=== PATIENT | female | born 1990 | race Caucasian/White ===

== ENCOUNTER 2024-12-25 21:21 | Day surgery (SDC) | payer OTHER, SELFPAY ==
--- OUTSIDE RECORDS SUMMARY | 2024-12-25 21:23 | XMS_ITS | Encounter Summary ---
Author Organization [facility] Address [facility] [place] [address] Care Team Providers Care Facilities Mechanical Design Engineer Name Role Phone Clinic - [facility] Primary Ca Provider Yessica Dunbar PA-C Unavailable + [phone] Carolin Flor APRN CERTIFIED LACTATION COUNSELOR Unavailable Lourdes Olmedo [facility] Unavailable Unavail able Diamante Kent PA-C Unavailable Reason for Visit * Reason Onset Date Comments Refill Request 12/04/2024 Encounter Details Date Type Department Care Team (Late st Contact Info) Description 12/04/2024 MyC Ishan Melton [facility] [address] [place] [address] Carolin Flor APRN CERTIFIED LACTATION COUNSELOR [address] [place] [address] Refill Request Social History Tobacco Use Types Packs/Day Years Used Date Smoking Tobacco: Never Alcohol Use Standard Drinks/Week Comments Yes 0 (1 standard drink = 0.6 oz pur e alcohol) PHQ-2 Answer Date Recorded PHQ-2 Score 0 09/14/2024 Comments No Sex and Gender Information Value Date Recorded Sex Assigned at Not on file Legal Sex Female 3:35 AM VP OF GLOBAL MARKETING Gender Identity Not on file Sexual Orientation Not on file documented as of this encounter Miscellaneous Notes * Telephone Encounter - Tona Yancey - 12/06/2024 1:39 PM CDT Pt has been scheduled. Tona Dobson Cushion Installer [facility] documented in this encounter Plan of Treatment Upcoming Encounters Date Type Department Care Team (Late st Contact Info) Description 02/08/2025 8:00 AM CDT Virtual Visit [facility] [place] [address] [place] [address] [address] [place] [id number] Sapna Gaines PA-C [address] [facility] [address] [place], [place] [address] documented as of this encounter Visit Diagnoses Diagnosis Panic attack Panic disorder without agoraphobia Anxiety Anxiety state, unspecified documented in this encounter Care Teams Facilities Mechanical Design Engineer Relationship Specialty Start Date End Date [facility] - [facility] [address] [place] [address] PCP - General 10/13/16 Yessica Dunbar PA-C [address] [place] [address] [address] [place], [place] [address] Physician Electrical Superintendent Surgery 06/22/24 Carolin Flor APRN CERTIFIED LACTATION COUNSELOR [address] [place] [address] Assigned PCP 07/17/24 Lourdes Olmedo [facility] Assigned MTM Pharmacist 07/17/24 Diamante Kent PA-C [facility] [place] [address] Assigned Surgical Provider 09/16/24 documented as of this encounter
--- OUTSIDE RECORDS SUMMARY | 2024-12-25 21:23 | XMS_ITS | Clinical Summary ---
Author Organization [facility] Address [address] [place] [address] Care Team Providers Care Deck And Hull Assembler Name Role Phone Found, No Pcp MD Primary Care Provider Unavailab le Source Comments You are receiving this document as you are listed as the primary care provider,follow-up provider, or the patient has been referred to you for consultation.This is in compliance with the Medicare and[facility] [employer] EHR Incentive Program,which states Providers who transition their patient to another setting of careor provider of care or refers their patient to another provider of care shouldprovide summary care record for each transition of care or referral. [facility] Allergies No known active allergies Medications pseudoephedrine (SUDAFED) 30 MG tablet Take 30 mg by mouth every 4 hours as needed for Congestion. Active Active Problems No known active problems Immunizations Immunization Administration Dates Next Due 4vHPV (Gardasil) 10/04/2009 DTaP 06/24/1996,03/24/1992,1991 ,1991 HepB Ped/Adol (0-18 yrs) 04/18/2005,12/25/2004,0 09/19/2004 MMR 09/19/2004,06/24/1996 Polio, Unspecified Formulation 09/19/2004,1995,1991,1991 Td 09/19/2004 Social History Tobacco Use Types Packs/Day Years Used Date Smoking Tobacco: Never Smokeless Tobacco: Never Alcohol Use Standard Drinks/Week Comments Yes 0 (1 standard drink = 0.6 oz pur e alcohol) Social Occas Comments No Sex and Gender Information Value Date Recorded Sex Assigned at Not on file Legal Sex Female 6:35 AM CDT Gender Identity Not on file Sexual Orientation Not on file Last Filed Vital Signs Vital Sign Reading Time Taken Comments Blood Pressure 130/82 06/02/2017 9:50 AM CDT Pulse 72 06/02/2017 9:50 AM CDT Temperature 37.1 C (98.8 F) 07/28/2008 4:44 PM ORACLE DEVELOPER ORAL C: 37.1 C Respiratory Rate 16 07/28/2008 4:44 PM ORACLE DEVELOPER Oxygen Saturation - - Inhaled Oxygen Concentration - - Weight 120.2 kg (265 lb 1.6 oz) 06/02/2017 9:50 AM CDT Height 160 cm (5' 3) 06/02/2017 9:50 AM CDT Body Mass Index 46.96 06/02/2017 9:50 AM CDT Plan of Treatment Health Maintenance Due Date Last Done Comments Cervical Cancer Screening Due 1991 Hep C Screening (Preventive Services) 1991 DTaP/Tdap/Td Vaccine (5 - Tdap) 09/20/2004 09/19/2004, 06/24/1996, 03/24/1992, Additional history exists HIV Screening (Preventive Services) 2007 Adult Preventive Visit 2009 HPV Vaccine (2 - 3-dose series) 11/01/2009 10/04/2009 COVID-19 Vaccine ( season) 2024 Influenza Vaccine (Season Ended) 2025 Zoster/Shingles Vaccine (1 of 2) 2041 IPV (Polio) Vaccine Completed 09/19/2004, 06/24/1996, 1991, Additional history exists HepB Vaccine Completed 04/18/2005, 10/2004, 09/19/2004 HepA Vaccine Aged Out No longer eligi ble based on patient's age to complete this topic Hib Vaccine Aged Out No longer eligi ble based on patient's age to complete this topic MCV4 Vaccine Aged Out No longer eligi ble based on patient's age to complete this topic Meningococcal B Vaccine Aged Out No l onger eligible based on patient's age to complete this topic Pneumococcal Vaccine Aged Out No long er eligible based on patient's age to complete this topic Insurance [place] [address] [place] [address] Care Teams Deck And Hull Assembler Relationship Specialty Start Date End Date Found, No Pcp, [address] [place] [address] PCP - General 09/22/18
--- OUTSIDE RECORDS SUMMARY | 2024-12-25 21:23 | XMS_ITS | Encounter Summary ---
Author Organization [place] Address [address] [place] [address]. [place] [address] Care Team Providers Care Multiple Tube Winding Machine Operator Name Role Phone Clinic - [facility] Primary Ca re Provider Lourdes Olmedo [facility] Unavailable Unavail able Yessica Dunbar-C Unavailable [phone] Carolin Flor APRN FOREST BOTANY INSTRUCTOR Unavailable [phone] Lourdes Olmedo [facility] Unavailable Unavail able Diamante Kent PA-C Unavailable [phone] Encounter Details Date Type Department Care Team (Late st Contact Info) Description 06/22/2024 MyC Medical Advice [facility] Multiple Specialty [address] [place] [address] Lourdes Olmedo [facility] Social History Tobacco Use Types Packs/Day Years Used Date Smoking Tobacco: Never Alcohol Use Standard Drinks/Week Comments Yes 0 (1 standard drink = 0.6 oz pur e alcohol) PHQ-2 Answer Date Recorded PHQ-2 Score 0 06/22/2024 Comments No Sex and Gender Information Value Date Recorded Sex Assigned at Not on file Legal Sex Female 3:35 AM METALWORKING SPECIALIST Gender Identity Not on file Sexual Orientation Not on file documented as of this encounter Plan of Treatment Upcoming Encounters Date Type Department Care Team (Late st Contact Info) Description 02/08/2025 8:00 AM CDT Virtual Visit [facility] [address] 4th [place] [address] Sapna Gaines PA-C [address] [facility] [address] [place] [address] documented as of this encounter Visit Diagnoses Not on filedocumented in this encounter Care Teams Multiple Tube Winding Machine Operator Relationship Specialty Start Date End Date [facility] - [facility] [address] [place] [address] PCP - General 10/13/16 Lourdes Olmedo [facility] [address] [place] [address] Pharmacist Pharmacist 06/22/24 09/16/24 Yessica Dunbar PA-C [address] [facility] [address] [place] [address] Physician Hot Dimpling Machine Operator Surgery 06/22/24 Carolin Flor APRN FOREST BOTANY INSTRUCTOR [address] [place] [address] Assigned PCP 07/17/24 Lourdes Olmedo [facility] Assigned MTM Pharmacist 07/17/24 Diamante Kent PA-C [address] [place] [address] Assigned Surgical Provider 09/16/24 documented as of this encounter
--- OUTSIDE RECORDS SUMMARY | 2024-12-25 21:23 | XMS_ITS | Clinical Summary ---
Author Organization [place] Address [address] [place] [address] Care Team Providers Care Solid Waste Manager Name Role Phone [facility] Primary Ca re Provider Yessica Dunbar PA-C Unavailable [phone] Carolin Flor APRN INVESTOR RELATIONS DIRECTOR Unavailable [phone] Lourdes Olmedo [facility] Unavailable Unavail able Diamante Kent PA-C Unavailable [phone] Allergies No known active allergies Medications hydrOXYzine HCl (ATARAX) 25 MG tablet Take 1 tablet (25 mg) by mouth 3 times daily as needed for anxiety. 30 tablet 05/15/20 24 Active Additional Information Patient not taking.Reported on 12/10/2024 ALPRAZolam (XANAX) 0.25 MG tabletIndicatio ns:Panic attack Take 1 tablet as needed for panic attack. 2 tablet 06/24/20 24 Active Additional Information Patient not taking.Reported on 12/10/2024 COMPOUNDED NON-CONTROLLED SUBSTANCE (CMPD RX) - PHARMACY TO MIX COMPOUNDED MEDICATIONIndic ations:Class 3 severe obesity due to excess calories in adult, unspecified BMI, unspecified whether serious comorbidity present (H) Compounded semaglutide 0.5 mg subcutaneous injection once weekly. Ok to compound due to shortages. 1 mL 3 09/14/19 25 Active COMPOUNDED NON-CONTROLLED SUBSTANCE (CMPD RX) - PHARMACY TO MIX COMPOUNDED MEDICATIONIndic ations:Class 3 severe obesity with serious comorbidity and body mass index (BMI) of 45.0 to 49.9 in adult, unspecified obesity type (H) Compounded semaglutide 1.0mg subcutaneous injection once weekly. Ok to compound due to shortages 1 mL 1 10/12/19 25 Active escitalopram (LEXAPRO) 10 MG tabletIndicatio ns:Panic attack,Anxiety Take 1 tablet (10 mg) by mouth daily. 30 tablet 1 12/07/19 25 Active tirzepatide-vijay ght management (TIRZEPATIDE) 5 MG/0.5ML vialIndications :Class 3 severe obesity with serious comorbidity and body mass index (BMI) of 45.0 to 49.9 in adult, unspecified obesity type (H) Inject 0.5 mLs (5 mg) subcutaneously once a week. After completing 4 weeks of 2.5mg dose 2 mL 2 12/25/19 25 Active escitalopram (LEXAPRO) 10 MG tabletIndicatio ns:Panic attack,Anxiety Take 1 tablet (10 mg) by mouth daily. 90 tablet 09/13/19 25 025 Discontin ued(Reord er (No AVS)) tirzepatide-Vijay ght Management (ZEPBOUND) 5 MG/0.5ML prefilled penIndications: Class 3 severe obesity with serious comorbidity and body mass index (BMI) of 45.0 to 49.9 in adult, unspecified obesity type (H) Inject 0.5 mLs (5 mg) subcutaneously every 7 days. 2 mL 2 12/22/19 25 025 Discontin ued(Konstantin eous Entry (No AVS)) Active Problems Problem Noted Date Diagnosed Date Anxiety 08/12/2024 Class 3 severe obesity with serious comorbidity and body mass index (BMI) of 45.0 to 49.9 in adult, unspecified obesity type 08/12/2024 Assessment & Plan (08/12/2024 12:28 PM SOCIAL SERVICE DIRECTOR): Weight gain through the pandemic. Previously stable around 180lbs. More rapid gain the past year through increase stress. Max weight close to 300lbs. Weight have been significantly influenced by stress and mental health. Wants to lose weight to improve overall health and feel better. [employer] employee, but [employer] still $800 due to high deductable. Was started on compounded semaglutide with Lourdes Olmedo [facility]. Currently on 0.5mg dose, has taken 1 injection at this dose. Mild side effects of nausea and constipation (miralax and metamucil). Has been really helpful, already lost 20lbs. Will not dose increase with such a good response. No hx of pancreatitis. No personal or family hx of MTC or MENII. Panic disorder 08/09/2005 Resolved Problems Problem Noted Date Diagnosed Date Resolved Date Peritonsillar abscess 11/09/20152023 Sepsis 11/09/2015 08/12/2024 Encounters Date Type Department Care Team Description 12/24/2024 Orders Only [facility] [address] [address] Diamante Kent PA-C Class 3 severe obesity due to excess calories in adult, unspecified BMI, unspecified whether serious comorbidity present (H) (Primary Dx); Class 3 severe obesity with serious comorbidity and body mass index (BMI) of 45.0 to 49.9 in adult, unspecified obesity type (H) 12/23/2024 Telephone [facility] [address] [address] Diamante Kent PA-C Refill Request (Zepbound Vial) 12/20/2024 Telephone [facility] [address] [address] Diamante Kent PA-C 12/20/2024 MyC Medical Advice [facility] [address] [address] Tamika Brandon Class 3 severe obesity due to excess calories in adult, unspecified BMI, unspecified whether serious comorbidity present (H) (Primary Dx); Class 3 severe obesity with serious comorbidity and body mass index (BMI) of 45.0 to 49.9 in adult, unspecified obesity type (H) 12/20/2024 Telephone [facility] [address] [address] Diamante Kent PA-C Clinic Care Coordination - Follow-up 12/06/2024 MyC Medical Advice [facility] [address] [address] Diamante Kent PA-C 12/04/2024 MyC Refill [address] [address] Carolin Flor APRN INVESTOR RELATIONS DIRECTOR Refill Request 10/01/2024 MyC Medical Advice [facility] [address] [address] Suzan Beyer RN Class 3 severe obesity due to excess calories in adult, unspecified BMI, unspecified whether serious comorbidity present (H) (Primary Dx); Class 3 severe obesity with serious comorbidity and body mass index (BMI) of 45.0 to 49.9 in adult, unspecified obesity type (H) 10/01/2024 Telephone [facility] [address] [address] Diamante Kent PA-C Call Back from Last 3 Months Immunizations Name Administration Dates Next Due HPV Quadrivalent 10/04/2009 Hepatitis B, Peds (Engerix-B/Recombivax HB) 04/18/2005,12/25/2004,09/19/2004 Historical DTP/aP 06/24/1996, 2,1991,1991 Influenza Vaccine >6 months,quad, PF 06/23/2023 Influenza, Split Virus, Triv alent, Pf (Fluzone\Fluarix) 07/08/2024 MMR (MMRII) 09/19/2004,06/24/1996 Poliovirus, inactivated (IPV) 09/19/2004 ,06/24/1996,1991,1991 Td (Adult), Adsorbed 09/19/2004 Varicella (Varivax) 09/10/2023,07/02/2023 Social History Tobacco Use Types Packs/Day Years Used Date Smoking Tobacco: Never Tobacco Cessation:Counseling Given: Not Answered Alcohol Use Standard Drinks/Week Comments Yes 0 (1 standard drink = 0.6 oz pur e alcohol) PHQ-2 Answer Date Recorded PHQ-2 Score 0 09/14/2024 Comments No Sex and Gender Information Value Date Recorded Sex Assigned at Not on file Legal Sex Female 3:35 AM SOCIAL SERVICE DIRECTOR Gender Identity Not on file Sexual Orientation Not on file Last Filed Vital Signs Vital Sign Reading Time Taken Comments Blood Pressure 130/82 05/15/2024 3:00 PM CDT Pulse 111 05/15/2024 3:00 PM CDT Temperature 36.4 C (97.6 F) 05/15/2024 12:12 PM CDT Respiratory Rate 18 05/15/2024 3:00 PM CDT Oxygen Saturation 96% 05/15/2024 3:00 PM CDT Inhaled Oxygen Concentration - - Weight 117.5 kg (259 lb) 09/14/2024 7:19 AM SOCIAL SERVICE DIRECTOR Height 157.5 cm (5' 2) 08/12/2024 10:40 AM SOCIAL SERVICE DIRECTOR Body Mass Index 47.37 08/12/2024 10:40 AM SOCIAL SERVICE DIRECTOR Plan of Treatment Upcoming Encounters Date Type Department Care Team (Late st Contact Info) Description 02/08/2025 8:00 AM CDT Virtual Visit [facility] [address] [address] Sapna Gaines PA-C [address] [place] [address] Health Maintenance Due Date Last Done Comments ADVANCE CARE PLANNING 1991 YEARLY PREVENTIVE VISIT 1994 DTAP/TDAP/TD IMMUNIZATION (5 - Tdap) 09/20/2004 09/19/2004, 06/24/1996, 03/24/1992, Additional history exists HIV SCREENING 2006 HEPATITIS C SCREENING 2009 HPV IMMUNIZATION (2 - 3-dose series) 11/01/2009 10/04/2009 PAP 2012 COVID-19 Vaccine ( season) 2024 ANNUAL REVIEW OF HM ORDERS 06/24/2025 06/24/2024 ZOSTER IMMUNIZATION (1 of 2) 2041 HEPATITIS B IMMUNIZATION Completed 005, 12/25/2004, 09/19/2004 INFLUENZA VACCINE Completed 07/08/2024, 06/23/2023 PHQ-2 (once per calendar year) Completed 09/14/2024, 08/12/2024, 06/22/2024 MENINGITIS IMMUNIZATION Aged Out No l onger eligible based on patient's age to complete this topic Pneumococcal Vaccine: Pediatrics (0 to 5 Years) and At-Risk Patients (6 to 49 Years) Aged Out No longer eligible based on patient's age to complete this topic Insurance Member Subscriber Plan / Payer (Ef fective 2022-Present) Name:Suzan Heredia Relation to Subscriber:Self Name:Suzan Heredia Payer ID:[id number] (NAIC) Type:Indemnity Address: [place] [id number] * Guarantor: Suzan Heredia Account Type Relation to Patient Date of Phone Billing Address Medication Therapy Self 1990 [address] [place] [address] Care Teams Solid Waste Manager Relationship Specialty Start Date End Date Clinic - [facility] [address] [place] [address] PCP - General 10/13/16 Yessica Dunbar PA-C [address] [place] [address] Physician Bleacher Pulp Surgery 06/22/24 Carolin Flor APRN INVESTOR RELATIONS DIRECTOR [address] [facility] [place] [address] Assigned PCP 07/17/24 Lourdes Olmedo, [facility] Assigned MTM Pharmacist 07/17/24 Diamante Kent PA-C [address] [place], [place] [address] Assigned Surgical Provider 09/16/24
--- OUTSIDE RECORDS SUMMARY | 2024-12-25 21:23 | XMS_ITS | Encounter Summary ---
Author Organization [place] Address [address] [place] [address] Care Team Providers Care Chief Contract Officer Name Role Phone Clinic - [facility] Primary Ca re Provider Yessica Dunbar PA-C Unavailable [phone] Carolin Flor APRN RN DELIVERY Unavailable [phone] Lourdes Olmedo [facility] Unavailable Unavail able Diamante Kent PA-C Unavailable [phone] Encounter Details Date Type Department Care Team (Late st Contact Info) Description 12/06/2024 MyC Medical Advice [facility] [address] [address] Diamante Kent PA-C [address] [place] [address] Social History Tobacco Use Types Packs/Day Years Used Date Smoking Tobacco: Never Alcohol Use Standard Drinks/Week Comments Yes 0 (1 standard drink = 0.6 oz pur e alcohol) PHQ-2 Answer Date Recorded PHQ-2 Score 0 09/14/2024 Comments No Sex and Gender Information Value Date Recorded Sex Assigned at Not on file Legal Sex Female 3:35 AM MEDIA PRODUCTION OPERATOR Gender Identity Not on file Sexual Orientation Not on file documented as of this encounter Plan of Treatment Upcoming Encounters Date Type Department Care Team (Late st Contact Info) Description 02/08/2025 8:00 AM CDT Virtual Visit [facility] [address] [place] [address] Sapna Gaines PA-C [address] [place] [id number] documented as of this encounter Visit Diagnoses Not on filedocumented in this encounter Care Teams Chief Contract Officer Relationship Specialty Start Date End Date Clinic - [facility] [address] [place] [address] PCP - General 10/13/16 Yessica Dunbar PA-C [address] [place] [address] [address] [place] [address] Physician Dba Surgery 06/22/24 Carolin Flor APRN RN DELIVERY [address] [place] [address] Assigned PCP 07/17/24 Lourdes Olmedo [facility] Assigned MTM Pharmacist 07/17/24 Diamante Kent PA-C [address] [place] [address] Assigned Surgical Provider 09/16/24 documented as of this encounter
--- OUTSIDE RECORDS SUMMARY | 2024-12-25 21:23 | XMS_ITS | Clinical Summary ---
Author Organization [facility] Address [address] [place] [address] Care Team Providers Care Life Insurance Agent Name Role Phone Pcp, No Primary Care Provider Unavailabl e Allergies No known active allergies Medications benzonatate (TESSALON) 200 mg capsuleIndicati ons:Sore throat Take 1 Capsule (200 mg) by mouth 3 times daily if needed for Cough. 21 Capsule 06/16/2023 Active albuterol HFA (PRO-AIR; VENTOLIN; PROVENTIL) 90 mcg/actuation inhalerIndicati ons:Viral URI with cough Inhale 1-2 Puffs by mouth every 4 hours if needed (coughing). 1 Each 06/16/2023 Active inhalational spacing deviceIndicatio ns:Viral URI with cough For home use. 1 Each 06/16/2023 Active FLUoxetine (PROZAC) 10 mg capsuleIndicati ons:Anxiety Take 1 Capsule (10 mg) by mouth once daily. 30 Capsule 05/15/2024 Active Active Problems Problem Noted Date Diagnosed Date Peritonsillar abscess 11/09/2015 Sepsis 11/09/2015 PANIC DISORDER 08/09/2005 URINARY TRACT DISORDER 07/31/2005 ABDOMINAL PAIN UNSPECIFIED SITE 07/31/2005 Family History Medical History Relation Name Comments Diabetes Mother Genetic Other 1 Mother Liver Ca (autoinmune dz), ETOH abuse, 1mo ago, DM~MGM and aunt stroke Genetic Other 2 Mother Liver Ca (autoinmune dz), ETOH abuse, 1mo ago, DM~MGM and aunt stroke~Father and sister w hx of panick attacks Relation Name Status Comments Mother Other 1 Other 2 Social History Tobacco Use Types Packs/Day Years Used Date Smoking Tobacco: Never Smokeless Tobacco: Never Tobacco Cessation:Counseling Given: Not Answered Alcohol Use Standard Drinks/Week Comments Yes 0 (1 standard drink = 0.6 oz pur e alcohol) every other weekend Comments No Sex and Gender Information Value Date Recorded Sex Assigned at Not on file Legal Sex Female 7:11 AM BURR SANDER Gender Identity Not on file Sexual Orientation Not on file Obstetrics History Last Filed Vital Signs Vital Sign Reading Time Taken Comments Blood Pressure 170/96 05/15/2024 11:30 AM CDT Pulse 120 05/15/2024 11:30 AM CDT Temperature 36.3 C (97.4 F) 05/15/2024 11:17 AM CDT Respiratory Rate 20 05/15/2024 11:17 AM CDT Oxygen Saturation 99% 05/15/2024 11:17 AM CDT Inhaled Oxygen Concentration - - Weight 107 kg (235 lb 14.3 oz) 11/09/2015 10:00 PM CDT Height 154.9 cm (5' 0.98) 11/09/2015 5:08 PM CD T Body Mass Index 44.59 11/09/2015 5:08 PM CDT Plan of Treatment Health Maintenance Due Date Last Done Comments Tdap 2002 Depression screening for age 12+ 2003 HIV for age 15-65 2006 Hepatitis C screening for ag e 18-79 2009 Tetanus booster 2011 Pap test for age 21-65 2012 BMI (ht and wt on same day) for age 18+ 11/08/2016 11/09/2015 COVID-19 vaccine series ( season) 2024 Influenza Vaccine (Season Ended) 2025 Pneumococcal series for age 6-49 Aged Out No longer eligible based on patient's age to complete this topic Insurance [facility] Advance Directives * Full Code (Latest Code Status on File) Date Activated Date Inactivated Comments 11/09/2015 10:14 PM 11/10/2015 8:18 PM Care Teams Life Insurance Agent Relationship Specialty Start Date End Date Pcp, No . PCP - General 09/24/16
--- OUTSIDE RECORDS SUMMARY | 2024-12-25 21:23 | XMS_ITS | Encounter Summary ---
Author Organization [facility] Address [address] [place] [address] Care Team Providers Care Mica Patcher Name Role Phone Clinic - [facility] Primary Ca re Provider Yessica Dunbar PA-C Unavailable Carolin Flor APRN PHOTOVOLTAIC SOLAR CELL DESIGNER Unavailable Lourdes Olmedo [facility] Unavailable Unavail able Diamante Kent PA-C Unavailable Reason for Visit * Reason Onset Date Comments Clinic Care Coordination - Follow-up 12/20/2024 Encounter Details Date Type Department Care Team (Late st Contact Info) Description 12/20/2024 [facility] [address] [place] [address] Diamante Kent PA-C [address] [place] [address] Clinic Care Coordination - Follow-up Social History Tobacco Use Types Packs/Day Years Used Date Smoking Tobacco: Never Alcohol Use Standard Drinks/Week Comments Yes 0 (1 standard drink = 0.6 oz pur e alcohol) PHQ-2 Answer Date Recorded PHQ-2 Score 0 09/14/2024 Comments No Sex and Gender Information Value Date Recorded Sex Assigned at Not on file Legal Sex Female 3:35 AM MANAGER FORMS Gender Identity Not on file Sexual Orientation Not on file documented as of this encounter Miscellaneous Notes * Telephone Encounter - Tamika Brandon - 12/20/2024 2:20 PM CDT Called and left message for patient. Per Diamante Kent PA-C, can switch to Zepbound. Asked patient for call back to confirm her last day and dose of compounded semaglutide that she took. * Telephone Encounter - Nikolas Ruff - 12/20/2024 12:29 PM CDT General Call Contacts Contact Date/Time Type Contact Phone/Fax 12/20/2024 12:29 PM CDT Phone (Incoming) Suzan Heredia (Self) [phone] (M) Reason for Call: Please call pt as needs alternative solution now that compounding meds have ended.Has Dilia Alejo appt Could we send this information to you in [facility] [place] or would you prefer to receive a phone call?: Patient would prefer a phone call Okay to leave a detailed message?: Yes at Cell number on file: Telephone Information: documented in this encounter Plan of Treatment Upcoming Encounters Date Type Department Care Team ([facility] Contact Info) Description 02/08/2025 8:00 AM CDT Virtual Visit [facility] [address] [address] Sapna Gaines PA-C [address] [place] [address] documented as of this encounter Visit Diagnoses Not on filedocumented in this encounter Care Teams Mica Patcher Relationship Specialty Start Date End Date Clinic - [facility] [address] [place] [address] PCP - General 10/13/16 Yessica Dunbar PA-C [address] [place] [address] 195 [place] [address] Physician Filament Shaper Surgery 06/22/24 Carolin Flor APRN PHOTOVOLTAIC SOLAR CELL DESIGNER [address] [place] [address] Assigned PCP 07/17/24 Lourdes Olmedo [facility] Assigned MTM Pharmacist 07/17/24 Diamante Kent PA-C [address] [place], [place] [address] Assigned Surgical Provider 09/16/24 documented as of this encounter
--- OUTSIDE RECORDS SUMMARY | 2024-12-25 21:23 | XMS_ITS | Encounter Summary ---
Author Organization [facility] Address [address] [place] [address]. [place] [address] Care Team Providers Care Tobacco Sorter Name Role Phone Clinic - [facility] Primary Ca re Provider Lourdes Olmedo [facility] Unavailable Unavail able Yessica Dunbar PA-C Unavailable [phone] Carolin Flor APRN OIL FIELD CASER Unavailable [phone] Lourdes Olmedo [facility] Unavailable Unavail able Diamante Kent-C Unavailable Encounter Details Date Type Department Care Team (Late st Contact Info) Description 06/22/2024 MyC Medical Advice [facility] [address] [phone] Tamika Brandon Social History Tobacco Use Types Packs/Day Years Used Date Smoking Tobacco: Never Alcohol Use Standard Drinks/Week Comments Yes 0 (1 standard drink = 0.6 oz pur e alcohol) PHQ-2 Answer Date Recorded PHQ-2 Score 0 06/22/2024 Comments No Sex and Gender Information Value Date Recorded Sex Assigned at Not on file Legal Sex Female 3:35 AM BOOKMOBILE CLERK Gender Identity Not on file Sexual Orientation Not on file documented as of this encounter Plan of Treatment Upcoming Encounters Date Type Department Care Team (Late st Contact Info) Description 02/08/2025 8:00 AM CDT Virtual Visit [facility] [address] [phone] Sapna Gaines, PA-C [address] [facility] [address] [place] [address] documented as of this encounter Visit Diagnoses Not on filedocumented in this encounter Care Teams Tobacco Sorter Relationship Specialty Start Date End Date [facility] - [facility] [address] [place] [address] PCP - General 10/13/16 Lourdes Olmedo [facility] [address] [place] [address] Pharmacist Pharmacist 06/22/24 09/16/24 Yessica Dunbar PA-C [address] [facility] 195 [place] [address] Physician Global Human Resources Director Surgery 06/22/24 Carolin Flor APRN OIL FIELD CASER [address] [place] [address] Assigned PCP 07/17/24 Lourdes Olmedo R[facility] Assigned MTM Pharmacist 07/17/24 Diamante Kent PA-C 2450 [place] [address] Assigned Surgical Provider 09/16/24 documented as of this encounter
--- OUTSIDE RECORDS SUMMARY | 2024-12-25 21:23 | XMS_ITS | Encounter Summary ---
Author Organization [facility] Address [address] [place] [address]. [place] [address] Care Team Providers Care Guard Dance Hall Name Role Phone Clinic - [facility] Primary Ca re Provider Yessica Dunbar PASteve Unavailable [phone] Carolin Flor APRN MASTER AT ARMS Unavailable [phone] Lourdes Olmedo [facility] Unavailable Unavail able Diamante Kent-C Unavailable [phone] Encounter Details Date Type Department Care Team (Late st Contact Info) Description 12/20/2024 [facility] Melton [facility] [address] 4th [place] [address] Tamika Brandon Class 3 severe obesity due to excess calories in adult, unspecified BMI, unspecified whether serious comorbidity present (H) (Primary Dx); Class 3 severe obesity with serious comorbidity and body mass index (BMI) of 45.0 to 49.9 in adult, unspecified obesity type (H) Social History Tobacco Use Types Packs/Day Years Used Date Smoking Tobacco: Never Alcohol Use Standard Drinks/Week Comments Yes 0 (1 standard drink = 0.6 oz pur e alcohol) PHQ-2 Answer Date Recorded PHQ-2 Score 0 09/14/2024 Comments No Sex and Gender Information Value Date Recorded Sex Assigned at Not on file Legal Sex Female 3:35 AM VERIFYING SPECIALIST Gender Identity Not on file Sexual Orientation Not on file documented as of this encounter Plan of Treatment Upcoming Encounters Date Type Department Care Team (Late st Contact Info) Description 02/08/2025 8:00 AM CDT Virtual Visit [facility] [place] [address] [facility] [address] [place] [phone] Sapna Gaines PA-C [address] [facility] [address] [place] [address] documented as of this encounter Visit Diagnoses Diagnosis Class 3 severe obesity due to excess calories in adult, unspecified BMI, unspecified whether serious comorbidity present (H)- Primary Class 3 severe obesity with serious comorbidity and body mass index (BMI) of 45.0 to 49.9 in adult, unspecified obesity type (H) documented in this encounter Care Teams Guard Dance Hall Relationship Specialty Start Date End Date Clinic - [facility] [address] [place] [address] PCP - General 10/13/16 Yessica Dunbar PA-C [address] [place] [address] [address] [place] [address] Physician Distribution Designer Surgery 06/22/24 Carolin Flor APRN CNP [address] [place] [address] Assigned PCP 07/17/24 Lourdes Olmedo [facility] Assigned MTM Pharmacist 07/17/24 Diamante Kent PA-C 2450 [place], [place] [address] Assigned Surgical Provider 09/16/24 documented as of this encounter
--- OUTSIDE RECORDS SUMMARY | 2024-12-25 21:23 | XMS_ITS | Encounter Summary ---
Author Organization [facility] Address [address] [place] [address] Care Team Providers Care Credit Risk Management Director Name Role Phone Clinic - [facility] Primary Ca re Provider Yessica Dunbar PA-C Unavailable [phone] Carolin Flor APRN ADOLESCENT SPECIALIST Unavailable Lourdes Omledo [facility] Unavailable Unavail able Diamante Kent PA-C Unavailable [phone] Encounter Details Date Type Department Care Team (Late st Contact Info) Description 12/20/2024 Telephone [facility] [address] [place] [address] Diamante Kent PA-C [address] [place] [address] Social History Tobacco Use Types Packs/Day Years Used Date Smoking Tobacco: Never Alcohol Use Standard Drinks/Week Comments Yes 0 (1 standard drink = 0.6 oz pur e alcohol) PHQ-2 Answer Date Recorded PHQ-2 Score 0 09/14/2024 Comments No Sex and Gender Information Value Date Recorded Sex Assigned at Not on file Legal Sex Female 3:35 AM CLEANERS Gender Identity Not on file Sexual Orientation Not on file documented as of this encounter Miscellaneous Notes * Telephone Encounter - Tamika Brandon - 12/20/2024 2:38 PM CDT Discussing with patient via mychart. * Telephone Encounter - Paulette Dangelo - 12/20/2024 2:26 PM CDT Patient Returning Call Reason for call: patient called re: her Zepbound Information relayed to patient: Patient reported she last took a shot last , pt was 3 more doses. Pt is taking 1 mg dose currently/. Patient has additional questions: Yes What are your questions/concerns: patient has questions re: Zepbound vs Semiglutide ( see MyChart msg) Who does the patient want to speak with: RN Is an translator/interpreter needed?: No Could we send this information to you in [employer] or would you prefer to receive a phone call?: No preference Okay to leave a detailed message?: Yes at Cell number on file: Telephone Information: documented in this encounter Plan of Treatment Upcoming Encounters Date Type Department Care Team (Late st Contact Info) Description 02/08/2025 8:00 AM CDT Virtual Visit [facility] [address] [address] Sapna Gaines PA-C [address] [place] [address] documented as of this encounter Visit Diagnoses Not on filedocumented in this encounter Care Teams Credit Risk Management Director Relationship Specialty Start Date End Date Clinic - [facility] [address] [place] [address] PCP - General 10/13/16 Yessica Dunbar PA-C [address] [place] [address] 195 [place] [address] Physician Tube Maker Surgery 06/22/24 Carolin Flor APRN ADOLESCENT SPECIALIST [address] [place] [address] Assigned PCP 07/17/24 Lourdes Olmedo [facility] Assigned MTM Pharmacist 07/17/24 Diamante Kent PA-C [address] [place] [address] Assigned Surgical Provider 09/16/24 documented as of this encounter
--- OUTSIDE RECORDS SUMMARY | 2024-12-25 21:23 | XMS_ITS | Encounter Summary ---
Author Organization [facility] Address [address] [place] [address] Care Team Providers Care Street Superintendent Name Role Phone Clinic - [facility] Primary Ca re Provider Lourdes Olmedo [facility] Unavailable Unavail able Yessica Dunbar PA-C Unavailable [phone] Carolin Flor APRN PRODUCT STEWARD Unavailable [phone] Lourdes Olmedo [facility] Unavailable Unavail able Diamante Kent PA-C Unavailable [phone] Reason for Visit * Reason Onset Date Comments Refill Request 09/09/2024 Encounter Details Date Type Department Care Team (Late st Contact Info) Description 09/09/2024 MyC Ishan Melton [facility] [address] [phone] Diamante Kent PA-C [address] [place] [address] Refill Request Social History Tobacco Use Types Packs/Day Years Used Date Smoking Tobacco: Never Alcohol Use Standard Drinks/Week Comments Yes 0 (1 standard drink = 0.6 oz pur e alcohol) PHQ-2 Answer Date Recorded PHQ-2 Score 0 08/12/2024 Comments No Sex and Gender Information Value Date Recorded Sex Assigned at Not on file Legal Sex Female 3:35 AM GMAT TUTOR Gender Identity Not on file Sexual Orientation Not on file documented as of this encounter Plan of Treatment Upcoming Encounters Date Type Department Care Team (Late st Contact Info) Description 02/08/2025 8:00 AM CDT Virtual Visit [facility] [place] [address] [facility] [address] [place] [phone] Sapna Gaines, PASteve [address] [facility] [address] [place] [address] documented as of this encounter Visit Diagnoses Diagnosis Class 3 severe obesity due to excess calories in adult, unspecified BMI, unspecified whether serious comorbidity present (H) documented in this encounter Care Teams Street Superintendent Relationship Specialty Start Date End Date Clinic - [facility] [address] [place] [address] PCP - General 10/13/16 Lourdes Olmedo [facility] [address] [place] [address] Pharmacist Pharmacist 06/22/24 09/16/24 Yessica Dunbar PA-C [address] [facility] 195 [place] [address] Physician Team Leader/Research Psychologist Surgery 06/22/24 Carolin Flor APRN CNP [address] [place] [address] Assigned PCP 07/17/24 Lourdes Olmedo [facility] Assigned MTM Pharmacist 07/17/24 Diamante Kent PA-C 2450 [place] [address] Assigned Surgical Provider 09/16/24 documented as of this encounter
--- OUTSIDE RECORDS SUMMARY | 2024-12-25 21:23 | XMS_ITS | Encounter Summary ---
Author Organization [facility] Address [address] [place] [address]. [place] [address] Care Team Providers Care Marketing Development Representative Name Role Phone Clinic - [facility] Primary Ca re Provider Lourdes Olmedo [facility] Unavailable Unavail able Yessica Dunbar PA-C Unavailable [phone] Carolin Flor APRN PICK AND SHOVEL MAN Unavailable [phone] Lourdes Olmedo [facility] Unavailable Unavail able Diamante KentC Unavailable [phone] Encounter Details Date Type Department Care Team (Late st Contact Info) Description 06/23/2024 MyC Medical Advice [facility] [address] [place] [address] Maryanne Millard, RN Social History Tobacco Use Types Packs/Day Years Used Date Smoking Tobacco: Never Alcohol Use Standard Drinks/Week Comments Yes 0 (1 standard drink = 0.6 oz pur e alcohol) PHQ-2 Answer Date Recorded PHQ-2 Score 0 06/22/2024 Comments No Sex and Gender Information Value Date Recorded Sex Assigned at Not on file Legal Sex Female 3:35 AM STEWARD/STEWARDESS SMOKE ROOM Gender Identity Not on file Sexual Orientation Not on file documented as of this encounter Plan of Treatment Upcoming Encounters Date Type Department Care Team (Late st Contact Info) Description 02/08/2025 8:00 AM CDT Virtual Visit [facility] [address] 4th [place] [address] Sapna Gaines, PA-C [address] [facility] 4[address] [place] [address] documented as of this encounter Visit Diagnoses Not on filedocumented in this encounter Care Teams Marketing Development Representative Relationship Specialty Start Date End Date [facility] - [facility] [address] [place] [address] PCP - General 10/13/16 Lourdes Olmedo R[facility] [address] [place] [address] Pharmacist Pharmacist 06/22/24 09/16/24 Yessica Dunbar PA-C [address] [place] [address] 195 [place] [address] Physician Digital Ad Trafficker Surgery 06/22/24 Carolin Flor APRN PICK AND SHOVEL MAN [address] [place] [address] Assigned PCP 07/17/24 Lourdes Olmedo [facility] Assigned MTM Pharmacist 07/17/24 Diamante Kent PA-C 2450 [place] [address] Assigned Surgical Provider 09/16/24 documented as of this encounter
--- OUTSIDE RECORDS SUMMARY | 2024-12-25 21:23 | XMS_ITS | Encounter Summary ---
Author Organization [facility] Address [address] [place] [address] Care Team Providers Care Stock Chaser Name Role Phone Clinic - [facility] Primary Ca re Provider Yessica Dunbar PA-C Unavailable [phone] Carolin Flor APRN SAMPLE DISPLAY PREPARER Unavailable [phone] Lourdes Olmedo [facility] Unavailable Unavail able Diamante Kent PA-C Unavailable [phone] Reason for Visit * Reason Onset Date Comments Refill Request 12/23/2024 Zepbound Vial Encounter Details Date Type Department Care Team (Late st Contact Info) Description 12/23/2024 [facility] [address] [address] Diamante Kent PA-C [address] [place] [address] Refill Request (Zepbound Vial) Social History Tobacco Use Types Packs/Day Years Used Date Smoking Tobacco: Never Alcohol Use Standard Drinks/Week Comments Yes 0 (1 standard drink = 0.6 oz pur e alcohol) PHQ-2 Answer Date Recorded PHQ-2 Score 0 09/14/2024 Comments No Sex and Gender Information Value Date Recorded Sex Assigned at Not on file Legal Sex Female 3:35 AM ELECTRONIC PREPRESS SYSTEM OPERATOR Gender Identity Not on file Sexual Orientation Not on file documented as of this encounter Miscellaneous Notes * Telephone Encounter - Jan Cotton - 12/23/2024 2:27 PM CDT Images from the original note were not included. documented in this encounter Plan of Treatment Upcoming Encounters Date Type Department Care Team (Late st Contact Info) Description 02/08/2025 8:00 AM CDT Virtual Visit [facility] [address] [place] [phone] Sapna Gaines PA-C [address] [address] documented as of this encounter Visit Diagnoses Not on filedocumented in this encounter Care Teams Stock Chaser Relationship Specialty Start Date End Date Clinic - [facility] [address] [place] [address] PCP - General 10/13/16 Yessica Dunbar PA-C [address] [place] [address] [facility] 195 [place], [place] [address] Physician Nurse Staff [facility] Surgery 06/22/24 Carolin Flor APRN CNP [address] [place] [address] Assigned PCP 07/17/24 Lourdes Olmedo [facility] Assigned MTM Pharmacist 07/17/24 Diamante Kent PA-C 2450 [place], [place] [address] Assigned Surgical Provider 09/16/24 documented as of this encounter
--- OUTSIDE RECORDS SUMMARY | 2024-12-25 21:23 | XMS_ITS | Encounter Summary ---
Author Organization [facility] Address [address] [place] [address] Care Team Providers Care Quarter Lining Smoother Name Role Phone Clinic - [facility] Primary Ca re Provider Yessica Dunbar PA-C Unavailable [phone] Carolin Flor APRN MARKETING REPRESENTATIVE Unavailable [phone] Lourdes Olmedo [facility] Unavailable Unavail able Diamante Kent PA-C Unavailable [phone] Encounter Details Date Type Department Care Team (Late st Contact Info) Description 12/24/2024 Orders Only [facility] [address] 4th [place] [address] Diamante Kent PA-C [address] [place] [address] Class 3 severe obesity due to excess [...] on file Legal Sex Female 3:35 AM BRICKLAYER SEWER Gender Identity Not on file Sexual Orientation Not on file documented as of this encounter Plan of Treatment Upcoming Encounters Date Type Department Care Team (Late st Contact Info) Description 02/08/2025 8:00 AM CDT Virtual Visit [facility] [address] [place] [address] Sapna Gaines PA-C [address] [address] documented as of this encounter Visit Diagnoses Diagnosis Class 3 severe obesity due to excess calories in adult, unspecified BMI, unspecified whether serious comorbidity present (H)- Primary Class 3 severe obesity with serious comorbidity and body mass index (BMI) of 45.0 to 49.9 in adult, unspecified obesity type (H) documented in this encounter Care Teams Quarter Lining Smoother Relationship Specialty Start Date End Date Clinic - [facility] [address] [place] [address] PCP - General 10/13/16 Yessica Dunbar PA-C [address] [place] [address] 195 [place], [place] [address] Physician Water Sander Surgery 06/22/24 Carolin Flor APRN CNP [address] [place] [address] Assigned PCP 07/17/24 Lourdes Olmedo [facility] Assigned MTM Pharmacist 07/17/24 Diamante Kent PA-C [facility]0 [place] [address] Assigned Surgical Provider 09/16/24 documented as of this encounter
--- OUTSIDE RECORDS SUMMARY | 2024-12-25 21:24 | XMS_ITS | Encounter Summary ---
Author Organization [place] Address [address] [place] [address] Care Team Providers Care Needle Straightener Name Role Phone Clinic - [facility] Primary Ca re Provider Lourdes Olmedo [facility] Unavailable Unavail able Yessica Dunbar PA-C Unavailable [phone] Carolin Flor APRN PAVING CREW FOREMAN Unavailable [phone] Lourdes Olmedo [facility] Unavailable Unavail able Diamante Kent PA-C Unavailable Encounter Details Date Type Department Care Team (Late st Contact Info) Description 09/09/2024 MyC Medical Advice [facility] Management Clinic [address] [address] Diamante Kent PA-C [facility] [place] [address] Social History Tobacco Use Types Packs/Day Years Used Date Smoking Tobacco: Never Alcohol Use Standard Drinks/Week Comments Yes 0 (1 standard drink = 0.6 oz pur e alcohol) PHQ-2 Answer Date Recorded PHQ-2 Score 0 08/12/2024 Comments No Sex and Gender Information Value Date Recorded Sex Assigned at Not on file Legal Sex Female 3:35 AM SENIOR PARALEGAL Gender Identity Not on file Sexual Orientation Not on file documented as of this encounter Plan of Treatment Upcoming Encounters Date Type Department Care Team (Late st Contact Info) Description 02/08/2025 8:00 AM CDT Virtual Visit [facility] [place] [address] [facility] [address] [place] [address] Sapna Gaines PA-C [address] [place] [address] documented as of this encounter Visit Diagnoses Not on filedocumented in this encounter Care Teams Needle Straightener Relationship Specialty Start Date End Date Clinic - [facility] [address] [place] [address] PCP - General 10/13/16 Lourdes Olmedo RPH [address] [place] [address] Pharmacist Pharmacist 06/22/24 09/16/24 Yessica Dunbar PA-C [address] [place] [address] 195 [place] [address] Physician Turpentine Distiller Surgery 06/22/24 Carolin Flor APRN PAVING CREW FOREMAN [address] [place] [address] Assigned PCP 07/17/24 Lourdes Olmedo R[facility] Assigned MTM Pharmacist 07/17/24 Diamante Kent PA-C [facility] [place] [address] Assigned Surgical Provider 09/16/24 documented as of this encounter
[2024-12-25 21:34] VITALS: BP 138/84; PULSE 119; RESP 16; TEMP 36.4; O2SAT 97; BMI 47.6
--- NOTE | 2024-12-25 22:27 | ED_ITS ---
HPI - General Adult General Chief complaint: Abdominal Pain Stated complaint: abdominal pain Time Seen by Provider: 12/25/24 22:27 History of Present Illness HPI narrative: Patient reports on and off abdominal pain starting 3 days , pain starts in the middle and moves to the side. Patient has thrown up today a few times due to the pain . Patient states that she takes semaglutide GLP -1 for the last few months. no diarrhea, patient thinks she may have some consipation but is unsure. 34-year-old woman presenting to the emergency department with concern of abdominal pain. With sharp and intermittent abdominal pain over the last 3 days. Admits that it does radiate into her back somewhat; seems to indicate the right side a little more. Does have nausea particularly with pain; is nauseated currently and would appreciate something for nausea. Does not feel needs anything for pain at the moment. Did try some Pepto-Bismol but that did not really help. Does not struggle with GERD. Has struggled with constipation since beginning semaglutide. She though does not think she is constipated anymore; has been taking MiraLax regularly. No fever. No dysuria. No hematuria. No abdominal surgeries. Mom had gallbladder problems Related Data Allergies Allergy/AdvReac Type Severity Reaction Status Date / Time No Known Drug Allergies Allergy Verified 12/26/24 00:54 Review of Systems Status of ROS: Reports: 6 or more systems reviewed and unremarkable except as noted in History and below [facility] Social History What is your current living situation?: I presently have a place to live Problems where you live: no known problems Problems where you live details: n/a In the past 12 months, utilities in danger of being shut off: no In past 12 months, lack of transportation kept you from medical appts, meetings, work, or getting things needed for daily living: no In the past 12 mos, have been you worried that your food would run out before you had money to buy more?: never true In the past 12 mos, the food you bought just didn't last and you didn't have money to buy more?: never true Highest level of school completed/degree received: Associate degree: occupational, technical, vocational program Smoking Status: Never smoker Do you use any of these nicotine containing products: Vaping Products Second hand tobacco smoke exposure: No How often do you have a drink containing alcohol: monthly or less How many standard drinks containing alcohol do you have on a typical day: 1 or 2 How often do you have six or more drinks on one occasion: Never AUDIT-C Alcohol total score: 1 Non-prescribed substance use: denies use Caffeine: Yes How often does anyone, including family, friends and others, physically hurt you : never How often does anyone, including family, friends and others, insult or talk down to you: never How often does anyone, including family, friends and others, threaten you with harm: never How often does anyone, including family, friends and others, scream or curse at you: never service: No Exam Narrative: Exam Narrative: Pleasant. NAD. Breathing easily. Lungs are clear. Heart in elevated or tachycardic rate in a regular rhythm. Abdomen is overweight and soft. Mild to moderately tender to palpation across the upper abdomen but more so mid and r ight side upper abdomen. No peritoneal signs. Negative Driscoll's. No flank tenderness. Extremities are well perfused Const: Vital Signs, click to edit/add: Vital Signs - 24 hr 12/25/24 21:34 12/25/24 23:46 Temperature 97.6 F Pulse Rate [Left P ulse Oximeter] 119 H 105 H Respiratory Rate 16 20 Blood Pressure [Ri ght Upper Arm] 138/84 137/102 H Pulse Oximetry 97 98 Oxygen Delivery Me thod Room Air Room Air Documenting provider has reviewed patient's vital signs: yes Course Vital Signs Vital signs: Initial Vital Signs Temperature 97.6 F 12/25/24 21:34 Temperature Source Temporal Artery Scan 12/25/24 21:34 Pulse Rate 119 H 12/25/24 21:34 Respiratory Rate 16 12/25/24 21:34 Blood Pressure 138/84 12/25/24 21:34 Blood Pressure Mean 102 12/25/24 21:34 Blood Pressure Position Sitting 12/25/24 21:34 Pulse Oximetry 97 12/25/24 21:34 Oxygen Delivery Method Room Air 12/25/24 21:34 Vital Signs Temperature 97.6 F 12/25/24 21:34 Pulse Rate 119 H 12/25/24 21:34 Respiratory Rate 16 12/25/24 21:34 Blood Pressure 138/84 12/25/24 21:34 Pulse Oximetry 97 12/25/24 21:34 Oxygen Delivery Method Room Air 12/25/24 21:34 Temperature 98.2 F 12/26/24 02:31 Pulse Rate 98 12/26/24 02:31 Respiratory Rate 18 12/26/24 02:31 Blood Pressure 142/100 H 12/26/24 02:31 Pulse Oximetry 96 12/26/24 02:31 Oxygen Delivery Method Room Air 12/26/24 02:31 Medications Administered Medications: Generic Name Dose Route Start Last Admin Trade Name Freq PRN Reason Stop Dose Admin Hydromorphone HCl 0.5 mg 12/26/24 03:02 12/26/24 03:43 Hydromorphone 0.5 Mg/0.5 Ml Inj IVP 0.5 mg Q4H PRN Administration Severe Pain Sodium Chloride 1,000 mls @ 75 mls/hr 12/26/24 03:07 12/26/24 03:43 0.9 % Sodium Chloride 1000 Ml IV 75 mls/hr .[id number] MYKE Administration Ondansetron HCl 4 mg 12/26/24 03:02 12/26/24 03:43 Ondansetron 2 Mg/Ml Inj IVP 4 mg Q4H PRN Administration Nausea Discontinued Medications Generic Name Dose Route Start Last Admin Trade Name Freq PRN Reason Stop Dose Admin Sodium Chloride 1,000 mls @ 1,000 mls/hr 12/26/24 00:19 12/26/24 01:51 0.9 % Sodium Chloride 1000 Ml IV 12/26/24 01:18 Infused .Q1H ONE Infusion Piperacillin Sod/Tazobactam 100 mls @ 200 mls/hr 12/26/24 01:41 12/26/24 02:52 Sod 3.375 gm/ Sodium Chloride IVPB 12/26/24 01:42 Infused ONCE ONE Infusion Ketorolac Tromethamine 30 mg 12/26/24 00:11 12/26/24 00:27 Ketorolac 30 Mg/Ml Inj IVP 12/26/24 00:12 30 mg ONCE ONE Administration Ondansetron HCl 4 mg 12/25/24 22:33 12/25/24 22:53 Ondansetron Odt 4 Mg Tab PO 12/25/24 22:34 4 mg ONCE ONE Administration Medical Decision Making MDM Narrative Medical decision making narrative: Would consider biliary or hepatic issue here given location of pain and the radiation that she describes. Has had them possible constipation. Unusual location for diverticulitis. Pancreatitis less likely. Waxing and waning suggests colicky possibly biliary aspect to discomfort. Labs to guide further evaluation although I would anticipate abdominal ultras ound, limited initially. Zofran and pain medication as needed Discussed ultrasound with coppersmith apprentice. Cholelithiasis is noted but inflammatory changes to the gallbladder were not. Labs returned notable for elevation in transaminases. Normal bilirubin and alkaline phosphatase. White count is elevated at over 14,000. I do presume that there is possible cholecystitis but at least biliary colic. Less likely ductal stone though common bile duct noted to be enlarged. Did discuss this case with General surgery. Given a little unclear picture, also CT abdomen and pelvis. INDICATION: Right upper quadrant abdominal pain, nausea TECHNIQUE: Ultrasound abdomen limited. Sonographic images of the right upper quadrant were obtained using rodriguez-scale and color Doppler images. COMPARISON: None FINDINGS: Liver: Moderate, diffuse fatty infiltration of the liver is present. Gallbladder: The neck of the gallbladder is not well demonstrated. Multiple echogenic, shadowing gallstones are present within the gallbladder. The gallbladder wall is normal in appearance. No pericholecystic fluid is present. A sonographic Driscoll`s sign was reported. Common bile duct: The common bile duct is dilated, measuring 7 mm. No intrahepatic biliary ductal dilatation seen. Pancreas: The visualized portions of the pancreatic head and body are normal in appearance. Right Kidney: 12.7 cm. No hydronephrosis or ureterectasis is seen. Vascular: The visualized abdominal aorta and IVC are unremarkable. The visualized portal vein is patent with normal anterograde flow. IMPRESSIONS: 1. Multiple echogenic, shadowing gallstones are present within the gallbladder. 2. A sonographic Driscoll`s sign was reported. Close clinical observation is recommended. 3. The common bile duct is dilated, measuring 7 mm. If there is clinical evidence of biliary obstruction, further evaluation with MRCP or ERCP is recommended. Dictated by Moy Gale MD @ 12/25/2024 11:43:32 PM INDICATION: Upper abdominal pain. Cholelithiasis. TECHNIQUE: CT abdomen and pelvis acquired with 100 cc Isovue 370 IV contrast. COMPARISON: Abdominal ultrasound 12/25/2024. FINDINGS: Lower chest: Unremarkable. Liver: Hepatic steatosis. Gallbladder and bile ducts: Cholelithiasis. No gallbladder wall thickening or pericholecystic fluid. No biliary ductal dilatation. Pancreas: Unremarkable. Spleen: Unremarkable. Adrenal glands: Unremarkable. Kidneys: Symmetric renal enhancement. No hydronephrosis or hydroureter. No urinary calculi. GI tract: No bowel obstruction. No suspicious bowel wall thickening. Normal appendix. Vasculature: Grossly patent vasculature. No abdominal aortic aneurysm. Lymph nodes: No suspicious lymphadenopathy. Peritoneum/Abdominal Wall: No ascites or pneumoperitoneum. No acute abdominal wall abnormality. Pelvis: Normal bladder. Multi-septated cystic structure in the region of the right adnexa measuring up to 7.5 cm in transverse dimension (series 2 image 125). Left ovarian cyst/dominant follicle measuring 2.5 cm. Bones: No acute abnormality. IMPRESSION: 1. Cholelithiasis without CT evidence of acute cholecystitis. 2. Multiseptated cystic structure in the region of the right adnexa measuring in total up to 7.5 cm. Differential considerations include multiple prominent ovarian/adnexal cysts versus hydrosalpinx or cystic mass. Further characterization with pelvic ultrasound recommended. 3. Hepatic steatosis. Please note that all CT scans at this facility use dose modulation, iterative reconstruction, and/or weight-based dosing when appropriate to reduce radiation dose to as low as reasonably achievable. Dictated by Manny Dutta MD @ 12/26/2024 1:07:39 AM I discussed all findings with Ms. Heredia and her father. Will be admitted for further cares. Will need pelvic ultrasound to further characterize adnexal cystic structure/mass Discussed with hospitalist for admission. Will be giving Zosyn as initial antibiotic Lab Data Lab results reviewed: Yes I reviewed the patient's lab results Labs: Lab Results 12/25/24 12/25/24 12/26/24 Range/Units 22:40 22:51 00:23 WBC 14.72 H (4.50-11.00) K/uL RBC 4.77 (4.00-5.20) m/uL Hgb 11.6 L (12.0-16.0) gm/dL Hct 35.7 (33.0-51.0) % MCV 75 L (80-100) fL MCH 24 L (26-34) pg MCHC 33 (32-36) gm/dL RDW Coeff of Gustavo 16.1 H (11.5-15.5) % Plt Count 373 (140-440) K/uL Neut % (Auto) 74.0 H (42.0-72.0) % Lymph % (Auto) 19.0 L (20-44) % [place] % (Auto) 4.5 (0.0-11.0) % Eos % (Auto) 1.0 (0.0-7.0) % Baso % (Auto) 0.1 (0.0-3.0) % Neut # (Auto) 10.90 H (1.7-7.0) K/uL Lymph # (Auto) 2.80 (0.90-2.90) K/uL [place] # (Auto) 0.70 (0.00-0.90) K/UL Eos # (Auto) 0.10 (0.00-0.50) K/uL Baso # (Auto) 0.00 (0.00-0.30) K/uL Abs Immat Gran (auto) 0.20 (0.00-0.30) K/uL Imm/Tot Granulo (auto) 1.4 % Sodium 138 (135-149) mmol/L Potassium 3.9 (3.6-5.1) mmol/L Chloride 103 (96-114) mmol/L Carbon Dioxide 28 (20-32) mmol/L Anion Gap 7 (7-15) mEq/L BUN 12 (5-24) mg/dL Creatinine 0.8 (0.5-1.5) mg/dL Estimated Creat Clear 79.11 Estimated GFR 100 ml/min Glucose 108 (60-115) mg/dL Calcium 8.7 (8.4-10.6) mg/dL Total Bilirubin 0.8 (0.1-1.5) mg/dL Direct Bilirubin 0.6 H (0.0-0.5) mg/dL AST 316 H (12-35) U/L ALT 155 H (4-35) U/L Alkaline Phosphatase 95 (40-150) U/L C-Reactive Protein 1.4 H (0.5-1.0) mg/dL Total Protein 7.7 (6.0-8.3) g/dL Albumin 4.3 (3.3-5.0) g/dL Lipase 186 (23-300) U/L Urine Color Yellow (Yellow) Urine Appearance Clear (Clear) Urine pH 7.0 (5.0-8.5) Ur Specific Elizabeth 1.020 (1.000-1.030) Urine Protein 1+ A (Negative) Urine Glucose (UA) Negative (Negative) Urine Ketones Trace A (Negative) Urine Blood Negative (Negative) Urine Nitrite Negative (Negative) Urine Bilirubin Negative (Negative) Urine Urobilinogen 4.0 A (0.2-1.0) Ur Leukocyte Esterase Negative (Negative) Urine RBC 0-2 (0-2) Urine WBC 0-2 (0-5) Ur Squamous Epith Cells Moderate A (None-Few) Triple Phos Crystals Few A (None) Amorphous Sediment Many A (None) Urine Bacteria Moderate A (None) Lab Acknowledgement Test Added Discharge Plan Discharge Clinical Impression: Acute upper abdominal pain, Biliary colic, Cholelithiasis, Adnexal mass Patient Disposition: Admitted As Observation Condition: Stable
[2024-12-25 22:48] LABS: Appearance Urine Clear (Clear); Bilirubin Urine Negative (Negative); Blood Urine Negative (Negative); Color Urine Yellow (Yellow); Glucose Urine Negative (Negative); Ketones Urine Trace (Negative); Leukocyte Esterase Urine Negative (Negative); Nitrite Urine Negative (Negative); Protein Urine 1+ (Negative)
[2024-12-25] MEDS: ONDANSETRON ODT 4 MG TAB PO (22:53)
[2024-12-25 22:57] LABS: Amorphous Sediment Urine Many; Bacteria Urine Moderate; RBC Urine 0-2 (0-2); Squamous Epithelial Cell Urine Moderate (None-Few); Triple Phosphate Crystal Urine Few; WBC Urine 0-2 (0-5)
[2024-12-25 22:59] LABS: Basophils Percent Auto 0.1 % (0.0-3.0); Hematocrit 35.7 % (33.0-51.0); Hemoglobin* 11.6 gm/dL (12.0-16.0); Immature Granulocytes Pct Auto 1.4 %; Mean Corpuscular HGB Conc 33 gm/dL (32-36); Mean Corpuscular Hemoglobin 24 pg (26-34); Mean Corpuscular Volume 75 fL (80-100); Monocytes Percent Auto 4.5 % (0.0-11.0); Platelet Count* 373 K/uL (140-440); RDW Coefficient of Variation % 16.1 % (11.5-15.5); Red Blood Count 4.77 m/uL (4.00-5.20); White Blood Count* 14.72 K/uL (4.50-11.00)
[2024-12-25 23:11] LABS: Slide Review Reflex No
--- NOTE | 2024-12-25 23:13 | CRLHL7_ITS ---
For Patients: As a result of the Century Cures Act, medical imaging exams and procedure reports are released immediately into your electronic medical record. You may view this report before your referring provider. If you have questions, please contact your health care provider. INDICATION: Right upper quadrant abdominal pain, nausea TECHNIQUE: Ultrasound abdomen limited. Sonographic images of the right upper quadrant were obtained using rodriguez-scale and color Doppler images. COMPARISON: None FINDINGS: Liver: Moderate, diffuse fatty infiltration of the liver is present. Gallbladder: The neck of the gallbladder is not well demonstrated. Multiple echogenic, shadowing gallstones are present within the gallbladder. The gallbladder wall is normal in appearance. No pericholecystic fluid is present. A sonographic Driscoll`s sign was reported. Common bile duct: The common bile duct is dilated, measuring 7 mm. No intrahepatic biliary ductal dilatation seen. Pancreas: The visualized portions of the pancreatic head and body are normal in appearance. Right Kidney: 12.7 cm. No hydronephrosis or ureterectasis is seen. Vascular: The visualized abdominal aorta and IVC are unremarkable. The visualized portal vein is patent with normal anterograde flow. IMPRESSIONS: 1. Multiple echogenic, shadowing gallstones are present within the gallbladder. 2. A sonographic Driscoll`s sign was reported. Close clinical observation is recommended. 3. The common bile duct is dilated, measuring 7 mm. If there is clinical evidence of biliary obstruction, further evaluation with MRCP or ERCP is recommended. Dictated by Moy Gale MD @ 12/25/2024 11:43:32 PM Dictated by: Moy Gale MD @ 12/25/2024 23:43:46 (Electronically Signed)
[2024-12-25 23:14] LABS: Albumin* 4.3 g/dL (3.3-5.0); Chloride* 103 mmol/L (96-114); Potassium* 3.9 mmol/L (3.6-5.1); Sodium* 138 mmol/L (135-149)
[2024-12-25 23:16] LABS: Blood Urea Nitrogen* 12 mg/dL (5-24); Creatinine* 0.8 mg/dL (0.5-1.5); Est. Creatinine Clearance* 79.11; Estimated Glomerular Filt Rate 100 ml/min
[2024-12-25 23:17] LABS: Alanine Aminotransferase* 155 U/L (4-35); Alkaline Phosphatase* 95 U/L (40-150); Anion Gap 7 mEq/L (7-15); Aspartate Amino Transferase* 316 U/L (12-35); Bilirubin Direct* 0.6 mg/dL (0.0-0.5); Bilirubin Total* 0.8 mg/dL (0.1-1.5); Calcium* 8.7 mg/dL (8.4-10.6); Carbon Dioxide* 28 mmol/L (20-32); Glucose* 108 mg/dL (60-115); Total Protein* 7.7 g/dL (6.0-8.3)
[2024-12-25 23:20] LABS: C Reactive Protein* 1.4 mg/dL (0.5-1.0)
--- OUTSIDE RECORDS SUMMARY | 2024-12-25 23:42 | XMS_ITS | Encounter Summary ---
Author Organization [place] Address [address] [place] [address]. [place] [address] Care Team Providers Care Maintenance Controller Name Role Phone Clinic - [facility] Primary Ca re Provider Lourdes Olmedo [facility] Unavailable Unavail able Yessica Dunbar-C Unavailable [phone] Carolin Flor APRN LAND SURVEYING SURVEY WORKER Unavailable [phone] Lourdes Olmedo [facility] Unavailable Unavail able Diamante Kent PA-C Unavailable [phone] Encounter Details Date Type Department Care Team (Late st Contact Info) Description 06/22/2024 MyC Medical Advice [facility] Multiple Specialty [address] [place] [address] Lourdes Olmedo [facility] Social History Tobacco Use Types Packs/Day Years Used Date Smoking Tobacco: Never Alcohol Use Standard Drinks/Week Comments Yes 0 (1 standard drink = 0.6 oz pur e alcohol) PHQ-2 Answer Date Recorded PHQ-2 Score 0 06/22/2024 Comments No Sex and Gender Information Value Date Recorded Sex Assigned at Not on file Legal Sex Female 3:35 AM KENNEL ASSISTANT Gender Identity Not on file Sexual Orientation Not on file documented as of this encounter Plan of Treatment Upcoming Encounters Date Type Department Care Team (Late st Contact Info) Description 02/08/2025 8:00 AM CDT Virtual Visit [facility] [address] 4th [place] [address] Sapna Gaines PA-C [address] [facility] [address] [place] [address] documented as of this encounter Visit Diagnoses Not on filedocumented in this encounter Care Teams Maintenance Controller Relationship Specialty Start Date End Date [facility] [address] [place] [address] PCP - General 10/13/16 Lourdes Olmedo RPH [address] [place] [address] Pharmacist Pharmacist 06/22/24 09/16/24 Yessica Dunbar PA-C [address] [facility] [address] [place] [address] Physician Credit Administration Officer Surgery 06/22/24 Carolin Flor APRN LAND SURVEYING SURVEY WORKER [address] [place] [address] Assigned PCP 07/17/24 Lourdes Olmedo RPH Assigned MTM Pharmacist 07/17/24 Diamante Kent PA-C [address] [place] [address] Assigned Surgical Provider 09/16/24 documented as of this encounter
--- OUTSIDE RECORDS SUMMARY | 2024-12-25 23:42 | XMS_ITS | Encounter Summary ---
Author Organization [facility] Address [address] [place] [address] Care Team Providers Care Cd Reactor Operator Head Name Role Phone Unavailable Primary Care Provider Unavailabl e Prior Encounters Date Type Department Care Team Description 01/28/2020 Travel Plan of Treatment Not on file Visit Diagnoses Not on file
--- OUTSIDE RECORDS SUMMARY | 2024-12-25 23:42 | XMS_ITS | Encounter Summary ---
Author Organization [place] Address [facility] [place] [address] Care Team Providers Care Rural Carrier Name Role Phone Clinic - [facility] Primary Ca Provider Yessica Dunbar PA-C Unavailable [phone] Carolin Flor APRN STERILIZER MACHINE OPERATOR Unavailable Lourdes Olmedo [facility] Unavailable Unavail able Diamante Kent PA-C Unavailable Reason for Visit * Reason Onset Date Comments Refill Request 12/04/2024 Encounter Details Date Type Department Care Team (Late st Contact Info) Description 12/04/2024 MyC Ishan Melton [facility] [address] [place] [address] Carolin Flor APRN STERILIZER MACHINE OPERATOR [address] [place] [address] Refill Request Social History Tobacco Use Types Packs/Day Years Used Date Smoking Tobacco: Never Alcohol Use Standard Drinks/Week Comments Yes 0 (1 standard drink = 0.6 oz pur e alcohol) PHQ-2 Answer Date Recorded PHQ-2 Score 0 09/14/2024 Comments No Sex and Gender Information Value Date Recorded Sex Assigned at Not on file Legal Sex Female 3:35 AM PSYCHIATRIC TECH Gender Identity Not on file Sexual Orientation Not on file documented as of this encounter Miscellaneous Notes * Telephone Encounter - Tona Yancey - 12/06/2024 1:39 PM CDT Pt has been scheduled. Tona Dobson Dry Cleaner Helper [facility] documented in this encounter Plan of Treatment Upcoming Encounters Date Type Department Care Team (Late st Contact Info) Description 02/08/2025 8:00 AM CDT Virtual Visit [facility] [place] [address] [place] [address] [address] [place] [phone] Sapna Gaines PA-C [address] [facility] [address] [place], [place] [address] documented as of this encounter Visit Diagnoses Diagnosis Panic attack Panic disorder without agoraphobia Anxiety Anxiety state, unspecified documented in this encounter Care Teams Rural Carrier Relationship Specialty Start Date End Date [facility] [address] [place] [address] PCP - General 10/13/16 Yessica Dunbar PA-C [address] [place] [address] [address] [place], [place] [address] Physician Floral Merchandiser Surgery 06/22/24 Carolin Flor APRN STERILIZER MACHINE OPERATOR [address] [place] [address] Assigned PCP 07/17/24 Lourdes Olmedo [facility] Assigned MTM Pharmacist 07/17/24 Diamante Kent PA-C [facility] [place] [address] Assigned Surgical Provider 09/16/24 documented as of this encounter
--- OUTSIDE RECORDS SUMMARY | 2024-12-25 23:42 | XMS_ITS | Encounter Summary ---
Author Organization [place] Address [address] [place] [address] Care Team Providers Care Hot Metal Car Operator Name Role Phone Clinic - [facility] Primary Ca re Provider Yessica Dunbar PA-C Unavailable [phone] Carolin Flor APRN FRUIT GRADING SUPERVISOR Unavailable Lourdes Olmedo [facility] Unavailable Unavail able Diamante Kent PA-C Unavailable [phone] Encounter Details Date Type Department Care Team (Late st Contact Info) Description 12/06/2024 MyC Medical Advice [facility] [address] [address] Diamante Kent PA-C [address] [place] [address] Social History Tobacco Use Types Packs/Day Years Used Date Smoking Tobacco: Never Alcohol Use Standard Drinks/Week Comments Yes 0 (1 standard drink = 0.6 oz pur e alcohol) PHQ-2 Answer Date Recorded PHQ-2 Score 0 09/14/2024 Comments No Sex and Gender Information Value Date Recorded Sex Assigned at Not on file Legal Sex Female 3:35 AM GOLF CLUB HEAD INSPECTOR AND ADJUSTER Gender Identity Not on file Sexual Orientation Not on file documented as of this encounter Plan of Treatment Upcoming Encounters Date Type Department Care Team (Late st Contact Info) Description 02/08/2025 8:00 AM CDT Virtual Visit [facility] [address] [place] [phone] Sapna Gaines PA-C [address] [place] [id number] documented as of this encounter Visit Diagnoses Not on filedocumented in this encounter Care Teams Hot Metal Car Operator Relationship Specialty Start Date End Date Clinic - [facility] [address] [place] [address] PCP - General 10/13/16 Yessica Dunbar PA-C [address] [place] [address] [address] [place] [address] Physician Wireless Telegrapher Surgery 06/22/24 Carolin Flor APRN FRUIT GRADING SUPERVISOR [address] [place] [address] Assigned PCP 07/17/24 Lourdes Olmedo [facility] Assigned MTM Pharmacist 07/17/24 Diamante Kent PA-C [address] [place] [address] Assigned Surgical Provider 09/16/24 documented as of this encounter
--- OUTSIDE RECORDS SUMMARY | 2024-12-25 23:42 | XMS_ITS | Encounter Summary ---
Author Organization [facility] Address [address] [place] [address] Care Team Providers Care Sail Lay Out Worker Name Role Phone Clinic - [facility] Primary Ca re Provider Yessica Dunbar PA-C Unavailable Carolin Flor APRN ENTRY LEVEL BUSINESS ANALYST Unavailable Lourdes Olmedo [facility] Unavailable Unavail able Diamante Kent PA-C Unavailable Reason for Visit * Reason Onset Date Comments Clinic Care Coordination - Follow-up 12/20/2024 Encounter Details Date Type Department Care Team (Late st Contact Info) Description 12/20/2024 [facility] [address] [place] [address] Diamante Kent PA-C [address] [place] [address] Clinic Care Coordination - Follow-up Social History Tobacco Use Types Packs/Day Years Used Date Smoking Tobacco: Never Alcohol Use Standard Drinks/Week Comments Yes 0 (1 standard drink = 0.6 oz pur e alcohol) PHQ-2 Answer Date Recorded PHQ-2 Score 0 09/14/2024 Comments No Sex and Gender Information Value Date Recorded Sex Assigned at Not on file Legal Sex Female 3:35 AM CASING CLEANER Gender Identity Not on file Sexual Orientation [...] PM CDT Phone (Incoming) Suzan Heredia (Self) [phone] (M) Reason for Call: Please call pt as needs alternative solution now that compounding meds have ended.Has Dilia Alejo appt Could we send this information to you in SustainXboomer or would you prefer to receive a phone call?: Patient would prefer a phone call Okay to leave a detailed message?: Yes at Cell number on file: Telephone Information: documented in this encounter Plan of Treatment Upcoming Encounters Date Type Department Care Team ([facility] Contact Info) Description 02/08/2025 8:00 AM CDT Virtual Visit [facility] Management Clinic [address] [address] Sapna Gaines PA-C [address] [place] [address] documented as of this encounter Visit Diagnoses Not on filedocumented in this encounter Care Teams Sail Lay Out Worker Relationship Specialty Start Date End Date Clinic - [facility] [address] [place] [address] PCP - General 10/13/16 Yessica Dunbar PA-C [address] [place] [address] 195 [place] [address] Physician Oil Speculator Surgery 06/22/24 Carolin Flor APRN ENTRY LEVEL BUSINESS ANALYST [address] [place] [address] Assigned PCP 07/17/24 Lourdes Olmedo [facility] Assigned MTM Pharmacist 07/17/24 Diamante Kent PA-C [address] [place], [place] [address] Assigned Surgical Provider 09/16/24 documented as of this encounter
--- OUTSIDE RECORDS SUMMARY | 2024-12-25 23:42 | XMS_ITS | Clinical Summary ---
Author Organization [facility] Address [address] [place] [address] Care Team Providers Care Kindergarten Teacher Name Role Phone Found, No Pcp MD Primary Care Provider Unavailab le Source Comments You are receiving this document as you are listed as the primary care provider,follow-up provider, or the patient has been referred to you for consultation.This is in compliance with the Medicare and[facility] Cent[facility] EHR Incentive Program,which states Providers who transition [...] 37.1 C (98.8 F) 07/28/2008 4:44 PM RADIATOR FITTER ORAL C: 37.1 C Respiratory Rate 16 07/28/2008 4:44 PM RADIATOR FITTER Oxygen Saturation - - Inhaled Oxygen Concentration [...] patient's age to complete this topic Insurance [facility] [place] [address] [place] [address] Care Teams Kindergarten Teacher Relationship Specialty Start Date End Date Found, No Pcp, [address] [place] [address] PCP - General 09/22/18
--- OUTSIDE RECORDS SUMMARY | 2024-12-25 23:42 | XMS_ITS | Encounter Summary ---
Author Organization [facility] Address [address] [place] [address] Care Team Providers Care Historical Archeologist Name Role Phone Clinic - [facility] Primary Ca re Provider Yessica Dunbar PA-C Unavailable [phone] Carolin Flor APRN SULFIDE HEAD OPERATOR Unavailable [phone] Lourdes Olmedo [facility] Unavailable Unavail able Diamante Kent PA-C Unavailable Encounter Details Date Type Department Care Team (Late st Contact Info) Description 12/20/2024 Telephone [facility] [address] [place] [address] Diamante Kent PA-C [address] [place] [address] Social History Tobacco Use Types Packs/Day Years Used Date Smoking Tobacco: Never Alcohol Use Standard Drinks/Week Comments Yes 0 (1 standard drink = 0.6 oz pur e alcohol) PHQ-2 Answer Date Recorded PHQ-2 Score 0 09/14/2024 Comments No Sex and Gender Information Value Date Recorded Sex Assigned at Not on file 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 Sex Female 3:35 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 Gender Identity Not on file Sexual Orientation [...] want to speak with: RN Is an park interpreter needed?: No Could we send this information to you in LurnQ or would you prefer to receive a phone call?: No preference Okay to leave a detailed message?: Yes at Cell number on file: Telephone Information: documented in this encounter Plan of Treatment Upcoming Encounters Date Type Department Care Team (Late st Contact Info) Description 02/08/2025 8:00 AM CDT Virtual Visit [facility] [address] [address] Sapna Gaines PA-C [address] [place] [address] documented as of this encounter Visit Diagnoses Not on filedocumented in this encounter Care Teams Historical Archeologist Relationship Specialty Start Date End Date Clinic - [facility] [address] [place] [address] PCP - General 10/13/16 Yessica Dunbar PA-C [address] [place] [address] 195 [place] [address] Physician Truck Despatcher Surgery 06/22/24 Carolin Flor APRN SULFIDE HEAD OPERATOR [address] [place] [address] Assigned PCP 07/17/24 Lourdes Olmedo [facility] Assigned MTM Pharmacist 07/17/24 Diamante Kent PA-C [address] [place] [address] Assigned Surgical Provider 09/16/24 documented as of this encounter
--- OUTSIDE RECORDS SUMMARY | 2024-12-25 23:42 | XMS_ITS | Encounter Summary ---
Author Organization [facility] Address [address] [place] [address] Care Team Providers Care Server Service Assistant Name Role Phone Clinic - [facility] Primary Ca re Provider Yessica Dunbar PA-C Unavailable [phone] Carolin Flor APRN PST SPECIALIST Unavailable [phone] Lourdes Olmedo [facility] Unavailable Unavail able Diamante Kent PA-C Unavailable [phone] Encounter Details Date Type Department Care Team (Late st Contact Info) Description 12/24/2024 Orders Only [facility] Weight Management Clinic [address] 4[address] [place] [address] Diamante Kent PA-C [address] [place] [address] Class 3 severe obesity due to [...] on file Legal Sex Female 3:35 AM BUS GIRL Gender Identity Not on file Sexual Orientation Not on file documented as of this encounter Plan of Treatment Upcoming Encounters Date Type Department Care Team (Late st Contact Info) Description 02/08/2025 8:00 AM CDT Virtual Visit [facility] [address] [place] [address] Sapna Gaines PA-C [address] [address] documented as of this encounter Visit Diagnoses Diagnosis Class 3 severe obesity due to excess calories in adult, unspecified BMI, unspecified whether serious comorbidity present (H)- Primary Class 3 severe obesity with serious comorbidity and body mass index (BMI) of 45.0 to 49.9 in adult, unspecified obesity type (H) documented in this encounter Care Teams Server Service Assistant Relationship Specialty Start Date End Date Clinic - [facility] [address] [place] [address] PCP - General 10/13/16 Yessica Dunbar PA-C [address] [place] [address] 195 [place], [place] [address] Physician Technology Assistant Surgery 06/22/24 Carolin Flor APRN CNP [address] [place] [address] Assigned PCP 07/17/24 Lourdes Olmedo [facility] Assigned MTM Pharmacist 07/17/24 Diamante Kent PA-C [facility] [place] [address] Assigned Surgical Provider 09/16/24 documented as of this encounter
--- OUTSIDE RECORDS SUMMARY | 2024-12-25 23:42 | XMS_ITS | Clinical Summary ---
Author Organization [employer] Address [address] [place] [address] Care Team Providers Care Hoop Maker Machine Name Role Phone Pcp, No Primary Care [...] on file Legal Sex Female 7:11 AM MOBILE HOME SET UP PERSON Gender Identity Not on file Sexual Orientation [...] patient's age to complete this topic Insurance [facility] Advance Directives * Full Code (Latest Code Status on File) Date Activated Date Inactivated Comments 11/09/2015 10:14 PM 11/10/2015 8:18 PM Care Teams Hoop Maker Machine Relationship Specialty Start Date End Date Pcp, No . PCP - General 09/24/16
--- OUTSIDE RECORDS SUMMARY | 2024-12-25 23:42 | XMS_ITS | Encounter Summary ---
Author Organization [facility] Address [address] [place] [address] Care Team Providers Care Glass Decorator Name Role Phone Clinic - [facility] Primary Ca re Provider Yessica Dunbar PA-C Unavailable [phone] Carolin Flor APRN MOLDING MACHINE OPERATOR HELPER Unavailable [phone] Lourdes Olmedo [facility] Unavailable Unavail able Diamante Kent PA-C Unavailable [phone] Reason for Visit * Reason Onset Date Comments Refill Request 12/23/2024 Zepbound Vial Encounter Details Date Type Department Care Team (Late st Contact Info) Description 12/23/2024 [facility] Weight Management Clinic [address] [address] Diamante Kent PA-C [address] [place] [address] Refill Request (Zepbound Vial) Social History Tobacco Use Types Packs/Day Years Used Date Smoking Tobacco: Never Alcohol Use Standard Drinks/Week Comments Yes 0 (1 standard drink = 0.6 oz pur e alcohol) PHQ-2 Answer Date Recorded PHQ-2 Score 0 09/14/2024 Comments No Sex and Gender Information Value Date Recorded Sex Assigned at Not on file 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 documented in this encounter Plan of Treatment Upcoming Encounters Date Type Department Care Team (Late st Contact Info) Description 02/08/2025 8:00 AM CDT Virtual Visit [facility] [address] [place] [address] Sapna Gaines PA-C [address] [address] documented as of this encounter Visit Diagnoses Not on filedocumented in this encounter Care Teams Glass Decorator Relationship Specialty Start Date End Date Clinic - [facility] [address] [place] [address] PCP - General 10/13/16 Yessica Dunbar PA-C [address] [facility] 195 [place], [place] [address] Physician Crab Backer Surgery 06/22/24 Carolin Flor APRN CNP [address] [place] [address] Assigned PCP 07/17/24 Lourdes Olmedo [facility] Assigned MTM Pharmacist 07/17/24 Diamante Knet PA-C [address] [place], [place] [address] Assigned Surgical Provider 09/16/24 documented as of this encounter
--- OUTSIDE RECORDS SUMMARY | 2024-12-25 23:42 | XMS_ITS | Clinical Summary ---
Author Organization [facility] Address [address] [place] [address] Care Team Providers Care Log Brander Name Role Phone Unavailable Primary Care Provider Unavailabl e Social History Tobacco Use Types Packs/Day Years Used Date Smoking Tobacco: Never Assessed Comments Unknown Sex and Gender Information Value Date Recorded Sex Assigned at Not on file Legal Sex Female 12:26 PM PDT Gender Identity Not on file Sexual Orientation Not on file Plan of Treatment Health Maintenance Due Date Last Done Comments Meningococcal B Vaccine Aged Out No l onger eligible based on patient's age to complete this topic
--- OUTSIDE RECORDS SUMMARY | 2024-12-25 23:42 | XMS_ITS | Encounter Summary ---
Author Organization [facility] Address [address] [place] [address]. [place] [address] Care Team Providers Care Intake Coordinator Name Role Phone Clinic - [facility] Primary Ca re Provider Yessica Dunbar PASteve Unavailable [phone] Carolin Flor APRN WELDING EQUIPMENT SALES REPRESENTATIVE Unavailable [phone] Lourdes Olmedo [facility] Unavailable Unavail able Diamante Kent-C Unavailable [phone] Encounter Details Date Type Department Care Team (Late st Contact Info) Description 12/20/2024 [facility] Weight Management Clinic [address] 4th [place] [address] Tamika Brandon Class 3 severe [...] on file 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 [address] [place] [address] Sapna Gaines PA-C [address] [facility] [address] [place] [address] documented as of this encounter Visit Diagnoses Diagnosis Class 3 severe obesity due to excess calories in adult, unspecified BMI, unspecified whether serious comorbidity present (H)- Primary Class 3 severe obesity with serious comorbidity and body mass index (BMI) of 45.0 to 49.9 in adult, unspecified obesity type (H) documented in this encounter Care Teams Intake Coordinator Relationship Specialty Start Date End Date Clinic - [facility] [address] [place] [address] PCP - General 10/13/16 Yessica Dunbar PA-C [address] [place] [address] 195 [place] [address] Physician Director Search Surgery 06/22/24 Carolin Flor APRN CNP [address] [place] [address] Assigned PCP 07/17/24 Lourdes Olmedo [facility] Assigned MTM Pharmacist 07/17/24 Diamante Kent PA-C [address] [place], [place] [address] Assigned Surgical Provider 09/16/24 documented as of this encounter
--- OUTSIDE RECORDS SUMMARY | 2024-12-25 23:43 | XMS_ITS | Encounter Summary ---
Author Organization [facility] Address [address] [place] [address] Care Team Providers Care Spiritual Advisor Name Role Phone Clinic - [place] Primary Ca re Provider Lourdes Olmedo [facility] Unavailable Unavail able Yessica Dunbar PA-C Unavailable [phone] Carolin Flor APRN B[employer]IST[employer] LABORATORY [employer] Unavailable [phone] Lourdes Olmedo [facility] Unavailable Unavail able Diamante Kent PA-C Unavailable Encounter Details Date Type Department Care Team (Late st Contact Info) Description 09/09/2024 MyC Medical Advice [facility] Weight Management Clinic [address] [address] Diamante Kent PA-C [facility] [place] [address] Social History Tobacco Use Types Packs/Day Years Used Date Smoking Tobacco: Never Alcohol Use Standard Drinks/Week Comments Yes 0 (1 standard drink = 0.6 oz pur e alcohol) PHQ-2 Answer Date Recorded PHQ-2 Score 0 08/12/2024 Comments No Sex and Gender Information Value Date Recorded Sex Assigned at Not on file 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 Female 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 Gender Identity Not on file Sexual Orientation Not on file documented as of this encounter Plan of Treatment Upcoming Encounters Date Type Department Care Team (Late st Contact Info) Description 02/08/2025 8:00 AM CDT Virtual Visit [facility] Management [facility] [place] [address] [facility] [address] [place] [address] Sapna Gaines PA-C [address] [place] [address] documented as of this encounter Visit Diagnoses Not on filedocumented in this encounter Care Teams Spiritual Advisor Relationship Specialty Start Date End Date Clinic - [place] [address] [place] [address] PCP - General 10/13/16 Lourdes Olmedo [facility] [address] [place] [address] Pharmacist Pharmacist 06/22/24 09/16/24 Yessica Dunbar PA-C [address] [place] [address] 195 [place] [address] Physician Mower Mechanic Surgery 06/22/24 Carolin Flor APRN [employer] [address] [place] [address] Assigned PCP 07/17/24 Lourdes Olmedo [facility] Assigned MTM Pharmacist 07/17/24 Diamante Kent PA-C [facility] [place] [address] Assigned Surgical Provider 09/16/24 documented as of this encounter
--- OUTSIDE RECORDS SUMMARY | 2024-12-25 23:43 | XMS_ITS | Clinical Summary ---
Author Organization [facility] Address [address] [facility] [place] [address] Care Team Providers Care Weight Loss Counselor Name Role Phone [facility] Primary Ca re Provider Yessica Dunbar PA-C Unavailable [phone] Carolin Flor APRN VENETIAN BLIND WORKER Unavailable [phone] Lourdes Olmedo [facility] Unavailable Unavail able Diamante Kent PA-C Unavailable [phone] Allergies No known active allergies Medications hydrOXYzine [...] 08/12/2024 Assessment & Plan (08/12/2024 12:28 PM CONTROL OPERATOR FLOW COAT): Weight gain through the pandemic. Previously stable around 180lbs. More rapid gain the past year through increase stress. Max weight close to 300lbs. Weight have been significantly influenced by stress and mental health. Wants to lose weight to improve overall health and feel better. [employer] employee, but [employer] still $800 due to high deductable. Was started on compounded semaglutide with Lourdes Olmedo [facility]. Currently on 0.5mg dose, has taken [...] Department Care Team Description 12/24/2024 Orders Only [facility] Weight Management [address] [address] Diamante Kent PA-C Class 3 severe obesity due to excess calories in adult, unspecified BMI, unspecified whether serious comorbidity present (H) (Primary Dx); Class 3 severe obesity with serious comorbidity and body mass index (BMI) of 45.0 to 49.9 in adult, unspecified obesity type (H) 12/23/2024 Telephone [facility] [address] [address] Diamante Kent PA-C Refill Request (Zepbound Vial) 12/20/2024 Telephone [facility] Weight Management [address] [address] Diamante Kent PA-C 12/20/2024 MyC Medical Advice [facility] Management [address] [address] Tamika Brandon Class 3 severe obesity due to excess calories in adult, unspecified BMI, unspecified whether serious comorbidity present (H) (Primary Dx); Class 3 severe obesity with serious comorbidity and body mass index (BMI) of 45.0 to 49.9 in adult, unspecified obesity type (H) 12/20/2024 Telephone [facility] Management [address] [address] Diamante Kent PA-C Clinic Care Coordination - Follow-up 12/06/2024 MyC Medical Advice [facility] [address] [address] Diamante Kent PA-C 12/04/2024 MyC Refill [address] [address] Carolin Flor APRN VENETIAN BLIND WORKER Refill Request 10/01/2024 MyC Medical Advice [facility] [address] [address] Suzan Beyer RN Class 3 severe obesity due to excess calories in adult, unspecified BMI, unspecified whether serious comorbidity present (H) (Primary Dx); Class 3 severe obesity with serious comorbidity and body mass index (BMI) of 45.0 to 49.9 in adult, unspecified obesity type (H) 10/01/2024 Telephone [facility] Management [address] [address] Diamante Kent PA-C Call Back [...] on file Legal Sex Female 3:35 AM CONTROL OPERATOR FLOW COAT Gender Identity Not on file Sexual Orientation [...] 117.5 kg (259 lb) 09/14/2024 7:19 AM CONTROL OPERATOR FLOW COAT Height 157.5 cm (5' 2) 08/12/2024 10:40 AM CONTROL OPERATOR FLOW COAT Body Mass Index 47.37 08/12/2024 10:40 AM CONTROL OPERATOR FLOW COAT Plan of Treatment Upcoming Encounters Date Type Department Care Team (Late st Contact Info) Description 02/08/2025 8:00 AM CDT Virtual Visit [facility] Clinic [address] [address] Sapna Gaines PA-C [address] [place] [address] Health Maintenance Due Date Last Done [...] Name:Suzan Heredia Payer ID:[id number] (NAIC) Type:Indemnity Address: [place] [id number] * Guarantor: Suzan Heredia Account Type Relation to Patient Date of Phone Billing Address Medication Therapy Self 1990 [address] [place] [address] Care Teams Weight Loss Counselor Relationship Specialty Start Date End Date Clinic - [facility] [address] [place] [address] PCP - General 10/13/16 Yessica Dunbar PA-C [address] [place] [address] Physician Training And Development Director Surgery 06/22/24 Carolin Flor APRN VENETIAN BLIND WORKER [address] [facility] [place] [address] Assigned PCP 07/17/24 Lourdes Olmedo, [facility] Assigned MTM Pharmacist 07/17/24 Diamante Kent PA-C [address] [place], [place] [address] Assigned Surgical Provider 09/16/24
--- OUTSIDE RECORDS SUMMARY | 2024-12-25 23:43 | XMS_ITS | Encounter Summary ---
Author Organization [place] Address [address] [place] [address] Care Team Providers Care Postal Clerk Name Role Phone Clinic - [facility] Primary Ca re Provider Lourdes Olmedo [facility] Unavailable Unavail able Yessica Dunbar PA-C Unavailable [phone] Carolin Flor APRN PATIENT SERVICES REP Unavailable [phone] Lourdes Olmedo [facility] Unavailable Unavail able Diamante Kent PA-C Unavailable Reason for Visit * Reason Onset Date Comments Refill Request 09/09/2024 Encounter Details Date Type Department Care Team (Late st Contact Info) Description 09/09/2024 MyC Ishan Melton [facility] [address] [phone] Diamante Kent PA-C [address] [place] [address] Refill Request Social History Tobacco Use Types Packs/Day Years Used Date Smoking Tobacco: Never Alcohol Use Standard Drinks/Week Comments Yes 0 (1 standard drink = 0.6 oz pur e alcohol) PHQ-2 Answer Date Recorded PHQ-2 Score 0 08/12/2024 Comments No Sex and Gender Information Value Date Recorded Sex Assigned at Not on file Legal Sex Female 3:35 AM STEEL ROD BUSTER Gender Identity Not on file Sexual Orientation Not on file documented as of this encounter Plan of Treatment Upcoming Encounters Date Type Department Care Team (Late st Contact Info) Description 02/08/2025 8:00 AM CDT Virtual Visit [facility] [place] [address] [facility] [address] [place] [address] Sapna Gaines, PASteve [address] [facility] [address] [place] [address] documented as of this encounter Visit Diagnoses Diagnosis Class 3 severe obesity due to excess calories in adult, unspecified BMI, unspecified whether serious comorbidity present (H) documented in this encounter Care Teams Postal Clerk Relationship Specialty Start Date End Date Clinic - [facility] [address] [place] [address] PCP - General 10/13/16 Lourdes Olmedo [facility] [address] [place] [address] Pharmacist Pharmacist 06/22/24 09/16/24 Yessica Dunbar PA-C [address] [facility] 195 [place] [address] Physician Neuropsychiatric Aide Surgery 06/22/24 Carolin Flor APRN CNP [address] [place] [address] Assigned PCP 07/17/24 Lourdes Olmedo [facility] Assigned MTM Pharmacist 07/17/24 Diamante Kent PA-C [address] [place] [address] Assigned Surgical Provider 09/16/24 documented as of this encounter
--- OUTSIDE RECORDS SUMMARY | 2024-12-25 23:43 | XMS_ITS | Encounter Summary ---
Author Organization [place] Address [address] [place] [address]. [place] [address] Care Team Providers Care Educational Psychology Professor Name Role Phone Clinic - [facility] Primary Ca re Provider Lourdes Olmedo [facility] Unavailable Unavail able Yessica Dunbar PA-C Unavailable [phone] Carolin Flor APRN ACCOUNT PROCESSOR Unavailable [phone] Lourdes Olmedo [facility] Unavailable Unavail able Diamante KentC Unavailable [phone] Encounter Details Date Type Department Care Team (Late st Contact Info) Description 06/23/2024 MyC Medical Advice [facility] Central Nursing [address] [place] [id number] Maryanne Millard, RN Social History Tobacco Use Types Packs/Day Years Used Date Smoking Tobacco: Never Alcohol Use Standard Drinks/Week Comments Yes 0 (1 standard drink = 0.6 oz pur e alcohol) PHQ-2 Answer Date Recorded PHQ-2 Score 0 06/22/2024 Comments No Sex and Gender Information Value Date Recorded Sex Assigned at Not on file Legal Sex Female 3:35 AM COCOA ROOM OPERATOR Gender Identity Not on file Sexual Orientation Not on file documented as of this encounter Plan of Treatment Upcoming Encounters Date Type Department Care Team (Late st Contact Info) Description 02/08/2025 8:00 AM CDT Virtual Visit [facility] [address] 4th [place] [address] Sapna Gaines, PA-C [address] [facility] [address] [place] [address] documented as of this encounter Visit Diagnoses Not on filedocumented in this encounter Care Teams Educational Psychology Professor Relationship Specialty Start Date End Date [facility] [address] [place] [address] PCP - General 10/13/16 Lourdes Olmedo RPH [address] [place] [address] Pharmacist Pharmacist 06/22/24 09/16/24 Yessica Dunbar PA-C [address] [place] [address] [address] [place] [address] Physician Cigar Head Holer Surgery 06/22/24 Carolin Flor APRN ACCOUNT PROCESSOR [address] [place] [address] Assigned PCP 07/17/24 Lourdes Olmedo RPH Assigned MTM Pharmacist 07/17/24 Diamante Kent PA-C [address] [place] [address] Assigned Surgical Provider 09/16/24 documented as of this encounter
--- OUTSIDE RECORDS SUMMARY | 2024-12-25 23:43 | XMS_ITS | Encounter Summary ---
Author Organization [facility] Address [address] [place] [address]. [place] [address] Care Team Providers Care Leaf Size Picker Name Role Phone Clinic - [facility] Primary Ca re Provider Lourdes Olmedo [facility] Unavailable Unavail able Yessica Dunbar PA-C Unavailable [phone] Carolin Flor APRN LITHOGRAPHY CONTACT WORKER Unavailable Lourdes Olmedo [facility] Unavailable Unavail able Diamante Kent-C Unavailable [phone] Encounter Details Date Type Department Care Team (Late st Contact Info) Description 06/22/2024 MyC Medical Advice [facility] [address] [phone] Tamika Brandon Social History Tobacco Use Types Packs/Day Years Used Date Smoking Tobacco: Never Alcohol Use Standard Drinks/Week Comments Yes 0 (1 standard drink = 0.6 oz pur e alcohol) PHQ-2 Answer Date Recorded PHQ-2 Score 0 06/22/2024 Comments No Sex and Gender Information Value Date Recorded Sex Assigned at Not on file Legal Sex Female 3:35 AM BUSINESS DEVELOPMENT INTERN Gender Identity Not on file Sexual Orientation Not on file documented as of this encounter Plan of Treatment Upcoming Encounters Date Type Department Care Team (Late st Contact Info) Description 02/08/2025 8:00 AM CDT Virtual Visit [facility] [address] [phone] Sapna Gaines, PA-C [address] [facility] [address] [place] [address] documented as of this encounter Visit Diagnoses Not on filedocumented in this encounter Care Teams Leaf Size Picker Relationship Specialty Start Date End Date [facility] [address] [place] [address] PCP - General 10/13/16 Lourdes Olmedo RPH [address] [place] [address] Pharmacist Pharmacist 06/22/24 09/16/24 Yessica Dunbar PA-C [address] [facility] [address] [place] [address] Physician Supervisor Filter Assembly Surgery 06/22/24 Carolin Flor APRN LITHOGRAPHY CONTACT WORKER [address] [place] [address] Assigned PCP 07/17/24 Lourdes Olmedo RPH Assigned MTM Pharmacist 07/17/24 Diamante Kent PA-C [address] [place] [address] Assigned Surgical Provider 09/16/24 documented as of this encounter
[2024-12-25 23:46] VITALS: BP 137/102; PULSE 105; RESP 20; O2SAT 98
[2024-12-26] VITALS (20 sets, daily range): BP systolic 134–216; BP diastolic 75–154; PULSE 95–138; RESP 14–28; TEMP 36.3–37.4; O2SAT 94–98; BMI 48.2; BMI 47.9
--- NOTE | 2024-12-26 00:18 | CRLHL7_ITS ---
For Patients: As a result of the Century Cures Act, medical imaging exams and procedure reports are released immediately into your electronic medical record. You may view this report before your referring provider. If you have questions, please contact your health care provider. INDICATION: Upper abdominal pain. Cholelithiasis. TECHNIQUE: CT abdomen and pelvis acquired with 100 cc Isovue 370 IV contrast. COMPARISON: Abdominal ultrasound 12/25/2024. FINDINGS: Lower chest: Unremarkable. Liver: Hepatic steatosis. Gallbladder and bile ducts: Cholelithiasis. No gallbladder wall thickening or pericholecystic fluid. No biliary ductal dilatation. Pancreas: Unremarkable. Spleen: Unremarkable. Adrenal glands: Unremarkable. Kidneys: Symmetric renal enhancement. No hydronephrosis or hydroureter. No urinary calculi. GI tract: No bowel obstruction. No suspicious bowel wall thickening. Normal appendix. Vasculature: Grossly patent vasculature. No abdominal aortic aneurysm. Lymph nodes: No suspicious lymphadenopathy. Peritoneum/Abdominal Wall: No ascites or pneumoperitoneum. No acute abdominal wall abnormality. Pelvis: Normal bladder. Multi-septated cystic structure in the region of the right adnexa measuring up to 7.5 cm in transverse dimension (series 2 image 125). Left ovarian cyst/dominant follicle measuring 2.5 cm. Bones: No acute abnormality. IMPRESSION: 1. Cholelithiasis without CT evidence of acute cholecystitis. 2. Multiseptated cystic structure in the region of the right adnexa measuring in total up to 7.5 cm. Differential considerations include multiple prominent ovarian/adnexal cysts versus hydrosalpinx or cystic mass. Further characterization with pelvic ultrasound recommended. 3. Hepatic steatosis. Please note that all CT scans at this facility use dose modulation, iterative reconstruction, and/or weight-based dosing when appropriate to reduce radiation dose to as low as reasonably achievable. Dictated by Manny Dutta MD @ 12/26/2024 1:07:39 AM (Electronically Signed)
[2024-12-26] MEDS: 0.9 % SODIUM CHLORIDE 1000 ml 1,000 ML IV (00:26)
[2024-12-26] MEDS: KETOROLAC 30 MG/ML inj IVP (00:27)
[2024-12-26 01:02] LABS: Lipase* 186 U/L (23-300)
[2024-12-26] MEDS: PIPERACILLIN/TAZOBACTAM 3.375 GM in 0.9 % SODIUM CHLORIDE Mini-bag 100 ML IVPB ×2 (01:53→08:27)
--- NOTE | 2024-12-26 03:09 | W.PM.TELEH&P ---
Telehealth- H&P: HPI History of Present Illness Date Seen: 01/13/25 Chief complaint: abdominal pain Narrative: Suzan Heredia is seen as an Interactive Telehealth visit. Suzan Heredia is a 34 year old female who has a past medical history notable for obesity but no other significant past medical history, she is taking semaglutide to help lose weight, she has had some nausea and constipation on semaglutide. She developed epigastric pain moving around to the right side and back. The pain started about 3 days prior to admission but has galen worsening. She says it is a sharp stabbing pain. She had significant Vomiting on the day of admission. She has galen having intermittent constipation but has galen on MiraLAX lately which has helped. She has not noticed any fevers. She has some chills when the pain is really severe. She has not had any diarrhea. She has not had any chest pain or shortness of breath. In the ER she underwent a CT scan of the abdomen and pelvis as well as right upper quadrant ultrasound. The ultrasound showed cholelithiasis without definitive evidence of acute cholecystitis. CT of the abdomen pelvis also showed cholelithiasis without evidence of acute cholecystitis. She also had hepatic steatosis. She also had a right adnexal mass. She was noted to have leukocytosis and elevated AST and ALT without elevated total bilirubin. The ER provider discussed the case with general surgery who recommended admission with serial monitoring. 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 What is your current living situation?: I presently have a place to live Problems where you live: no known problems Problems where you live details: n/a In the past 12 months, utilities in danger of being shut off: no In past 12 months, lack of transportation kept you from medical appts, meetings, work, or getting things needed for daily living: no In the past 12 mos, have been you worried that your food would run out before you had money to buy more?: never true In the past 12 mos, the food you bought just didn't last and you didn't have money to buy more?: never true Highest level of school completed/degree received: Associate degree: occupational, technical, vocational program Smoking Status: Never smoker Do you use any of these nicotine containing products: Vaping Products Second hand tobacco smoke exposure: No How often do you have a drink containing alcohol: monthly or less How many standard drinks containing alcohol do you have on a typical day: 1 or 2 How often do you have six or more drinks on one occasion: Never AUDIT-C Alcohol total score: 1 Non-prescribed substance use: denies use Caffeine: Yes How often does anyone, including family, friends and others, physically hurt you: never How often does anyone, including family, friends and others, insult or talk down to you: never How often does anyone, including family, friends and others, threaten you with harm: never How often does anyone, including family, friends and others, scream or curse at you: never service: No Meds Home Medications and Allergies Home Medications ?Medication ?Instructions ?Recorded ?Confirmed ?Type hydrocodone 5 mg-acetaminophen 325 1 tab PO Q6H PRN pain #25 tabs 12/26/24 Rx mg tablet Allergies Allergy/AdvReac Type Severity Reaction Status Date / Time No Known Drug Allergies Allergy Verified 12/30/24 10:26 Exam Narrative Exam Narrative: Physical Exam GENERAL: ?vital signs reviewed, well developed and nourished, in no distress HEENT: pupils are equal round, extraocular movements are grossly within normal limits and oral mucosa is moist. NECK: Supple without lymphadenopathy or thyromegaly according to nursing staff examination observation HEART: Borderline tachycardic rate and regular rhythm without any rubs, murmurs, or gallops. LUNGS: Clear to auscultation bilaterally with good air movement throughout ABDOMEN: Observation from nurse assisted exam, abdomen appears soft, mild tenderness in the RUQ and epigastric region without guarding, and nondistended with Positive bowel sounds noted. Obese abdomen EXTREMITIES: Strength and sensation is observed to be grossly within normal limits in the upper and lower extremities.? No focal strength deficit is observed. SKIN:? Observed warm and dry with color normal Const Vital Signs, click to edit/add: Vital Signs - 24 hr 12/25/24 21:34 12/25/24 23:46 12/26/24 02:31 Temperature 97.6 F 98.2 F Pulse Rate [Left Pulse Oximeter] 119 H 105 H Pulse Rate [Pulse Oximeter] 98 Respiratory Rate 16 20 18 Blood Pressure [Left Arm] 142/100 H Blood Pressure [Right Upper Arm] 138/84 137/102 H Pulse Oximetry 97 98 96 Oxygen Delivery Method Room Air Room Air Room Air Hospitalist - H&P: Result Labs Labs: Short CBC 12/25/24 Range/Units 22:51 WBC 14.72 H (4.50-11.00) K/uL Hgb 11.6 L (12.0-16.0) gm/dL Hct 35.7 (33.0-51.0) % Plt Count 373 (140-440) K/uL BMP 12/25/24 22:51 Sodium 138 Potassium 3.9 Chloride 103 Carbon Dioxide 28 BUN 12 Creatinine 0.8 Glucose 108 Calcium 8.7 Liver Function 12/25/24 Range/Units 22:51 Total Bilirubin 0.8 (0.1-1.5) mg/dL Direct Bilirubin 0.6 H (0.0-0.5) mg/dL AST 316 H (12-35) U/L ALT 155 H (4-35) U/L Alkaline Phosphatase 95 (40-150) U/L Albumin 4.3 (3.3-5.0) g/dL Urine 12/25/24 Range/Units 22:40 Urine Color Yellow (Yellow) Urine Appearance Clear (Clear) Urine pH 7.0 (5.0-8.5) Ur Specific [place] 1.020 (1.000-1.030) Urine Protein 1+ A (Negative) Urine Glucose (UA) Negative (Negative) Assessment and Plan Assessment and plan (1) Adnexal mass: Status: Acute (2) Cholelithiasis: Status: Acute (3) Acute upper abdominal pain: Status: Acute Plan Assessment and Plan Right upper quadrant pain Epigastric pain Cholelithiasis Leukocytosis May have a early cholecystitis although imaging does not suggest cholecystitis, given positive sonographic Driscoll and leukocytosis she will be started on Zosyn N.p.o. IV fluids Antiemetics Obesity with a BMI greater than 40 On semaglutide Adnexal mass Pelvic ultrasound ordered Hepatic steatosis Elevated AST ALT could be from hepatic steatosis May need MRCP to evaluate for choledocholithiasis but will repeat LFTs Full code SCDs Telehealth: Statement Statement Telehealth Visit: Today's History and Physical is provided via interactive telehealth by Jimbo Villarreal MD.? Patient is located at [facility] Provider is located at [facility] Nursing staff assisted with the patient's exam. The visit being done today meets criteria for a telehealth visit and the patient or patient?s parent/guardian is aware the visit is a telehealth visit. Camera Start Time: 02:50 Camera End Time: 02:57
--- NOTE | 2024-12-26 03:19 | CRLHL7_ITS ---
For Patients: As a result of the Century Cures Act, medical imaging exams and procedure reports are released immediately into your electronic medical record. You may view this report before your referring provider. If you have questions, please contact your health care provider. INDICATION: Right adnexal mass. TECHNIQUE: Transabdominal pelvic ultrasound. COMPARISON: CT abdomen and pelvis 12/26/2024. FINDINGS: Uterus measures 9.8 x 4.9 x 5.1 cm. No discrete uterine mass. Endometrial stripe measures 2 the upper limits of normal at 16 mm. No endometrial fluid evident. Right ovary measures 8.3 x 5 x 8.4 cm. Complex septated cystic appearance diffusely involves the right ovary. Septal vascularity is present. Left ovary is 4.5 x 3.4 x 3.9 cm. Simple cyst in the left ovary measures 3.1 cm. Normal-appearing color Doppler flow in the left ovary. No pelvic free fluid. IMPRESSION: 1. Complex septated cystic appearance diffusely involving the right ovary raises concern for a cystic ovarian neoplasm but could also represent multiple complex/hemorrhagic cysts. OBGYN consultation regarding further management and/or pelvic MRI is recommended. 2. Simple left ovarian cyst measures 3.1 cm. 3. No pelvic free fluid. Dictated by Eric Noriega MD @ 12/26/2024 8:10:47 AM Dictated by: Eric Noriega MD @ 12/26/2024 08:11:04 (Electronically Signed)
[2024-12-26] MEDS: HYDROmorphone 0.5 mg/0.5 ml inj IVP ×2 (03:43→13:28)
[2024-12-26] MEDS: ONDANSETRON 2 MG/ML inj 4 MG IVP (03:43)
[2024-12-26] MEDS: 0.9 % SODIUM CHLORIDE 1000 ml 1,000 ML 75 ML IV ×2 (03:43→11:53)
--- NOTE | 2024-12-26 05:54 | PC.NURSE ---
Patient arrived on the unit at 0200. Rates abdominal pain 4-6/10. PRN medication administered for relief. Zofran administered for nausea. NPO for possible surgery Friday. Afebrile.
[2024-12-26 06:45] LABS: Basophils Absolute Auto 0.01 K/uL (0.00-0.30); Basophils Percent Auto 0.1 % (0.0-3.0); Eosinophils Absolute Auto 0.09 K/uL (0.00-0.50); Hematocrit 32.4 % (33.0-51.0); Hemoglobin* 10.5 gm/dL (12.0-16.0); Immature Granulocytes Abs Auto 0.04 K/uL (0.00-0.30); Immature Granulocytes Pct Auto 0.5 %; Lymphocytes Percent Auto 17.8 % (20-44); Mean Corpuscular HGB Conc 32 gm/dL (32-36); Mean Corpuscular Hemoglobin 25 pg (26-34); Mean Corpuscular Volume 76 fL (80-100); Monocytes Percent Auto 4.5 % (0.0-11.0); Neutrophils Percent Auto 76.1 % (42.0-72.0); Platelet Count* 312 K/uL (140-440); RDW Coefficient of Variation % 16.4 % (11.5-15.5); Red Blood Count 4.28 m/uL (4.00-5.20); White Blood Count* 8.88 K/uL (4.50-11.00)
[2024-12-26 06:47] LABS: Slide Review Reflex No
[2024-12-26 06:59] LABS: Albumin* 3.6 g/dL (3.3-5.0); Chloride* 107 mmol/L (96-114); Potassium* 3.8 mmol/L (3.6-5.1); Sodium* 139 mmol/L (135-149)
[2024-12-26 07:02] LABS: Alanine Aminotransferase* 330 U/L (4-35); Alkaline Phosphatase* 107 U/L (40-150); Anion Gap 8 mEq/L (7-15); Aspartate Amino Transferase* 546 U/L (12-35); Bilirubin Total* 1.4 mg/dL (0.1-1.5); Blood Urea Nitrogen* 10 mg/dL (5-24); Carbon Dioxide* 24 mmol/L (20-32); Creatinine* 0.7 mg/dL (0.5-1.5); Est. Creatinine Clearance* 90.41; Estimated Glomerular Filt Rate 117 ml/min; Glucose* 106 mg/dL (60-115); Total Protein* 6.7 g/dL (6.0-8.3)
[2024-12-26 07:37] LABS: HCG Qualitative Serum* Negative (Negative)
[2024-12-26 08:26] LABS: Bilirubin Direct* 1.1 mg/dL (0.0-0.5)
--- NOTE | 2024-12-26 08:55 | P.GSCN_ITS ---
History of Present Illness Consult details Date Seen: 12/26/24 Consult date: 12/26/24 Narrative: 34-year-old female presented to emergency room with epigastric abdominal pain. Patient states that the pain was on and off since Friday. Yesterday the pain was severe and she decided to come to the emergency room. Patient states that yesterday she had have a cheeseburger before the pain started. She was not sure what was making the pain better or worse. Patient had some vomiting yesterday. She was passing gas. Her last bowel movement was 2 days ago. I personally reviewed patient's workup. She was found to have elevated WBC of 14.7. An ultrasound of the gallbladder was obtained that showed no gallbladder wall thickening and no pericholecystic fluid. Patient had cholelithiasis, she was reported to have present of Driscoll sign. Her common bile duct was measured at 7 mm. Patient's total bilirubin was normal with direct bilirubin at 0.6, AST 316, ALT 155. Patient's repeat labs today showed direct bilirubin of 1.1, AST 546, and ALT of 330. An abdominal CT was also obtained that showed no pericholecystic inflammation. Patient was found to have an 8 cm multi-cystic right adnexal mass. 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 What is your current living situation?: I presently have a place to live Problems where you live: no known problems Problems where you live details: n/a In the past 12 months, utilities in danger of being shut off: no In past 12 months, lack of transportation kept you from medical appts, meetings, work, or getting things needed for daily living: no In the past 12 mos, have been you worried that your food would run out before you had money to buy more?: never true In the past 12 mos, the food you bought just didn't last and you didn't have money to buy more?: never true Highest level of school completed/degree received: Associate degree: occup ational, technical, vocational program Smoking Status: Never smoker Do you use any of these nicotine containing products: Vaping Products Second hand tobacco smoke exposure: No How often do you have a drink containing alcohol: monthly or less How many standard drinks containing alcohol do you have on a typical day: 1 or 2 How often do you have six or more drinks on one occasion: Never AUDIT-C Alcohol total score: 1 Non-prescribed substance use: denies use Caffeine: Yes How often does anyone, including family, friends and others, physically hurt you : never How often does anyone, including family, friends and others, insult or talk down to you: never How often does anyone, including family, friends and others, threaten you with harm: never How often does anyone, including family, friends and others, scream or curse at you: never service: No Meds Home Medications and Allergies Allergies Allergy/AdvReac Type Severity Reaction Status Date / Time No Known Drug Allergies Allergy Verified 12/26/24 00:54 Exam Narrative: Exam Narrative: General appearance: Alert, cooperative, and in no distress Pulmonary: Chest symmetric, lungs clear bilaterally Cardiovascular Heart: Regular rate and rhythm, S1, S2, no murmurs/rubs/gallops Gastrointestinal Abdominal: soft, not distended, minimally tender to palpation in epigastrium, no tenderness to palpation in the right upper quadrant, negative Driscoll sign. No tenderness to palpation in lower abdomen. Skin: Normal skin color, texture, and turgor. No rashes or lesions. Psychiatric: Alert, cooperative, normal affect. Const: Vital Signs, click to edit/add: Vital Signs - 24 hr 12/25/24 21:34 12/25/24 23:46 12/26/24 02:31 Temperature 97.6 F 98.2 F Pulse Rate [Left P ulse Oximeter] 119 H 105 H Pulse Rate [Pulse Oximeter] 98 Respiratory Rate 16 20 18 Blood Pressure [Le ft Arm] 142/100 H Blood Pressure [Ri ght Upper Arm] 138/84 137/102 H Pulse Oximetry 97 98 96 Oxygen Delivery Me thod Room Air Room Air Room Air 12/26/24 06:45 Temperature 97.8 F Pulse Rate [Left P ulse Oximeter] Pulse Rate [Pulse Oximeter] 105 H Respiratory Rate 18 Blood Pressure [Le ft Arm] 142/92 H Blood Pressure [Ri ght Upper Arm] Pulse Oximetry 98 Oxygen Delivery Me thod Room Air Results Labs Labs: Abnormal lab results 12/25/24 12/25/24 12/26/24 Range/Units 22:40 22:51 06:15 WBC 14.72 H (4.50-11.00) K/uL Hgb 11.6 L 10.5 L (12.0-16.0) gm/dL Hct 32.4 L (33.0-51.0) % MCV 75 L 76 L (80-100) fL MCH 24 L 25 L (26-34) pg RDW Coeff of Gustavo 16.1 H 16.4 H (11.5-15.5) % Neut % (Auto) 74.0 H 76.1 H (42.0-72.0) % Lymph % (Auto) 19.0 L 17.8 L (20-44) % Neut # (Auto) 10.90 H (1.7-7.0) K/uL Calcium 8.0 L (8.4-10.6) mg/dL Direct Bilirubin 0.6 H 1.1 H (0.0-0.5) mg/dL AST 316 H 546 H (12-35) U/L ALT 155 H 330 H (4-35) U/L C-Reactive Protein 1.4 H (0.5-1.0) mg/dL Urine Protein 1+ A (Negative) Urine Ketones Trace A (Negative) Urine Urobilinogen 4.0 A (0.2-1.0) Ur Squamous Epith Cells Moderate A (None-Few) Triple Phos Crystals Few A (None) Amorphous Sediment Many A (None) Urine Bacteria Moderate A (None) Diabetes panel 12/25/24 12/26/24 Range/Units 22:51 06:15 Sodium 138 139 (135-149) mmol/L Potassium 3.9 3.8 (3.6-5.1) mmol/L Chloride 103 107 (96-114) mmol/L Carbon Dioxide 28 24 (20-32) mmol/L BUN 12 10 (5-24) mg/dL Creatinine 0.8 0.7 (0.5-1.5) mg/dL Glucose 108 106 (60-115) mg/dL Calcium 8.7 8.0 L (8.4-10.6) mg/dL AST 316 H 546 H (12-35) U/L ALT 155 H 330 H (4-35) U/L Alkaline Phosphatase 95 107 (40-150) U/L Total Protein 7.7 6.7 (6.0-8.3) g/dL Albumin 4.3 3.6 (3.3-5.0) g/dL Calcium panel 12/25/24 12/26/24 Range/Units 22:51 06:15 Calcium 8.7 8.0 L (8.4-10.6) mg/dL Albumin 4.3 3.6 (3.3-5.0) g/dL Pituitary panel 12/25/24 12/26/24 Range/Units 22:51 06:15 Sodium 138 139 (135-149) mmol/L Potassium 3.9 3.8 (3.6-5.1) mmol/L Chloride 103 107 (96-114) mmol/L Carbon Dioxide 28 24 (20-32) mmol/L BUN 12 10 (5-24) mg/dL Creatinine 0.8 0.7 (0.5-1.5) mg/dL Glucose 108 106 (60-115) mg/dL Calcium 8.7 8.0 L (8.4-10.6) mg/dL Adrenal panel 12/25/24 12/26/24 Range/Units 22:51 06:15 Sodium 138 139 (135-149) mmol/L Potassium 3.9 3.8 (3.6-5.1) mmol/L Chloride 103 107 (96-114) mmol/L Carbon Dioxide 28 24 (20-32) mmol/L BUN 12 10 (5-24) mg/dL Creatinine 0.8 0.7 (0.5-1.5) mg/dL Glucose 108 106 (60-115) mg/dL Calcium 8.7 8.0 L (8.4-10.6) mg/dL Total Bilirubin 0.8 1.4 (0.1-1.5) mg/dL AST 316 H 546 H (12-35) U/L ALT 155 H 330 H (4-35) U/L Alkaline Phosphatase 95 107 (40-150) U/L Total Protein 7.7 6.7 (6.0-8.3) g/dL Albumin 4.3 3.6 (3.3-5.0) g/dL All other labs normal. Progress Note:A&P Assessment and plan (1) Biliary colic: Status: Acute (2) Choledocholithiasis: Status: Acute Assessment and Plan: 34-year-old female presents with epigastric and right upper quadrant pain that is most likely due to biliary colic and could also be due to acute cholecystitis and was incidentally found to have right multi septic adnexal mass. I discussed with the patient her laboratory findings and her ultrasound and CT findings. Clinically, patient's pain has improved but her liver function tests showed elevated direct bilirubin as well as transaminases. I recommended to proceed with laparoscopic cholecystectomy with intraoperative cholangiogram. The procedure was discussed in detail. The risks associated procedure including infection, bleeding, injury to intra-abdominal organs, and injury to the common bile duct as well as potential need for ERCP in the future were all discussed with the patient. 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 Peritoneal washings and additional labs recommended. Since patient's laparoscopic cholecystectomy is emergent, additional workup will be done after surgery. (3) Adnexal mass: Status: Acute
--- NOTE | 2024-12-26 09:08 | CRLHL7_ITS ---
For Patients: As a result of the Century Cures Act, medical imaging exams and procedure reports are released immediately into your electronic medical record. You may view this report before your referring provider. If you have questions, please contact your health care provider. INDICATION : Laparoscopic cholecystectomy. TECHNIQUE : Intraoperative cholangiogram. Contrast injected via gallbladder neck and cystic duct. FINDINGS : Fluoroscopy time was 53.4 seconds. One image was obtained. IMPRESSION : Normal caliber intra and extrahepatic ducts. Contrast not definitively within the duodenal lumen. Dictated by Noah Berman MD @ 12/27/2024 10:03:54 AM (Electronically Signed)
--- NOTE | 2024-12-26 10:17 | P.GYNCN_ITS ---
MECHANICAL FACILITIES TECHNICIAN - CN: HPI Data of Consult Time Seen by Provider: 09:00 Date Seen: 12/26/24 Patient: [facility] Patient Requesting Physician: Rafa Carolina MD Primary Care Provider: Not a Local Provider Consult Narrative Narrative: Suzan Heredia is a 34 year old female G0 here for epigastric and right upper quadrant pain. She was diagnosed with biliary colic and possible acute cholecystitis. Her sister is here with her for support. Incidentally, she was found to have a right multi-septated adnexal mass on CTAP. IMPRESSION: 1. Cholelithiasis without CT evidence of acute cholecystitis. 2. Multiseptated cystic structure in the region of the right adnexa measuring in total up to 7.5 cm. Differential considerations include multiple prominent ovarian/adnexal cysts versus hydrosalpinx or cystic mass. Further characterization with pelvic ultrasound recommended. 3. Hepatic steatosis. Pelvic US was obtained to better characterized the the cyst IMPRESSION: 1. Complex septated cystic appearance diffusely involving the right ovary raises concern for a cystic ovarian neoplasm but could also represent multiple complex/hemorrhagic cysts. OBGYN consultation regarding further management and/or pelvic MRI is recommended. 2. Simple left ovarian cyst measures 3.1 cm. 3. No pelvic free fluid. Patient denies history of pelvic pain, dyspaurenia, or abnormal vaginal discharge. Denies known family hx of ovarian cancer. Really has had no reason to seek care from MECHANICAL FACILITIES TECHNICIAN. We discussed differential diagnosis, the main categories of concerns are benign vs malignancy. Ideally, we would do a thorough work up with physical exam, tumor markers, and possible MRI to distinguish best surgical approach. Based on her clinical picture and imaging, she has no urgent or emergent needed for oophorectomy. Given that she will be having a laparoscopic surgery this AM, at the very least, I would like to do an exam under anesthesia and pelvic washings. Intraoperative, if I have significant concern for a malignancy, then I would not perform oophorectomy and would refer her to ONC. We discussed intraoperative findings where I would recommend removal of the ovary: active bleeding/cystic rupture and ovarian torsion. These are considered emergent situations where benefit of acute management outweighs the potential of malignancy. We discussed that she will still likely need interval surgery for cystectomy/oophorectomy even if etiology is more likely to benign due to size of the cyst. The fact that it's multicystic makes it less likely to resolve as well. Suzan is understandably overwhelmed as she was not expecting this on top of what she already has going on. She asked about future fertility as it is something that she still desires. In broad strokes, USO still perserve fertility if the contralateral After discussion with her sister, Suzan agrees that in the absence of clear indication for emergent oophorectomy, she would prefer to conserve her ovary until further workup can be done. She did consent for: exam under anesthesia and pelvic washings with possible right salpingo-oophorectomy in emergent situation only. Plan: - Proceed with: exam under anesthesia and pelvic washings with possible right salpingo-oophorectomy in emergent situation only. - Will add on tumor markers to her labs. - Reached out to radiology to provide O-RADS for her adnexal mass. Pending addendum - F/u in MECHANICAL FACILITIES TECHNICIAN clinic for further management once discharged from current hospitalization. 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 What is your current living situation?: I presently have a place to live Problems where you live: no known problems Problems where you live details: n/a In the past 12 months, utilities in danger of being shut off: no In past 12 months, lack of transportation kept you from medical appts, meetings, work, or getting things needed for daily living: no In the past 12 mos, have been you worried that your food would run out before you had money to buy more?: never true In the past 12 mos, the food you bought just didn't last and you didn't have money to buy more?: never true Highest level of school completed/degree received: Associate degree: occupational, technical, vocational program Smoking Status: Never smoker Do you use any of these nicotine containing products: Vaping Products Second hand tobacco smoke exposure: No How often do you have a drink containing alcohol: monthly or less How many standard drinks containing alcohol do you have on a typical day: 1 or 2 How often do you have six or more drinks on one occasion: Never AUDIT-C Alcohol total score: 1 Non-prescribed substance use: denies use Caffeine: Yes How often does anyone, including family, friends and others, physically hurt you : never How often does anyone, including family, friends and others, insult or talk down to you: never How often does anyone, including family, friends and others, threaten you with harm: never How often does anyone, including family, friends and others, scream or curse at you: never service: No Meds Home Medications and Allergies Allergies Allergy/AdvReac Type Severity Reaction Status Date / Time No Known Drug Allergies Allergy Verified 12/26/24 00:54 MECHANICAL FACILITIES TECHNICIAN - Exam Physical Exam: Vital signs: Temp Pulse Resp BP Pulse Ox O2 Del Method 97.8 F 105 H 18 148/75 H 98 Room Air 12/26/24 07:00 12/26/24 07:00 12/26/24 08:52 12/26/24 07:00 12/26/24 08:52 12/26/24 08:52 MECHANICAL FACILITIES TECHNICIAN - Results Labs Labs: Short CBC 12/25/24 12/26/24 Range/Units 22:51 06:15 WBC 14.72 H 8.88 (4.50-11.00) K/uL Hgb 11.6 L 10.5 L (12.0-16.0) gm/dL Hct 35.7 32.4 L (33.0-51.0) % Plt Count 373 312 (140-440) K/uL BMP 12/25/24 12/26/24 22:51 06:15 Sodium 138 139 Potassium 3.9 3.8 Chloride 103 107 Carbon Dioxide 28 24 BUN 12 10 Creatinine 0.8 0.7 Glucose 108 106 Calcium 8.7 8.0 L Liver Function 12/25/24 12/26/24 Range/Units 22:51 06:15 Total Bilirubin 0.8 1.4 (0.1-1.5) mg/dL Direct Bilirubin 0.6 H 1.1 H (0.0-0.5) mg/dL AST 316 H 546 H (12-35) U/L ALT 155 H 330 H (4-35) U/L Alkaline Phosphatase 95 107 (40-150) U/L Albumin 4.3 3.6 (3.3-5.0) g/dL Urine 12/25/24 Range/Units 22:40 Urine Color Yellow (Yellow) Urine Appearance Clear (Clear) Urine pH 7.0 (5.0-8.5) Ur Specific [place] 1.020 (1.000-1.030) Urine Protein 1+ A (Negative) Urine Glucose (UA) Negative (Negative)
[2024-12-26] MEDS: CEFAZOLIN 1 GM inj IVP (10:21)
[2024-12-26] MEDS: BUPIVACAINE 0.25% 30 ML INJECTION (10:24)
[2024-12-26] MEDS: LIDOCAINE 1%-EPI 1:100,000 20 ML INFILTRATI (10:24)
[2024-12-26] MEDS: iopamidoL 50 ML VIAL INJECTION (10:55)
[2024-12-26] MEDS: 0.9% SODIUM CHL 50 ML VIAL INJECTION (10:55)
--- NOTE | 2024-12-26 12:15 | P.GSOP_ITS ---
Operative Note Date of procedure: 12/26/24 Pre-op diagnosis: 1. Biliary colic and choledocholithiasis. 2. Right adnexal mass of unknown etiology. Post-op diagnosis: Same Type of Procedure: 1. Laparoscopic cholecystectomy with intraoperative cholangiogram. 2. Exploratory laparoscopy with peritoneal washings. Indications: 34-year-old female presented to emergency room with epigastric and right upper quadrant abdominal pain. The pain was on and off for the past several days and got severe yesterday. Upon her workup she was found to have elevated WBC of 14. Patient's transaminases were elevated with direct bilirubin of 0.6. An abdominal ultrasound was obtained that showed no pericholecystic fluid, the gallbladder wall was not thickened, there were multiple stones in the gallbladder and common bile duct was measured at [address] was also obtained that did not show pericholecystic inflammation. Patient was found to have a multi cystic right ovarian mass that was suspicious for malignancy. Since patient's surgery was recommended to be done emergently, the workup for adnexal mass was recommended to be performed postoperatively. The procedure of laparoscopic cholecystectomy and intraoperative cholangiogram was discussed with the patient in detail. The risks associated with the procedure such as bleeding, infection, injury to the common bile duct, injury to intra-abdominal organs, and the need for additional procedures were all discussed with the patient, and she agreed to proceed. Procedure Description: After discussing the risks and benefits of the procedure, the patient signed informed consent.? The operative site was marked and the patient was brought to the operating room and placed on the operating table in supine position.? Care was taken to pad the patient's pressure points.?? The patient was then intubated by anesthesia.?? The operative site was then prepped and draped in the usual sterile fashion.? A time-out was then performed. A 5-mm laparoscopy port was placed in the left upper quadrant guided by a 5-mm laparoscope placed into a translucent trochar.~ Passage through the layers of the abdominal wall was visualized with the laparoscope.~ A pneumoperitoneum was established. A 0-degree 5-mm laparoscope was advanced into the abdomen. The abdomen was briefly surveyed, and no adhesions were noted. A 10-mm port were placed supraumbilically and 3 more 5 mm ports were placed on the right under direct visualization by laparoscope. The camera was then changed to 10 mm 30- degree scope and placed into the abdomen through the 10 mm port. The left upper quadrant port entrance was examined and no injury to intra-abdominal organs was identified. The gallbladder was identified, the fundus grasped and retracted cephalad. Omental adhesions were noted to the anterior gallbladder wall. Those adhesions were taken down with hook cautery. The infundibulum was grasped and retracted laterally, exposing the peritoneum overlying the triangle of Calot. This was then divided and exposed in a blunt fashion and with hook cautery. Common bile duct was not identified but care was taken not to injure it. The cystic duct was clearly identified and bluntly dissected circumferentially. Cystic artery was identified and tissues around it were dissected off. The cystic artery was cleared circumferentially with hook cautery and bluntly. The cystic artery was then clipped with 2 5 mm clips on the patient's side and a single clip on the specimen side and divided with scissors between the clips. The cystic duct was further skeletonized bluntly and with hook cautery. I then proceeded with intraoperative cholangiogram. The cystic duct was clipped with a 5 mm clip on the gallbladder side and a small ductotomy was made with laparoscopic Metzenbaum scissors. Dark green bile was seen to come out from the cystic duct. An additional 5 mm port was already in place in the right upper quadrant. A cholangiocatheter was placed through the 5 mm port and directed into the cystic duct with a cholangiogram catheter grasper. Fluoroscopy was brought onto the field and Optiray 300 contrast dye was injected through the cholangiocatheter. The biliary tree was visualized and the contrast appeared to be freely go into the intrahepatic biliary tree but did not empty into the small bowel. 1 mg of glucagon IV was administered and fluoroscopy was again used to see if contrast emptied into the small intestine. A possible filling defect was seen in the distal common bile duct and the contrast did not empty into the duodenum. At this time 5 mm clip on the cystic duct and cholangiocatheter were removed and the cholangiocatheter was removed from the cystic duct. The duct was then clipped with three 5 mm clips on the patient's side just below the ductotomy. The cystic duct was then divided at the level of ductotomy. The gallbladder was dissected from the liver bed in retrograde fashion using hookcautery. The gallbladder was placed into an Endo-Catch bag and removed through the supraumbilical incision. The supraumbilical incision fascia and skin had to be enlarged to accommodate removal of the gallbladder. Surgical site was examined for bleeding. No bleeding was seen in the surgical field. We then proceeded with exploration of the peritoneal cavity. There were no peritoneal nodules or studding overlying the liver or diaphragm. The appendix appeared normal. The pelvis of was examined and a left ovarian cyst was identified. This was mobile. A right ovarian cystic mass was visualized and was adherent to the adjacent small intestine and pelvis with small adhesions. I attempted to lift this right ovarian mass but it did not lift easily. Adhesions were not lysed. We then proceeded with peritoneal washings. Normal saline was sprayed over the peritoneal pelvic space and over the right and left ovary as well as the uterus. This was then aspirated and placed into a sterile cup. This was sent to pathology for cytology. The fascia of the supraumbilical incision was then closed with a running 0-0 vicryl using Ruiz Jnae. This closure was examined intra-abdominally, and no intra-abdominal structures were incarcerated in the closure. Pneumoperitoneum was completely reduced after viewing removal of the trocars under direct vision. The skin was then closed with 4-0 monocryl and steristrips were applied. Corporate Training Manager surgeon who was present for exploration and peritoneal washings then performed bimanual pelvic exam. Please see her note for more details. Instrument, sponge, and needle counts were correct at closure and at the conclusion of the case. The patient was transferred to PACU in stable condition. Findings: Multiple stones in the gallbladder, no evidence of acute inflammation. Right cystic adnexal mass was fixed to the pelvis. Left ovarian cyst was visualized. The left ovary was mobile. Anesthesia: GETA Surgeon: Rafa Carolina MD Estimated blood loss (mL): 10 Additional Specimen Information: 1. Gallbladder. 2. Peritoneal washings for cytology. Condition: stable Disposition: PACU
--- NOTE | 2024-12-26 12:16 | P.ANES_ITS ---
Anesthesia Charges Start Date/Time Anesthesia Start Date: 12/26/24 Anesthesia Start Time: 09:57 Stop Date/Time Anesthesia Stop Date: 12/26/24 Anesthesia Stop Time: 12:15 Summary Emergency: SCHOOL PHOTOGRAPHER Coding CPT Codes CPT Codes: ANESTH SURG UPPER ABDOMEN - 61727 ([id number]) P3 - PATIENT W/SEVERE SYS DISEASE, QZ - SCHOOL PHOTOGRAPHER SVC W/O UTILITY DIVISION PROJECT MANAGER BY Additional Codes: Summary - Emergency: SCHOOL PHOTOGRAPHER ([id number])
--- NOTE | 2024-12-26 12:16 | W.ANESCHARGE ---
Anesthesia Charges Start Date/Time Anesthesia Start Date: 12/26/24 Anesthesia Start Time: 09:57 Stop Date/Time Anesthesia Stop Date: 12/26/24 Anesthesia Stop Time: 12:15 Summary Emergency: PUBLICATION MANAGER Coding CPT Codes CPT Codes: ANESTH SURG UPPER ABDOMEN - 25879 ([id number]) P3 - PATIENT W/SEVERE SYS DISEASE, QZ - PUBLICATION MANAGER SVC W/O GLOVE TURNER BY Additional Codes: Summary - Emergency: PUBLICATION MANAGER ([id number])
--- NOTE | 2024-12-26 12:51 | SUR.PHASEI ---
patient met discharge criteria per anesthesia
[2024-12-26] MEDS: HYDROCODONE-ACETAMIN 5-325 MG 1 TAB PO (15:14)
--- NOTE | 2024-12-26 16:18 | PM.EN ---
Chart Event Note Date Seen: 12/26/24 Chart Event Note: General surgeon, Dr. Carolina, has agreed to assume primary care of this patient. She will notify us if hospitalist service can be of additional help.
--- NOTE | 2024-12-26 16:56 | PM.ONB ---
Brief Operative Note Date of procedure: 12/26/24 Surgeon: Steph Gordillo Pathology: specimen obtained, sent to pathology (Pelvic washing for cytology )
--- NOTE | 2024-12-26 18:31 | PC.NURSE ---
Discharge: Patient pleasant and cooperative. Patient hypertensive but stable, lungs clear, BS WNL, IV removed, catheter intact. Abdominal lap sites x4 C/D/I. Patient independent in room and rates abdominal pain at most 6/10, dilauded and norco given once. Patient urinated and tolerated regular diet. Patient signed belongings sheet and discharge form, patient had no further questions regarding discharge information. Patient left the floor by wheelchair to home with family at 1806.
[2024-12-29 07:32] LABS: Cancer Antigen 125 12 U/mL (<=38); Cancer Antigen-GI (CA 19-9) 35 U/mL (<=35); Carcinoembryonic Antigen <0.6 ng/mL (<=3.8)
== END 2024-12-26 18:06 | disposition home or self-care (01) ==
LOC: ED 12-26 01:43 → MEDSURG 12-26 08:50 → OR 12-26 09:27 → MEDSURG 12-26 09:27
PROVIDERS: Internal Medicine; Obstetrics & Gynecology; Emergency Provider Family Medicine; Visit Provider Surgery
PROC: 0FT44ZZ Resection of Gallbladder, Percutaneous Endoscopic Approach (ICD-10-PCS; CPT 47563; principal; 2024-12-26 09:00)
PROC: (CPT 49329; 2024-12-26 09:00)
DX: K80.44 Calculus of bile duct with chronic cholecystitis without obstruction (principal); E66.9 Obesity, unspecified; Z68.42 Body mass index [BMI] 45.0-49.9, adult; K76.0 Fatty (change of) liver, not elsewhere classified; Z79.85 Long-term (current) use of injectable non-insulin antidiabetic drugs; N83.291 Other ovarian cyst, right side; N83.292 Other ovarian cyst, left side; Z80.3 Family history of malignant neoplasm of breast; Z80.0 Family history of malignant neoplasm of digestive organs; Z80.41 Family history of malignant neoplasm of ovary
CPT/HCPCS: 47563; 49329; 00790; 36415; 74177; 74300; 76705; 76856; 80048; 80053; 80076; 81001; 82248; 82378; 83690; 84703; 85025; 86140; 86301; 86304; 87086; 88112; 88304; 93976; 99140; 99284; 99285; A9270; J0330; J0665; J0690; J1100; J1171; J1610; J1630; J1885; J2405; J2543; J2704; J2710; J3010; J7030; Q9967

== ENCOUNTER 2024-12-30 10:16 | Emergency (ER) | payer OTHER, SELFPAY ==
[2024-12-30] VITALS (73 sets, daily range): BP systolic 105–133; BP diastolic 33–101; PULSE 88–149; RESP 16–23; TEMP 36.7–39.3; O2SAT 91–99; BMI 47.7
--- OUTSIDE RECORDS SUMMARY | 2024-12-30 10:20 | XMS_ITS | Encounter Summary ---
Author Organization [place] Address [address] [place] [address] Care Team Providers Care Incident Response Consultant Name Role Phone Clinic - [facility] Primary Ca re Provider Yessica Dunbar PA-C Unavailable Carolin Flor APRN MOLD BREAKER Unavailable Lourdes Olmedo [facility] Unavailable Unavail able Diamante Kent PA-C Unavailable [phone] Reason for Visit * Reason Onset Date Comments Clinic Care Coordination - Follow-up 12/20/2024 Encounter Details Date Type Department Care Team (Late st Contact Info) Description 12/20/2024 [facility] [address] [place] [address] Diamante Kent PA-C [address] [place] [address] Clinic Care Coordination - Follow-up Social History Tobacco Use Types Packs/Day Years Used Date Smoking Tobacco: Never Alcohol Use Standard Drinks/Week Comments Yes 0 (1 standard drink = 0.6 oz pur e alcohol) PHQ-2 Answer Date Recorded PHQ-2 Score 0 09/14/2024 Comments No Sex and Gender Information Value Date Recorded Sex Assigned at Not on file Legal Sex Female 3:35 AM UNIT CONTROL CLERK Gender Identity Not on file Sexual [...] PM CDT Phone (Incoming) Suzan Heredia (Self) [phone] (M) Reason for Call: Please call pt as needs alternative solution now that compounding meds have ended.Has Dilia Alejo appt Could we send this information to you in [employer] or would you prefer to receive a phone call?: Patient would prefer a phone call Okay to leave a detailed message?: Yes at Cell number on file: Telephone Information: documented in this encounter Plan of Treatment Upcoming Encounters Date Type Department Care Team ([facility] Contact Info) Description 02/08/2025 8:00 AM CDT Virtual Visit [facility] [address] [address] Sapna Gaines PA-C [address] [place] [address] documented as of this encounter Visit Diagnoses Not on filedocumented in this encounter Care Teams Incident Response Consultant Relationship Specialty Start Date End Date Clinic - [facility] [address] [place] [address] PCP - General 10/13/16 Yessica Dunbar PA-C [address] [place] [address] [address] [place] [address] Physician Vice President Medical Affairs Surgery 06/22/24 Carolin Flor APRN MOLD BREAKER [address] [place] [address] Assigned PCP 07/17/24 Lourdes Olmedo [facility] Assigned MTM Pharmacist 07/17/24 Diamante Kent PA-C [address] [place], [place] [id number] Assigned Surgical Provider 09/16/24 documented as of this encounter
--- OUTSIDE RECORDS SUMMARY | 2024-12-30 10:20 | XMS_ITS | Encounter Summary ---
Author Organization [place] Address [address] [place] [address]. [place] [address] Care Team Providers Care Director Of Development Name Role Phone Clinic - [facility] Primary Ca re Provider Yessica Dunbar PASteve Unavailable [phone] Carolin Flor APRN DEPARTMENT CLERK Unavailable [phone] Lourdes Olmedo [facility] Unavailable Unavail able Diamante Kent-C Unavailable Encounter Details Date Type Department Care Team (Late st Contact Info) Description 12/20/2024 [facility] Mel[facility] [address] [place] [address] Tamika Brandon Class 3 severe [...] on file Legal Sex Female 3:35 AM DECKHAND Gender Identity Not on file Sexual Orientation Not on file documented as of this encounter Plan of Treatment Upcoming Encounters Date Type Department Care Team (Late st Contact Info) Description 02/08/2025 8:00 AM CDT Virtual Visit [facility] [place] [address] [facility] [address] [place] [phone] Sapna Gaines PA-C [address] [facility] [address] [place] [address] documented as of this encounter Visit Diagnoses Diagnosis Class 3 severe obesity due to excess calories in adult, unspecified BMI, unspecified whether serious comorbidity present (H)- Primary Class 3 severe obesity with serious comorbidity and body mass index (BMI) of 45.0 to 49.9 in adult, unspecified obesity type (H) documented in this encounter Care Teams Director Of Development Relationship Specialty Start Date End Date Clinic - [facility] [address] [place] [address] PCP - General 10/13/16 Yessica Dunbar PA-C [address] [place] [address] [address] [place] [address] Physician Opening Machine Cleaner Surgery 06/22/24 Carolin Flor APRN CNP [address] [place] [address] Assigned PCP 07/17/24 Lourdes Olmedo [facility] Assigned MTM Pharmacist 07/17/24 Diamante Kent PA-C [address] [place], [place] [address] Assigned Surgical Provider 09/16/24 documented as of this encounter
--- OUTSIDE RECORDS SUMMARY | 2024-12-30 10:20 | XMS_ITS | Encounter Summary ---
Author Organization [place] Address [facility] [place] [address] Care Team Providers Care Manager Multicultural Name Role Phone Clinic - [facility] Primary Ca Provider Yessica Dunbar PA-C Unavailable [phone] Carolin Flor APRN BLACK BELT Unavailable [phone] Lourdes Olmedo [facility] Unavailable Unavail able Diamante Kent PA-C Unavailable [phone] Reason for Visit * Reason Onset Date Comments Refill Request 12/04/2024 Encounter Details Date Type Department Care Team (Late st Contact Info) Description 12/04/2024 [facility] Ishan Melton [facility] [address] [place] [address] Carolin Flor APRN [place]ACK [place] [address] [place] [address] Refill Request Social History Tobacco Use Types Packs/Day Years Used Date Smoking Tobacco: Never Alcohol Use Standard Drinks/Week Comments Yes 0 (1 standard drink = 0.6 oz pur e alcohol) PHQ-2 Answer Date Recorded PHQ-2 Score 0 09/14/2024 Comments No Sex and Gender Information Value Date Recorded Sex Assigned at Not on file Legal Sex Female 3:35 AM SMOKING PIPES CLEANER Gender Identity Not on file Sexual Orientation Not on file documented as of this encounter Miscellaneous Notes * Telephone Encounter - Tona Yancey - 12/06/2024 1:39 PM CDT Pt has been scheduled. Tona Dobson News Gathering Technician [facility] documented in this encounter Plan of Treatment Upcoming Encounters Date Type Department Care Team (Late st Contact Info) Description 02/08/2025 8:00 AM CDT Virtual Visit [facility] [place] [address] [place] [address] [address] [place] [phone] Sapna Gaines PA-C [address] [facility] [address] [place], [place] [id number] documented as of this encounter Visit Diagnoses Diagnosis Panic attack Panic disorder without agoraphobia Anxiety Anxiety state, unspecified documented in this encounter Care Teams Manager Multicultural Relationship Specialty Start Date End Date [facility] - [facility] [address] [place] [address] PCP - General 10/13/16 Yessica Dunbar PA-C [address] [place] [address] [address] [place], [place] [address] Physician Digital Media Director Surgery 06/22/24 Carolin Flor APRN BLACK [place]T [address] [place] [address] Assigned PCP 07/17/24 Lourdes Olmedo [facility] Assigned MTM Pharmacist 07/17/24 Diamante Kent PA-C [facility] [place] [address] Assigned Surgical Provider 09/16/24 documented as of this encounter
--- OUTSIDE RECORDS SUMMARY | 2024-12-30 10:20 | XMS_ITS | Encounter Summary ---
Author Organization [place] Address [address] [place] [address] Care Team Providers Care Setup Operator Name Role Phone Clinic - [facility] Primary Ca re Provider Yessica Dunbar PA-C Unavailable + [phone] Carolin Flor APRN LABOR AND DELIVERY REGISTERED NURSE Unavailable [phone] Lourdes Olmedo [facility] Unavailable Unavail able Diamante Kent PA-C Unavailable [phone] Reason for Visit * Reason Onset Date Comments Refill Request 12/23/2024 Zepbound Vial Encounter Details Date Type Department Care Team (Late st Contact Info) Description 12/23/2024 [facility] [address] [address] Diamante Kent PA-C [address] [place] [address] Refill Request (Zepbound Vial) Social History Tobacco Use Types Packs/Day Years Used Date Smoking Tobacco: Never Alcohol Use Standard Drinks/Week Comments Yes 0 (1 standard drink = 0.6 oz pur e alcohol) PHQ-2 Answer Date Recorded PHQ-2 Score 0 09/14/2024 Comments No Sex and Gender Information Value Date Recorded Sex Assigned at Not on file 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 documented in this encounter Plan of Treatment Upcoming Encounters Date Type Department Care Team (Late st Contact Info) Description 02/08/2025 8:00 AM CDT Virtual Visit [facility] [address] [place] [phone] Sapna Gaines PA-C [address] [id number] documented as of this encounter Visit Diagnoses Not on filedocumented in this encounter Care Teams Setup Operator Relationship Specialty Start Date End Date Clinic - [facility] [address] [place] [address] PCP - General 10/13/16 Yessica Dunbar PA-C [address] [facility] [address] [place], [place] [phone] Physician Export Traffic Department Manager Surgery 06/22/24 Carolin Flor APRN CNP [address] [place] [address] Assigned PCP 07/17/24 Lourdes Olmedo [facility] Assigned MTM Pharmacist 07/17/24 Diamante Kent PA-C [address] [place], [place] [address] Assigned Surgical Provider 09/16/24 documented as of this encounter
--- OUTSIDE RECORDS SUMMARY | 2024-12-30 10:20 | XMS_ITS | CCD ---
Author Name Interface, [id number] Address [address] [place] [address] Oncology Address [address] [place] [address] Care Team Providers Care Publishing Manager Name Role Phone Susana Ayala Unavailable Care Plan Reason for Visit Encounters Diagnostic Results Social History
--- OUTSIDE RECORDS SUMMARY | 2024-12-30 10:20 | XMS_ITS | Encounter Summary ---
Author Organization [place] Address [address] [place] [address] Care Team Providers Care Cis Coordinator Name Role Phone Clinic - [facility] Primary Ca re Provider Yessica Dunbar PA-C Unavailable [phone] Carolin Flor APRN MEDIA OPERATOR Unavailable Lourdes Olmedo [facility] Unavailable Unavail able Diamante Kent PA-C Unavailable Encounter Details Date Type Department Care Team (Late st Contact Info) Description 12/20/2024 Telephone [facility] [address] [place] [address] Diamante Kent PA-C [address] [place] [address] Social History Tobacco Use Types Packs/Day Years Used Date Smoking Tobacco: Never Alcohol Use Standard Drinks/Week Comments Yes 0 (1 standard drink = 0.6 oz pur e alcohol) PHQ-2 Answer Date Recorded PHQ-2 Score 0 09/14/2024 Comments No Sex and Gender Information Value Date Recorded Sex Assigned at Not on file Legal Sex Female 3:35 AM MANAGER QA Gender Identity Not on file Sexual Orientation [...] want to speak with: RN Is an family worker needed?: No Could we send this information to you in [employer] or would you prefer to receive a phone call?: No preference Okay to leave a detailed message?: Yes at Cell number on file: Telephone Information: documented in this encounter Plan of Treatment Upcoming Encounters Date Type Department Care Team (Late st Contact Info) Description 02/08/2025 8:00 AM CDT Virtual Visit [facility] [address] [address] Sapna Gaines PA-C [address] [place] [address] documented as of this encounter Visit Diagnoses Not on filedocumented in this encounter Care Teams Cis Coordinator Relationship Specialty Start Date End Date Clinic - [facility] [address] [place] [address] PCP - General 10/13/16 Yessica Dunbar PA-C [address] [place] [address] 195 [place] [address] Physician Air Conditioning Manager Surgery 06/22/24 Carolin Flor APRN MEDIA OPERATOR [address] [place] [address] Assigned PCP 07/17/24 Lourdes Olmedo [facility] Assigned MTM Pharmacist 07/17/24 Diamante Kent PA-C [address] [place] [address] Assigned Surgical Provider 09/16/24 documented as of this encounter
--- OUTSIDE RECORDS SUMMARY | 2024-12-30 10:20 | XMS_ITS | Encounter Summary ---
Author Organization [facility] Address [address] [place] [address]. [place] [address] Care Team Providers Care Laboratory Mechanical Technician Name Role Phone Clinic - [facility] Primary Ca re Provider Lourdes Olmedo [facility] Unavailable Unavail able Yessica Dunbar-C Unavailable [phone] Carolin Flor APRN NIBBLER OPERATOR Unavailable [phone] L[address]des [address] [facility] Unavailable Unavail able Diamante Kent PA-C Unavailable [phone] Encounter Details Date Type Department Care Team (Late st Contact Info) Description 06/22/2024 MyC Medical Advice [facility] Multiple Specialty [address] [place] [address] Lourdes [address] 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 Gender Identity Not on file Sexual Orientation Not on file documented as of this encounter Plan of Treatment Upcoming Encounters Date Type Department Care Team (Late st Contact Info) Description 02/08/2025 8:00 AM CDT Virtual Visit [facility] [address] 4th [place] [address] Sapna Gaines PA-C [address] [facility] [address] [place] [address] documented as of this encounter Visit Diagnoses Not on filedocumented in this encounter Care Teams Laboratory Mechanical Technician Relationship Specialty Start Date End Date [facility] [address] [place] [address] PCP - General 10/13/16 Lourdes Olmedo R[facility] [address] [place] [address] Pharmacist Pharmacist 06/22/24 09/16/24 Yessica Dunbar PA-C [address] [facility] 195 [place] [address] Physician Laceworker Surgery 06/22/24 Carolin Flor APRN NIBBLER OPERATOR [address] [place] [address] Assigned PCP 07/17/24 Lourdes Olmedo RPH Assigned MTM Pharmacist 07/17/24 Diamante Kent PA-C 2450 [place] [address] Assigned Surgical Provider 09/16/24 documented as of this encounter
--- OUTSIDE RECORDS SUMMARY | 2024-12-30 10:20 | XMS_ITS | Encounter Summary ---
Author Organization [facility] Address [address] [place], [place] [address] Care Team Providers Care Component Overhaul Operator Name Role Phone Unavailable Primary Care Provider Unavailabl e Prior Encounters Date Type Department Care Team Description 01/28/2020 Travel Plan of Treatment Not on file Visit Diagnoses Not on file
--- OUTSIDE RECORDS SUMMARY | 2024-12-30 10:20 | XMS_ITS | Encounter Summary ---
Author Organization [place] Address [address] [place] [address] Care Team Providers Care Die Inspector Name Role Phone Clinic - [facility] Primary Ca re Provider Yessica Dunbar PA-C Unavailable [phone] Carolin Flor APRN MANAGER OF BROADCAST CONTENT Unavailable Lourdes Olmedo [facility] Unavailable Unavail able Diamante Kent PA-C Unavailable Encounter Details Date Type Department Care Team (Late st Contact Info) Description 12/06/2024 MyC Medical Advice [facility] Weight Management [address] [address] Diamante Kent PA-C [address] [place] [address] Social History Tobacco Use Types Packs/Day Years Used Date Smoking Tobacco: Never Alcohol Use Standard Drinks/Week Comments Yes 0 (1 standard drink = 0.6 oz pur e alcohol) PHQ-2 Answer Date Recorded PHQ-2 Score 0 09/14/2024 Comments No Sex and Gender Information Value Date Recorded Sex Assigned at Not on file 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 Sex Female 3:35 AM HAND COPER Gender Identity Not on file Sexual Orientation Not on file documented as of this encounter Plan of Treatment Upcoming Encounters Date Type Department Care Team (Late st Contact Info) Description 02/08/2025 8:00 AM CDT Virtual Visit [facility] [address] [place] [phone] Sapna Gaines PA-C [address] [place] [address] documented as of this encounter Visit Diagnoses Not on filedocumented in this encounter Care Teams Die Inspector Relationship Specialty Start Date End Date Clinic - [facility] [address] [place] [address] PCP - General 10/13/16 Yessica Dunbar PA-C [address] [place] [address] 195 [place] [address] Physician Brand Lead Surgery 06/22/24 Carolin Flor APRN MANAGER OF BROADCAST CONTENT [address] [place] [address] Assigned PCP 07/17/24 Lourdes Olmedo [facility] Assigned MTM Pharmacist 07/17/24 Diamante Kent PA-C 2450 [place] [address] Assigned Surgical Provider 09/16/24 documented as of this encounter
--- OUTSIDE RECORDS SUMMARY | 2024-12-30 10:20 | XMS_ITS | Clinical Summary ---
Author Organization [facility] Address [address] [place] [address] Care Team Providers Care Director Of It Operations Name Role Phone Pcp, No Primary Care Provider Unavailabl e Allergies No known active allergies Medications benzonatate (TESSALON) 200 mg capsuleIndicat ions:Sore throat Take 1 Capsule (200 mg) by mouth 3 times daily if needed for Cough. 21 Capsule 3 Active albuterol HFA (PRO-AIR; VENTOLIN; PROVENTIL) 90 mcg/actuation inhalerIndicat ions:Viral URI with cough Inhale 1-2 Puffs by mouth every 4 hours if needed (coughing). 1 Each 3 Active inhalational spacing deviceIndicati ons:Viral URI with cough For home use. 1 Each 3 Active FLUoxetine (PROZAC) 10 mg capsuleIndicat ions:Anxiety Take 1 Capsule (10 mg) by mouth once daily. 30 Capsule 4 Active Additional Information Patient not taking.Reported on 12/29/2024 HYDROcodone-ac etaminophen (5-325 mg/tablet) Take 1 Tablet by mouth every 4 hours if needed for Pain. Max acetaminophen dose: 4000 mg in 24 hrs. Active escitalopram oxalate (LEXAPRO ORAL) Take by mouth. Active Active Problems Problem Noted Date Diagnosed Date Peritonsillar abscess 11/09/2015 Sepsis 11/09/2015 PANIC DISORDER 08/09/2005 URINARY TRACT DISORDER 07/31/2005 ABDOMINAL PAIN UNSPECIFIED SITE 07/31/2005 Encounters Date Type Department Care Team Description 12/29/2024 12:35 PM CDT - 12/29/2024 2:05 PM CDT Surgery [facility] [address] [place] [address] Caio Leonard MD ENDOSCOPIC ULTRASOUND UPPER 12/29/2024 12:20 PM CDT Anesthesia Event [facility] [address] [place] [address] Wayne Pickett MD 12/29/2024 11:03 AM CDT - 12/29/2024 3:30 PM CDT Hospital Encounter [facility] [address] [place] [address] Caio Leonard MD Abdominal pain Discharge Disposition: Home Self Care 12/29/2024 Travel 12/27/2024 Lab Requisition [facility] [phone] Steph Gordillo MD 12/27/2024 Lab Requisition [facility] [phone] Rafa Carolina MD from Last 3 Months Family History Medical History Relation Name Comments [...] on file Legal Sex Female 7:11 AM RECYCLE WORKER Gender Identity Not on file Sexual Orientation Not on file Obstetrics History Last Filed Vital Signs Vital Sign Reading Time Taken Comments Blood Pressure 149/87 12/29/2024 3:00 PM CDT Pulse 86 12/29/2024 3:00 PM CDT Temperature 37 C (98.6 F) 12/29/2024 1:07 PM CDT Respiratory Rate 18 12/29/2024 2:42 PM CDT Oxygen Saturation 94% 12/29/2024 3:00 PM CDT Inhaled Oxygen Concentration - - Weight 118.4 kg (261 lb) 12/29/2024 11:46 AM CDT Height 157.5 cm (5' 2) 12/29/2024 11:46 AM CDT Body Mass Index 47.74 12/29/2024 11:46 AM CDT Plan of Treatment Health Maintenance [...] on patient's age to complete this topic Procedures Procedure Name Priority Date/Time Associated Diagnosis Comments XR ERCP BILIARY ONLY Routine 12/29/2024 1:02 PM CDT Abdominal pain ENDOTRACHEAL TUBE Routine 12/29/2024 12: 39 PM CDT ENDOTRACHEAL TUBE Routine 12/29/2024 12: 39 PM CDT ENDOSCOPY 12/29/2024 12:39 PM CDT ENDOSCOPY 12/29/2024 12:11 PM CDT URINE Preop 12/29/2024 11:39 AM CDT PATH NON MARINATOR CYTOLOGY Routine 12/26/2024 11:40 AM CDT PATH TISSUE EXAM Routine 12/26/2024 11:2 4 AM CDT from Last 3 Months Results * XR ERCP BILIARY ONLY (12/29/2024 1:02 PM CDT) Anatomical Region Laterality Modality GALLBLADDER, PANCREAS, LIVER Oth er Narrative 12/29/2024 1:05 PM CDT 4 minutes 12 seconds fluoroscopy time was provided. See operative/procedure report for further information. us Caio Leonard MD FLUOROSCOPY Final Result * HCHG TUBE PR1, HCHG STYLET PR1 (12/29/2024 12:39 PM CDT) Narrative Yary Beltre, CONSTRUCTION CONSULTANT - 12/29/2024 12:39 PM CDT Yary Beltre, CHEN 12/29/2024 12:39 PM Procedure: ETT Patient location during procedure: OR ETT Properties Mask Ventilation: not attempted Final Technique: direct laryngoscopy Type: straight Location: oral Tube Size: 7.5 mm Stylet: yes Laryngoscope Blade: Rodrigues Blade Size: 2 Cormack-Lehane Grade View: 1 Insertion Attempts: 1 Placement Verification: auscultation, end tidal CO2, symmetrical chest wall movement and cuff palpation Assessment: pharynx clear, atraumatic and dentition unchanged Secured at: 22 Measured From: teeth Difficulty: 0 (not difficult) us Wayne Pickett MD ANESTHESIA PX NOTE O RDERABLES Final Result * ENDOSCOPY (12/29/2024 12:39 PM CDT) 12/29/2024 12:3 9 PM CDT Narrative Transcriptions Caio Leonard MD - 12/29/2024 1:31 PM CDT [facility] Patient Name: Suzan Heredia Procedure Date: 12/29/2024 Gender: Female Date of : 1990 Admit Type: Ambulatory Procedure: ERCP Proceduralist: Caio Leonard MD - [facility] Referring MD: Caio Leonard MD Indications/Pre-Op Diagnosis: Bile duct stone(s) Medications: General Anesthesia Procedure Description: Risk of bleeding, infection, perforation, pancreatitis, need for surgery, remote chance of and alternatives were discussed, andthe patient gave informed consent. The endoscope [id number] was passed through the mouth, and advanced to the duodenum and used to inject contrast into the bileduct. The ERCP was accomplished without difficulty. The patient toleratedthe procedure well. Complications: No immediate complications. Estimated Blood Loss & Specimen: Estimated blood loss: none. Specimen collected: None Findings: The scope was passed under direct vision through the upper GI tract.The entire examined stomach was normal. The examined duodenum was normal. The major papilla was normal. The bile duct was deeply cannulatedwith the short-nosed traction sphincterotome and guidewire. Contrast was injected. I personally interpreted the bile duct images. There wasbrisk flow of contrast through the ducts. Image quality was excellent. Contrast extended to the hepatic ducts. The lower third of the mainbile duct contained one stone, which was 4 mm in diameter. Biliary sphincterotomy was made with a traction (standard) sphincterotome.There was no post-sphincterotomy bleeding. The biliary tree was swept witha 9 mm balloon starting at the bifurcation. One stone was removed. Nostones remained. Impressions/Post-Op Diagnosis: - Choledocholithiasis was found. Complete removal was accomplished by biliary sphincterotomy and balloon extraction. Recommendation: - Watch for pancreatitis, bleeding, perforation, and cholangitis. Caio Leonard MD 12/29/2024 1:30:45 PM This report has been signed electronically. Note Initiated On: 12/29/2024 12:39 PM Caio Leonard MD PROCEDURE ORD Final Result * ENDOSCOPY (12/29/2024 12:11 PM CDT) 12/29/2024 12:1 1 PM CDT Narrative Transcriptions Caio Leonard MD - 12/29/2024 12:38 PM CDT [facility] Patient Name: Suzan Heredia Procedure Date: 12/29/2024 Gender: Female Date of : 1990 Admit Type: Ambulatory Procedure: Upper EUS Proceduralist: Caio Leonard MD - [facility] Referring MD: Caio Leonard MD Indications/Pre-Op Diagnosis: Elevated liver enzymes, Suspected choledocholithiasis Medications: General Anesthesia Procedure Description: Risk of bleeding, infection, perforation, pancreatitis, need for surgery, remote chance of and alternatives were discussed, andthe patient gave informed consent. The [id number] was introduced through the mouth, and advancedto the third part of duodenum. The upper EUS was accomplished without difficulty. The patient tolerated the procedure well. Complications: No immediate complications. Estimated Blood Loss & Specimen: Estimated blood loss: none. Specimen collected: None Findings: ENDOSCOPIC FINDING: : The entire examined stomach was normal. The examined duodenum was normal. ENDOSONOGRAPHIC FINDING: : There was no sign of significant endosonographic abnormality in the ampulla. No masses were identified. Two stones were visualized endosonographically in the lower third ofthe main bile duct. The stones measured up to 4 mm in greatest dimension. They were hyperechoic and characterized by shadowing. There was no sign of significant endosonographic abnormality in theleft lobe of the liver and in the right lobe of the liver. No focalpathology was identified. There was no sign of significant endosonographic abnormality in the pancreatic head. The pancreatic duct measured up to 2 mm in diameter.No masses, no cysts. Impressions/Post-Op Diagnosis: - Two stones were visualized endosonographically in the lower thirdof the main bile duct. Recommendation: - Perform an ERCP. Caio Leonard MD 12/29/2024 12:38:08 PM This report has been signed electronically. Note Initiated On: 12/29/2024 12:11 PM Caio Leonard MD PROCEDURE ORD Final Result * Urine (12/29/2024 11:39 AM CDT) ,URIN E Negative Negative 12/29/2024 12:18 PM CDT [facility] Urine URINE SPECIMEN / Unknown Non-Blood / Unknown 12/29/2024 11:39 AM CDT 12/29/2024 12:04 PM CDT Caio Leonard MD URINE Final Result [facility] [address] [place] [address], * PATH NON MARINATOR CYTOLOGY (12/26/2024 11:40 AM CDT) Case Report Medical Cytology Report Case: [id number] Authorizing Provider: Steph Gordillo MD Collected: 12/26/2024 1140 Ordering Location: [facility] Received: 12/27/2024 1535 Pathologist: Steve Vaughn Jr., MD Specimen: Peritoneal Washing, Pelvic washing 12/28/2024 11:34 AM CDT [facility] Final Diagnosis PERITONEAL WASHING FOR CYTOLOGY: Negative for malignancy, see comment 12/28/2024 11:34 AM CDT [facility] at 1134 CDT Comment See the concurrent surgical specimen for additional details. 12/28/2024 11:34 AM CDT [facility] Clinical Information 34 year old female 12/28/2024 11:34 AM CDT [facility] Gross Description A) SOURCE: Peritoneal washing The specimen consists of 60 cc of light red clear fluid from which the following is prepared: -1 Papanicolaou stained ThinPrep slide 12/28/2024 11:34 AM CDT [facility] Microscopic Description Specimen adequacy: Adequate for interpretation. All slides were reviewed. The microscopic appearance substantiates the diagnosis. 12/28/2024 11:34 AM CDT [facility] Additional Information Cytology is screened at [facility] - [address], [place] [address] and [facility] - [address] [place] [address] and [facility] - [address] [place] [address] Interpreted at [facility] - [address], [place] [address] 12/28/2024 11:34 AM CDT [facility] Other (Peritoneal Washing) 12/26/2024 11:40 AM CDT 12/27/2024 3:35 PM CDT us [facility] Griselda Gordillo MD PATHOLOGY/CYTOLOGY Final Result [facility] [address] [place] [address], * PATH TISSUE EXAM (12/26/2024 11:24 AM CDT) Case Report Pathology Report Case: [id number] Authorizing Provider: Rafa Carolina MD Collected: 12/26/2024 1124 Ordering Location: [facility] Received: 12/28/2024 1014 Pathologist: Jaya Zhong MD Specimen: Gallbladder 12/29/2024 3:07 PM CDT [facility] Final Diagnosis A) GALLBLADDER, CHOLECYSTECTOMY: 1. Chronic cholecystitis 2. Cholelithiasis 3. Negative for dysplasia and malignancy 12/29/2024 3:07 PM CDT [facility] at 1507 CDT Clinical Information Ms. Heredia is a 34 y.o. who presents with abdominal pain. 12/29/2024 3:07 PM CDT [facility] Gross Description A) Received in formalin, labeled with the patient's name and gallbladder, is a 7.8 x 3.3 x 3.0 cm intact gallbladder. There are multiple yellow gallstones identified. There are no mucosal lesions identified. The average wall thickness is 0.1 cm. There is no abnormal wall thickening identified. No cystic duct lymph node is identified. [employer] sections are submitted in one cassette. SACHA 12/28/2024 12/29/2024 3:07 PM CDT [facility] Microscopic Description The final diagnosis is based on microscopic examination of appropriate sections of all specimens. 12/29/2024 3:07 PM CDT [facility] Additional Information Interpreted at [facility] - [address] [facility] [address], [place] [address] 12/29/2024 3:07 PM CDT [facility] Other SPECIMEN FROM GALLBLADDER / Unknown 12/26/2024 11:24 AM CDT 12/28/2024 10:14 AM CDT us Rafa Carolina MD PATHOLOGY/CYTOLOGY Final R esult [facility] [address] [place] [address], from Last 3 Months Insurance [facility] [place] [id number] Advance Directives * Full Code (Latest Code Status on File) Date Activated Date Inactivated Comments 12/29/2024 11:26 AM 12/29/2024 5:30 PM Question Answer Comments Code Status Discussion: Unable to Assess Preferences, Provider to review later * Full Code Date Activated Date Inactivated Comments 12/29/2024 11:26 AM 12/29/2024 11:26 AM Question Answer Comments Code Status Discussion: Unable to Assess Preferences, Provider to review later * Full Code Date Activated Date Inactivated Comments 11/09/2015 10:14 PM 11/10/2015 8:18 PM Care Teams Director Of It Operations Relationship Specialty Start Date End Date Pcp, No . PCP - General 12/28/24
--- OUTSIDE RECORDS SUMMARY | 2024-12-30 10:21 | XMS_ITS | Encounter Summary ---
Author Organization [place] Address [address] [place] [address]. [place] [address] Care Team Providers Care Forepart Reducer Name Role Phone Clinic - [facility] Primary Ca re Provider Lourdes Olmedo [facility] Unavailable Unavail able Yessica Dunbar PA-C Unavailable [phone] Carolin Flor APRN LEAVE MANAGER Unavailable [phone] Lourdes Olmedo [facility] Unavailable Unavail able Diamante Kent-C Unavailable Encounter Details Date Type Department Care Team (Late st Contact Info) Description 06/22/2024 MyC Medical Advice [facility] [address] [phone] Tamika Brandon Social History Tobacco Use Types Packs/Day Years Used Date Smoking Tobacco: Never Alcohol Use Standard Drinks/Week Comments Yes 0 (1 standard drink = 0.6 oz pur e alcohol) PHQ-2 Answer Date Recorded PHQ-2 Score 0 06/22/2024 Comments No Sex and Gender Information Value Date Recorded Sex Assigned at Not on file 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 Gender Identity Not on file Sexual Orientation Not on file documented as of this encounter Plan of Treatment Upcoming Encounters Date Type Department Care Team (Late st Contact Info) Description 02/08/2025 8:00 AM CDT Virtual Visit [facility] [address] [phone] Sapna Gaines, PA-C [address] [facility] [address] [place] [address] documented as of this encounter Visit Diagnoses Not on filedocumented in this encounter Care Teams Forepart Reducer Relationship Specialty Start Date End Date [facility] [address] [place] [address] PCP - General 10/13/16 Lourdes Olmedo RPH [address] [place] [address] Pharmacist Pharmacist 06/22/24 09/16/24 Yessica Dunbar PA-C [address] [facility] [address] [place] [address] Physician Parachute Accessories Attacher Surgery 06/22/24 Carolin Flor APRN LEAVE MANAGER [address] [place] [address] Assigned PCP 07/17/24 Lourdes Olmedo RPH Assigned MTM Pharmacist 07/17/24 Diamante Kent PA-C 2450 [place] [address] Assigned Surgical Provider 09/16/24 documented as of this encounter
--- OUTSIDE RECORDS SUMMARY | 2024-12-30 10:21 | XMS_ITS | Encounter Summary ---
Author Organization [place] Address [address] [place] [address] Care Team Providers Care Commercial Litigation Attorney Name Role Phone Clinic - [facility] Primary Ca re Provider Lourdes Olmedo [facility] Unavailable Unavail able Yessica Dunbar PA-C Unavailable [phone] Carolin Flor APRN PUPPET MAKER Unavailable [phone] Lourdes Olmedo [facility] Unavailable Unavail able Diamante Kent PA-C Unavailable [phone] Reason for Visit * Reason Onset Date Comments Refill Request 09/09/2024 Encounter Details Date Type Department Care Team (Late st Contact Info) Description 09/09/2024 MyC Ishan Melton [facility] [address] [phone] Diamante Kent PA-C [address] [place] [address] Refill Request Social History Tobacco Use Types Packs/Day Years Used Date Smoking Tobacco: Never Alcohol Use Standard Drinks/Week Comments Yes 0 (1 standard drink = 0.6 oz pur e alcohol) PHQ-2 Answer Date Recorded PHQ-2 Score 0 08/12/2024 Comments No Sex and Gender Information Value Date Recorded Sex Assigned at Not on file 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 [address] [place] [address] documented as of this encounter Visit Diagnoses Diagnosis Class 3 severe obesity due to excess calories in adult, unspecified BMI, unspecified whether serious comorbidity present (H) documented in this encounter Care Teams Commercial Litigation Attorney Relationship Specialty Start Date End Date Clinic - [facility] [address] [place] [address] PCP - General 10/13/16 Lourdes Olmedo [facility] [address] [place] [address] Pharmacist Pharmacist 06/22/24 09/16/24 Yessica Dunbar PA-C [address] [facility] [address] Physician Autocad Designer Surgery 06/22/24 Carolin Flor APRN CNP [address] [place] [address] Assigned PCP 07/17/24 Lourdes Olmedo [facility] Assigned MTM Pharmacist 07/17/24 Diamante Kent PA-C 2450 [place] [address] Assigned Surgical Provider 09/16/24 documented as of this encounter
--- OUTSIDE RECORDS SUMMARY | 2024-12-30 10:21 | XMS_ITS | Clinical Summary ---
Author Organization [facility] [place] [address] [place] [address] Care Team Providers Care Shingle Shearing Machine Operator Name Role Phone Unavailable Primary Care [...]
--- OUTSIDE RECORDS SUMMARY | 2024-12-30 10:21 | XMS_ITS | Encounter Summary ---
Author Organization [place] Address [address] [place] [address] Care Team Providers Care Notching Press Operator Name Role Phone Clinic - [facility] Primary Ca re Provider Lourdes Olmedo [facility] Unavailable Unavail able Yessica Dunbar PA-C Unavailable [phone] Carolin Flor APRN FURNACE CONVERTER Unavailable [phone] Lourdes Olmedo [facility] Unavailable Unavail able Diamante Kent PA-C Unavailable Encounter Details Date Type Department Care Team (Late st Contact Info) Description 09/09/2024 MyC Medical Advice [facility] [address] [phone] Diamante Kent PA-C [facility] [place] [address] Social History Tobacco Use Types Packs/Day Years Used Date Smoking Tobacco: Never Alcohol Use Standard Drinks/Week Comments Yes 0 (1 standard drink = 0.6 oz pur e alcohol) PHQ-2 Answer Date Recorded PHQ-2 Score 0 08/12/2024 Comments No Sex and Gender Information Value Date Recorded Sex Assigned at Not on file 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 Sex Female 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 Gender Identity Not on file Sexual Orientation Not on file documented as of this encounter Plan of Treatment Upcoming Encounters Date Type Department Care Team (Late st Contact Info) Description 02/08/2025 8:00 AM CDT Virtual Visit [facility] [place] [address] [facility] [address] [place] [phone] Sapna Gaines PA-C [address] [place] [address] documented as of this encounter Visit Diagnoses Not on filedocumented in this encounter Care Teams Notching Press Operator Relationship Specialty Start Date End Date Clinic - [facility] [address] [place] [address] PCP - General 10/13/16 Lourdes Olmedo RPH [address] [place] [address] Pharmacist Pharmacist 06/22/24 09/16/24 Yessica Dunbar PA-C [address] [place] [address] 195 [place] [address] Physician Legal Consultant Surgery 06/22/24 Carolin Flor APRN FURNACE CONVERTER [address] [place] [address] Assigned PCP 07/17/24 Lourdes Olmedo RPH Assigned MTM Pharmacist 07/17/24 Diamante Kent PA-C [facility] [place] [address] Assigned Surgical Provider 09/16/24 documented as of this encounter
--- OUTSIDE RECORDS SUMMARY | 2024-12-30 10:21 | XMS_ITS | Clinical Summary ---
Author Organization [place] Address [address] [facility] [place] [address] Care Team Providers Care Cafeteria Aide Name Role Phone [facility] Primary Ca re Provider Yessica Dunbar PA-C Unavailable [phone] Carolin Flor APRN LEAD HANDLER Unavailable [phone] Lourdes Olmedo [facility] Unavailable Unavail able Diamante Kent PA-C Unavailable [phone] Allergies No known active allergies Medications hydrOXYzine [...] 08/12/2024 Assessment & Plan (08/12/2024 12:28 PM ORE PUNCHER): Weight gain through the pandemic. Previously stable around 180lbs. More rapid gain the past year through increase stress. Max weight close to 300lbs. Weight have been significantly influenced by stress and mental health. Wants to lose weight to improve overall health and feel better. [employer] employee, but [employer] still $800 due to high deductable. Was started on compounded semaglutide with Lourdes Olmedo [facility]. Currently on 0.5mg dose, has taken [...] Department Care Team Description 12/24/2024 Orders Only [facility] [address] [phone] Diamante Kent PA-C Class 3 severe obesity due to excess calories in adult, unspecified BMI, unspecified whether serious comorbidity present (H) (Primary Dx); Class 3 severe obesity with serious comorbidity and body mass index (BMI) of 45.0 to 49.9 in adult, unspecified obesity type (H) 12/23/2024 Telephone [facility] [address] [phone] Diamante Kent PA-C Refill Request (Zepbound Vial) 12/20/2024 Telephone [facility] [address] [phone] Diamante Kent PA-C 12/20/2024 MyC Medical Advice [facility] [address] [phone] Tamika Brandon Class 3 severe obesity due to excess calories in adult, unspecified BMI, unspecified whether serious comorbidity present (H) (Primary Dx); Class 3 severe obesity with serious comorbidity and body mass index (BMI) of 45.0 to 49.9 in adult, unspecified obesity type (H) 12/20/2024 Telephone [facility] [address] [phone] Diamante Kent PA-C Clinic Care Coordination - Follow-up 12/06/2024 MyC Medical Advice [facility] [address] 4[address] [place] [address] Diamante Kent PA-C 12/04/2024 MyC Refill [address] [address] Carolin Flor APRN LEAD HANDLER Refill Request from Last 3 Months Immunizations Immunization Administration Dates Next Due HPV Quadrivalent 10/04/2009 [...] on file Legal Sex Female 3:35 AM ORE PUNCHER Gender Identity Not on file Sexual Orientation [...] 117.5 kg (259 lb) 09/14/2024 7:19 AM ORE PUNCHER Height 157.5 cm (5' 2) 08/12/2024 10:40 AM ORE PUNCHER Body Mass Index 47.37 08/12/2024 10:40 AM ORE PUNCHER Plan of Treatment Upcoming Encounters Date Type Department Care Team (Late st Contact Info) Description 02/08/2025 8:00 AM CDT Virtual Visit [facility] [address] [phone] Sapna Gaines PA-C [address] [place] [address] Health Maintenance Due Date Last Done [...] patient's age to complete this topic Insurance [facility] * Guarantor: Suzan Heredia Account Type Relation to Patient Date of Phone Billing Address Medication Therapy Self 1990 [address] [place] [address] Care Teams Cafeteria Aide Relationship Specialty Start Date End Date Clinic - [facility] [address] [place] [address] PCP - General 10/13/16 Yessica Dunbar PA-C [address] [place] [address] Physician Associate Professor Of Literature Surgery 06/22/24 Carolin Flor APRN LEAD HANDLER [address] [place] [address] Assigned PCP 07/17/24 Lourdes Olmedo [facility] Assigned MTM Pharmacist 07/17/24 Diamante Kent PA-C [address] [facility] [place] [address] Assigned Surgical Provider 09/16/24
--- OUTSIDE RECORDS SUMMARY | 2024-12-30 10:21 | XMS_ITS | Clinical Summary ---
Author Organization [facility] Address [address] [place] [address] Care Team Providers Care Marketing Intelligence Manager Name Role Phone Found, No Pcp MD Primary Care Provider Unavailab le Source Comments You are receiving this document as you are listed as the primary care provider,follow-up provider, or the patient has been referred to you for consultation.This is in compliance with the Medicare and[facility] EHR Incentive Program,which states Providers who transition [...] 37.1 C (98.8 F) 07/28/2008 4:44 PM LAYUP WORKER ORAL C: 37.1 C Respiratory Rate 16 07/28/2008 4:44 PM LAYUP WORKER Oxygen Saturation - - Inhaled Oxygen Concentration [...] patient's age to complete this topic Insurance [facility] [place] [id number] [place] [id number] Care Teams Marketing Intelligence Manager Relationship Specialty Start Date End Date Found, No Pcp, [address] [place] [address] PCP - General 09/22/18
--- OUTSIDE RECORDS SUMMARY | 2024-12-30 10:21 | XMS_ITS | Encounter Summary ---
Author Organization [place] Address [address] [place] [address] Care Team Providers Care Pipe Out Worker Name Role Phone Clinic - [facility] Primary Ca re Provider Yessica Dunbar PA-C Unavailable [phone] Carolin Flor APRN PIZZA HUT ASSISTANT Unavailable Lourdes Olmedo [facility] Unavailable Unavail able Diamante Kent PA-C Unavailable [phone] Encounter Details Date Type Department Care Team (Late st Contact Info) Description 12/24/2024 Orders Only [facility] [address] 4th [place] [address] Diamante Kent PA-C [address] [place] [address] Class 3 severe obesity due to [...] on file Legal Sex Female 3:35 AM RING SPINNER Gender Identity Not on file Sexual Orientation Not on file documented as of this encounter Plan of Treatment Upcoming Encounters Date Type Department Care Team (Late st Contact Info) Description 02/08/2025 8:00 AM CDT Virtual Visit [facility] [address] [place] [phone] Sapna Gaines PA-C [address] [address] documented as of this encounter Visit Diagnoses Diagnosis Class 3 severe obesity due to excess calories in adult, unspecified BMI, unspecified whether serious comorbidity present (H)- Primary Class 3 severe obesity with serious comorbidity and body mass index (BMI) of 45.0 to 49.9 in adult, unspecified obesity type (H) documented in this encounter Care Teams Pipe Out Worker Relationship Specialty Start Date End Date Clinic - [facility] [address] [place] [address] PCP - General 10/13/16 Yessica Dunbar PA-C [address] [place] [address] 195 [place], [place] [address] Physician Tent Finisher Surgery 06/22/24 Carolin Flor APRN CNP [address] [place] [address] Assigned PCP 07/17/24 Lourdes Olmedo [facility] Assigned MTM Pharmacist 07/17/24 Diamante Kent PA-C [facility] [place] [address] Assigned Surgical Provider 09/16/24 documented as of this encounter
--- OUTSIDE RECORDS SUMMARY | 2024-12-30 10:21 | XMS_ITS | Encounter Summary ---
Author Organization [place] Address [address] [place] [address]. [place] [address] Care Team Providers Care Eyelet Cutter Name Role Phone Clinic - [facility] Primary Ca re Provider Lourdes Olmedo [facility] Unavailable Unavail able Yessica Dunbar PA-C Unavailable [phone] Carolin Flor APRN ASSOCIATE PROPERTY MANAGER Unavailable [phone] Lourdes Olmedo [facility] Unavailable Unavail able Diamante KentC Unavailable [phone] Encounter Details Date Type Department Care Team (Late st Contact Info) Description 06/23/2024 MyC Medical Advice [facility] [address] [place] [phone] Maryanne Millard, RN Social History Tobacco Use Types Packs/Day Years Used Date Smoking Tobacco: Never Alcohol Use Standard Drinks/Week Comments Yes 0 (1 standard drink = 0.6 oz pur e alcohol) PHQ-2 Answer Date Recorded PHQ-2 Score 0 06/22/2024 Comments No Sex and Gender Information Value Date Recorded Sex Assigned at Not on file Legal Sex Female 3:35 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 Gender Identity Not on file Sexual Orientation Not on file documented as of this encounter Plan of Treatment Upcoming Encounters Date Type Department Care Team (Late st Contact Info) Description 02/08/2025 8:00 AM CDT Virtual Visit [facility] [address]th [place] [address] Sapna Gaines, PA-C [address] [facility] [address] [place] [address] documented as of this encounter Visit Diagnoses Not on filedocumented in this encounter Care Teams Eyelet Cutter Relationship Specialty Start Date End Date [facility] [address] [place] [address] PCP - General 10/13/16 Lourdes Olmedo RPH [address] [place] [address] Pharmacist Pharmacist 06/22/24 09/16/24 Yessica Dunbar PA-C [address] [place] [address] 195 [place] [address] Physician Telecommunications Officer Surgery 06/22/24 Carolin Flor APRN ASSOCIATE PROPERTY MANAGER [address] [place] [address] Assigned PCP 07/17/24 Lourdes Olmedo RPH Assigned MTM Pharmacist 07/17/24 Diamante Kent PA-C [address] [place] [address] Assigned Surgical Provider 09/16/24 documented as of this encounter
--- NOTE | 2024-12-30 10:45 | CRLHL7_ITS ---
For Patients: As a result of the Century Cures Act, medical imaging exams and procedure reports are released immediately into your electronic medical record. You may view this report before your referring provider. If you have questions, please contact your health care provider. INDICATION: Status post coli last week, right upper quadrant pain. TECHNIQUE: CT abdomen and pelvis acquired with 128 cc Isovue 370 IV contrast. COMPARISON: CT abdomen and pelvis December 26, 2024. FINDINGS: Lower chest: Unremarkable. Liver: Normal in size and attenuation. Diffuse hepatic steatosis. Gallbladder and bile ducts: Status post cholecystectomy. No biliary duct dilatation. Small volume of fluid is present in the GB fossa with mild fatty stranding. There is small to moderate amount of free fluid in the right hemiabdomen along the paracolic gutter surrounding the 2nd part of duodenum and in the pelvis. Pancreas: No mass or inflammation. Spleen: Normal in size. No masses. Adrenal glands: No suspicious mass. Kidneys: Bilateral kidneys are normal in size with symmetric enhancement. No nephrolithiasis or hydronephrosis. GI tract: No findings of bowel obstruction. Normal appendix. Vasculature: Abdominal aorta is normal in caliber. Lymph nodes: No lymphadenopathy. Peritoneum/Abdominal Wall: Small to moderate volume of free fluid is identified in the GB fossa right hemiabdomen along the 2nd part of duodenum and in the pelvis. No free intraperitoneal air. Mild anterior and right lateral flank wall subcutaneous emphysema related to recent left cholecystectomy. Small fat containing umbilical hernia. Pelvis: Re-demonstration of multi-septated right adnexal cystic lesion, better characterized on previous ultrasound. Dominant follicular cyst in the left ovary. Uterus is normal in size and attenuation. Bones: No acute findings. IMPRESSION: Status post laparoscopic cholecystectomy with small to moderate volume of free fluid, predominantly in the right hemiabdomen, highly concerning for bile leak. Stable multi septated cystic mass are multiple complex/hemorrhagic right ovarian cyst, as described on previous exams. Please note that all CT scans at this facility use dose modulation, iterative reconstruction, and/or weight-based dosing when appropriate to reduce radiation dose to as low as reasonably achievable. Dictated by Bowen Corley MD @ 12/30/2024 12:01:24 PM (Electronically Signed)
--- NOTE | 2024-12-30 10:47 | ED_ITS ---
HPI - Abdominal Pain General Chief Complaint: Abdominal Pain Stated Complaint: left side abdominal shoot to back side- vomiting Time Seen by Provider: 12/30/24 10:32 History of Present Illness HPI narrative: This 34-year-old female comes in reporting right upper quadrant pain. She was seen about a week ago here with gallstones and sign of infection and obstruction. She had a laparoscopic cholecystectomy done here and then was discharged home. She had a follow-up ERCP done yesterday. She comes in today because severe pain with nausea and vomiting. Related Data Previous Rx's ?Medication ?Instructions ?Recorded hydrocodone 5 mg-acetaminophen 325 1 tab PO Q6H PRN pain #25 tabs 12/26/24 mg tablet Allergies Allergy/AdvReac Type Severity Reaction Status Date / Time No Known Drug Allergies Allergy Verified 12/30/24 10:26 Review of Systems Status of ROS Reports: 10 or more systems reviewed and unremarkable except as noted in History and below Narrative Constitutional: No fevers, no weight gain or loss. Eyes: No discharge. No vision changes. HENT: No congestion, no sore throat, no ear pain. Cardiovascular: No chest pain, no palpitations. Respiratory: No shortness of breath, no wheezes, no cough. Gastrointestinal: Right upper quadrant abdominal pain with nausea and vomit ing. Genitourinary: No dysuria, no hematuria. Musculoskeletal: Normal range of motion. Skin: No rashes, no pruritis. Neurological: No dizziness, weakness, sensory change, speech change. Endo/Heme/Allergies: No bruising or bleeding. No polydipsia. Pysch: no suicidality, no anxiety, no insomnia. All other systems reviewed and are negative. 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 What is your current living situation?: I presently have a place to live Problems where you live: no known problems Problems where you live details: n/a In the past 12 months, utilities in danger of being shut off: no In past 12 months, lack of transportation kept you from medical appts, meetings, work, or getting things needed for daily living: no In the past 12 mos, have been you worried that your food would run out before you had money to buy more?: never true In the past 12 mos, the food you bought just didn't last and you didn't have money to buy more?: never true Highest level of school completed/degree received: Associate degree: occupational, technical, vocational program Smoking Status: Never smoker Do you use any of these nicotine containing products: Vaping Products Second hand tobacco smoke exposure: No How often do you have a drink containing alcohol: monthly or less How many standard drinks containing alcohol do you have on a typical day: 1 or 2 How often do you have six or more drinks on one occasion: Never AUDIT-C Alcohol total score: 1 Non-prescribed substance use: denies use Caffeine: Yes How often does anyone, including family, friends and others, physically hurt you : never How often does anyone, including family, friends and others, insult or talk down to you: never How often does anyone, including family, friends and others, threaten you with harm: never How often does anyone, including family, friends and others, scream or curse at you: never service: No Exam Narrative: Exam Narrative: Constitutional: Well-developed, well-nourished, no acute distress. HEENT: Normocephalic, atraumatic. Neck: Normal range of motion. Nontender. Supple. Heart: Regular. No murmurs. Normal rate. Intact distal pulses. Lungs: Clear to auscultation. No chest discomfort. No wheezes, rhonchi, or rales. Abdomen: Decreased bowel sounds. Tenderness in the right upper quadrant. Some mild rebound tenderness. Surgical scars appear normal in their process of healing without sign of drainage or infection. Genitalia: Deferred. Back: No midline tenderness. Normal range of motion. Extremities: Normal range of motion. No injury. Skin: Intact. No rash. Warm. No erythema or pallor. Neurologic: No altered sensation. No weakness. Alert and oriented. Psychiatric: No suicidality. No anxiety or depression. No insomnia. Nursing notes and vitals signs are reviewed. Const: Vital Signs, click to edit/add: Vital Signs - 24 hr 12/30/24 10:26 12/30/24 10:57 12/30/24 11:00 Temperature 98.1 F Pulse Rate 103 H 99 Pulse Rate [Pulse Oximeter] 101 H Respiratory Rate 20 Blood Pressure Blood Pressure [Le ft Upper Arm] 133/101 H Pulse Oximetry 97 94 94 Oxygen Delivery Me thod Room Air 12/30/24 11:26 12/30/24 11:30 12/30/24 11:39 Temperature Pulse Rate 95 92 90 Pulse Rate [Pulse Oximeter] Respiratory Rate 16 Blood Pressure 128/85 128/85 Blood Pressure [Le ft Upper Arm] Pulse Oximetry 97 95 96 Oxygen Delivery Me thod 12/30/24 11:45 12/30/24 12:00 12/30/24 12:02 Temperature Pulse Rate 90 89 88 Pulse Rate [Pulse Oximeter] Respiratory Rate 16 Blood Pressure 120/77 Blood Pressure [Le ft Upper Arm] Pulse Oximetry 94 96 97 Oxygen Delivery Me thod 12/30/24 12:15 12/30/24 12:30 12/30/24 12:32 Temperature Pulse Rate 94 88 96 Pulse Rate [Pulse Oximeter] Respiratory Rate Blood Pressure 116/73 Blood Pressure [Le ft Upper Arm] Pulse Oximetry 94 97 97 Oxygen Delivery Me thod 12/30/24 12:32 12/30/24 12:32 12/30/24 12:32 Temperature Pulse Rate 96 96 96 Pulse Rate [Pulse Oximeter] Respiratory Rate Blood Pressure 116/73 116/73 116/73 Blood Pressure [Le ft Upper Arm] Pulse Oximetry 97 97 97 Oxygen Delivery Me thod 12/30/24 12:45 12/30/24 13:01 12/30/24 13:02 Temperature Pulse Rate 98 93 Pulse Rate [Pulse Oximeter] Respiratory Rate Blood Pressure 105/71 Blood Pressure [Le ft Upper Arm] Pulse Oximetry 91 93 Oxygen Delivery Me thod 12/30/24 13:15 Temperature Pulse Rate 101 H Pulse Rate [Pulse Oximeter] Respiratory Rate Blood Pressure Blood Pressure [Le ft Upper Arm] Pulse Oximetry 96 Oxygen Delivery Me thod Course Vital Signs Vital signs: Initial Vital Signs Temperature 98.1 F 12/30/24 10:26 Temperature Source Temporal Artery Scan 12/30/24 10:26 Pulse Rate 101 H 12/30/24 10:26 Respiratory Rate 20 12/30/24 10:26 Blood Pressure 133/101 H 12/30/24 10:26 Blood Pressure Mean 111 H 12/30/24 10:26 Blood Pressure Position High-Fowlers 12/30/24 10:26 Pulse Oximetry 97 12/30/24 10:26 Oxygen Delivery Method Room Air 12/30/24 10:26 Vital Signs Temperature 98.1 F 12/30/24 10:26 Pulse Rate 101 H 12/30/24 10:26 Respiratory Rate 20 12/30/24 10:26 Blood Pressure 133/101 H 12/30/24 10:26 Pulse Oximetry 97 12/30/24 10:26 Oxygen Delivery Method Room Air 12/30/24 10:26 Temperature 98.1 F 12/30/24 10:26 Pulse Rate 101 H 12/30/24 13:15 Respiratory Rate 16 12/30/24 12:02 Blood Pressure 105/71 12/30/24 13:02 Pulse Oximetry 96 12/30/24 13:15 Oxygen Delivery Method Room Air 12/30/24 10:26 Medications Administered Medications: Generic Name Dose Route Start Last Admin Trade Name Freq PRN Reason Stop Dose Admin Fentanyl 50 mcg 12/30/24 14:36 12/30/24 14:43 Fentanyl 100 Mcg/2 Ml Inj IVP 50 mcg Q30M PRN Administration Sodium Chloride 1,000 mls @ 125 mls/hr 12/30/24 14:06 12/30/24 14:09 0.9 % Sodium Chloride 1000 Ml IV 125 mls/hr .Q8H MYKE Administration Discontinued Medications Generic Name Dose Route Start Last Admin Trade Name Freq PRN Reason Stop Dose Admin Hydromorphone HCl 0.5 mg 12/30/24 10:45 12/30/24 10:56 Hydromorphone 0.5 Mg/0.5 Ml Inj IVP 12/30/24 10:46 0.5 mg ONCE ONE Administration Hydromorphone HCl 0.5 mg 12/30/24 12:25 12/30/24 12:29 Hydromorphone 0.5 Mg/0.5 Ml Inj IVP 12/30/24 12:26 0.5 mg ONCE ONE Administration Hydromorphone HCl 0.5 mg 12/30/24 13:07 12/30/24 13:14 Hydromorphone 0.5 Mg/0.5 Ml Inj IVP 12/30/24 13:08 0.5 mg ONCE ONE Administration Sodium Chloride 1,000 mls @ 1,000 mls/hr 12/30/24 10:45 12/30/24 12:48 0.9 % Sodium Chloride 1000 Ml IV 12/30/24 11:44 Infused .Q1H MYKE Infusion Sodium Chloride 500 mls @ 500 mls/hr 12/30/24 12:55 12/30/24 14:17 0.9 % Sodium Chloride 500 Ml IV 12/30/24 13:54 Infused .Q1H ONE Infusion Piperacillin Sod/Tazobactam 100 mls @ 200 mls/hr 12/30/24 13:58 12/30/24 14:09 Sod 3.375 gm/ Sodium Chloride IVPB 12/30/24 13:59 200 mls/hr ONCE ONE Administration Ondansetron HCl 4 mg 12/30/24 10:45 12/30/24 10:56 Ondansetron 2 Mg/Ml Inj IVP 12/30/24 10:46 4 mg ONCE ONE Administration Ondansetron HCl 4 mg 12/30/24 13:07 12/30/24 13:14 Ondansetron 2 Mg/Ml Inj IVP 12/30/24 13:08 4 mg ONCE ONE Administration MDM - Abdominal Pain MDM Narrative Medical decision making narrative: This patient comes in with worsening right-sided abdominal pain status post cholecystectomy and ERCP. The ERCP was done yesterday And cholecystectomy done 4 days ago. She arrives here with normal vital signs but has significant discomfort. An IV was established and labs are acquired. Her white count has doubled from 8 to 16. Additionally her liver enzymes and bilirubin have essentially increased since then. I did obtain a CT scan of her abdomen and pelvis which shows findings suspicious for a bile leak. I spoke with our surgeon on-call who stated that she really needs a HIDA scan and recommended transfer back to [facility]. I spoke with the GI specialist, Dr. Gil, who agreed with this plan for transfer. I also spoke with the [facility], Dr. Allred, who will be the accepting physician. There may be up to an 8 hour wait for a bed to open up. Additional labs including lipase and lactate are ordered and an ultrasound of her pelvis is also ordered to re-evaluate the incidental finding of cystic structure on the right ovary. The patient did receive an IV dose of Zosyn and has p.r.n. orders for pain medicines. Lab Data Labs: Lab Results 12/30/24 Range/Units 10:55 WBC 16.60 H (4.50-11.00) K/uL RBC 5.04 (4.00-5.20) m/uL Hgb 12.2 (12.0-16.0) gm/dL Hct 37.6 (33.0-51.0) % MCV 75 L (80-100) fL MCH 24 L (26-34) pg MCHC 32 (32-36) gm/dL RDW Coeff of Gustavo 17.8 H (11.5-15.5) % Plt Count 408 (140-440) K/uL Neut % (Auto) 85.5 H (42.0-72.0) % Lymph % (Auto) 9.0 L (20-44) % Crosby % (Auto) 4.5 (0.0-11.0) % Eos % (Auto) 0.5 (0.0-7.0) % Baso % (Auto) 0.1 (0.0-3.0) % Neut # (Auto) 14.20 H (1.7-7.0) K/uL Lymph # (Auto) 1.50 (0.90-2.90) K/uL Crosby # (Auto) 0.70 (0.00-0.90) K/UL Eos # (Auto) 0.10 (0.00-0.50) K/uL Baso # (Auto) 0.00 (0.00-0.30) K/uL Abs Immat Gran (auto) 0.10 (0.00-0.30) K/uL Imm/Tot Granulo (auto) 0.4 % Sodium 137 (135-149) mmol/L Potassium 3.4 L (3.6-5.1) mmol/L Chloride 101 (96-114) mmol/L Carbon Dioxide 25 (20-32) mmol/L Anion Gap 11 (7-15) mEq/L BUN 11 (5-24) mg/dL Creatinine 0.6 (0.5-1.5) mg/dL Estimated Creat Clear 105.48 Estimated GFR 121 ml/min Glucose 127 H (60-115) mg/dL Calcium 9.1 (8.4-10.6) mg/dL Total Bilirubin 2.8 H (0.1-1.5) mg/dL Direct Bilirubin 1.9 H (0.0-0.5) mg/dL AST 151 H (12-35) U/L ALT 307 H (4-35) U/L Alkaline Phosphatase 175 H (40-150) U/L Total Protein 7.8 (6.0-8.3) g/dL Albumin 4.2 (3.3-5.0) g/dL Imaging Data CT scan - abdomen: Radiologist's impression: FINDINGS: Lower chest: Unremarkable. Liver: Normal in size and attenuation. Diffuse hepatic steatosis. Gallbladder and bile ducts: Status post cholecystectomy. No biliary duct dilatation. Small volume of fluid is present in the GB fossa with mild fatty stranding. There is small to moderate amount of free fluid in the right hemiabdomen along the paracolic gutter surrounding the 2nd part of duodenum and in the pelvis. Pancreas: No mass or inflammation. Spleen: Normal in size. No masses. Adrenal glands: No suspicious mass. Kidneys: Bilateral kidneys are normal in size with symmetric enhancement. No nephrolithiasis or hydronephrosis. GI tract: No findings of bowel obstruction. Normal appendix. Vasculature: Abdominal aorta is normal in caliber. Lymph nodes: No lymphadenopathy. Peritoneum/Abdominal Wall: Small to moderate volume of free fluid is identified in the GB fossa right hemiabdomen along the 2nd part of duodenum and in the pelvis. No free intraperitoneal air. Mild anterior and right lateral flank wall subcutaneous emphysema related to recent left cholecystectomy. Small fat containing umbilical hernia. Pelvis: Re-demonstration of multi-septated right adnexal cystic lesion, better characterized on previous ultrasound. Dominant follicular cyst in the left ovary. Uterus is normal in size and attenuation. Bones: No acute findings. IMPRESSION: Status post laparoscopic cholecystectomy with small to moderate volume of free fluid, predominantly in the right hemiabdomen, highly concerning for bile leak. Stable multi septated cystic mass are multiple complex/hemorrhagic right ovarian cyst, as described on previous exams. Discharge Plan Discharge Clinical Impression: Bile leak, Ovarian cyst Patient Disposition: Raheel Cabrera Condition: Unchanged Prescriptions: No Action hydrocodone-acetaminophen 5-325 mg tablet 1 tab PO Q6H PRN (Reason: pain) Qty: 25 0RF Follow Up/Referrals: Provider,Not a Local [Primary Care Provider] - Stand Alone Forms: PresentationTubeealth Info Instructions
[2024-12-30] MEDS: HYDROmorphone 0.5 mg/0.5 ml inj IVP ×3 (10:56→13:14)
[2024-12-30] MEDS: ONDANSETRON 2 MG/ML inj 4 MG IVP ×2 (10:56→13:14)
[2024-12-30] MEDS: 0.9 % SODIUM CHLORIDE 1000 ml 1,000 ML IV (11:01)
[2024-12-30 11:03] LABS: Basophils Percent Auto 0.1 % (0.0-3.0); Eosinophils Percent Auto 0.5 % (0.0-7.0); Hematocrit 37.6 % (33.0-51.0); Hemoglobin* 12.2 gm/dL (12.0-16.0); Immature Granulocytes Pct Auto 0.4 %; Mean Corpuscular HGB Conc 32 gm/dL (32-36); Mean Corpuscular Hemoglobin 24 pg (26-34); Mean Corpuscular Volume 75 fL (80-100); Monocytes Percent Auto 4.5 % (0.0-11.0); Neutrophils Percent Auto 85.5 % (42.0-72.0); Platelet Count* 408 K/uL (140-440); RDW Coefficient of Variation % 17.8 % (11.5-15.5); Red Blood Count 5.04 m/uL (4.00-5.20)
[2024-12-30 11:13] LABS: Slide Review Reflex No
[2024-12-30 11:14] LABS: Albumin* 4.2 g/dL (3.3-5.0); Chloride* 101 mmol/L (96-114)
[2024-12-30 11:15] LABS: Potassium* 3.4 mmol/L (3.6-5.1); Sodium* 137 mmol/L (135-149)
[2024-12-30 11:17] LABS: Alanine Aminotransferase* 307 U/L (4-35); Alkaline Phosphatase* 175 U/L (40-150); Anion Gap 11 mEq/L (7-15); Aspartate Amino Transferase* 151 U/L (12-35); Bilirubin Direct* 1.9 mg/dL (0.0-0.5); Bilirubin Total* 2.8 mg/dL (0.1-1.5); Blood Urea Nitrogen* 11 mg/dL (5-24); Carbon Dioxide* 25 mmol/L (20-32); Creatinine* 0.6 mg/dL (0.5-1.5); Est. Creatinine Clearance* 105.48; Estimated Glomerular Filt Rate 121 ml/min; Total Protein* 7.8 g/dL (6.0-8.3)
[2024-12-30 11:18] LABS: Calcium* 9.1 mg/dL (8.4-10.6); Glucose* 127 mg/dL (60-115)
--- OUTSIDE RECORDS SUMMARY | 2024-12-30 11:28 | XMS_ITS | Encounter Summary ---
Author Organization [place] Address [address] [place] [address]. [place] [address] Care Team Providers Care Art Historian Name Role Phone Clinic - [facility] Primary Ca re Provider Yessica Dunbar PASteve Unavailable [phone] Carolin Flor APRN FBI SHARPSHOOTER Unavailable [phone] Lourdes Olmedo [facility] Unavailable Unavail able Diamante Kent-C Unavailable [phone] Encounter Details Date Type Department Care Team (Late st Contact Info) Description 12/20/2024 [facility] Edgardo Melton [facility] [address] 4[address] [place] [address] Tamika Brandon Class 3 severe [...] on file 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 Gender Identity Not on file Sexual Orientation Not on file documented as of this encounter Plan of Treatment Upcoming Encounters Date Type Department Care Team (Late st Contact Info) Description 02/08/2025 8:00 AM CDT Virtual Visit [facility] [place] [address] [facility] [address] [place] [id number] Sapna Gaines PA-C [address] [facility] [address] [place] [address] documented as of this encounter Visit Diagnoses Diagnosis Class 3 severe obesity due to excess calories in adult, unspecified BMI, unspecified whether serious comorbidity present (H)- Primary Class 3 severe obesity with serious comorbidity and body mass index (BMI) of 45.0 to 49.9 in adult, unspecified obesity type (H) documented in this encounter Care Teams Art Historian Relationship Specialty Start Date End Date Clinic - [facility] [address] [place] [address] PCP - General 10/13/16 Yessica Dunbar PA-C [address] [place] [address] [address] [place] [address] Physician Soda Worker Surgery 06/22/24 Carolin Flor APRN CNP [address] [place] [address] Assigned PCP 07/17/24 Lourdes Olmedo [facility] Assigned MTM Pharmacist 07/17/24 Diamante Kent PA-C [address] [place], [place] [address] Assigned Surgical Provider 09/16/24 documented as of this encounter
--- OUTSIDE RECORDS SUMMARY | 2024-12-30 11:28 | XMS_ITS | Encounter Summary ---
Author Organization [place] Address [address] [place] [address]. [place] [address] Care Team Providers Care Epic Prelude Analyst Name Role Phone Clinic - [facility] Primary Ca re Provider Lourdes Olmedo [facility] Unavailable Unavail able Yessica Dunbar-C Unavailable [phone] Carolin Flor APRN HOOP PUNCH OPERATOR HELPER Unavailable [phone] Lourdes Olmedo [facility] Unavailable Unavail able Diamante Kent PA-C Unavailable [phone] Encounter Details Date Type Department Care Team (Late st Contact Info) Description 06/22/[address] 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 [address]th [place] [address] Sapna Gaines PA-C [address] [facility] [address] [place] [address] documented as of this encounter Visit Diagnoses Not on filedocumented in this encounter Care Teams Epic Prelude Analyst Relationship Specialty Start Date End Date [facility] [address] [place] [address] PCP - General 10/13/16 Lourdes Olmedo R[facility] [address] [place] [address] Pharmacist Pharmacist 06/22/24 09/16/24 Yessica Dunbar PA-C [address] [facility] [address] [place] [address] Physician Help Desk Operator Surgery 06/22/24 Carolin Flor APRN HOOP PUNCH OPERATOR HELPER [address] [place] [address] Assigned PCP 07/17/24 Lourdes Olmedo RPH Assigned MTM Pharmacist 07/17/24 Diamante Kent PA-C [address] [place] [address] Assigned Surgical Provider 09/16/24 documented as of this encounter
--- OUTSIDE RECORDS SUMMARY | 2024-12-30 11:28 | XMS_ITS | Encounter Summary ---
Author Organization [place] Address [address] [place] [address] Care Team Providers Care Welder Production Line Combination Name Role Phone Clinic - [facility] Primary Ca re Provider Yessica Dunbar PA-C Unavailable [phone] Carolin Flor APRN ROLLER INSPECTOR AND MENDER Unavailable Lourdes Olmedo [facility] Unavailable Unavail able Diamante Kent PA-C Unavailable [phone] Encounter Details Date Type Department Care Team (Late st Contact Info) Description 12/20/2024 Telephone [facility] [address] [place] [address] Diamante Kent PA-C [address] [place] [address] Social History Tobacco Use Types Packs/Day Years Used Date Smoking Tobacco: Never Alcohol Use Standard Drinks/Week Comments Yes 0 (1 standard drink = 0.6 oz pur e alcohol) PHQ-2 Answer Date Recorded PHQ-2 Score 0 09/14/2024 Comments No Sex and Gender Information Value Date Recorded Sex Assigned at Not on file 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 Gender Identity Not on file Sexual Orientation [...] want to speak with: RN Is an interpreter deaf needed?: No Could we send this information to you in [place] or would you prefer to receive a phone call?: No preference Okay to leave a detailed message?: Yes at Cell number on file: Telephone Information: documented in this encounter Plan of Treatment Upcoming Encounters Date Type Department Care Team (Late st Contact Info) Description 02/08/2025 8:00 AM CDT Virtual Visit [facility] [address] [address] Sapna Gaines PA-C [address] [place] [address] documented as of this encounter Visit Diagnoses Not on filedocumented in this encounter Care Teams Welder Production Line Combination Relationship Specialty Start Date End Date Clinic - [facility] [address] [place] [address] PCP - General 10/13/16 Yessica Dunbar PA-C [address] [place] [address] [address] [place] [address] Physician Career Manager Surgery 06/22/24 Carolin Flor APRN ROLLER INSPECTOR AND MENDER [address] [place] [address] Assigned PCP 07/17/24 Lourdes Olmedo [facility] Assigned MTM Pharmacist 07/17/24 Diamante Kent PA-C [address] [place] [address] Assigned Surgical Provider 09/16/24 documented as of this encounter
--- OUTSIDE RECORDS SUMMARY | 2024-12-30 11:28 | XMS_ITS | Clinical Summary ---
Author Organization [facility] Address [address] [place] [address] Care Team Providers Care Welding Machine Tender Name Role Phone Unavailable Primary Care Provider [...]
--- OUTSIDE RECORDS SUMMARY | 2024-12-30 11:28 | XMS_ITS | CCD ---
Author Name Interface, [id number] Address [address] [place] [address] Oncology Address [address] [place] [address] Care Team Providers Care Manager Shift Name Role Phone Susana Ayala Unavailable Care Plan Reason for Visit Encounters Diagnostic Results Social History
--- OUTSIDE RECORDS SUMMARY | 2024-12-30 11:28 | XMS_ITS | Encounter Summary ---
Author Organization [place] Address [facility] [place] [address] Care Team Providers Care Appliquer Name Role Phone Clinic - [facility] Primary Ca Provider Yessica Dunbar PA-C Unavailable [phone] Carolin Flor APRN LOGISTICS INTERN Unavailable Lourdes Olmedo [facility] Unavailable Unavail able Diamante Kent PA-C Unavailable [phone] Reason for Visit * Reason Onset Date Comments Refill Request 12/04/2024 Encounter Details Date Type Department Care Team (Late st Contact Info) Description 12/04/2024 MyC Ishan Melton [facility] [address] [place] [address] Carolin Flor APRN LOGISTICS INTERN [address] [place] [address] Refill Request Social History Tobacco Use Types Packs/Day Years Used Date Smoking Tobacco: Never Alcohol Use Standard Drinks/Week Comments Yes 0 (1 standard drink = 0.6 oz pur e alcohol) PHQ-2 Answer Date Recorded PHQ-2 Score 0 09/14/2024 Comments No Sex and Gender Information Value Date Recorded Sex Assigned at Not on file 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 Tona Dobson Hydro Sprayer Operator [facility] documented in this encounter Plan of Treatment Upcoming Encounters Date Type Department Care Team (Late st Contact Info) Description 02/08/2025 8:00 AM CDT Virtual Visit [facility] [place] [address] [place] [address] [address] [place] [phone] Sapna Gaines PA-C [address] [facility] [address] [place], [place] [address] documented as of this encounter Visit Diagnoses Diagnosis Panic attack Panic disorder without agoraphobia Anxiety Anxiety state, unspecified documented in this encounter Care Teams Appliquer Relationship Specialty Start Date End Date [facility] [address] [place] [address] PCP - General 10/13/16 Yessica Dunbar PA-C [address] [place] [address] [address] [place], [place] [id number] Physician Tapering Machine Operator Surgery 06/22/24 Carolin Flor APRN LOGISTICS INTERN [address] [place] [address] Assigned PCP 07/17/24 Lourdes Olmedo [facility] Assigned MTM Pharmacist 07/17/24 Diamante Kent PA-C [facility] [place] [address] Assigned Surgical Provider 09/16/24 documented as of this encounter
--- OUTSIDE RECORDS SUMMARY | 2024-12-30 11:28 | XMS_ITS | Encounter Summary ---
Author Organization [facility] Address [address] [place] [address] Care Team Providers Care Footwear Sales Leader Name Role Phone Clinic - [facility] Primary Ca re Provider Yessica Dunbar PA-C Unavailable [phone] Carolin Flor APRN FLOOR CARE TECHNICIAN Unavailable Lourdes Olmedo [facility] Unavailable Unavail able Diamante Kent PA-C Unavailable Encounter Details Date Type Department Care Team (Late st Contact Info) Description 12/06/2024 MyC Medical Advice [facility] Weight Management [address] [address] Diamante Kent PA-C [address] [place] [address] Social History Tobacco Use Types Packs/Day Years Used Date Smoking Tobacco: Never Alcohol Use Standard Drinks/Week Comments Yes 0 (1 standard drink = 0.6 oz pur e alcohol) PHQ-2 Answer Date Recorded PHQ-2 Score 0 09/14/2024 Comments No Sex and Gender Information Value Date Recorded Sex Assigned at Not on file 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 Gender Identity Not on file Sexual Orientation Not on file documented as of this encounter Plan of Treatment Upcoming Encounters Date Type Department Care Team (Late st Contact Info) Description 02/08/2025 8:00 AM CDT Virtual Visit [facility] [address] [place] [phone] Sapna Gaines PA-C [address] [place] [id number] documented as of this encounter Visit Diagnoses Not on filedocumented in this encounter Care Teams Footwear Sales Leader Relationship Specialty Start Date End Date Clinic - [facility] [address] [place] [address] PCP - General 10/13/16 Yessica Dunbar PA-C [address] [place] [address] [address] [place] [address] Physician Nephrology Social Worker Surgery 06/22/24 Carolin Flor APRN FLOOR CARE TECHNICIAN [address] [place] [address] Assigned PCP 07/17/24 Lourdes Olmedo [facility] Assigned MTM Pharmacist 07/17/24 Diamante Kent PA-C [address] [place] [address] Assigned Surgical Provider 09/16/24 documented as of this encounter
--- OUTSIDE RECORDS SUMMARY | 2024-12-30 11:28 | XMS_ITS | Encounter Summary ---
Author Organization [facility] Address [address] [place] [address] Care Team Providers Care Motion Picture Camera Operator Name Role Phone Clinic - [facility] Primary Ca re Provider Yessica Dunbar PA-C Unavailable Carolin Flor APRN ENTRY LEVEL ACCOUNT EXECUTIVE Unavailable Lourdes Olmedo [facility] Unavailable Unavail able Diamante Kent PA-C Unavailable Reason for Visit * Reason Onset Date Comments Clinic Care Coordination - Follow-up 12/20/2024 Encounter Details Date Type Department Care Team (Late st Contact Info) Description 12/20/2024 [facility] [address] [place] [address] Diamante Kent PA-C [address] [place] [address] Clinic Care Coordination - Follow-up Social History Tobacco Use Types Packs/Day Years Used Date Smoking Tobacco: Never Alcohol Use Standard Drinks/Week Comments Yes 0 (1 standard drink = 0.6 oz pur e alcohol) PHQ-2 Answer Date Recorded PHQ-2 Score 0 09/14/2024 Comments No Sex and Gender Information Value Date Recorded Sex Assigned at Not on file Legal Sex Female 3:35 AM DIRECT MARKETING COORDINATOR Gender Identity Not on file Sexual Orientation [...] PM CDT Phone (Incoming) Suzan Heredia (Self) [phone] (M) Reason for Call: Please call pt as needs alternative solution now that compounding meds have ended.Has Dilia Alejo appt Could we send this information to you in [place] or would you prefer to receive a phone call?: Patient would prefer a phone call Okay to leave a detailed message?: Yes at Cell number on file: Telephone Information: documented in this encounter Plan of Treatment Upcoming Encounters Date Type Department Care Team ([facility] Contact Info) Description 02/08/2025 8:00 AM CDT Virtual Visit [facility] [address] [address] Sapna Gaines PA-C [address] [place] [address] documented as of this encounter Visit Diagnoses Not on filedocumented in this encounter Care Teams Motion Picture Camera Operator Relationship Specialty Start Date End Date Clinic - [facility] [address] [place] [address] PCP - General 10/13/16 Yessica Dunbar PA-C [address] [place] [address] [address] [place] [address] Physician Keyboard Teacher Surgery 06/22/24 Carolin Flor APRN ENTRY LEVEL ACCOUNT EXECUTIVE [address] [place] [address] Assigned PCP 07/17/24 Lourdes Olmedo [facility] Assigned MTM Pharmacist 07/17/24 Diamante Kent PA-C [address] [place], [place] [id number] Assigned Surgical Provider 09/16/24 documented as of this encounter
--- OUTSIDE RECORDS SUMMARY | 2024-12-30 11:28 | XMS_ITS | Clinical Summary ---
Author Organization [facility] Address [address] [place] [address] Care Team Providers Care Warehouse Team Member Name Role Phone Pcp, No Primary Care [...] CDT - 12/29/2024 2:05 PM CDT Surgery [facility] [address] [place] [address] Caio Leonard MD ENDOSCOPIC ULTRASOUND UPPER 12/29/2024 12:20 PM CDT Anesthesia Event [facility] [address] [place] [address] Wayne Pickett MD 12/29/2024 11:03 AM CDT - 12/29/2024 3:30 PM CDT Hospital Encounter [facility] [address] [place] [address] Caio Leonard MD Abdominal pain Discharge Disposition: Home Self Care 12/29/2024 Travel 12/27/2024 Lab Requisition [facility] [phone] Steph Gordillo MD 12/27/2024 Lab Requisition [facility] [phone] Rafa Carolina MD from Last 3 Months [...] on file Legal Sex Female 7:11 AM POT OPERATOR Gender Identity Not on file Sexual [...] Preop 12/29/2024 11:39 AM CDT PATH NON PROPELLER TESTER CYTOLOGY Routine 12/26/2024 11:40 AM CDT PATH [...] (12/29/2024 12:39 PM CDT) Narrative Yary Beltre, CHAR FILTER OPERATOR - 12/29/2024 12:39 PM CDT Yary Beltre, [...] Procedure: ERCP Proceduralist: Caio Leonard MD - [facility] Referring MD: Caio Leonard MD Indications/Pre-Op Diagnosis: Bile duct stone(s) Medications: General Anesthesia Procedure Description: Risk of bleeding, infection, perforation, pancreatitis, need for surgery, remote chance of and alternatives were discussed, andthe patient gave informed consent. The endoscope [id number] was passed through the mouth, and advanced [...] for pancreatitis, bleeding, perforation, and cholangitis. Caio Leoanrd MD 12/29/2024 1:30:45 PM This report has been signed electronically. Note Initiated On: 12/29/2024 12:39 PM Caio Leonard MD PROCEDURE ORD Final Result * ENDOSCOPY (12/29/2024 12:11 PM CDT) 12/29/2024 12:1 1 PM CDT Narrative Transcriptions Caio Leonard MD - 12/29/2024 12:[address] [facility] Advanced Endoscopy Patient Name: Suzan Heredia Procedure Date: 12/29/2024 Gender: Female Date of : 1990 Admit Type: Ambulatory Procedure: Upper EUS Proceduralist: Caio Leonard MD - [facility] Referring MD: Caio Leonard MD Indications/Pre-Op Diagnosis: Elevated liver enzymes, Suspected choledocholithiasis Medications: General Anesthesia Procedure Description: Risk of bleeding, infection, perforation, pancreatitis, need for surgery, remote chance of and alternatives were discussed, andthe patient gave informed consent. The [id number] was introduced through the mouth, and advancedto [...] E Negative Negative 12/29/2024 12:18 PM CDT [facility] Urine URINE SPECIMEN / Unknown Non-Blood / Unknown 12/29/2024 11:39 AM CDT 12/29/2024 12:04 PM CDT Caio Leonard MD URINE Final Result [facility] [address] [place] [address], * PATH NON PROPELLER TESTER CYTOLOGY (12/26/2024 11:40 AM CDT) Case Report Medical Cytology Report Case: [id number] Authorizing Provider: Steph Gordillo MD Collected: 12/26/2024 1140 Ordering Location: [facility] Received: 12/27/2024 1535 Pathologist: Steve Vaughn Jr., MD Specimen: Peritoneal Washing, Pelvic washing 12/28/2024 11:34 AM CDT [facility] Final Diagnosis PERITONEAL WASHING FOR CYTOLOGY: Negative for malignancy, see comment 12/28/2024 11:34 AM CDT [facility] at 1134 CDT Comment See the concurrent surgical specimen for additional details. 12/28/2024 11:34 AM CDT [facility] Clinical Information 34 year old female 12/28/2024 11:34 AM CDT [facility] Gross Description A) SOURCE: Peritoneal washing The specimen consists of 60 cc of light red clear fluid from which the following is prepared: -1 Papanicolaou stained ThinPrep slide 12/28/2024 11:34 AM CDT [facility] Microscopic Description Specimen adequacy: Adequate for interpretation. All slides were reviewed. The microscopic appearance substantiates the diagnosis. 12/28/2024 11:34 AM CDT [facility] Additional Information Cytology is screened at [facility] - [address], [place] [address] and [facility] - [address] [place] [address] and [facility] - [address] [place] [address] Interpreted at [facility] - [address], [place] [address] 12/28/2024 11:34 AM CDT [facility] Other (Peritoneal Washing) 12/26/2024 11:40 AM CDT 12/27/2024 3:35 PM CDT us [facility] Griselda Gordillo MD PATHOLOGY/CYTOLOGY Final Result [facility] [address] [place] [address], * PATH TISSUE EXAM (12/26/2024 11:24 AM CDT) Case Report Pathology Report Case: [id number] Authorizing Provider: Rafa Carolina MD Collected: 12/26/2024 1124 Ordering Location: [facility] Received: 12/28/2024 1014 Pathologist: Jaya Zhong MD Specimen: Gallbladder 12/29/2024 3:07 PM CDT [facility] Final Diagnosis A) GALLBLADDER, CHOLECYSTECTOMY: 1. Chronic cholecystitis 2. Cholelithiasis 3. Negative for dysplasia and malignancy 12/29/2024 3:07 PM CDT [facility] at 1507 CDT Clinical Information Ms. Heredia is a 34 y.o. who presents with abdominal pain. 12/29/2024 3:07 PM CDT [facility] Gross Description A) Received in formalin, labeled with the patient's name and gallbladder, is a 7.8 x 3.3 x 3.0 cm intact gallbladder. There are multiple yellow gallstones identified. There are no mucosal lesions identified. The average wall thickness is 0.1 cm. There is no abnormal wall thickening identified. No cystic duct lymph node is identified. Dry Chain Worker sections are submitted in one cassette. SACHA 12/28/2024 12/29/2024 3:07 PM CDT [facility] Microscopic Description The final diagnosis is based on microscopic examination of appropriate sections of all specimens. 12/29/2024 3:07 PM CDT [facility] Additional Information Interpreted at [facility] - [address] [facility] [address], [place] [address] 12/29/2024 3:07 PM CDT [facility] Other SPECIMEN FROM GALLBLADDER / Unknown 12/26/2024 11:24 AM CDT 12/28/2024 10:14 AM CDT us Rafa Carolina MD PATHOLOGY/CYTOLOGY Final R esult [facility] [address] [place] [address], from Last 3 Months Insurance [facility] SH[employer]ED SERVICES CARINE PABLO [id number] Advance Directives * Full Code (Latest Code [...] 10:14 PM 11/10/2015 8:18 PM Care Teams Warehouse Team Member Relationship Specialty Start Date End Date Pcp, No . PCP - General 12/28/24
--- OUTSIDE RECORDS SUMMARY | 2024-12-30 11:28 | XMS_ITS | Encounter Summary ---
Author Organization [facility] Address [address] [place] [address] Care Team Providers Care Business Systems Analyst Name Role Phone Unavailable Primary Care Provider Unavailabl e Prior Encounters Date Type Department Care Team Description 01/28/2020 Travel Plan of Treatment Not on file Visit Diagnoses Not on file
--- OUTSIDE RECORDS SUMMARY | 2024-12-30 11:28 | XMS_ITS | Clinical Summary ---
Author Organization [facility] Address [address] [place] [address] Care Team Providers Care Terminal Manager Name Role Phone Found, No Pcp MD Primary Care Provider Unavailab le Source Comments You are receiving this document as you are listed as the primary care provider,follow-up provider, or the patient has been referred to you for consultation.This is in compliance with the Medicare and[facility] EHR Incentive Program,which states Providers who [...] 37.1 C (98.8 F) 07/28/2008 4:44 PM FRUIT DRYER ORAL C: 37.1 C Respiratory Rate 16 07/28/2008 4:44 PM FRUIT DRYER Oxygen Saturation - - Inhaled Oxygen Concentration [...] patient's age to complete this topic Insurance [facility] [place] [id number] [place] [id number] Care Teams Terminal Manager Relationship Specialty Start Date End Date Found, No Pcp, [address] [place] [address] PCP - General 09/22/18
--- OUTSIDE RECORDS SUMMARY | 2024-12-30 11:28 | XMS_ITS | Encounter Summary ---
Author Organization [facility] Address [address] [place] [address] Care Team Providers Care Senior Php Software Developer Name Role Phone Clinic - [facility] Primary Ca re Provider Yessica Dunbar PA-C Unavailable + [phone] Carolin Flor APRN COMMUNITY ENGAGEMENT LEADER Unavailable [phone] Lourdes Olmedo [facility] Unavailable Unavail able Diamante Kent PA-C Unavailable [phone] Reason for Visit * Reason Onset Date Comments Refill Request 12/23/2024 Zepbound Vial Encounter Details Date Type Department Care Team (Late st Contact Info) Description 12/23/2024 [facility] Clinic [address] [address] Diamante Kent PA-C [address] [place] [address] Refill Request (Zepbound Vial) Social History Tobacco Use Types Packs/Day Years Used Date Smoking Tobacco: Never Alcohol Use Standard Drinks/Week Comments Yes 0 (1 standard drink = 0.6 oz pur e alcohol) PHQ-2 Answer Date Recorded PHQ-2 Score 0 09/14/2024 Comments No Sex and Gender Information Value Date Recorded Sex Assigned at Not on file Legal Sex Female 3:35 AM KNITTING MACHINE OPERATOR AUTOMATIC Gender Identity Not on file Sexual Orientation Not on file documented as of this encounter Miscellaneous Notes * Telephone Encounter - Jan Cotton - 12/23/2024 2:27 PM CDT Images from the original note were not included. documented in this encounter Plan of Treatment Upcoming Encounters Date Type Department Care Team (Late st Contact Info) Description 02/08/2025 8:00 AM CDT Virtual Visit [facility] Clinic [address] [place] [phone] Sapna Gaines PA-C [address] [address] documented as of this encounter Visit Diagnoses Not on filedocumented in this encounter Care Teams Senior Php Software Developer Relationship Specialty Start Date End Date Clinic - [facility] [address] [place] [address] PCP - General 10/13/16 Yessica Dunbar PA-C [address] [facility] [address] [place], [place] [address] Physician Tinware Lithograph Press Operator Surgery 06/22/24 Carolin Flor APRN CNP [address] [place] [address] Assigned PCP 07/17/24 Lourdes Olmedo [facility] Assigned MTM Pharmacist 07/17/24 Diamante Kent PA-C [address] [place], [place] [address] Assigned Surgical Provider 09/16/24 documented as of this encounter
--- OUTSIDE RECORDS SUMMARY | 2024-12-30 11:28 | XMS_ITS | CCD ---
Author Name [id number] Address [address] [place] [address] Oncology Address [address] [place] [address] Care Team Providers Care Supervisor Ticket Sales Name Role Phone Susana Ayala Unavailable Care Plan Reason for Visit Encounters Diagnostic Results Social History
--- OUTSIDE RECORDS SUMMARY | 2024-12-30 11:29 | XMS_ITS | Encounter Summary ---
Author Organization [facility] Address [address] [place] [address] Care Team Providers Care Panama Hat Blocker Name Role Phone Clinic - [facility] Primary Ca re Provider Lourdes Olmedo [facility] Unavailable Unavail able Yessica Dunbar PA-C Unavailable [phone] Carolin Flor APRN ENTRY TABLE OPERATOR Unavailable [phone] Lourdes Omledo [facility] Unavailable Unavail able Diamante Kent PA-C Unavailable [phone] Reason for Visit * Reason Onset Date Comments Refill Request 09/09/2024 Encounter Details Date Type Department Care Team (Late st Contact Info) Description 09/09/2024 MyC Ishan Melton [facility] [address] [phone] Diamante Kent PA-C [address] [place] [address] Refill Request Social History Tobacco Use Types Packs/Day Years Used Date Smoking Tobacco: Never Alcohol Use Standard Drinks/Week Comments Yes 0 (1 standard drink = 0.6 oz pur e alcohol) PHQ-2 Answer Date Recorded PHQ-2 Score 0 08/12/2024 Comments No Sex and Gender Information Value Date Recorded Sex Assigned at Not on file Legal Sex Female 3:35 AM PULP REFINER OPERATOR Gender Identity Not on file Sexual Orientation Not on file documented as of this encounter Plan of Treatment Upcoming Encounters Date Type Department Care Team (Late st Contact Info) Description 02/08/2025 8:00 AM CDT Virtual Visit [facility] [place] [address] [facility] [address] [place] [phone] Sapna Gaines, PASteve [address] [facility] [address] [place] [address] documented as of this encounter Visit Diagnoses Diagnosis Class 3 severe obesity due to excess calories in adult, unspecified BMI, unspecified whether serious comorbidity present (H) documented in this encounter Care Teams Panama Hat Blocker Relationship Specialty Start Date End Date Clinic - [facility] [address] [place] [address] PCP - General 10/13/16 Lourdes Olmedo [facility] [address] [place] [address] Pharmacist Pharmacist 06/22/24 09/16/24 Yessica Dunbar PA-C [address] [facility] [address] [place] [address] Physician Cracker Sprayer Surgery 06/22/24 Carolin Flor APRN CNP [address] [place] [address] Assigned PCP 07/17/24 Lourdes Olmedo [facility] Assigned MTM Pharmacist 07/17/24 Diamante Kent PA-C [address] [place] [address] Assigned Surgical Provider 09/16/24 documented as of this encounter
--- OUTSIDE RECORDS SUMMARY | 2024-12-30 11:29 | XMS_ITS | Clinical Summary ---
Author Organization [facility] Address [address] [facility] [place] [address] Care Team Providers Care Plc Technician Name Role Phone [facility] Primary Ca re Provider Yessica Dunbar PA-C Unavailable [phone] Carolin Flor APRN POLICY DIRECTOR Unavailable [phone] Lourdes Olmedo [facility] Unavailable Unavail able Diamante Kent PA-C Unavailable [phone] Allergies No known active allergies Medications hydrOXYzine [...] 08/12/2024 Assessment & Plan (08/12/2024 12:28 PM ORDER PICKER/ASSEMBLER): Weight gain through the pandemic. Previously stable [...] compounded semaglutide with Lourdes Olmedo [facility]. Currently on 0.5mg dose, has [...] Department Care Team Description 12/24/2024 Orders Only [facility] Weight Management [address] [address] Diamante Kent PA-C Class 3 severe obesity due to excess calories in adult, unspecified BMI, unspecified whether serious comorbidity present (H) (Primary Dx); Class 3 severe obesity with serious comorbidity and body mass index (BMI) of 45.0 to 49.9 in adult, unspecified obesity type (H) 12/23/2024 Telephone [facility] Clinic [address] [address] Diamante Kent PA-C Refill Request (Zepbound Vial) 12/20/2024 Telephone [facility] Weight Management [address] [address] Diamante Kent PA-C 12/20/2024 MyC Medical Advice [facility] Weight Management [address] [address] Tamika Brandon Class 3 severe obesity due to excess calories in adult, unspecified BMI, unspecified whether serious comorbidity present (H) (Primary Dx); Class 3 severe obesity with serious comorbidity and body mass index (BMI) of 45.0 to 49.9 in adult, unspecified obesity type (H) 12/20/2024 Telephone [facility] Weight Management [address] [address] Diamante Kent PA-C Clinic Care Coordination - Follow-up 12/06/2024 MyC Medical Advice [facility] Management Clinic [address] [place] [address] Diamante Kent PA-C 12/04/2024 MyC Refill [address] [address] Carolin Flor APRN POLICY DIRECTOR Refill Request from Last 3 Months Immunizations [...] on file Legal Sex Female 3:35 AM ORDER PICKER/ASSEMBLER Gender Identity Not on file Sexual Orientation [...] 117.5 kg (259 lb) 09/14/2024 7:19 AM ORDER PICKER/ASSEMBLER Height 157.5 cm (5' 2) 08/12/2024 10:40 AM ORDER PICKER/ASSEMBLER Body Mass Index 47.37 08/12/2024 10:40 AM ORDER PICKER/ASSEMBLER Plan of Treatment Upcoming Encounters Date Type Department Care Team (Late st Contact Info) Description 02/08/2025 8:00 AM CDT Virtual Visit [facility] [address] [address] Sapna Gaines PA-C [address] [place] [address] Health Maintenance Due Date Last Done [...] patient's age to complete this topic Insurance [facility] * Guarantor: Suzan Heredia Account Type Relation to Patient Date of Phone Billing Address Medication Therapy Self 1990 [address] [place] [address] Care Teams Plc Technician Relationship Specialty Start Date End Date Clinic - [facility] [address] [place] [address] PCP - General 10/13/16 Yessica Dunbar PA-C [address] [place] [address] Physician Software Manager Surgery 06/22/24 Carolin Flor APRN POLICY DIRECTOR [address] [place] [address] Assigned PCP 07/17/24 Lourdes Olmedo [facility] Assigned MTM Pharmacist 07/17/24 Diamante Kent PA-C [address] [facility] [place] [address] Assigned Surgical Provider 09/16/24
--- OUTSIDE RECORDS SUMMARY | 2024-12-30 11:29 | XMS_ITS | Encounter Summary ---
Author Organization [place] Address [address] [place] [address]. [place] [address] Care Team Providers Care Rock Singer Name Role Phone Clinic - [facility] Primary Ca re Provider Lourdes Olmedo [facility] Unavailable Unavail able Yessica Dunbar PA-C Unavailable [phone] Carolin Flor APRN BASEBALL PITCHER Unavailable [phone] Lourdes Olmedo [facility] Unavailable Unavail able Diamante KentC Unavailable [phone] Encounter Details Date Type Department Care Team (Late st Contact Info) Description 06/23/2024 MyC Medical Advice [facility] [address] [place] [phone] Maryanne Millard, RN Social History Tobacco Use Types Packs/Day Years Used Date Smoking Tobacco: Never Alcohol Use Standard Drinks/Week Comments Yes 0 (1 standard drink = 0.6 oz pur e alcohol) PHQ-2 Answer Date Recorded PHQ-2 Score 0 06/22/2024 Comments No Sex and Gender Information Value Date Recorded Sex Assigned at Not on file Legal Sex Female 3:35 AM COMMUNITY AIDE Gender Identity Not on file Sexual Orientation Not on file documented as of this encounter Plan of Treatment Upcoming Encounters Date Type Department Care Team (Late st Contact Info) Description 02/08/2025 8:00 AM CDT Virtual Visit [facility] [address] 4th [place] [address] Sapna Gaines, PA-C [address] [facility] [address] [place] [address] documented as of this encounter Visit Diagnoses Not on filedocumented in this encounter Care Teams Rock Singer Relationship Specialty Start Date End Date [facility] [address] [place] [address] PCP - General 10/13/16 Lourdes Olmedo RPH [address] [place] [address] Pharmacist Pharmacist 06/22/24 09/16/24 Yessica Dunbar PA-C [address] [place] [address] [address] [place] [address] Physician Aerosol Supervisor Surgery 06/22/24 Carolin Flor APRN BASEBALL PITCHER [address] [place] [address] Assigned PCP 07/17/24 Lourdes Olmedo RPH Assigned MTM Pharmacist 07/17/24 Diamante Kent PA-C [address] [place] [address] Assigned Surgical Provider 09/16/24 documented as of this encounter
--- OUTSIDE RECORDS SUMMARY | 2024-12-30 11:29 | XMS_ITS | Encounter Summary ---
Author Organization [place] Address [address] [place] [address] Care Team Providers Care Golf Ball Inspector Name Role Phone Clinic - [facility] Primary Ca re Provider Lourdes Olmedo [facility] Unavailable Unavail able Yessica Dunbar PA-C Unavailable [phone] Carolin Flor APRN DIRECTOR OF PHYSICAL EDUCATION Unavailable [phone] Lourdes Olmedo [facility] Unavailable Unavail able Diamante Kent PA-C Unavailable [phone] Encounter Details Date Type Department Care Team (Late st Contact Info) Description 09/09/2024 MyC Medical Advice [facility] [address] [address] Diamante Kent PA-C [facility] [address] Social History Tobacco Use Types Packs/Day Years Used Date Smoking Tobacco: Never Alcohol Use Standard Drinks/Week Comments Yes 0 (1 standard drink = 0.6 oz pur e alcohol) PHQ-2 Answer Date Recorded PHQ-2 Score 0 08/12/2024 Comments No Sex and Gender Information Value Date Recorded Sex Assigned at Not on file Legal Sex Female 3:35 AM ICE CREAM SHOP ASSOCIATE Gender Identity Not on file Sexual Orientation Not on file documented as of this encounter Plan of Treatment Upcoming Encounters Date Type Department Care Team (Late st Contact Info) Description 02/08/2025 8:00 AM CDT Virtual Visit [facility] [place] [address] [facility] [address] [place] [phone] Sapna Gaines PA-C [address] [place] [address] documented as of this encounter Visit Diagnoses Not on filedocumented in this encounter Care Teams Golf Ball Inspector Relationship Specialty Start Date End Date Clinic - [facility] [address] [place] [address] PCP - General 10/13/16 Lourdes Olmedo RPH [address] [place] [address] Pharmacist Pharmacist 06/22/24 09/16/24 Yessica Dunbar PA-C [address] [place] [address] [address] [place] [address] Physician Lopper Surgery 06/22/24 Carolin Flor APRN DIRECTOR OF PHYSICAL EDUCATION [address] [place] [address] Assigned PCP 07/17/24 Lourdes Olmedo RPH Assigned MTM Pharmacist 07/17/24 Diamante Kent PA-C [facility] [place] [address] Assigned Surgical Provider 09/16/24 documented as of this encounter
--- OUTSIDE RECORDS SUMMARY | 2024-12-30 11:29 | XMS_ITS | Encounter Summary ---
Author Organization [place] Address [address] [place] [address] Care Team Providers Care Superintendent Radio Communications Name Role Phone Clinic - [facility] Primary Ca re Provider Yessica Dunbar PA-C Unavailable [phone] Carolin Flor APRN STRETCHER LEVELER OPERATOR Unavailable [phone] Lourdes Olmedo [facility] Unavailable Unavail able Diamante Kent PA-C Unavailable [phone] Encounter Details Date Type Department Care Team (Late st Contact Info) Description 12/24/2024 Orders Only [facility] [address] 4th [place] [address] Diamante Kent PA-C [address] [place] [address] Class 3 severe obesity due to [...] on file 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 Gender Identity Not on file Sexual Orientation Not on file documented as of this encounter Plan of Treatment Upcoming Encounters Date Type Department Care Team (Late st Contact Info) Description 02/08/2025 8:00 AM CDT Virtual Visit [facility] [address] [place] [phone] Sapna Gaines PA-C [address] [address] documented as of this encounter Visit Diagnoses Diagnosis Class 3 severe obesity due to excess calories in adult, unspecified BMI, unspecified whether serious comorbidity present (H)- Primary Class 3 severe obesity with serious comorbidity and body mass index (BMI) of 45.0 to 49.9 in adult, unspecified obesity type (H) documented in this encounter Care Teams Superintendent Radio Communications Relationship Specialty Start Date End Date Clinic - [facility] [address] [place] [address] PCP - General 10/13/16 Yessica Dunbar PA-C [address] [place] [address] [address] [place], [place] [address] Physician Commercial Food Instructor Surgery 06/22/24 Carolin Flor APRN CNP [address] [place] [address] Assigned PCP 07/17/24 Lourdes Olmedo [facility] Assigned MTM Pharmacist 07/17/24 Diamante Kent PA-C [facility]0 [place] [address] Assigned Surgical Provider 09/16/24 documented as of this encounter
--- OUTSIDE RECORDS SUMMARY | 2024-12-30 11:29 | XMS_ITS | Encounter Summary ---
Author Organization [place] Address [address] [place] [address]. [place] [address] Care Team Providers Care Stock Broker Name Role Phone Clinic - [facility] Primary Ca re Provider Lourdes Olmedo [facility] Unavailable Unavail able Yessica Dunbar PA-C Unavailable [phone] Carolin Flor APRN PROTECTIVE CLOTHING ISSUER Unavailable [phone] Lourdes Olmedo [facility] Unavailable Unavail able Diamante Kent-C Unavailable [phone] Encounter Details Date Type Department Care Team (Late st Contact Info) Description 06/22/2024 MyC Medical Advice [facility] [address] [phone] Tamika Brandon Social History Tobacco Use Types Packs/Day Years Used Date Smoking Tobacco: Never Alcohol Use Standard Drinks/Week Comments Yes 0 (1 standard drink = 0.6 oz pur e alcohol) PHQ-2 Answer Date Recorded PHQ-2 Score 0 06/22/2024 Comments No Sex and Gender Information Value Date Recorded Sex Assigned at Not on file 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 Gender Identity Not on file Sexual Orientation Not on file documented as of this encounter Plan of Treatment Upcoming Encounters Date Type Department Care Team (Late st Contact Info) Description 02/08/2025 8:00 AM CDT Virtual Visit [facility] [address] [phone] Sapna Gaines, PA-C [address] [facility] [address] [place] [address] documented as of this encounter Visit Diagnoses Not on filedocumented in this encounter Care Teams Stock Broker Relationship Specialty Start Date End Date [facility] [address] [place] [address] PCP - General 10/13/16 Lourdes Olmedo RPH [address] [place] [address] Pharmacist Pharmacist 06/22/24 09/16/24 Yessica Dunbar PA-C [address] [facility] [address] [place] [address] Physician Radiation / Chemistry Technician Surgery 06/22/24 Carolin Flor APRN PROTECTIVE CLOTHING ISSUER [address] [place] [address] Assigned PCP 07/17/24 Lourdes Olmedo RPH Assigned MTM Pharmacist 07/17/24 Diamante Kent PA-C [address] [place] [address] Assigned Surgical Provider 09/16/24 documented as of this encounter
[2024-12-30] MEDS: 0.9 % SODIUM CHLORIDE 500 ML 500 ML IV (13:14)
[2024-12-30] MEDS: 0.9 % SODIUM CHLORIDE 1000 ml 1,000 ML 125 ML IV (14:09)
[2024-12-30] MEDS: PIPERACILLIN/TAZOBACTAM 3.375 GM in 0.9 % SODIUM CHLORIDE Mini-bag 100 ML IVPB (14:09)
--- NOTE | 2024-12-30 14:36 | CRLHL7_ITS ---
For Patients: As a result of the Cures Act, medical imaging exams and procedure reports are released immediately into your electronic medical record. You may view this report before your referring provider. If you have questions, please contact your health care provider. INDICATION: Pain with nausea and vomiting. Cholecystectomy on Friday. TECHNIQUE: Transvaginal pelvic ultrasound. COMPARISON: CT abdomen and pelvis 12/30/2024. Pelvic ultrasound 12/26/2024. FINDINGS: The uterus measures 9.4 x 4.9 x 5 cm. Solid 2.1 cm mass posteriorly, consistent with fibroid. Endometrial stripe measures 14 mm. No endometrial fluid. Right ovary is 8.1 x 5.3 x 7.3 cm. Complex septated cystic appearance diffusely involving the right ovary, with septal vascularity, as before (O-RADS 4) is unchanged. Left ovary is 4.4 x 3.7 x 4.5 cm. Simple cyst is 2.8 cm and was 3.1 cm. Normal-appearing color Doppler flow in the left ovary. New small pelvic free fluid. IMPRESSION: 1. Complex septated cystic appearance diffusely involving the right ovary and concerning for possible cystic ovarian neoplasm is unchanged. Again, OBGYN consultation and/or pelvic MRI is recommended when clinically appropriate. 2. Small uterine fibroid. 3. New small pelvic free fluid. Findings concerning for underlying bile leak are better demonstrated on CT same day. Dictated by Eric Noriega MD @ 12/30/2024 4:13:27 PM Dictated by: Eric Noriega MD @ 12/30/2024 16:13:56 (Electronically Signed)
[2024-12-30] MEDS: fentaNYL 100 MCG/2 ML inj 50 MCG IVP ×6 (14:43→20:37)
[2024-12-30 15:21] LABS: Lipase* 58 U/L (23-300)
[2024-12-30] MEDS: KETOROLAC 15 MG/ML inj IVP (20:49)
== END 2024-12-30 22:21 | disposition short-term general hospital (02) ==
PROVIDERS: Emergency Medicine Emergency Medical Services; Emergency Provider Student in an Organized Health Care Education/Training Program
DX: K91.858 Other complications of intestinal pouch (principal); N83.201 Unspecified ovarian cyst, right side; R00.0 Tachycardia, unspecified; R50.9 Fever, unspecified
CPT/HCPCS: 36415; 74177; 76830; 80048; 80076; 83605; 83690; 85025; 96365; 96375; 99284; 99285; J1171; J1885; J2405; J2543; J3010; J7030; Q9967

== ENCOUNTER 2024-12-30 22:14 | Outpatient (CLI) | payer OTHER, SELFPAY | END 2024-12-30 22:15 | disposition home or self-care (01) | LOC: AMB 12-31 11:49 | PROVIDERS: Visit Provider Student in an Organized Health Care Education/Training Program | DX: R10.10 Upper abdominal pain, unspecified (principal); N83.201 Unspecified ovarian cyst, right side; K83.9 Disease of biliary tract, unspecified | CPT/HCPCS: A0425; A0427 ==

== ENCOUNTER 2025-01-26 14:23 | Outpatient (CLI) | payer OTHER, SELFPAY ==
--- NOTE | 2025-01-26 14:30 | CRLHL7_ITS ---
For Patients: As a result of the Century Cures Act, medical imaging exams and procedure reports are released immediately into your electronic medical record. You may view this report before your referring provider. If you have questions, please contact your health care provider. INDICATION: Ovarian mass. COMPARISON: Pelvic ultrasound dated [address] scan of the abdomen and pelvis dated 30 Dec 2024. TECHNIQUE: Pelvic MRI with T1, T2, and postcontrast images. Intravenous gadolinium administered. FINDINGS: 1.8 cm fibroid in the posterior aspect of the fundus of the uterus. The uterus is otherwise unremarkable. Nabothian cysts in the cervix. 6.0 x 5.3 x 4.2 cm lobulated right ovarian cyst shows increased T1 signal and shading on the T2 weighted images. Normal appearance of the left ovary which contains small follicles. No other pelvic masses. No adenopathy. No other bony or soft tissue abnormalities identified. IMPRESSION: 1. 6.0 cm right ovarian endometrioma. 2. 1.8 cm fibroid in the fundus of the uterus. Dictated by Colton Andrews MD @ 01/28/2025 2:28:06 PM (Electronically Signed)
== END 2025-01-26 14:24 | disposition home or self-care (01) ==
LOC: MRI 14:25
PROVIDERS: Visit Provider Obstetrics & Gynecology
DX: R19.00 Intra-abdominal and pelvic swelling, mass and lump, unspecified site (principal); N80.121 Deep endometriosis of right ovary; D25.9 Leiomyoma of uterus, unspecified
CPT/HCPCS: 72197; A9575

== ENCOUNTER 2025-02-03 21:04 | Emergency (ER) | payer OTHER, SELFPAY ==
--- OUTSIDE RECORDS SUMMARY | 2025-01-19 07:58 | XMS_ITS | Continuity of Care Document ---
Author Organization [facility] Address [address] [address] [place] [address] Phone Care Team Providers Care Paver Installer Name Role Phone Tony Davis MD Unavailable Unavailabl e Procedures Procedure Date Subsqt Inpt Strtfwd/Low Subsqt Inpt Moderate Subsqt Inpt Moderate Subsqt Inpt Moderate Subsqt Inpt Strtfwd/Low Subsqt Inpt Moderate Subsqt Inpt Moderate ERCP w/stent & sphinc Subsqt Inpt Moderate Subsqt Inpt Moderate Subsqt Inpt Moderate Subsqt Inpt Moderate Init Inpt E&M High Prolonged inpatient/obser Ugi Endo; W/endo Ultrasound Ex Ercp; W/sphincterotomy/papillo Ercp; W/endo Retro Remov Stone Advance Directives Directive Yes / No Effective Date File Name No Information Encounters Encounter Description Practice Location Reason(s) For Visit Diagnoses Date Provider Providers Copied on Encounter [facility], [address] [address], [place], [place], [id number], [place] tel:[phone] [facility] No Information Trevin Jimenez. [address], [place], [place], [id number] , [place]. tel: [phone] [facility], [address] [address], [place], [place], [id number], [place] tel:[phone] [facility] Bile leak 5 Eyal Riley. [address] [facility] [address], [facility] [place], [id number] , [place]. tel: [phone] Subsqt Inpt Strtfwd/Low [facility], [address] [address], [place], [place], [id number], [place] tel:[phone] [facility] No Information 5 Konrad Boswell. [address], [facility] [place], [id number] , [place]. tel: [phone] Referring Provider: Andreia ADAMS, [address], [facility] [place], [address] . tel:[phone] Subsqt Inpt Moderate [facility], [address] [address], [place], [place], [id number], [place] tel:[phone] [facility] No Information 5 Ravi Stearns. [address], [facility] [place], [id number] , [place]. tel: [phone] Referring Provider: Jinny Rodriguez, [address], [place], [address] . tel:[phone] Subsqt Inpt Moderate [facility], [address] [address], [place], [place], [address], [place] tel:[phone] [facility] No Information 5 Aleah Madsen. [address], [facility] [place], [id number] , [place]. tel: [phone] Referring Provider: Tena MARTELL, [address], [place], [address] . tel:[phone] [facility], [address] [address], [place], [place], [address], [place] tel:[phone] [facility] No Information Eyal Riley. [address], [place], [address] , [place]. tel: [phone] Referring Provider: Osvaldo Georges, [address], [place], [address] . tel:[phone] Subsqt Inpt Moderate [facility], [address] [address], [place], [place], [address], [place] tel:[phone] [facility] No Information Jesu Freed . [address], [place], [id number] , [place]. tel: [phone] Referring Provider: Lourdes Mack, [address], [place], [address] . tel:[phone] Subsqt Inpt Moderate [facility], [address] [address], [place], [place], [id number], [place] tel:[phone] [facility] No Information Jesu Freed . [address], [place], [address] , [place]. tel: [phone] Referring Provider: Lourdes Mack, [address], [place], [address] . tel:[phone] Subsqt Inpt Moderate [facility], [address] [address], [place], [place], [id number], [place] tel:[phone] [facility] No Information Jesu Freed . [address] [facility] [address], [place], [address] , [place]. tel: [phone] Referring Provider: Lourdes Mack, [address], [place], [address] . tel:[phone] Subsqt Inpt Moderate [facility], [address] [address], [place], [place], [id number], [place] tel:[phone] [facility] No Information 0- 5 Baldemar Carlos. [address], [facility] [place], [address] , [place]. tel: [phone] Referring Provider: Breanna Blackman, [address], [facility] [place], [address] . tel:[phone] Init Inpt E&M High [facility], [address] [address], [place], [place], [id number], [place] tel:[phone] [facility] No Information 5 Aleksey Cruz. [address], [place], [place], [address] , [place]. tel: [phone] Referring Provider: Nancy Palomino, [address], [place], [address] . tel:[phone] [facility], [address] [address], [place], [place], [address], [place] tel:[phone] [facility] No Information 5 Aisha Kearney. [address], [place], [place], [id number] , [place]. tel: [phone] Referring Provider: Caio Leonard MD, [address], [place] [place], [address] . tel:[phone] [facility], [address] [address], [place], [place], [id number], tel:[phone] [facility] No Information 0 5 Aisha Kearney. [address], [facility] [place], [id number] , [place]. tel: [phone] Family History Family Member Type Diagnosis Age At Onset No Information Immunizations Vaccine Date Status Comments Influenza 2023- administered Note: [facility] bi-directional interface ; Source: Other Registry varicella virus vaccine administered Note : [facility] bi-directional interface ; Source: Other Registry varicella virus vaccine administered Note : [facility] bi-directional interface ; Source: Other Registry Afluria Qd administered Note: M [facility] bi-directional interface ; Source: Other Registry human papilloma virus vaccin e, quadrivalent administered Note: [facility] bi-direct ional interface ; Source: Other Registry Energix Pediatric administered Note: [facility] bi-directional interface ; Source: Other Registry E[employer] Pediatric administered Note: [facility] bi-directional interface ; Source: Other Registry E[employer] Pediatric administered Note: [facility] bi-directional interface ; Source: Other Registry measles, mumps and rubella v irus vaccine administered Note: [facility] bi-direct ional interface ; Source: Other Registry poliovirus vaccine, inactivated administe red Note: [facility] bi- directional interface ; Source: Other Registry poliovirus vaccine, inactivated administe red Note: [facility] bi- directional interface ; Source: Other Registry measles, mumps and rubella v irus vaccine administered Note: [facility] bi-direct ional interface ; Source: Other Registry diphtheria, tetanus toxoids and pertussis vaccine administered Note: [facility] bi-direct ional interface ; Source: Other Registry diphtheria, tetanus toxoids and pertussis vaccine administered Note: [facility] bi-direct ional interface ; Source: Other Registry poliovirus vaccine, inactivated administe red Note: [facility] bi- directional interface ; Source: Other Registry diphtheria, tetanus toxoids and pertussis vaccine administered Note: [facility] bi-direct ional interface ; Source: Other Registry poliovirus vaccine, inactivated administe red Note: [facility] bi- directional interface ; Source: Other Registry diphtheria, tetanus toxoids and pertussis vaccine administered Note: [facility] bi-direct ional interface ; Source: Other Registry Payers Payer name Insurance type Covered libertarian ID Authoriza tion(s) No Information Social History Type Description Quantity Date Captured Comments Sex Female Smoking Status No Information Chief Complaint And Reason For Visit No Information Reason For Referral Reason For Referral No Information Plan Of Treatment Date Type Action Status Referral Ordered: ERCP Appointment date/timeframe: 03/04/2025 ordered Appointment Kathleen Heredia BOOKED History Of Present Illness Encounter Date Complaint History Of Prese nt Illness No Information Functional Status Date Functional Assessmen t No Information Instructions Date Instruction Additional Infor mation No Information Assessments Type Assessment Date No Information Patient Care Teams Name Effective Dates (start - stop) Status Members No Information
--- OUTSIDE RECORDS SUMMARY | 2025-01-19 07:58 | XMS_ITS | Continuity of Care Document ---
Author Organization [facility] Address [address] [address] [place] [address] Phone Care Team Providers Care Screen Examiner Name Role Phone Tony Davis MD Unavailable [...] Encounter [facility], [address] [address], [place], [place], [id number], [place] tel:[phone] [facility] No Information Trevin Jimenez. [address] [facility], [place], [place], [id number] , [place]. tel: [phone] [facility], [address] [address], [place], [place], [address], [place] tel:[phone] [facility] Bile leak 5 Eyal Riley. [address] [facility], [facility] [place], [address] , [place]. tel: [phone] Subsqt Inpt Strtfwd/Low [facility], [address] [address], [place], [place], [address], [place] tel:[phone] [facility] No Information 5 Konrad Boswell. [address] [facility], [address], [facility] [place], [id number] , [place]. tel: [phone] Referring Provider: Andreia ADAMS, [address] [facility] [address], [place], [address] . tel:[phone] Subsqt Inpt Moderate [facility], [address] [address], [place], [place], [address], [place] tel:[phone] [facility] No Information 5 Ravi Stearns. [address] [facility], [address], [facility] [place], [id number] , [place]. tel: [phone] Referring Provider: Jinny Rodriguez, [address] [facility] [address], [place], [address] . tel:[phone] Subsqt Inpt Moderate [facility], [address] [address], [place], [place], [address], [place] tel:[phone] [facility] No Information 5 Aleah Madsen. [address] [facility], [address], [facility] [place], [address] , [place]. tel: [phone] Referring Provider: Tena MARTELL, [address] [facility] [address], [place], [address] . tel:[phone] [facility], [address] [address], [place], [place], [address], [place] tel:[phone] [facility] No Information Eyal Riley. [address] [facility], [address], [place], [address] , [place]. tel: [phone] Referring Provider: Osvaldo Georges, [address] [facility] [address], [place], [address] . tel:[phone] Subsqt Inpt Moderate [facility], [address] [address], [place], [place], [id number], [place] tel:[phone] [facility] No Information Jesu Freed . [address] [facility], [address], [place], [place], [address] , [place]. tel: [phone] Referring Provider: Lourdes Mack, [address] [facility] [address], [place], [address] . tel:[phone] Subsqt Inpt Moderate [facility], [address] [address], [place], [place], [address], [place] tel:[phone] [facility] No Information Jesu Freed . [address] [facility], [address], [place], [address] , [place]. tel: [phone] Referring Provider: Lourdes Mack, [address] [facility] [address], [place], [address] . tel:[phone] Subsqt Inpt Moderate [facility], [address] [address], [place], [place], [address], [place] tel:[phone] [facility] No Information Jesu Freed . [address] [facility] [place], [address], [place], [address] , [place]. tel: [phone] Referring Provider: Lourdes Mack, [address] [facility] [address], [place], [address] . tel:[phone] Subsqt Inpt Moderate [facility], [address] [address], [place], [place], [address], [place] tel:[phone] [facility] No Information 0- 5 Baldemar Carlos. [address] [facility], [address], [facility] [place], [address] , [place]. tel: [phone] Referring Provider: Breanna Blackman, [address] [facility] [address], [place], [address] . tel:[phone] Init Inpt E[employer]M High [facility], [address] [address], [place], [place], [address], [place] tel:[phone] [facility] No Information 5 Aleksey Cruz. [address] [facility], [address], [place], [place], [address] , [place]. tel: [phone] Referring Provider: Nancy Palomino, [address] [facility] [address], [place], [address] . tel:[phone] [facility], [address] [address], [place], [place], [address], [place] tel:[phone] [facility] No Information 5 Aisha Kearney. [address] [facility], [address], [place], [place], [address] , [place]. tel: [phone] Referring Provider: Caio Leonard MD, [address] [facility] [address], [place], [address] . tel:[phone] [facility], [address] [address], [place], [place], [address], tel:[phone] [facility] No Information 0 5 Aisha Kearney. [address] [facility], [address], [facility] [place], [address] , [place]. tel: [phone] Family History Family Member Type Diagnosis Age [...] Registry Payers Payer name Insurance type Covered constitution party ID Authoriza tion(s) No Information Social History [...]
--- OUTSIDE RECORDS SUMMARY | 2025-02-03 21:06 | XMS_ITS | Encounter Summary ---
Author Organization [facility] Address [address] [place] [address] Care Team Providers Care Instructor Knitting Name Role Phone Unavailable Primary Care Provider Unavailabl e Prior Encounters Date Type Department Care Team Description 01/28/2020 Travel Plan of Treatment Not on file Visit Diagnoses Not on file
--- OUTSIDE RECORDS SUMMARY | 2025-02-03 21:06 | XMS_ITS | Clinical Summary ---
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 1 Each 023 Active tirzepatide (weight loss) (Zepbound) 5 mg/0.5 mL pen Inject 5 mg subcutaneous once weekly. Active semaglutide (weight loss) 1 mg/0.5 mL subcutaneous pen Inject 1 mg subcutaneous once weekly. Active cholecalciferol 2,000 unit capsuleIndication s:Vitamin D deficiency Take 1 Capsule (2,000 units) by mouth once daily. 30 Capsule 1 025 Active escitalopram oxalate (Lexapro) 10 mg tabletIndications :Panic disorder without agoraphobia Take 1 Tablet (10 mg) by mouth once daily. 90 Tablet 3 01/16/20 25 11:25 AM CDT 025 Active multivitamin folic acid 0.4 mgIndications:Vit dixon D deficiency Take 1 Tablet by mouth once daily. 90 Tablet 3 025 Active HYDROcodone-aceta minophen (5-325 mg/tablet)Indicat ions:Bile leak Take 1 Tablet by mouth every 6 hours if needed for Pain. Max acetaminophen dose: 4000 mg in 24 hrs. 42 Tablet 01/16/20 11:25 AM CDT 025 Active ondansetron 4 mg disintegrating tabletIndications :Nausea Place 1 Tablet (4 mg) on the tongue every 8 hours if needed for Nausea/Vomiting . 12 Tablet 025 Active escitalopram oxalate (Lexapro) 10 mg tablet Take 10 mg by mouth once daily. 2024 Discontinued HYDROcodone-aceta minophen (5-325 mg/tablet) Take 1 Tablet by mouth every 6 hours if needed for Pain. Max acetaminophen dose: 4000 mg in 24 hrs. 025 2024 Discontinued cefuroxime axetil 500 mg tabletIndications :ABDOMEN/PELVIS INFECTION Take 1 Tablet (500 mg) by mouth two times daily for 10 days. 20 Tablet 01/13/20 25 2:29 PM CDT 025 2024 metroNIDAZOLE 500 mg tabletIndications :ABDOMEN/PELVIS INFECTION Take 1 Tablet (500 mg) by mouth two times daily for 10 days. 20 Tablet 01/13/20 25 2:29 PM CDT 025 2024 oxyCODONE 5 mg immediate release tabletIndications :Abdominal pain, unspecified abdominal location Take 1 Tablet (5 mg) by mouth every 4 hours if needed for Pain. 10 Tablet 025 2024 Discontinued(* IP Discontinued) Active Problems Problem Noted Date Diagnosed Date Iron deficiency anemia 01/10/2025 Thrombocytosis 01/10/2025 Bile leak 01/08/2025 Hyperglycemia 12/31/2024 Sepsis without acute organ dysfunction Transaminitis 12/30/2024 Hyperbilirubinemia 12/30/2024 Leukocytosis 12/30/2024 Ovarian cyst, bilateral 12/30/2024 History of laparoscopic cholecystectomy 12/31/19 Peritonsillar abscess 11/09/2015 Sepsis 11/09/2015 PANIC DISORDER 08/09/2005 URINARY TRACT DISORDER 07/31/2005 ABDOMINAL PAIN UNSPECIFIED SITE 07/31/2005 Encounters Date Type Department Care Team Description 5 Transcribe Orders [facility] [phone] Susana Ayala MD 5 Telephone [facility] [address] [place] [address] Dolly Pryor MD care coordination 5 9:30 AM CDT Ancillary Procedure [facility] [address] [place] [phone] 5 Travel 5 7:03 PM CDT - 5 11:27 PM CDT Emergency [facility] [address] [place] [address] Ananda Nelson MD Abdominal pain, unspecified abdominal location (Primary Dx); Nausea; Acute pancreatitis, unspecified complication status, unspecified pancreatitis type (HC) Discharge Disposition: Home Self Care 5 Travel 5 Telephone [facility] [address] [place], [place] [phone] Dolly Pryor MD Appointment 5 Orders Only [facility] [address], [place] [phone] Tona Gonzalez PA <No scans attached> 5 12:36 PM CDT Anesthesia Event [facility] [address], [place] [address] Cari Boyd MD Amelse, Naheed Land, CHEN 5 12:25 PM CDT - 5 1:30 PM CDT Surgery [facility] [address], [place] [phone] Osvaldo Birch MD ENDOSCOPIC RETROGRADE CHOLANGIOPANCREATOGRAPHY WITH STENT PLACEMENT 5 Travel 5 11:13 PM CDT - 5 12:20 PM CDT Hospital Encounter [facility] [address] [place], [place] [phone] [facility] MD Nguyen, Duc Minh, MD Draisey, Ashley Diane, DO Kohlmeyer, Kristal Sue, MD Caldwell, Robert Del, MD Abdominal pain, unspecified abdominal location (Primary Dx); Sepsis, due to unspecified organism, unspecified whether acute organ dysfunction present (HC); Vitamin D deficiency; PANIC DISORDER; Bile leak Discharge Disposition: Home Self Care 5 12:35 PM CDT - 5 2:05 PM CDT Surgery [facility] [address] [place] [address] Caio Leonard MD ENDOSCOPIC ULTRASOUND UPPER 5 12:20 PM CDT Anesthesia Event [facility] [address] [place] [address] Wayne Pickett MD 5 11:03 AM CDT - 5 3:30 PM CDT Hospital Encounter [facility] [address] [place] [address] Caio Leonard MD Abdominal pain Discharge Disposition: Home Self Care 5 Travel 5 Lab Requisition [facility] [phone] Steph Gordillo MD 5 Lab Requisition [facility] [phone] Rafa Carolina MD from Last 3 Months [...] oz pur e alcohol) every other weekend Social Connections Answer Date Recorded Do you often feel lonely or isolated from those around you? 0 01/01/2025 Financial Resource Strain Answer Date R ecorded Difficulty of Paying Living Expenses 3 01/01/2025 Difficulty of Paying Living Expenses Not on file 01/01/2025 Food Insecurity Answer Date Recorded Do you worry your food will run out before you are able to buy more? 1 01/01/2025 Transportation Needs Answer Date Record ed Does lack of transportation keep you from medica l appointments? 1 01/01/2025 Does lack of transportation keep you from work, meetings or getting things that you need? 1 01/01/2025 Housing Stability Answer Date Recorded What is your housing situation today? 1 01/01/2025 Interpersonal Safety Answer Date Record ed Are you being hit, kicked, p ushed or yelled at (see row info)? No 01/18/2025 Interpersonal Safety Abuse 12 - 18 Not on file 01/18/2025 Interpersonal Safety Ambulatory Vulnerability No t on file 01/18/2025 Utilities Answer Date Recorded Do you have trouble paying f or utilities (for example, heat, electricity, water, phone)? 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 Gender Identity Not on file Sexual Orientation Not on file Obstetrics History Last Filed Vital Signs Vital Sign Reading Time Taken Comments Blood Pressure 120/77 01/18/2025 11:00 PM CDT Pulse 85 01/18/2025 11:00 PM CDT Temperature 36.8 C (98.2 F) 01/18/2025 6:57 PM CDT Respiratory Rate 18 01/18/2025 6:57 PM CDT Oxygen Saturation 96% 01/18/2025 11:00 PM CDT Inhaled Oxygen Concentration - - Weight 113.9 kg (251 lb) 01/18/2025 6:57 PM CDT Height 157.5 cm (5' 2) 01/18/2025 6:57 PM CDT Body Mass Index 45.91 01/18/2025 6:57 PM CDT Plan of Treatment Upcoming Encounters Date Type Department Care Team (Latest Contact Info) Description 02/07/2025 11:00 AM CDT Office Visit [facility] [address] [place] [address] Tona Gonzalez PA [address] [facility] [address] [place] [address] 03/04/2025 9:20 AM CDT Hospital Encounter [facility] [address] [place] [address] [place] [address] [place] [address] 03/04/2025 10:20 AM CDT - 03/04/2025 11:25 AM CDT Surgery [facility] [address] [place] [address] [place] [address] [place] [address] ENDOSCOPIC RETROGRADE CHOLANGIOPANCREATOGRAPHY 03/16/2025 2:00 PM CDT Ancillary Procedure [facility] [address] [place] [phone] Scheduled Procedures Name Priority Associated Diagnoses Date/Ti me ENDOSCOPIC RETROGRADE CHOLANGIOPANCREATOGRAPHY Tier 2 bile leak 03/04/2025 10:20 AM CDT Health Maintenance Due Date Last Done Comments Tdap 2002 Depression screening for age 12+ 2003 HIV for age 15-65 2006 Hepatitis C screening for ag e 18-79 2009 Hepatitis B series for 19+ ( 1 of 3 - 19+ 3-dose series) 2010 Tetanus booster 2011 Pap test for age 21-65 2012 BMI (ht and wt on same day) for age 18+ 11/08/2016 11/09/2015 COVID-19 vaccine series ( season) 2024 Influenza Vaccine (Season Ended) 2025 Pneumococcal series for age 6-49 Aged Out No longer eligible based on patient's age to complete this topic Goals Goal Patient Goal Type Associated Problems Recent Progress Patient-Stated? Author Autogenera kathleen Goal Care Plan Autogenerated Problem No Mychart, Provider Medical Devices Implanted Type Area Rn Integrated Device Identifier Shelf Expiration Date Model / Serial / Lot Stent Biliary [id number] Wallflex Covered Metal - [id number] Implanted:Qty: 1 on 01/07/2025 by Osvaldo Birch MD at [facility] 09/16/2025 [id number] / / [id number] Procedures Procedure Name Priority Date/Time Associated Diagnosis Comments CT ABDOMEN PELVIS W MAU 01/26/2025 9:51 AM CDT Bile leak CT ABDOMEN PELVIS W STAT 01/18/2025 8:53 PM CDT ,SERUM QUALITATIVE MAU 12/24 7:32 PM CDT LACTATE VENOUS STAT 01/18/2025 7:32 PM CDT HEPATIC FUNCTION PANEL STAT 7:32 PM CDT LIPASE STAT 01/18/2025 7:32 PM CDT BASIC METABOLIC PANEL STAT 01/18/2025 7:32 PM CDT CBC W PLT NO DIFF STAT 01/18/2025 7:[address] DRAIN PERITONEAL RETROPERITONEAL INC GUIDE Routine 01/14/2025 3:59 PM CDT PLATELET COUNT Early AM 01/14/2025 5:37 AM CDT HEMOGLOBIN Early AM 01/14/2025 5:37 AM CDT WHITE BLOOD COUNT Early AM 01/13/2025 5:14 AM CDT BILIRUBIN,TOTAL/DIRECT Early AM 5:13 AM CDT ALK PHOSPHATASE Early AM 01/13/2025 5:13 AM CDT AST (SGOT) Early AM 01/13/2025 5:13 AM CDT ALT (SGPT) Early AM 01/13/2025 5:13 AM CDT CREATININE Early AM 01/12/2025 5:41 AM CDT POTASSIUM Early AM 01/12/2025 5:41 AM CDT SODIUM Early AM 01/12/2025 5:41 AM CDT PLATELET COUNT Early AM 01/12/2025 5:41 AM CDT HEMOGLOBIN Early AM 01/12/2025 5:41 AM CDT WHITE BLOOD COUNT Early AM 01/12/2025 5:41 AM CDT CBC W PLT NO DIFF Early AM 01/11/2025 5:43 AM CDT BUN Early AM 01/11/2025 5:42 AM CDT SODIUM Early AM 01/11/2025 5:42 AM CDT CREATININE Early AM 01/11/2025 5:42 AM CDT POTASSIUM Early AM 01/11/2025 5:[address] ABDOMEN PELVIS W Routine 01/10/2025 2:22 PM CDT LIPASE Add On 01/10/2025 5:41 AM CDT C-REACTIVE PROTEIN Add On 01/10/2025 5:41 AM CDT CBC WITH AUTO DIFFERENTIAL Early AM 01/10 5:41 AM CDT RETICULOCYTES Early AM 01/10/2025 5:41 AM CDT MAGNESIUM Early AM 01/10/2025 5:41 AM CDT CREATININE Early AM 01/10/2025 5:41 AM CDT POTASSIUM Early AM 01/10/2025 5:41 AM CDT CBC WITH AUTO DIFFERENTIAL Early AM 01/10 5:41 AM CDT HEPATIC FUNCTION PANEL Early AM 5:41 AM CDT C-REACTIVE PROTEIN Add On 01/09/2025 4:34 AM CDT EXTRA TUBE GOLD/SST Today 01/09/2025 4:34 AM CDT IRON PLUS IRON BINDING CAP Early AM 01/09 4:34 AM CDT MAGNESIUM Early AM 01/09/2025 4:34 AM CDT SODIUM Early AM 01/09/2025 4:34 AM CDT CREATININE Early AM 01/09/2025 4:34 AM CDT BILIRUBIN,TOTAL Early AM 01/09/2025 4:34 AM CDT ALT (SGPT) Early AM 01/09/2025 4:34 AM CDT AST (SGOT) Early AM 01/09/2025 4:34 AM CDT POTASSIUM Early AM 01/09/2025 4:34 AM CDT CBC WITH AUTO DIFFERENTIAL Today 01/08 12:24 PM CDT CBC WITH AUTO DIFFERENTIAL Today 01/08 12:24 PM CDT COMP METABOLIC PANEL Today 01/08/2025 12:24 PM CDT XR ERCP BILIARY ONLY Routine 01/07/2025 1:22 PM CDT ENDOTRACHEAL TUBE Routine 01/07/2025 12:51 PM CDT ENDOTRACHEAL TUBE Routine 01/07/2025 12:51 PM CDT ENDOTRACHEAL TUBE Routine 01/07/2025 12:51 PM CDT ENDOTRACHEAL TUBE Routine 01/07/2025 12:51 PM CDT ENDOSCOPY 01/07/2025 12:29 PM CDT ENDOSCOPIC RETROGRADE CHOLANGIOPANCREATOGRAPHY WITH STENT PLACEMENT 01/07/2025 12:26 PM CDT see note NM HEPATOBILIARY IMAGING Routine 025 12:[address] ABDOMEN PELVIS WWO Routine 01/06/2025 9:59 AM CDT AMYLASE MAU 01/06/2025 5:04 AM CDT POTASSIUM Early AM 01/06/2025 5:04 AM CDT AMYLASE,BODY FLUID STAT 01/05/2025 1:47 PM CDT POTASSIUM Early AM 01/05/2025 7:[address] ABDOMEN PELVIS W Routine 01/04/2025 12:31 PM CDT HEPATIC FUNCTION PANEL MAU 5 5:14 AM CDT WHITE BLOOD COUNT Early AM 01/04/2025 5:14 AM CDT POTASSIUM Early AM 01/04/2025 5:14 AM CDT HEPATIC FUNCTION PANEL MAU 5 5:58 AM CDT WHITE BLOOD COUNT Early AM 01/03/2025 5:58 AM CDT POTASSIUM Early AM 01/03/2025 5:58 AM CDT SCAN-CARDIAC STRIP 01/03/2025 2:30 AM CDT ANAEROBIC CULTURE Today 01/02/2025 12:32 PM CDT BODY FLUID CULTURE,STAIN (AEROBIC) Today 01/02/2025 12:[address] DRAIN PERITONEAL RETROPERITONEAL INC GUIDE Routine 01/02/2025 12:31 PM CDT HEMOGLOBIN Early AM 01/02/2025 4:58 AM CDT WHITE BLOOD COUNT Early AM 01/02/2025 4:58 AM CDT POTASSIUM Early AM 01/02/2025 4:58 AM CDT SCAN-CARDIAC STRIP 01/02/2025 2:08 AM CDT CBC W PLT NO DIFF Early AM 01/01/2025 5:29 AM CDT EXTRA TUBE GOLD/SST Today 01/01/2025 5:26 AM CDT HEPATIC FUNCTION PANEL Early AM 5:26 AM CDT POTASSIUM Early AM 01/01/2025 5:26 AM CDT SODIUM Early AM 01/01/2025 5:26 AM CDT CREATININE Early AM 01/01/2025 5:26 AM CDT SCAN-CARDIAC STRIP 01/01/2025 4:40 AM CDT XR CHEST 1 VIEW PORTABLE STAT 025 12:48 AM CDT BLOOD CULTURE STAT 12/31/2024 11:29 PM CDT CBC WITH AUTO DIFFERENTIAL STAT 12/31 11:22 PM CDT HEPATIC FUNCTION PANEL STAT 11:22 PM CDT CBC WITH AUTO DIFFERENTIAL STAT 12/31 11:22 PM CDT LACTATE VENOUS STAT 12/31/2024 11:22 PM CDT BLOOD CULTURE STAT 12/31/2024 11:22 PM CDT POTASSIUM Timed 12/31/2024 8:57 PM CDT SCAN-CARDIAC STRIP 12/31/2024 8:00 PM CDT SCAN-CARDIAC STRIP 12/31/2024 2:[address] ABDOMEN PELVIS W STAT 12/31/2024 1:59 PM CDT SCAN CORRESP-EKG RESULTS 025 12:18 PM CDT SCAN CORRESP-LABORATORY RESULTS 12/31/2024 12:18 PM CDT SCAN CORRESP-LABORATORY RESULTS 12/31/2024 12:18 PM CDT SCAN CORRESP-IMAGING 12/31/2024 12:18 PM CDT NM HEPATOBILIARY IMAGING Routine 8:01 AM CDT LIPASE MAU 12/31/2024 6:13 AM CDT HEMOGLOBIN A1C Early AM 12/31/2024 6:13 AM CDT HEMOGLOBIN Early AM 12/31/2024 6:13 AM CDT WHITE BLOOD COUNT Early AM 12/31/2024 6:13 AM CDT CREATININE Early AM 12/31/2024 6:13 AM CDT POTASSIUM Early AM 12/31/2024 6:13 AM CDT SODIUM Early AM 12/31/2024 6:13 AM CDT HEPATIC FUNCTION PANEL Early AM 6:13 AM CDT SCAN-CARDIAC STRIP 12/31/2024 4:18 AM CDT SCAN-CARDIAC STRIP 12/31/2024 4:09 AM CDT SCAN-CARDIAC STRIP 12/31/2024 3:21 AM CDT BLOOD CULTURE STAT 12/31/2024 12:41 AM CDT BLOOD CULTURE STAT 12/31/2024 12:37 AM CDT HEMOGLOBIN STAT 12/31/2024 12:37 AM CDT HEPATIC FUNCTION PANEL MAU 12:36 AM CDT MAGNESIUM STAT 12/31/2024 12:36 AM CDT POTASSIUM STAT 12/31/2024 12:36 AM CDT PROTIME-INR STAT 12/31/2024 12:36 AM CDT LACTATE VENOUS STAT 12/31/2024 12:36 AM CDT EKG 12 LEAD STAT 12/31/2024 12:14 AM CDT XR ERCP BILIARY ONLY Routine 12/29/2024 1:02 PM CDT Abdominal pain ENDOTRACHEAL TUBE Routine 12/29/2024 12:39 PM CDT ENDOTRACHEAL TUBE Routine 12/29/2024 12:39 PM CDT ENDOSCOPY 12/29/2024 12:39 PM CDT ENDOSCOPY 12/29/2024 12:11 PM CDT ENDOSCOPIC RETROGRADE CHOLANGIOPANCREATOGRAPHY WITH SPHINCTEROTOMY AND STONE REMOVAL Tier 1 12/29/2024 12:11 PM CDT see note Case Notes On Semaglutide -last dose 12/22/24. Special Needs On Semaglutide -last dose 12/22/24. 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 Special Needs On Semaglutide -last dose 12/22/24. URINE Preop 12/29/2024 11:39 AM CDT PATH NON MECHANICAL SYSTEM TECHNICIAN CYTOLOGY Routine 12/26/2024 11:40 AM CDT LAB TRACKING EVENT Routine 12/26/2024 11:24 AM CDT LAB TRACKING EVENT Routine 12/26/2024 11:24 AM CDT PATH TISSUE EXAM Routine 12/26/2024 11:24 AM CDT from Last 3 Months Results * CT ABDOMEN PELVIS W (01/26/2025 9:51 AM CDT) Only the most recent of5 resultswithin the time period is included. Anatomical Region Laterality Modality Abdomen, Pelvis, AORTA, LIVER, SPLEEN Computed Tomography 01/26/2025 9:51 AM CDT Impressions 01/26/2025 1:13 PM CDT 1. Right flank percutaneous drainage catheter unchanged in position. The fluid and air collection along the anterior pararenal fascia medial and superior to the catheter tip has decreased in size mildly. No new abscess. 2. Metallic common bile duct stent again seen. No biliary dilatation. 3. Complex right adnexal cystic mass unchanged and indeterminant, neoplasm is not excluded. Recommend correlation with pelvic ultrasound if not performed previously. Suggested follow-up: Pelvic ultrasound 1. US Pelvis < 1 Month Narrative 01/26/2025 1:13 PM CDT For Patients: As a result of the 21st Century Cures Act, medical imaging exams and procedure reports are released immediately into your electronic medical record. You may view this report before your referring provider. If you have questions, please contact your health care provider. EXAM: CT ABDOMEN PELVIS W LOCATION: [facility] DATE: 01/26/2025 INDICATION: 34-year-old female with biliary leak, percutaneous drainage. Follow- up. COMPARISON: CT abdomen pelvis 01/17/2025. TECHNIQUE: CT scan of the abdomen and pelvis was performed following injection of IV contrast. Multiplanar reformats were obtained. Dose reduction techniques were used. CONTRAST: Omnipaque 350 100 mL. FINDINGS: LOWER CHEST: Minimal dependent atelectasis. HEPATOBILIARY: Cholecystectomy. Metallic common bile duct stent. Pneumobilia again seen, no biliary dilatation. Right flank percutaneous drainage catheter again seen along the fluid collection anterior pararenal fascial region. Catheter position unchanged. The fluid and air collection medial and superior to the catheter tip decreased in size mildly measuring 1.9 x 2.6 x 5.2 cm, previously 2.3 x 2.7 x 7.5 cm. No new abscess or focal fluid. PANCREAS: Normal. SPLEEN: Normal. ADRENAL GLANDS: Normal. KIDNEYS/BLADDER: No hydronephrosis or mass. BOWEL: No bowel obstruction or inflammatory change. Appendix normal. LYMPH NODES: Normal. VASCULATURE: No abdominal aortic aneurysm. PELVIC ORGANS: Complex right adnexal cystic mass measuring 6.0 x 4.8 cm unchanged. No new pelvic mass. No free fluid. MUSCULOSKELETAL: No suspicious osseous lesion. Procedure Note Hermes Perry MD - 01/26/2025 For Patients: As a result of the Century Cures Act, medical imagingexams and procedure reports are released immediately into your electronicmedical record. You may view this report before your referring provider.If you have questions, please contact your health care provider. EXAM: CT ABDOMEN PELVIS W LOCATION: [facility] DATE: 01/26/2025 INDICATION: 34-year-old female with biliary leak, percutaneous drainage.Follow- up. COMPARISON: CT abdomen pelvis 01/17/2025. TECHNIQUE: CT scan of the abdomen and pelvis was performed followinginjection of IV contrast. Multiplanar reformats were obtained. Dosereduction techniques were used. CONTRAST: Omnipaque 350 100 mL. FINDINGS: LOWER CHEST: Minimal dependent atelectasis. HEPATOBILIARY: Cholecystectomy. Metallic common bile duct stent.Pneumobilia again seen, no biliary dilatation. Right flank percutaneous drainage catheter again seen along the fluidcollection anterior pararenal fascial region. Catheter position unchanged.The fluid and air collection medial and superior to the catheter tipdecreased in size mildly measuring 1.9 x 2.6 x 5.2 cm, previously 2.3 x2.7 x 7.5 cm. No new abscess or focal fluid. PANCREAS: Normal. SPLEEN: Normal. ADRENAL GLANDS: Normal. KIDNEYS/BLADDER: No hydronephrosis or mass. BOWEL: No bowel obstruction or inflammatory change. Appendix normal. LYMPH NODES: Normal. VASCULATURE: No abdominal aortic aneurysm. PELVIC ORGANS: Complex right adnexal cystic mass measuring 6.0 x 4.8 cmunchanged. No new pelvic mass. No free fluid. MUSCULOSKELETAL: No suspicious osseous lesion. IMPRESSION: 1. Right flank percutaneous drainage catheter unchanged in position. Thefluid and air collection along the anterior pararenal fascia medial andsuperior to the catheter tip has decreased in size mildly. No newabscess. 2. Metallic common bile duct stent again seen. No biliary dilatation. 3. Complex right adnexal cystic mass unchanged and indeterminant,neoplasm is not excluded. Recommend correlation with pelvic ultrasound ifnot performed previously. Suggested follow-up: Pelvic ultrasound 1. US Pelvis < [address] Final Resul t * LACTATE VENOUS (01/18/2025 7:32 PM CDT) Only the most recent of3 resultswithin the time period is included. Pathologist [facility] [place] LACTATE,VENOUS 0.8 0.5 - 2.0 mmol/L 01/18/2025 8:08 PM CDT [facility] Blood BLOOD SPECIMEN / Unknown Non-Lab Venipuncture / Unknown 01/18/2025 7:32 PM CDT 01/18/2025 7:39 PM CDT Ananda Nelson MD CHEMISTRY Final R esult [facility] [address] [place] [address], * ,SERUM QUALITATIVE (01/18/2025 7:32 PM CDT) Pathologist [facility] [place] ,SERU M Negative Negative 01/18/2025 8:33 PM CDT [facility] Blood BLOOD SPECIMEN / Unknown Non-Lab Venipuncture / Unknown 01/18/2025 7:32 PM CDT 01/18/2025 7:39 PM CDT us Ananda Nelson MD CHEMISTRY Final R esult [facility] [address] [place] [address], * (ABNORMAL) CBC W PLT NO DIFF (01/18/2025 7:32 PM CDT) Only the most recent of3 resultswithin the time period is included. Pathologist [facility] [place] WHITE BLOOD COUNT 6.9 4.5 - 11.0 thou/cu mm 01/18/2025 7:48 PM CDT [facility] RED BLOOD COUNT 4.35 4.00 - 5.20 mil/cu mm 01/18/2025 7:48 PM CDT [facility] HEMOGLOBIN 10.7(L) 12.0 - 16.0 g/dL 01/18/2025 7:48 PM CDT [facility] HEMATOCRIT 33.6 33.0 - 51.0 % 01/18/2025 7:48 PM CDT [facility] MCV 77(L) 80 - 100 fL 01/18/2025 7:48 PM CDT [facility] MCH 24.6(L) 26.0 - 34.0 pg 01/18/2025 7:48 PM CDT [facility] MCHC 31.8(L) 32.0 - 36.0 g/dL 01/18/2025 7:48 PM CDT [facility] RDW 18.5(H) 11.5 - 15.5 % 01/18/2025 7:48 PM CDT [facility] PLATELET COUNT 464(H) 140 - 440 thou/cu mm 01/18/2025 7:48 PM CDT [facility] MPV 9.7 6.5 - 11.0 fL 01/18/2025 7:48 PM CDT [facility] NRBC 0.0 % 01/18/2025 7:48 PM CDT [facility] ABS NRBC 0.0 thou /cu mm 01/18/2025 7:48 PM CDT [facility] Blood BLOOD SPECIMEN / Unknown Non-Lab Venipuncture / Unknown 01/18/2025 7:32 PM CDT 01/18/2025 7:39 PM CDT Ananda Nelson MD HEMATOLOGY Final R esult Performing Organization Address City/[facility] Co de Phone Number [facility] [address] [place] [address], [place] * (ABNORMAL) LIPASE (01/18/2025 7:32 PM CDT) Only the most recent of3 resultswithin the time period is included. LIPASE 497.0(H) 13.0 - 60.0 IU/L 01/18/2025 8:29 PM CDT [facility] Blood BLOOD SPECIMEN / Unknown Non-Lab Venipuncture / Unknown 01/18/2025 7:32 PM CDT 01/18/2025 7:39 PM CDT Ananda Nelson MD CHEMISTRY Final R esult Performing Organization Address [facility] Co de Phone Number [facility] [address] [place] [address], [place] * (ABNORMAL) HEPATIC FUNCTION PANEL (01/18/2025 7:32 PM CDT) Only the most recent of8 resultswithin the time period is included. ALBUMIN 3.5(L) 4.0 - 4.9 g/dL 01/18/2025 8:14 PM CDT [facility] PROTEIN,TOTAL 7.0 6.0 - 8.0 g/dL 01/18/2025 8:14 PM CDT [facility] BILIRUBIN,TOTAL 0.2 0.0 - 1.2 mg/dL 01/18/2025 8:14 PM CDT [facility] BILIRUBIN,DIRECT 0.2 0.0 - 0.2 mg/dL 01/18/2025 8:14 PM CDT [facility] BILIRUBIN,INDIRE CT 0.0(L) 0.2 - 0.8 mg/dL 01/18/2025 8:14 PM CDT [facility] ALK PHOSPHATASE 65 35 - 104 IU/L 01/18/2025 8:14 PM CDT [facility] ALT (SGPT) 20 10 - 35 IU/L 01/18/2025 8:14 PM CDT [facility] AST (SGOT) 30 10 - 35 IU/L 01/18/2025 8:14 PM CDT [facility] Blood BLOOD SPECIMEN / Unknown Non-Lab Venipuncture / Unknown 01/18/2025 7:32 PM CDT 01/18/2025 7:39 PM CDT Ananda Nelson MD CHEMISTRY Final R esult [facility] [address] [place] [address], * (ABNORMAL) BASIC METABOLIC PANEL (01/18/2025 7:32 PM CDT) SODIUM 137 136 - 145 mmol/L 01/18/2025 8:14 PM CDT [facility] POTASSIUM 3.9 3.5 - 5.1 mmol/L 01/18/2025 8:14 PM CDT [facility] CHLORIDE 105 98 - 107 mmol/L 01/18/2025 8:14 PM CDT [facility] CO2,TOTAL 21(L) 22 - 29 mmol/L 01/18/2025 8:14 PM CDT [facility] ANION GAP 11 5 - 18 01/18/2025 8:14 PM CDT [facility] GLUCOSE 92 70 - 99 mg/dL 01/18/2025 8:14 PM CDT [facility] CALCIUM 8.8 8.8 - 10.4 mg/dL 01/18/2025 8:14 PM CDT [facility] Comment: Reference ranges for this test were updated on 06/29/2024 to reflect our healthy population more accurately. Reference range changes are not retroactively applied to results, but previous results using the same methodology can be interpreted in the context of the new reference range. BUN 7 6 - 20 mg/dL 01/18/2025 8:14 PM CDT [facility] CREATININE 0.66 0.50 - 0.90 mg/dL 01/18/2025 8:14 PM CDT [facility] BUN/CREAT RATIO 11 10 - 20 8:14 PM CDT [facility] eGFR >90 >90 mL/min/1.7 3m2 01/18/2025 8:14 PM CDT [facility] Comment:As of 2021, eG FR is calculated by the CKD-EPI creatinine equation without race adjustment. eGFR can be influenced by muscle mass, exercise, and diet. The reported eGFR is an estimation only and is only applicable if the renal function is stable. Blood BLOOD SPECIMEN / Unknown Non-Lab Venipuncture / Unknown 01/18/2025 7:32 PM CDT 01/18/2025 7:39 PM CDT Ananda Nelson MD CHEMISTRY Final R esult [facility] [address] [place] [address], [place] * CT DRAIN PERITONEAL RETROPERITONEAL INC GUIDE (01/14/2025 3:59 PM CDT) Only the most recent of2 resultswithin the time period is included. Anatomical Region Laterality Modality Abdomen Computed Tomogra phy, Other Narrative 01/14/2025 4:26 PM CDT RADIOLOGY POST PROCEDURE NOTE 01/14/2025 Suzan Heredia [id number] 1990 INFORMEDCONSENT: In my discussion, prior to the signing of the consent, I reviewed the procedure, benefits, risks, long-term effects, treatment options, possible use of pain or sedation medications, and how the procedure will meet the treatment goal with the patient and/or family. The patient was given ample time to ask questions. All questions were answered. INDICATIONS: Leaking percutaneous drainage catheter PROCEDURE PERFORMED: Replaced the catheter with a new catheter PROCEDURE NARRATIVE : Axial cuts through the abdomen were performed in the supine position. Diluted contrast was injected through the catheter outlining the extent of the small fluid collection. The fluid collection appeared like hourglass appearance of the component superior to the inferior component where the catheter is. Attempt to pass the wire into the superior component through the catheter was not feasible. Real-time fluoroscopy would be required however we were able to remove the catheter and place a new catheter in the same place. Catheter was then connected to Baldev-Wallace bulb. Patient tolerated procedure well. Follow-up with CT in few days as suggested if the superior portion of the cavity still present procedure should be performed under fluoroscopic guidance to place at the drainage catheter in the superior component.. PATIENT POSITION: supine ANTISEPTIC PREPARATION and BARRIER TECHNIQUES USED: Skin was prepped and draped in the usual sterile fashion. IMAGING GUIDANCE FOR ACCESS / PROCEDURE: CT Permanently recorded images are archived in PACS. ACCESS LOCATION / SITE / TECHNIQUE: Right lateral approach EQUIPMENT UTILIZED: 14 Gambian multipurpose drainage catheter CLOSURE: none RADIATION DOSE: total exam DLP: 2243 mGy-cm MEDICATIONS GIVEN: fentanyl 200 mcg IV. 1% Lidocaine was used for local anesthesia. SPECIMEN(S): None COMPLICATIONS: no complications noted DRAINS: Baldev Wallace ESTIMATED BLOOD LOSS: None. PHYSICIAN(S) AND ASSISTANTS (if any): Martell Potts MD Additional Comments: Please call with questions. Martell Potts MD [place] Protocol A. Pre-procedure verification complete yes 1-relevant information / documentation available, reviewed and properly matched to the patient; 2-consent accurate and complete, 3-equipment and supplies available B. Site marking complete Yes Site marked if not in continuous attendance with patient C. TIME OUT completed yes Time Out was conducted just prior to starting procedure to verify the eight required elements: 1-patient identity, 2-consent accurate and complete, 3-position, 4-correct side/site marked (if applicable), 5-procedure, 6-relevant images / results properly labeled and displayed (if applicable), 7-antibiotics / irrigation fluids (if applicable), 8-safety precautions. Please note that all CT scans at this facility use dose modulation, iterative reconstruction, and/or weight-based dosing when appropriate to reduce radiation dose to as low as reasonably achievable. Felix Ordonez MD CT Final Res ult * (ABNORMAL) Platelets AM (01/14/2025 5:37 AM CDT) Only the most recent of2 resultswithin the time period is included. PLATELET COUNT 596(H) 140 - 440 thou/cu mm 01/14/2025 6:14 AM CDT [facility] MPV 9.8 6.5 - 11.0 fL 01/14/2025 6:14 AM CDT [facility] Blood BLOOD SPECIMEN / Unknown Venipuncture / Unknown 01/14/2025 5:37 AM CDT 01/14/2025 6:02 AM CDT Felix Ordonez MD HEMATOLOGY Final Res ult Performing Organization Address City/[facility]/ZIP Co de Phone Number [facility] [address] [place] [phone], * (ABNORMAL) Hemoglobin AM (01/14/2025 5:37 AM CDT) Only the most recent of5 resultswithin the time period is included. HEMOGLOBIN 9.9(L) 12.0 - 16.0 g/dL 01/14/2025 6:14 AM CDT [facility] MCV 77(L) 80 - 100 fL 01/14/2025 6:14 AM CDT [facility] Blood BLOOD SPECIMEN / Unknown Venipuncture / Unknown 01/14/2025 5:37 AM CDT 01/14/2025 6:02 AM CDT Felix Ordonez MD HEMATOLOGY Final Res ult [facility] [address] [address], [place] * WBC AM (01/13/2025 5:14 AM CDT) Only the most recent of6 resultswithin the time period is included. WHITE BLOOD COUNT 9.2 4.5 - 11.0 thou/cu mm 01/13/2025 5:32 AM CDT [facility] NRBC 0.0 % 01/13/2025 5:32 AM CDT [facility] ABS NRBC 0.0 thou /cu mm 01/13/2025 5:32 AM CDT [facility] Blood BLOOD SPECIMEN / Unknown Venipuncture / Unknown 01/13/2025 5:14 AM CDT 01/13/2025 5:23 AM CDT Felix Ordonez MD HEMATOLOGY Final Res ult Performing Organization Address [facility] Co de Phone Number [facility] [address] [place] [address], [place] * (ABNORMAL) BILIRUBIN,TOTAL/DIRECT (01/13/2025 5:13 AM CDT) Pathologist [facility] [place] BILIRUBIN,TOTA L 0.3 0.0 - 1.2 mg/dL 01/13/2025 5:52 AM CDT [facility] BILIRUBIN,DIRE CT 0.2 0.0 - 0.2 mg/dL 01/13/2025 5:52 AM CDT [facility] BILIRUBIN,BELLA RECT 0.1(L) 0.2 - 0.8 mg/dL 01/13/2025 5:52 AM CDT [facility] Blood BLOOD SPECIMEN / Unknown Venipuncture / Unknown 01/13/2025 5:13 AM CDT 01/13/2025 5:23 AM CDT Felix Ordonez MD CHEMISTRY Final Res ult Performing Organization Address City/[facility]/ZIP Co de Phone Number [facility] [address] [place] [address], [place] * ALT (SGPT) (01/13/2025 5:13 AM CDT) Only the most recent of2 resultswithin the time period is included. ALT (SGPT) 22 10 - 35 IU/L 01/13/2025 5:52 AM CDT [facility] Blood BLOOD SPECIMEN / Unknown Venipuncture / Unknown 01/13/2025 5:13 AM CDT 01/13/2025 5:23 AM CDT Felix Ordonez MD CHEMISTRY Final Res ult Performing Organization Address City/[facility]/ZIP Co de Phone Number [facility] [address] [place] [address], [place] * AST (SGOT) (01/13/2025 5:13 AM CDT) Only the most recent of2 resultswithin the time period is included. AST (SGOT) 24 10 - 35 IU/L 01/13/2025 5:52 AM CDT [facility] Blood BLOOD SPECIMEN / Unknown Venipuncture / Unknown 01/13/2025 5:13 AM CDT 01/13/2025 5:23 AM CDT Felix Ordonez MD CHEMISTRY Final Res ult Performing Organization Address City/[facility]/ZIP Co de Phone Number [facility] [address] [place] [address], [place] * ALK PHOSPHATASE (01/13/2025 5:13 AM CDT) ALK PHOSPHATASE 75 35 - 104 IU/L 01/13/2025 5:52 AM CDT [facility] Blood BLOOD SPECIMEN / Unknown Venipuncture / Unknown 01/13/2025 5:13 AM CDT 01/13/2025 5:23 AM CDT Felix Ordonez MD CHEMISTRY Final Res ult [facility] [address] [address], [place] * SODIUM (01/12/2025 5:41 AM CDT) Only the most recent of5 resultswithin the time period is included. SODIUM 138 136 - 145 mmol/L 01/12/2025 6:32 AM CDT [facility] Blood BLOOD SPECIMEN / Unknown Butterfly / Unknown 01/12/2025 5:41 AM CDT 01/12/2025 6:02 AM CDT Felix Ordonez MD CHEMISTRY Final Res ult Performing Organization Address [facility] Co de Phone Number [facility] [address] [address], [place] * POTASSIUM (01/12/2025 5:41 AM CDT) Only the most recent of13 resultswithin the time period is included. POTASSIUM 3.8 3.5 - 5.1 mmol/L 01/12/2025 6:32 AM CDT [facility] Blood BLOOD SPECIMEN / Unknown Butterfly / Unknown 01/12/2025 5:41 AM CDT 01/12/2025 6:02 AM CDT Felix Ordonez MD CHEMISTRY Final Res ult Performing Organization Address [facility] Co de Phone Number [facility] [address] [address], [place] * CREATININE (01/12/2025 5:41 AM CDT) Only the most recent of6 resultswithin the time period is included. eGFR >90 >90 mL/min/1.7 3m2 01/12/2025 6:32 AM CDT [facility] Comment:As of 2021, eG FR is calculated by the CKD-EPI creatinine equation without race adjustment. eGFR can be influenced by muscle mass, exercise, and diet. The reported eGFR is an estimation only and is only applicable if the renal function is stable. CREATININE 0.54 0.50 - 0.90 mg/dL 01/12/2025 6:32 AM CDT [facility] Blood BLOOD SPECIMEN / Unknown Butterfly / Unknown 01/12/2025 5:41 AM CDT 01/12/2025 6:02 AM CDT Felix Ordonez MD CHEMISTRY Final Res ult Performing Organization Address City/[facility] Co de Phone Number [facility] [address] [place] [address], * BUN (01/11/2025 5:42 AM CDT) Pathologist [facility] [place] BUN 8 6 - 20 mg/dL 01/11/2025 6:45 AM CDT [facility] Blood BLOOD SPECIMEN / Unknown Venipuncture / Unknown 01/11/2025 5:42 AM CDT 01/11/2025 6:05 AM CDT Komal Islas MD CHEMISTRY Final R esult Performing Organization Address [facility] de Phone Number [facility] [address] [place] [address], * (ABNORMAL) CBC WITH AUTO DIFFERENTIAL (01/10/2025 5:41 AM CDT) Only the most recent of3 resultswithin the time period is included. WHITE BLOOD COUNT 11.4(H) 4.5 - 11.0 thou/cu mm 01/10/2025 6:05 AM CDT [facility] RED BLOOD COUNT 4.28 4.00 - 5.20 mil/cu mm 01/10/2025 6:05 AM CDT [facility] HEMOGLOBIN 10.5(L) 12.0 - 16.0 g/dL 01/10/2025 6:05 AM CDT [facility] HEMATOCRIT 32.9(L) 33.0 - 51.0 % 01/10/2025 6:05 AM [facility] MCV 77(L) 80 - 100 fL 01/10/2025 6:05 AM [facility] MCH 24.5(L) 26.0 - 34.0 pg 01/10/2025 6:05 AM [facility] MCHC 31.9(L) 32.0 - 36.0 g/dL 01/10/2025 6:05 AM [facility] RDW 17.4(H) 11.5 - 15.5 % 01/10/2025 6:05 AM [facility] PLATELET COUNT 706(H) 140 - 440 thou/cu mm 01/10/2025 6:05 AM [facility] MPV 9.6 6.5 - 11.0 fL 01/10/2025 6:05 AM [facility] NRBC 0.0 % 01/10/2025 6:05 AM [facility] ABS NRBC 0.0 thou /cu mm 01/10/2025 6:05 AM [facility] % NEUT 63.7 % 01/10/2025 6:05 AM [facility] % LYMPH 26.6 % 01/10/2025 6:05 AM [facility] % MONO 4.5 % 01/10/2025 6:05 AM [facility] % EOS 2.5 % 01/10/2025 6:05 AM [facility] % BASO 0.3 % 01/10/2025 6:05 AM [facility] % IMMATURE GRAN (METAS,MYELOS,DC OS) 2.4 % 01/10/2025 6:05 AM [facility] ABSOLUTE NEUTROPHILS 7.3(H) 1.7 - 7.0 thou/cu mm 01/10/2025 6:05 AM [facility] ABSOLUTE LYMPHOCYTES 3.0(H) 0.9 - 2.9 thou/cu mm 01/10/2025 6:05 AM CDT [facility] ABSOLUTE MONOCYTES 0.5 <0.9 thou/cu mm 01/10/2025 6:05 AM CDT [facility] ABSOLUTE EOSINOPHILS 0.3 <0.5 thou/cu mm 01/10/2025 6:05 AM CDT [facility] ABSOLUTE BASOPHILS 0.0 <0.3 thou/cu mm 01/10/2025 6:05 AM CDT [facility] ABSOLUTE IMMATURE GRANULOCYTES(MET ,MYELOS,PROS) 0.3(H) <0.3 thou/cu mm 01/10/2025 6:05 AM CDT [facility] Blood BLOOD SPECIMEN / Unknown Venipuncture / Unknown 01/10/2025 5:41 AM CDT 01/10/2025 5:57 AM CDT Tena MARTELL HEMATOLOGY Final R esult Performing Organization Address City/[facility]/ZIP Co de Phone Number [facility] [address] [place] [address], [place] * (ABNORMAL) C-reactive protein (01/10/2025 5:41 AM CDT) Only the most recent of2 resultswithin the time period is included. C-REACTIVE PROTEIN 1.6(H) <0.5 mg/dL 01/10/2025 11:12 AM CDT [facility] Blood BLOOD SPECIMEN / Unknown Venipuncture / Unknown 01/10/2025 5:41 AM CDT 01/10/2025 5:57 AM CDT us Komal Islas MD CHEMISTRY Final R esult Performing Organization Address City/[facility]/ZIP Co de Phone Number [facility] [address] [place] [address], [place] * (ABNORMAL) RETICULOCYTES (01/10/2025 5:41 AM CDT) RETIC% 2.5(H) 0.5 - 1.5 % 01/10/2025 6:05 AM CDT [facility] RETIC (ABSOLUTE) 0.11(H) 0.03 - 0.08 mil/cu mm 01/10/2025 6:05 AM CDT [facility] Blood BLOOD SPECIMEN / Unknown Venipuncture / Unknown 01/10/2025 5:41 AM CDT 01/10/2025 5:57 AM CDT us Komal Islas MD HEMATOLOGY Final R esult [facility] [address] [address], [place] * Magnesium AM (01/10/2025 5:41 AM CDT) Only the most recent of3 resultswithin the time period is included. MAGNESIUM 2.1 1.6 - 2.6 mg/dL 01/10/2025 6:22 AM CDT [facility] Blood BLOOD SPECIMEN / Unknown Venipuncture / Unknown 01/10/2025 5:41 AM CDT 01/10/2025 5:57 AM CDT us Komal Islas MD CHEMISTRY Final R esult [facility] [address] [address], [place] * EXTRA TUBE GOLD/SST (01/09/2025 4:34 AM CDT) Only the most recent of2 resultswithin the time period is included. Blood BLOOD SPECIMEN / Unknown Extra Tube / Unknown 01/09/2025 4:34 AM CDT 01/09/2025 4:46 AM CDT us Komal Islas MD LABORATORY Final R esult Performing Organization Address City/[facility]/ZIP Co de Phone Number [facility] [address] [place] [address], [place] * (ABNORMAL) IRON PLUS IRON BINDING CAP (01/09/2025 4:34 AM CDT) IRON 20(L) 37 - 145 ug/dL 01/09/2025 5:06 AM CDT [facility] UIBC (UNSATURATED) 342 112 - 347 ug/dL 01/09/2025 5:06 AM CDT [facility] IRON BINDING CAPACITY 362 250 - 400 ug/dL 01/09/2025 5:06 AM CDT [facility] IRON,% SATURATION 6(L) 14 - 50 % 01/09/2025 5:06 AM CDT [facility] Blood BLOOD SPECIMEN / Unknown Venipuncture / Unknown 01/09/2025 4:34 AM CDT 01/09/2025 4:40 AM CDT us Komal Islas MD CHEMISTRY Final R esult Performing Organization Address [facility] Co de Phone Number [facility] [address] [place] [address], [place] * BILIRUBIN,TOTAL (01/09/2025 4:34 AM CDT) Pathologist [facility] [place] BILIRUBIN,TOTA L 0.3 0.0 - 1.2 mg/dL 01/09/2025 5:06 AM CDT [facility] Blood BLOOD SPECIMEN / Unknown Venipuncture / Unknown 01/09/2025 4:34 AM CDT 01/09/2025 4:40 AM CDT us Komal Islas MD CHEMISTRY Final R esult [facility] [address] [place] [address], [place] * (ABNORMAL) COMP METABOLIC PANEL (01/08/2025 12:24 PM CDT) SODIUM 139 136 - 145 mmol/L 01/08/2025 1:04 PM [facility] POTASSIUM 3.7 3.5 - 5.1 mmol/L 01/08/2025 1:04 PM [facility] CHLORIDE 102 98 - 107 mmol/L 01/08/2025 1:04 PM [facility] CO2,TOTAL 24 22 - 29 mmol/L 01/08/2025 1:04 PM T [facility] ANION GAP 13 5 - 18 01/08/2025 1:04 PM [facility] GLUCOSE 106(H) 70 - 99 mg/dL 01/08/2025 1:04 PM [facility] CALCIUM 8.9 8.8 - 10.4 mg/dL 01/08/2025 1:04 PM [facility] Comment: Reference ranges for this test were updated on 06/29/2024 to reflect our healthy population more accurately. Reference range changes are not retroactively applied to results, but previous results using the same methodology can be interpreted in the context of the new reference range. BUN 7 6 - 20 mg/dL 01/08/2025 1:04 PM [facility] CREATININE 0.59 0.50 - 0.90 mg/dL 01/08/2025 1:04 PM [facility] BUN/CREAT RATIO 12 10 - 20 1:04 PM [facility] eGFR >90 >90 mL/min/1. 73m2 01/08/2025 1:04 PM [facility] Comment:As of 2021, eG FR is calculated by the CKD-EPI creatinine equation without race adjustment. eGFR can be influenced by muscle mass, exercise, and diet. The reported eGFR is an estimation only and is only applicable if the renal function is stable. ALBUMIN 3.3(L) 4.0 - 4.9 g/dL 01/08/2025 1:04 PM [facility] PROTEIN,TOTAL 6.8 6.0 - 8.0 g/dL 01/08/2025 1:04 PM CDT [facility] BILIRUBIN,TOTAL 0.4 0.0 - 1.2 mg/dL 01/08/2025 1:04 PM CDT [facility] ALK PHOSPHATASE 104 35 - 104 IU/L 01/08/2025 1:04 PM CDT [facility] ALT (SGPT) 61(H) 10 - 35 IU/L 01/08/2025 1:04 PM CDT [facility] AST (SGOT) 37(H) 10 - 35 IU/L 01/08/2025 1:04 PM CDT [facility] Blood BLOOD SPECIMEN / Unknown Venipuncture / Unknown 01/08/2025 12:24 PM CDT 01/08/2025 12:34 PM CDT Tena MARTELL CHEMISTRY Final R esult [facility] [address] [place] [address], * XR ERCP BILIARY ONLY (01/07/2025 1:22 PM CDT) Only the most recent of2 resultswithin the time period is included. Anatomical Region Laterality Modality GALLBLADDER, PANCREAS, LIVER Oth er Narrative 01/07/2025 12:39 PM CDT 1 minute 41 seconds fluoroscopy time was provided. See operative/procedure report for further information. us Osvaldo Birch MD FLUOROSCOPY Final Result * H[facility] TUBE PR1, [facility] KIT CO2 DETECTOR PR5, H[facility] STYLET PR1, [facility] MOUTHPIECE PR1 (01/07/2025 12:51 PMCDT) Narrative Ena Barnes CRNA - 01/07/2025 12:51 PM CDT Ena Barnes CRNA 01/07/2025 12:51 PM Procedure: ETT Patient location during procedure: procedure room ETT Properties Mask Ventilation: easy Final Technique: direct laryngoscopy Type: straight Location: oral Cuffed: yes Tube Size: 7.0 mm Stylet: yes Laryngoscope Blade: Rodrigues Blade Size: 2 Cormack-Lehane Grade View: 1 Insertion Attempts: 1 Placement Verification: auscultation and end tidal CO2 Assessment: pharynx clear, atraumatic and dentition unchanged Secured at: 21 Measured From: teeth Tooth guard used and removed: yes Difficulty: 0 (not difficult) us Cari Boyd MD ANESTHESIA PX NOTE LAI PARKS Final Result * ENDOSCOPY (01/07/2025 12:29 PM CDT) 01/07/2025 12:2 9 PM CDT Narrative Transcriptions Osvaldo Birch MD - 01/07/2025 1:50 PM CDT [facility] Patient Name: Suzan Heredia Procedure Date: 01/07/2025 Gender: Female Date of : 1990 Admit Type: Inpatient Procedure: ERCP Proceduralist: Osvaldo Birch MD - [facility] Indications/Pre-Op Diagnosis: Treatment of bile leak Medications: General Anesthesia Procedure Description: Risk of bleeding, infection, perforation, pancreatitis, need for surgery, remote chance of and alternatives were discussed, andthe patient gave informed consent. The endoscope [id number] was passed through the mouth, and advanced to the duodenum and used to inject contrast into the bileduct. The ERCP was accomplished with ease. The patient tolerated theprocedure well. Complications: No immediate complications. Estimated Blood Loss & Specimen: Estimated blood loss: none. Specimen collected: None Findings: A combiner operator film of the abdomen was obtained. Surgical clips, consistent with a previous cholecystectomy, were seen in the area of the right upper quadrant of the abdomen. A biliary sphincterotomy had been performed. The sphincterotomy appeared open. A 0.035 inch x 260 cm straight Dreamwire was passed into the biliary tree. The 12 mmballoon was passed over the guidewire and the bile duct was then deeply cannulated. Contrast was injected. I personally interpreted the bile duct images. There was brisk flow of contrast through the ducts.Image quality was excellent. Contrast extended to the hepatic ducts. The intra-hepatic and extra-hepatic biliary duct system was normal. One10 mm by 6 cm covered metal stent was placed into the common bile duct.The stent was in good position. Impressions/Post-Op Diagnosis: - Prior biliary sphincterotomy appeared open. - The cholangiogram was normal. - One covered metal stent was placed into the common bile duct. Recommendation: - [facility]. - Observe patient's clinical course following today's ERCP with therapeutic intervention. - Repeat ERCP in 4-6 weeks to remove stent. Osvaldo Birch MD 01/07/2025 1:49:57 PM This report has been signed electronically. Note Initiated On: 01/07/2025 12:29 PM us Osvaldo Birch MD PROCEDURE ORD Final Result * NM HEPATOBILIARY IMAGING (01/06/2025 12:04 PM CDT) Only the most recent of2 resultswithin the time period is included. Anatomical Region Laterality Modality LIVER Nuclear Medicine 01/06/2025 12:4 6 PM CDT Impressions 01/06/2025 12:46 PM CDT 1. Bile leak. Radiotracer collects in the right upper quadrant and is also seen in the catheter tubing and drainage bag external to the patient on delayed images. 2. No radiotracer enters the small bowel. May be due to disruption or obstruction of the common bile duct. May also be due to the path of least resistance being through the drainage catheter. Dictated by Lucy Krishnan MD @ 01/06/2025 12:46:38 PM (Electronically Signed) Narrative 01/06/2025 12:46 PM CDT For Patients: As a result of the Cures Act, medical imaging exams and procedure reports are released immediately into your electronic medical record. You may view this report before your referring provider. If you have questions, please contact your health care provider. INDICATION: Laparoscopic cholecystectomy 11/27/2024. CT-guided drain placement 01/01/2025. Substantial drain output. COMPARISON: CT 01/06/2025 and 01/04/2025. Prior HIDA scan 12/31/2024 MOST RECENT SERUM BILIRUBIN: None available RADIOPHARMACEUTICAL: 5.5 mCi [id number] was administered intravenously. TECHNIQUE: The patient was NPO according to the protocol. 5 minute summed anterior projection planar images were obtained over the abdomen for 60 minutes. A single delayed right lateral oblique image was obtained over 5 minutes. FINDINGS: There is prompt clearance of the radiotracer from the soft tissues with clear visualization of the hepatic parenchyma at 5 minutes. There is normal clearance of the radiotracer from the liver. The central bile ducts are visualized by 15 minutes. Focal accumulation of extrahepatic radiotracer at the gallbladder fossa in the right upper quadrant beginning at 15 minutes. Radiotracer is not seen within the small bowel. Radiotracer is identified in the catheter tubing, bulb, and drainage bag external to the patient on the delayed images. Procedure Note Lucy Krishnan MD - 01/06/2025 For Patients: As a result of the Cures Act, medical imagingexams and procedure reports are released immediately into your electronicmedical record. You may view this report before your referring provider.If you have questions, please contact your health care provider. INDICATION: Laparoscopic cholecystectomy 11/27/2024. CT-guided drain [id number]/10/2025. Substantial drain output. COMPARISON: CT 01/06/2025 and 01/04/2025. Prior HIDA scan 12/31/2024 MOST RECENT SERUM BILIRUBIN: None available RADIOPHARMACEUTICAL: 5.5 mCi [id number] was administered intravenously. TECHNIQUE: The patient was NPO according to the protocol. 5 minute summed anterior projection planar images were obtained over theabdomen for 60 minutes. A single delayed right lateral oblique image wasobtained over 5 minutes. FINDINGS: There is prompt clearance of the radiotracer from the soft tissues withclear visualization of the hepatic parenchyma at 5 minutes. There is normal clearance of the radiotracer from the liver. The central bile ducts are visualized by 15 minutes. Focal accumulation of extrahepatic radiotracer at the gallbladder fossa inthe right upper quadrant beginning at 15 minutes. Radiotracer is not seenwithin the small bowel. Radiotracer is identified in the catheter tubing, bulb, and drainage bagexternal to the patient on the delayed images. IMPRESSION: 1. Bile leak. Radiotracer collects in the right upper quadrant and is alsoseen in the catheter tubing and drainage bag external to the patient ondelayed images. 2. No radiotracer enters the small bowel. May be due to disruption orobstruction of the common bile duct. May also be due to the path of leastresistance being through the drainage catheter. Dictated by Lucy Krishnan MD @ 01/06/2025 12:46:38 PM (Electronically Signed) us Lourdes MARTELL MS Final R esult * CT ABDOMEN PELVIS WWO (01/06/2025 9:59 AM CDT) Anatomical Region Laterality Modality Abdomen, Pelvis, AORTA, LIVER, SPLEEN Computed Tomography 01/06/2025 10:0 2 PM CDT Impressions 01/06/2025 10:02 PM CDT 1. Mildly increased size of the retroperitoneal collection in the right anterior pararenal space with pigtail drainage catheter in place. 2. Injection of contrast within the catheter demonstrates no evidence of extravasation of contrast outside the collection. Please note that all CT scans at this facility use dose modulation, iterative reconstruction, and/or weight-based dosing when appropriate to reduce radiation dose to as low as reasonably achievable. Dictated by Quintin Oscar MD @ 01/06/2025 10:02:05 PM (Electronically Signed) Narrative 01/06/2025 10:02 PM CDT For Patients: As a result of the Cures Act, medical imaging exams and procedure reports are released immediately into your electronic medical record. You may view this report before your referring provider. If you have questions, please contact your health care provider. INDICATION: Abdominal pain, concern for ongoing leak of unknown origin. TECHNIQUE: CT abdomen and pelvis without and with 100 cc Omnipaque 350 IV contrast. COMPARISON: CT abdomen pelvis 01/04/2025. FINDINGS: Lower chest: Bibasilar atelectasis. Liver: Unremarkable. Normal in size and attenuation. No suspicious masses. Gallbladder and bile ducts: Status post cholecystectomy. Spleen: Unremarkable. Normal in size. No masses. Adrenal glands: Unremarkable. No nodules. Pancreas: Unremarkable. No mass or inflammation. Kidneys: Unremarkable. No suspicious masses, stones, or hydronephrosis. GI tract: Unremarkable. Normal in caliber. No evidence of obstruction. Normal appendix. Lymph nodes: No lymphadenopathy. Vasculature: Unremarkable. Omentum/Peritoneum/Abdominal Wall: Mildly increased size of retroperitoneal collection in the right anterior pararenal space measured in a similar fashion, 10.5 x 3.3 cm on the current examination and previously 10.0 x 2.5 cm. Pigtail drainage catheter in the inferior aspect of the collection. Injection of contrast within the catheter demonstrates no evidence of extravasation of contrast outside the collection. Mild presacral stranding, unchanged. No free air. Pelvis: Enlargement of the right adnexa with multiple low-density lesions, unchanged. Bones: Unremarkable for age. Procedure Note Quintin Oscar MD - 01/06/2025 For Patients: As a result of the Cures Act, medical imagingexams and procedure reports are released immediately into your electronicmedical record. You may view this report before your referring provider.If you have questions, please contact your health care provider. INDICATION: Abdominal pain, concern for ongoing leak of unknown origin. TECHNIQUE: CT abdomen and pelvis without and with 100 cc Omnipaque 350 IV contrast. COMPARISON: CT abdomen pelvis 01/04/2025. FINDINGS: Lower chest: Bibasilar atelectasis. Liver: Unremarkable. Normal in size and attenuation. No suspicious masses. Gallbladder and bile ducts: Status post cholecystectomy. Spleen: Unremarkable. Normal in size. No masses. Adrenal glands: Unremarkable. No nodules. Pancreas: Unremarkable. No mass or inflammation. Kidneys: Unremarkable. No suspicious masses, stones, or hydronephrosis. GI tract: Unremarkable. Normal in caliber. No evidence of obstruction.Normal appendix. Lymph nodes: No lymphadenopathy. Vasculature: Unremarkable. Omentum/Peritoneum/Abdominal Wall: Mildly increased size ofretroperitoneal collection in the right anterior pararenal space measuredin a similar fashion, 10.5 x 3.3 cm on the current examination andpreviously 10.0 x 2.5 cm. Pigtail drainage catheter in the inferior aspectof the collection. Injection of contrast within the catheter demonstratesno evidence of extravasation of contrast outside the collection. Mildpresacral stranding, unchanged. No free air. Pelvis: Enlargement of the right adnexa with multiple low-density lesions,unchanged. Bones: Unremarkable for age. IMPRESSION: 1. Mildly increased size of the retroperitoneal collection in the rightanterior pararenal space with pigtail drainage catheter in place. 2. Injection of contrast within the catheter demonstrates no evidence ofextravasation of contrast outside the collection. Please note that all CT scans at this facility use dose modulation,iterative reconstruction, and/or weight-based dosing when appropriate toreduce radiation dose to as low as reasonably achievable. Dictated by Quintin Oscar MD @ 01/06/2025 10:02:05 PM (Electronically Signed) Mari Dickinson DO CT Fi nal Result * AMYLASE (01/06/2025 5:04 AM CDT) AMYLASE 39 28 - 100 IU/L 01/06/2025 10:54 AM CDT [facility] Interview Master [facility] Blood BLOOD SPECIMEN / Unknown Venipuncture / Unknown 01/06/2025 5:04 AM CDT 01/06/2025 5:39 AM CDT Tona Jalloh DO CHEMISTRY Final Re sult [facility] [address] [place] [address], [place] * AMYLASE,BODY FLUID (01/05/2025 1:47 PM CDT) SPECIMEN SOURCE Drain 01/05/2025 3:09 PM CDT [facility] AMYLASE,BODY FLUID 62 IU/L 01/05/2025 3:09 PM CDT [facility] Comment:No Reference Range D efined. Body Fluid (Drain) Non-Blood / Unknown 01/05/2025 1:47 PM CDT 01/05/2025 1:59 PM CDT Narrative [facility] - 01/05/2025 3:09 PM CDT Peritoneal: Amylase activity in non-pancreatic peritoneal fluid is approximately equal to the serum amylase activity. Ascites associated with pancreatitis typically has amylase activity at least 5- fold greater than serum. Pleural: Amylase activity in pleural fluid is typically less than the upper limit of normal serumm amylase with fluid to serum amylase ratio <1.0 Test developed & performance characteristics determined by [place], [place] consistent with CLIA requirements. Not cleared or approved by [place] FDA. Mari Dickinson DO BODY FLUID Fi nal Result [facility] [address] [place] [address], * SCAN-CARDIAC STRIP (01/03/2025 2:30 AM CDT) us Scanner OTHER Final Result * (ABNORMAL) Aerobic Culture Body Fluid (01/02/2025 12:32 PM CDT) CULTURE RESULT(A) 01/05/2025 10:50 AM CDT [facility] CULTURE 1+ Streptococcus salivarius group 01/05/2025 10:50 AM CDT [facility] GRAM STAIN No Epithelial cells 01/05/2025 10:50 AM CDT [facility] GRAM STAIN No RBCs 01/05/2025 10:50 AM CDT [facility] GRAM STAIN No PMNs 01/05/2025 10:50 AM CDT [facility] GRAM STAIN No organisms seen 025 10:50 AM CDT [facility] Body Fluid BODY FLUID SPECIMEN / Unknown Non-Blood / Unknown 01/02/2025 12:32 PM CDT 01/02/2025 12:46 PM CDT Narrative Organism Antibiotic Method Susceptibility Streptococcus salivarius group PENICILLIN 0.25: I Streptococcus salivarius group CEFTRIAXONE <=0.12: S Streptococcus salivarius group ERYTHROMYCIN 2: R Streptococcus salivarius group CLINDAMYCIN <=0.25: S Streptococcus salivarius group VANCOMYCIN 1: S Streptococcus salivarius group AMPICILLIN <=0.25: S Streptococcus salivarius group CLARITHROMYCIN R Jb Estrada MD MICROBIOLOGY Final Result Performing Organization Address City/[facility] Co de Phone Number [facility] [address] [place] [address], * Anaerobic Culture (01/02/2025 12:32 PM CDT) CULTURE No anaerobes isolated 01/07/2025 11:01 AM CDT [facility] Other BODY FLUID SPECIMEN / Unknown Non-Blood / Unknown 01/02/2025 12:32 PM CDT 01/02/2025 12:46 PM CDT Jb Estrada MD MICROBIOLOGY Final Result Performing Organization Address [facility] Co de Phone Number [facility] [address] [phone], [place] * SCAN-CARDIAC STRIP (01/02/2025 2:08 AM CDT) us Scanner OTHER Final Result * SCAN-CARDIAC STRIP (01/01/2025 4:40 AM CDT) us Scanner OTHER Final Result * XR Chest 1 view portable (01/01/2025 12:48 AM CDT) Anatomical Region Laterality Modality HEART, THORAX, CHEST Digital Rad iography 01/01/2025 12:5 0 AM CDT Impressions 01/01/2025 12:50 AM CDT Low lung volumes with elevation of the right hemidiaphragm. No acute or significant findings. Dictated by Philip Walsh MD @ 01/01/2025 12:50:35 AM (Electronically Signed) Narrative 01/01/2025 12:50 AM CDT For Patients: As a result of the Cures Act, medical imaging exams and procedure reports are released immediately into your electronic medical record. You may view this report before your referring provider. If you have questions, please contact your health care provider. INDICATION: Shortness of breath. TECHNIQUE: Chest 1 views. COMPARISON: None. FINDINGS: Cardiovascular and mediastinum: Heart size and vasculature are normal in caliber and appearance. Lungs and pleural spaces: Low lung volumes with elevation of the right hemidiaphragm. No sign of infiltrate or mass. No sign of pleural effusion. No pneumothorax. Bones and soft tissues: No significant findings. Procedure Note Philip Walsh MD - 01/01/2025 For Patients: As a result of the Cures Act, medical imagingexams and procedure reports are released immediately into your electronicmedical record. You may view this report before your referring provider.If you have questions, please contact your health care provider. INDICATION: Shortness of breath. TECHNIQUE: Chest 1 views. COMPARISON: None. FINDINGS: Cardiovascular and mediastinum: Heart size and vasculature are normal incaliber and appearance. Lungs and pleural spaces: Low lung volumes with elevation of the righthemidiaphragm. No sign of infiltrate or mass. No sign of pleuraleffusion. No pneumothorax. Bones and soft tissues: No significant findings. IMPRESSION: Low lung volumes with elevation of the right hemidiaphragm. No acute orsignificant findings. Dictated by Philip Walsh MD @ 01/01/2025 12:50:35 AM (Electronically Signed) Agnes Vera MD GENERAL IMAGING Final Result * Blood culture STAT (12/31/2024 11:29 PM CDT) Only the most recent of4 resultswithin the time period is included. CULTURE No Growth. 01/05/2025 11:43 PM CDT [facility] Blood BLOOD SPECIMEN / Unknown Butterfly / Unknown 12/31/2024 11:29 PM CDT 12/31/2024 11:35 PM CDT us Mandi Echeverria MD MICROBIOLOGY Final Resu lt [facility] [address] [place] [address], [place] * SCAN-CARDIAC STRIP (12/31/2024 8:00 PM CDT) us Scanner OTHER Final Result * SCAN-CARDIAC STRIP (12/31/2024 2:31 PM CDT) us Scanner OTHER Edited Result - Final * SCAN CORRESP-LABORATORY RESULTS (12/31/2024 12:18 PM CDT) Only the most recent of2 resultswithin the time period is included. Narrative 12/31/2024 12:18 PM CDT Ordered by an unspecified provider. us Other Clinical Staff OTHER Final Resul t * SCAN CORRESP-EKG RESULTS (12/31/2024 12:18 PM CDT) Narrative 12/31/2024 12:18 PM CDT Ordered by an unspecified provider. us Other Clinical Staff OTHER Final Resul t * SCAN CORRESP-IMAGING (12/31/2024 12:18 PM CDT) Anatomical Region Laterality Modality Other Narrative 12/31/2024 12:18 PM CDT Ordered by an unspecified provider. us Other Clinical Staff OTHER Final Resul t * HEMOGLOBIN A1C (12/31/2024 6:13 AM CDT) HEMOGLOBIN A1C SCREENING 5.3 <=6.4 % 12/31/2024 6:05 PM CDT [facility] Blood BLOOD SPECIMEN / Unknown Butterfly / Unknown 12/31/2024 6:13 AM CDT 12/31/2024 6:25 AM CDT Narrative [facility] - 12/31/2024 6:05 PM CDT (<5.7%) Normal (5.7% to 6.4%) Indicates prediabetes (>=6.5%) Confirms diabetes Falsely low levels may be seen with: Recent Transfusion, Recent Significant Blood Loss, Hemolytic Diseases, or Falsely elevated levels may be seen with: Untreated Anemias, Splenectomy us Elder Marino MD CHEMISTRY Final Re sult [facility] [address] [place] [address], [place] * SCAN-CARDIAC STRIP (12/31/2024 4:18 AM CDT) us Scanner OTHER Final Result * SCAN-CARDIAC STRIP (12/31/2024 3:21 AM CDT) us Scanner OTHER Final Result * (ABNORMAL) INR STAT (12/31/2024 12:36 AM CDT) INR 1.1 <1.3 12/31/2024 1:06 AM CDT [facility] PROTIME 12.7(H) 10.6 - 12.4 sec 12/31/2024 1:06 AM CDT [facility] Blood BLOOD SPECIMEN / Unknown Venipuncture / Unknown 12/31/2024 12:36 AM CDT 12/31/2024 12:50 AM CDT Narrative [facility] - 12/31/2024 1:06 AM CDT Therapeutic Range 2.0-3.0 for most anticoagulated patients 2.5-3.5 or 4.0 for high risk patients The INR is only used for patients on stable oral anticoagulant therapy. It makes no significant contribution to the diagnosis or treatment of patients whose Protime is prolonged for other reasons. INR results are increased when heparin levels exceed 1.0 U/mL, which corresponds to an aPTT >125 seconds if the patient is on UFH. Elder Marino MD HEMATOLOGY Final Re sult Performing Organization Address [facility] Co de Phone Number [facility] [address] [place] [address], [place] * 12 Lead EKG (12/31/2024 12:14 AM CDT) Interpretation Sinus tachycardia Anterolateral infarct , age undetermined Abnormal ECG No previous ECGs available BEYOND NOW Ventricular Rate 143 BPM BEYOND NOW Atrial Rate 143 BPM BEYOND NOW P-R Interval 130 ms BEYOND NOW QRS Duration 78 ms BEYOND NOW QT 274 ms BEYOND NOW QTc 422 ms BEYOND NOW P [place] 34 degrees BEYOND NOW R [place] -10 degrees BEYOND NOW T [place] -4 degrees BEYOND NOW 12/31/2024 12:1 4 AM CDT 12/31/2024 2:14 PM CDT Elder Marino MD EKG ORD Final Re sult Performing Organization Address [facility] de Phone Number BEYOND NOW [place], [place] * HCHG TUBE PR1, HCHG STYLET PR1 (12/29/2024 12:39 PM CDT) Narrative Yary Beltre CRNA - 12/29/2024 12:39 PM CDT Yary Beltre CRNA 12/29/2024 12:39 PM Procedure: ETT Patient location [...] Measured From: teeth Difficulty: 0 (not difficult) Wayne Pickett MD ANESTHESIA PX NOTE O RDERABLES Final Result * ENDOSCOPY (12/29/2024 12:39 PM CDT) 12/29/2024 12:3 9 PM CDT Narrative Transcriptions Caio Leonard MD - 12/29/2024 1:31 PM CDT [facility] Patient Name: Suzan Heredia Procedure Date: 12/29/2024 Gender: Female Date of : 1990 Admit Type: Ambulatory Procedure: ERCP Proceduralist: Caio Leonard MD - [facility] Referring MD: Caio Leonard MD Indications/Pre-Op Diagnosis: Bile duct stone(s) Medications: General Anesthesia Procedure Description: Risk of bleeding, infection, perforation, pancreatitis, need for surgery, remote chance of and alternatives were discussed, andthe patient gave informed consent. The endoscope [id number] was passed through the mouth, and advanced [...] Leonard MD - 12/29/2024 12:38 PM CDT [facility] Patient Name: Suzan Heredia Procedure Date: 12/29/2024 Gender: Female Date of : 1990 Admit Type: Ambulatory Procedure: Upper EUS Proceduralist: Caio Leonard MD - [facility] Referring MD: Caio Leonard MD Indications/Pre-Op Diagnosis: Elevated liver enzymes, Suspected choledocholithiasis Medications: General Anesthesia Procedure Description: Risk of bleeding, infection, perforation, pancreatitis, need for surgery, remote chance of and alternatives were discussed, andthe patient gave informed consent. The [id number] was introduced through the mouth, and advancedto [...] E Negative Negative 12/29/2024 12:18 PM CDT [facility] Urine URINE SPECIMEN / Unknown Non-Blood / Unknown 12/29/2024 11:39 AM CDT 12/29/2024 12:04 PM CDT Caio Leonard MD URINE Final Result [facility] [address] [place] [address], [place] * PATH NON MECHANICAL SYSTEM TECHNICIAN CYTOLOGY (12/26/2024 11:40 AM CDT) Case Report Medical Cytology Report Case: [id number] Authorizing Provider: Steph Gordillo MD Collected: 12/26/2024 1140 Ordering Location: [facility] Received: 12/27/2024 1535 Pathologist: Steve Vaughn Jr., MD Specimen: Peritoneal Washing, Pelvic washing 12/28/2024 11:34 AM CDT [facility] Final Diagnosis PERITONEAL WASHING FOR CYTOLOGY: Negative for malignancy, see comment 12/28/2024 11:34 AM CDT [facility] at 1134 CDT Comment See the concurrent surgical specimen for additional details. 12/28/2024 11:34 AM CDT [facility] Clinical Information 34 year old female 12/28/2024 11:34 AM CDT [facility] Gross Description A) SOURCE: Peritoneal washing The specimen consists of 60 cc of light red clear fluid from which the following is prepared: -1 Papanicolaou stained ThinPrep slide 12/28/2024 11:34 AM CDT [facility] Microscopic Description Specimen adequacy: Adequate for interpretation. All slides were reviewed. The microscopic appearance substantiates the diagnosis. 12/28/2024 11:34 AM CDT [facility] Additional Information Cytology is screened at [facility] - [address] [place] [address] [address] and [facility] - [address], [place] [address] and [facility] - [address] [place] [address] Interpreted at [facility] - [address], [address] 12/28/2024 11:34 AM CDT [facility] Other (Peritoneal Washing) 12/26/2024 11:40 AM CDT 12/27/2024 3:35 PM CDT [facility] Griselda Gordillo MD PATHOLOGY/CYTOLOGY Final Result Performing Organization Address City/[facility]/ZIP Co de Phone Number [facility] [address] [place] [address], [place] * LAB TRACKING EVENT (12/26/2024 11:24 AM CDT) Only the most recent of2 resultswithin the time period is included. Other (Other) Client Collect / Unknown 12/26/2024 11:24 AM CDT 12/27/2024 2:28 PM CDT [facility] Griselda Gordillo MD LAB BILL ONLY Final Result Performing Organization Address [facility] Co de Phone Number [facility] [address] [place] [address], [place] * PATH TISSUE EXAM (12/26/2024 11:24 AM CDT) Case Report Pathology Report Case: [id number] Authorizing Provider: Rafa Carolina MD Collected: 12/26/2024 1124 Ordering Location: [facility] Received: 12/28/2024 1014 Pathologist: Jaya Zhong MD Specimen: Gallbladder 12/29/2024 3:07 PM CDT [facility] Final Diagnosis A) GALLBLADDER, CHOLECYSTECTOMY: 1. Chronic cholecystitis 2. Cholelithiasis 3. Negative for dysplasia and malignancy 12/29/2024 3:07 PM CDT [facility] at 1507 CDT Clinical Information Ms. Heredia is a 34 y.o. who presents with abdominal pain. 12/29/2024 3:07 PM CDT [facility] Gross Description A) Received in formalin, labeled with the patient's name and gallbladder, is a 7.8 x 3.3 x 3.0 cm intact gallbladder. There are multiple yellow gallstones identified. There are no mucosal lesions identified. The average wall thickness is 0.1 cm. There is no abnormal wall thickening identified. No cystic duct lymph node is identified. Inspector Elevators sections are submitted in one cassette. SACHA 12/28/2024 12/29/2024 3:07 PM CDT [facility] Microscopic Description The final diagnosis is based on microscopic examination of appropriate sections of all specimens. 12/29/2024 3:07 PM CDT [facility] Additional Information Interpreted at [facility] - [address] [place] [address] [address] 12/29/2024 3:07 PM CDT [facility] Other SPECIMEN FROM GALLBLADDER / Unknown 12/26/2024 11:24 AM CDT 12/28/2024 10:14 AM CDT us Rafa Carolina MD PATHOLOGY/CYTOLOGY Final R esult [facility] [address] [place] [address], from Last 3 Months Additional Health Concerns Active Problems Noted Date Diagnosed Date Autogenerated Problem 01/29/2025 Insurance [facility] [place] [address] Advance Directives * Full Code (Latest Code Status on File) Date Activated Date Inactivated Comments 12/31/2024 12:02 AM 01/15/2025 2:29 PM Question Answer Comments Code Status Discussion: Reviewed Preferences * Full Code Date Activated Date Inactivated [...] 10:14 PM 11/10/2015 8:18 PM Care Teams Wrapper Layer And Examiner Soft Work Relationship Specialty Start Date End Date Pcp, No . PCP - General 12/28/24
--- OUTSIDE RECORDS SUMMARY | 2025-02-03 21:07 | XMS_ITS ---
Author Organization [place] Address [facility] [place] [address] Care Team Providers Care Medical Staff Manager Name Role Phone Yessica Dunbar PA-C Unavailable [phone] Carolin Flor APRN CAMP HOUSEKEEPER Unavailable [phone] Lourdes Olmedo [facility] Unavailable Unavail able Diamante Kent PA-C Unavailable [facility], Carolee Cutler Primary Care Provider Clinical Product Navigator (CPN) Status:Declined (Declined) Start date:01/05/2025 End date:01/18/2025 Decline reason:Not interested Overview UMR Referral Continued Care and Services Coordination
--- OUTSIDE RECORDS SUMMARY | 2025-02-03 21:07 | XMS_ITS | Clinical Summary ---
Author Organization [place] Address [address] [facility] [place] [address] Care Team Providers Care Call Center Agent Name Role Phone Yessica Dunbar PA-C Unavailable [phone] Carolin Flor APRN [facility] Unavailable [phone] Lourdes Olmedo [facility] Unavailable Unavail able Diamante Kent PA-C Unavailable [phone] [facility], [facility] [place] Primary Care Provider Allergies No known active allergies Medications hydrOXYzine [...] daily. 30 tablet 1 12/07/19 25 Active tirzepatide-stanley ght management (TIRZEPATIDE) 5 MG/0.5ML vialIndications :Class 3 severe obesity with serious comorbidity and body mass index (BMI) of 45.0 to 49.9 in adult, unspecified obesity type (H) Inject 0.5 mLs (5 mg) subcutaneously once a week. After completing 4 weeks of 2.5mg dose 2 mL 2 12/25/19 25 Active Active Problems Problem Noted Date Diagnosed Date Anxiety 08/12/2024 Class 3 severe obesity with serious comorbidity and body mass index (BMI) of 45.0 to 49.9 in adult, unspecified obesity type 08/12/2024 Assessment & Plan (08/12/2024 12:28 PM CATERING MANAGER): Weight gain through the pandemic. Previously stable around 180lbs. More rapid gain the past year through increase stress. Max weight close to 300lbs. Weight have been significantly influenced by stress and mental health. Wants to lose weight to improve overall health and feel better. [employer] employee, but [employer] still $800 due to high deductable. Was started on compounded semaglutide with Lourdes Olmedo [facility]. Currently on 0.5mg dose, has taken 1 [...] Department Care Team Description 12/24/2024 Orders Only [facility] [address] 4th [place] [phone] Diamante Kent PA-C Class 3 severe obesity due to excess calories in adult, unspecified BMI, unspecified whether serious comorbidity present (H) (Primary Dx); Class 3 severe obesity with serious comorbidity and body mass index (BMI) of 45.0 to 49.9 in adult, unspecified obesity type (H) 12/23/2024 Telephone [facility] [address] [phone] Diamante Kent PA-C Refill Request (Zepbound Vial) 12/20/2024 Telephone [facility] [address] [address] Diamante Kent PA-C 12/20/2024 MyC Medical Advice [facility] [address] [address] Tamika Brandon Class 3 severe obesity due to excess calories in adult, unspecified BMI, unspecified whether serious comorbidity present (H) (Primary Dx); Class 3 severe obesity with serious comorbidity and body mass index (BMI) of 45.0 to 49.9 in adult, unspecified obesity type (H) 12/20/2024 Telephone [facility] [address] [phone] Diamante Kent PA-C Clinic Care Coordination - Follow-up 12/06/2024 MyC Medical Advice [facility] [address] [phone] Diamante Kent PA-C 12/04/2024 MyC Refill [address] [address] Carolin Flor APRN STONE MILL OPERATOR Refill Request from Last 3 Months Immunizations [...] on file Legal Sex Female 3:35 AM CATERING MANAGER Gender Identity Not on file Sexual [...] 117.5 kg (259 lb) 09/14/2024 7:19 AM CATERING MANAGER Height 157.5 cm (5' 2) 08/12/2024 10:40 AM CATERING MANAGER Body Mass Index 47.37 08/12/2024 10:40 AM CATERING MANAGER Plan of Treatment Upcoming Encounters Date Type Department Care Team (Late st Contact Info) Description 02/08/2025 8:00 AM CDT Virtual Visit [facility] [address] [address] Sapna Gaines PASteve [address] [place] [address] Health Maintenance Due Date Last Done Comments ADVANCE CARE PLANNING 1991 YEARLY PREVENTIVE VISIT 1994 DTAP/TDAP/TD VACCINE (5 - Tdap) 09/20/2004 09/19/2004, 06/24/1996, 03/24/1992, Additional history exists HIV SCREENING 2006 HEPATITIS C SCREENING 2009 HPV VACCINE (2 - 3-dose series) 11/01/2009 10/04/2009 PAP 2012 COVID-19 VACCINE ( season) 2024 ANNUAL REVIEW OF HM ORDERS 06/24/2025 06/24/2024 ZOSTER VACCINE (1 of 2) 2041 HEPATITIS B VACCINE Completed 04/18/2005, 12/25/2004, 09/19/2004 INFLUENZA VACCINE Completed 07/08/2024, 06/23/2023 PHQ-2 (once per calendar year) Completed 09/14/2024, 08/12/2024, 06/22/2024 MENINGITIS VACCINE Aged Out No longer eligible based on patient's age to complete this topic PNEUMOCOCCAL VACCINE: PEDIATRICS (0 to 5 YEARS) AND AT-RISK PATIENTS (6 to 49 YEARS) Aged Out No longer eligible based on patient's age to complete this topic [place] [place] [address] CORE [facility] CORE * Guarantor: HerediaSuzan emery Account Type Relation to Patient Date of Phone Billing Address Medication Therapy Self 1990 [address] [place] [address] Care Teams Call Center Agent Relationship Specialty Start Date End Date [facility], [facility] [address] [place], [place] [id number] PCP - General 01/18/25 Yessica Dunbar PA-C [address] [place] [id number] Physician Home Health Rn Surgery 06/22/24 Carolin Flor APRN STONE MILL OPERATOR [address] [place] [address] Assigned PCP 07/17/24 Lourdes Olmedo [facility] Assigned MTM Pharmacist 07/17/24 Diamante Kent PA-C [address] [place] [address] 599175 Assigned Surgical Provider 09/16/24
--- OUTSIDE RECORDS SUMMARY | 2025-02-03 21:07 | XMS_ITS | Encounter Summary ---
Author Organization [place] Address [address] [place] [address] Care Team Providers Care Elastic Yarn Twister Name Role Phone Clinic - [facility] Primary Ca re Provider Yessica Dunbar PA-C Unavailable [phone] Carolin Flor APRN FACTORY ASSEMBLER Unavailable [phone] Lourdes Olmedo [facility] Unavailable Unavail able Diamante Kent PA-C Unavailable [phone] Encounter Details Date Type Department Care Team (Late st Contact Info) Description 12/24/2024 Orders Only [facility] [address] 4th [place] [address] Diamante Kent PA-C [facility] [place] [address] Class 3 severe obesity due to [...] on file 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 Gender Identity Not on file Sexual Orientation Not on file documented as of this encounter Plan of Treatment Upcoming Encounters Date Type Department Care Team (Late st Contact Info) Description 02/08/2025 8:00 AM CDT Virtual Visit [facility] [address] [place] [phone] Sapna Gaines PA-C [address] [address] documented as of this encounter Visit Diagnoses Diagnosis Class 3 severe obesity due to excess calories in adult, unspecified BMI, unspecified whether serious comorbidity present (H)- Primary Class 3 severe obesity with serious comorbidity and body mass index (BMI) of 45.0 to 49.9 in adult, unspecified obesity type (H) documented in this encounter Care Teams Elastic Yarn Twister Relationship Specialty Start Date End Date Clinic - [facility] [address] [place] [address] PCP - General 10/13/16 01/17/25 Yessica Dunbar PA-C [address] [place] [address] 195 [place] [address] Physician Property Coordinator Surgery 06/22/24 Carolin Flor APRN CNP [address] [place] [address] Assigned PCP 07/17/24 Lourdes Olmedo RP Assigned MTM Pharmacist 07/17/24 Diamante Kent PA-C [facility] [place] [address] Assigned Surgical Provider 09/16/24 documented as of this encounter
--- OUTSIDE RECORDS SUMMARY | 2025-02-03 21:07 | XMS_ITS | Encounter Summary ---
Author Organization [place] Address [address] [place] [address]. [place] [address] Care Team Providers Care Insights Analyst Name Role Phone Clinic - [facility] Primary Ca re Provider Lourdes Olmedo [facility] Unavailable Unavail able Yessica Dunbar-C Unavailable [phone] Carolin Flor APRN PHARMACIST PER DIEM Unavailable [phone] Lourdes Olmedo [facility] Unavailable Unavail able Diamante Kent PA-C Unavailable [phone] Mirna Alegre RN Unavailable Unavailable [facility], [facility] Primary Care Provider Encounter Details Date Type Department Care Team (Late Contact Info) Description 06/23/2024 MyC Medical Advice [facility] [address] [place] [phone] Maryanne Millard, RN Social History Tobacco Use Types Packs/Day Years Used Date Smoking Tobacco: Never Alcohol Use Standard Drinks/Week Comments Yes 0 (1 standard drink = 0.6 oz pur e alcohol) PHQ-2 Answer Date Recorded PHQ-2 Score 0 06/22/2024 Comments No Sex and Gender Information Value Date Recorded Sex Assigned at Not on file 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 Gender Identity Not on file Sexual Orientation Not on file documented as of this encounter Plan of Treatment Upcoming Encounters Date Type Department Care Team ([facility] Contact Info) Description 02/08/2025 8:00 AM CDT Virtual Visit [facility] [place] [address] [phone] Sanpa Gaines PA-C [address] [address] documented as of this encounter Visit Diagnoses Not on filedocumented in this encounter Care Teams Insights Analyst Relationship Specialty Start Date End Date Clinic - [facility] [address] [place] [address] PCP - General 10/13/16 01/17/25 [facility], Carolee [place] [address] [place] [address] PCP - General 01/18/25 Lourdes Olmedo [facility] [address] [place] [address] Pharmacist Pharmacist 06/22/24 09/16/24 Yessica Dunbar PA-C [address] [place] [address] 195 [place], [place] 3266[address] Physician Agribusiness Internship Surgery 06/22/24 Carolin Flor APRN PHARMACIST PER DIEM [address] [place] [address] Assigned PCP 07/17/24 Lourdes Olmedo [facility] Assigned MTM Pharmacist 07/17/24 Diamante Kent PA-C [address] [place], [place] 7[address] Assigned Surgical Provider 09/16/24 Mirna Alegre RN RN Clinical Product Navigator 01/05/25 01/18/25 documented as of this encounter
--- OUTSIDE RECORDS SUMMARY | 2025-02-03 21:07 | XMS_ITS | Encounter Summary ---
Author Organization [place] Address [address] [facility] [place] [address] Care Team Providers Care Travograph Operator Name Role Phone Clinic - [facility] Primary Ca re Provider Yessica Dunbar PA-C Unavailable [phone] Carolin Flor APRN PHYSICIAN PRACTICE MANAGER Unavailable [phone] Lourdes Olmedo [facility] Unavailable Unavail able Diamante Kent PA-C Unavailable [phone] Mirna Alegre RN Unavailable Unavailable Clinic, [facility] Primary Care Provider Encounter Details Date Type Department Care Team (Late st Contact Info) Description 12/06/2024 MyC Medical Advice [facility] [address] 4th [place] [address] Diamante Kent PA-C [address] [place] [address] Social History Tobacco Use Types Packs/Day Years Used Date Smoking Tobacco: Never Alcohol Use Standard Drinks/Week Comments Yes 0 (1 standard drink = 0.6 oz pur e alcohol) PHQ-2 Answer Date Recorded PHQ-2 Score 0 09/14/2024 Comments No Sex and Gender Information Value Date Recorded Sex Assigned at Not on file 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 Gender Identity Not on file Sexual Orientation Not on file documented as of this encounter Plan of Treatment Upcoming Encounters Date Type Department Care Team (Late st Contact Info) Description 02/08/2025 8:00 AM CDT Virtual Visit [facility] [place] [address] [facility] [address] [place] [phone] Sapna Gaines PASteve [address] [facility] [address] [place] [address] documented as of this encounter Visit Diagnoses Not on filedocumented in this encounter Care Teams Travograph Operator Relationship Specialty Start Date End Date Clinic - [facility] [address] [place] [address] PCP - General 10/13/16 01/17/25 [facility], [place] [address] [facility] [place] [address] PCP - General 01/18/25 Yessica Dunbar PA-C [address] [facility] 195 [place] [address] Physician Emt I/99 Surgery 06/22/24 Carolin Flor APRN PHYSICIAN PRACTICE MANAGER [address] [place] [address] Assigned PCP 07/17/24 Lourdes Olmedo [facility] Assigned MTM Pharmacist 07/17/24 Diamante Kent PA-C [address] [place], [place] [address] Assigned Surgical Provider 09/16/24 Mirna Alegre RN RN Clinical Product Navigator 01/05/25 01/18/25 documented as of this encounter
--- OUTSIDE RECORDS SUMMARY | 2025-02-03 21:07 | XMS_ITS | Clinical Summary ---
Author Organization [facility] Address [address] [place] [address] Care Team Providers Care Nuclear Station Operator Name Role Phone Unavailable Primary Care [...]
--- OUTSIDE RECORDS SUMMARY | 2025-02-03 21:07 | XMS_ITS | Encounter Summary ---
Author Organization [place] Address [address] [place] [address]. [place] [address] Care Team Providers Care Custodian Manager Name Role Phone Clinic - [facility] Primary Ca re Provider Lourdes Olmedo [facility] Unavailable Unavail able Yessica Dunbar-C Unavailable [phone] Carolin Flor APRN FORESTRY HUNTER Unavailable [phone] Lourdes Olmedo [facility] Unavailable Unavail able Diamante Kent PA-C Unavailable [phone] Mirna Alegre RN Unavailable Unavailable Clinic, [place] [place] Primary Care Provider Encounter Details Date Type Department Care Team (Late st Contact Info) Description 06/22/2024 MyC Medical Advice [facility] [address] [address] Tamika Brandon Social History Tobacco Use Types Packs/Day Years Used Date Smoking Tobacco: Never Alcohol Use Standard Drinks/Week Comments Yes 0 (1 standard drink = 0.6 oz pur e alcohol) PHQ-2 Answer Date Recorded PHQ-2 Score 0 06/22/2024 Comments No Sex and Gender Information Value Date Recorded Sex Assigned at Not on file 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 Gender Identity Not on file Sexual Orientation Not on file documented as of this encounter Plan of Treatment Upcoming Encounters Date Type Department Care Team (Late Contact Info) Description 02/08/2025 8:00 AM CDT Virtual Visit [facility] [address] [phone] Sapna Gaines PA-C [address] [place] [address] documented as of this encounter Visit Diagnoses Not on filedocumented in this encounter Care Teams Custodian Manager Relationship Specialty Start Date End Date [facility] [address] [place] [address] PCP - General 10/13/16 01/17/25 [facility], [place]olee [place] [address] [place] [address] PCP - General 01/18/25 Lourdes Olmedo [facility] [address] [place] [address] Pharmacist Pharmacist 06/22/24 09/16/24 Yessica Dunbar PA-C [address] [place] [address] 195 [place] [address] Physician Company Driver Surgery 06/22/24 Carolin Flor APRN FORESTRY HUNTER [address] [place] [address] Assigned PCP 07/17/24 Lourdes Olmedo [facility] Assigned MTM Pharmacist 07/17/24 Diamante Kent PA-C [address] [place], [place] [address] Assigned Surgical Provider 09/16/24 Mirna Alegre RN RN Clinical Product Navigator 01/05/25 01/18/25 documented as of this encounter
--- OUTSIDE RECORDS SUMMARY | 2025-02-03 21:07 | XMS_ITS | Encounter Summary ---
Author Organization [place] Address [address] [place] [address]. [place] [address] Care Team Providers Care Cloth Handler Name Role Phone Clinic - [facility] Primary Ca re Provider Yessica Dunbar PASteve Unavailable [phone] Carolin Flor APRN POWERSAW SUPERVISOR Unavailable [phone] Lourdes Olmedo [facility] Unavailable Unavail able Diamante Kent-C Unavailable [phone] Encounter Details Date Type Department Care Team (Late st Contact Info) Description 12/20/2024 [facility] [address] 4th [place] [address] Tamika Brandon Class 3 severe [...] on file 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 Gender Identity Not on file Sexual Orientation Not on file documented as of this encounter Plan of Treatment Upcoming Encounters Date Type Department Care Team (Late st Contact Info) Description 02/08/2025 8:00 AM CDT Virtual Visit [facility] [place] [address] [facility] [address] [place] [phone] Sapna Gaines PA-C [address] [place] [address] [address] [place] [address] documented as of this encounter Visit Diagnoses Diagnosis Class 3 severe obesity due to excess calories in adult, unspecified BMI, unspecified whether serious comorbidity present (H)- Primary Class 3 severe obesity with serious comorbidity and body mass index (BMI) of 45.0 to 49.9 in adult, unspecified obesity type (H) documented in this encounter Care Teams Cloth Handler Relationship Specialty Start Date End Date Clinic - [facility] [address] [place] [address] PCP - General 10/13/16 01/17/25 Yessica Dunbar PA-C [address] [place] [address] [address] [place] [address] Physician Center Customer Service Associate Surgery 06/22/24 Carolin Flor APRN CNP [address] [place] [address] Assigned PCP 07/17/24 Lourdes Olmedo [facility] Assigned MTM Pharmacist 07/17/24 Diamante Kent PA-C [facility] [place], [place] [address] Assigned Surgical Provider 09/16/24 documented as of this encounter
--- OUTSIDE RECORDS SUMMARY | 2025-02-03 21:07 | XMS_ITS | Encounter Summary ---
Author Organization [place] Address [address] [place] [address]. [place] [address] Care Team Providers Care Call Center Operator Name Role Phone Clinic - [facility] Primary Ca re Provider Lourdes Olmedo [facility] Unavailable Unavail able Yessica DunbarC Unavailable [phone] Carolin Flor APRN SUPERVISOR CAR AND YARD Unavailable [phone] Lourdes Olmedo [facility] Unavailable Unavail able Diamante Kent PA-C Unavailable [phone] Mirna Alegre RN Unavailable Unavailable [facility], [facility] Primary Care Provider Encounter Details Date Type Department Care Team (Late st Contact Info) Description 06/22/2024 MyC Medical Advice [facility] Multiple Specialty [address] 2nd [place] [address] Lourdes Olmedo [facility] Social History Tobacco Use Types Packs/Day Years Used Date Smoking Tobacco: Never Alcohol Use Standard Drinks/Week Comments Yes 0 (1 standard drink = 0.6 oz pur e alcohol) PHQ-2 Answer Date Recorded PHQ-2 Score 0 06/22/2024 Comments No Sex and Gender Information Value Date Recorded Sex Assigned at Not on file Legal Sex Female 3:35 AM RN RENAL Gender Identity Not on file Sexual Orientation Not on file documented as of this encounter Plan of Treatment Upcoming Encounters Date Type Department Care Team (Late Contact Info) Description 02/08/2025 8:00 AM CDT Virtual Visit [facility] [place] [address] [phone] Sapna Gaines PA-C [address] [place] [address] documented as of this encounter Visit Diagnoses Not on filedocumented in this encounter Care Teams Call Center Operator Relationship Specialty Start Date End Date Clinic - [facility] [address] [place] [address] PCP - General 10/13/16 01/17/25 Clinic, [place] [address] [place] [address] PCP - General 01/18/25 Lourdes Olmedo [facility] [address] [place] [address] Pharmacist Pharmacist 06/22/24 09/16/24 Yessica Dunbar PA-C [address] [facility] 195 [place] [address] Physician Legal Paraprofessional Surgery 06/22/24 Carolin Flor APRN SUPERVISOR CAR AND YARD [address] [place] [address] Assigned PCP 07/17/24 Lourdes Olmedo [facility] Assigned MTM Pharmacist 07/17/24 Diamante Kent PA-C [address] [place] [address] Assigned Surgical Provider 09/16/24 Mirna Alegre RN RN Clinical Product Navigator 01/05/25 01/18/25 documented as of this encounter
--- OUTSIDE RECORDS SUMMARY | 2025-02-03 21:07 | XMS_ITS | Clinical Summary ---
Author Organization [facility] Address [address] [place] [address] Care Team Providers Care Heat Reader Name Role Phone Found, No Pcp MD Primary Care Provider Unavailab le Source Comments You are receiving this document as you are listed as the primary care provider,follow-up provider, or the patient has been referred to you for consultation.This is in compliance with the Medicare and[facility] Cent[facility]aid EHR Incentive Program,which states Providers who [...] 37.1 C (98.8 F) 07/28/2008 4:44 PM DIRECTOR AUDIENCE MARKETING ORAL C: 37.1 C Respiratory Rate 16 07/28/2008 4:44 PM DIRECTOR AUDIENCE MARKETING Oxygen Saturation - - Inhaled Oxygen Concentration [...] patient's age to complete this topic Insurance [facility] [place] [id number] [place] [address] Care Teams Heat Reader Relationship Specialty Start Date End Date Found, No Pcp, [address] [place] [address] PCP - General 09/22/18
--- OUTSIDE RECORDS SUMMARY | 2025-02-03 21:07 | XMS_ITS | Encounter Summary ---
Author Organization [place] Address [address] [place] [address]. [place] [address] Care Team Providers Care Head Sawyer Name Role Phone Clinic - [facility] Primary Ca re Provider Lourdes Olmedo [facility] Unavailable Unavail able Yessica Dunbar PA-C Unavailable [phone] Carolin Flor APRN TAILOR WOMEN'S GARMENT ALTERATION Unavailable [phone] Lourdes Olmedo [facility] Unavailable Unavail able Diamante Kent PA-C Unavailable [phone] Mirna Alegre RN Unavailable Unavailable Clinic, [facility] Primary Care Provider Encounter Details Date Type Department Care Team (Late st Contact Info) Description 09/09/2024 MyC Medical Advice [facility] [address] [place] [address] Diamante Kent PA-C [address] [place] [address] Social History Tobacco Use Types Packs/Day Years Used Date Smoking Tobacco: Never Alcohol Use Standard Drinks/Week Comments Yes 0 (1 standard drink = 0.6 oz pur e alcohol) PHQ-2 Answer Date Recorded PHQ-2 Score 0 08/12/2024 Comments No Sex and Gender Information Value Date Recorded Sex Assigned at Not on file 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 Gender Identity Not on file Sexual Orientation Not on file documented as of this encounter Plan of Treatment Upcoming Encounters Date Type Department Care Team (Late st Contact Info) Description 02/08/2025 8:00 AM CDT Virtual Visit [facility] [place] [address] [place] [phone] Sapna Gaines PA-C [address] [address] documented as of this encounter Visit Diagnoses Not on filedocumented in this encounter Care Teams Head Sawyer Relationship Specialty Start Date End Date Clinic - [facility] [address] [place] [address] PCP - General 10/13/16 01/17/25 [facility] [address] [place] [address] PCP - General 01/18/25 Lourdes Olmedo [facility] [address] [place] [address] Pharmacist Pharmacist 06/22/24 09/16/24 Yessica Dunbar PA-C [address] [place] [address] [address] [place] [address] Physician Electronic Parts Salesperson Surgery 06/22/24 Carolin Flor APRN TAILOR WOMEN'S GARMENT ALTERATION [address] [place] [address] Assigned PCP 07/17/24 Lourdes Olmedo [facility] Assigned MTM Pharmacist 07/17/24 Diamante Kent PA-C [address] [place] [address] Assigned Surgical Provider 09/16/24 Mirna Alegre RN RN Clinical Product Navigator 01/05/25 01/18/25 documented as of this encounter
--- OUTSIDE RECORDS SUMMARY | 2025-02-03 21:07 | XMS_ITS | Encounter Summary ---
Author Organization [place] Address [address] [place] [address] Care Team Providers Care Pharmacy Benefits Coordinator Name Role Phone Clinic - [facility] Primary Ca re Provider Yessica Dunbar PA-C Unavailable Carolin Flor APRN HOT WORT SETTLER Unavailable [phone] Lourdes Olmedo [facility] Unavailable Unavail able Diamante Kent PA-C Unavailable [phone] Reason for Visit * Reason Onset Date Comments Clinic Care Coordination - Follow-up 12/20/2024 Encounter Details Date Type Department Care Team (Late st Contact Info) Description 12/20/2024 [facility] [address] [place] [address] Diamante Kent PA-C [address] [place] [address] Clinic Care Coordination - Follow-up Social History Tobacco Use Types Packs/Day Years Used Date Smoking Tobacco: Never Alcohol Use Standard Drinks/Week Comments Yes 0 (1 standard drink = 0.6 oz pur e alcohol) PHQ-2 Answer Date Recorded PHQ-2 Score 0 09/14/2024 Comments No Sex and Gender Information Value Date Recorded Sex Assigned at Not on file Legal Sex Female 3:35 AM SET O TYPE OPERATOR Gender Identity Not on file Sexual [...] PM CDT Phone (Incoming) Suzan Heredia (Self) [phone] (M) Reason for Call: Please call pt as needs alternative solution now that compounding meds have ended.Has Dilia Alejo appt Could we send this information to you in TV Volume Wizard Appvillard or would you prefer to receive a phone call?: Patient would prefer a phone call Okay to leave a detailed message?: Yes at Cell number on file: Telephone Information: documented in this encounter Plan of Treatment Upcoming Encounters Date Type Department Care Team ([facility] Contact Info) Description 02/08/2025 8:00 AM CDT Virtual Visit [facility] [address] [address] Sapna Gaines PA-C [address] [place] [address] documented as of this encounter Visit Diagnoses Not on filedocumented in this encounter Care Teams Pharmacy Benefits Coordinator Relationship Specialty Start Date End Date Clinic - [facility] [address] [place] [address] PCP - General 10/13/16 01/17/25 Yessica Dunbar PA-C [address] [facility] [address] [place] [address] Physician Scalp Specialist Surgery 06/22/24 Carolin Flor APRN HOT WORT SETTLER [address] [place] [address] Assigned PCP 07/17/24 Lourdes Olmedo RPH Assigned MTM Pharmacist 07/17/24 Diamante Kent PA-C [address] [place], [place] [address] Assigned Surgical Provider 09/16/24 documented as of this encounter
--- OUTSIDE RECORDS SUMMARY | 2025-02-03 21:07 | XMS_ITS | CCD ---
Author Name Interface, [id number] Address [address] [place] [address] [facility] Address [address] [place] [address] Care Team Providers Care Patient Case Manager Name Role Phone Susana Ayala Unavailable Allergies and Adverse Reactions Care Plan Reason for Visit Encounters Immunizations Diagnostic Results Medications Problems Procedures Social History Vital Signs
--- OUTSIDE RECORDS SUMMARY | 2025-02-03 21:07 | XMS_ITS | Encounter Summary ---
Author Organization [place] Address [address] [place] [address] Care Team Providers Care Checker And Packer Name Role Phone Clinic - [facility] Primary Ca re Provider Yessica Dunbar PA-C Unavailable [phone] Carolin Flor APRN MEDICAL OFFICE RECEPTIONIST ASSISTANT Unavailable Lourdes Olmedo [facility] Unavailable Unavail able Diamante Kent PA-C Unavailable [phone] Encounter Details Date Type Department Care Team (Late st Contact Info) Description 12/20/2024 Telephone [facility] [address] [place] [address] Diamante Kent PA-C [address] [place] [address] Social History Tobacco Use Types Packs/Day Years Used Date Smoking Tobacco: Never Alcohol Use Standard Drinks/Week Comments Yes 0 (1 standard drink = 0.6 oz pur e alcohol) PHQ-2 Answer Date Recorded PHQ-2 Score 0 09/14/2024 Comments No Sex and Gender Information Value Date Recorded Sex Assigned at Not on file Legal Sex Female 3:35 AM CIRCULATOR Gender Identity Not on file Sexual Orientation [...] want to speak with: RN Is an staff interpreter needed?: No Could we send this information to you in Mashwork or would you prefer to receive a phone call?: No preference Okay to leave a detailed message?: Yes at Cell number on file: Telephone Information: documented in this encounter Plan of Treatment Upcoming Encounters Date Type Department Care Team (Late st Contact Info) Description 02/08/2025 8:00 AM CDT Virtual Visit [facility] [address] [address] Sapna Gaines PA-C [address] [place] [phone] documented as of this encounter Visit Diagnoses Not on filedocumented in this encounter Care Teams Checker And Packer Relationship Specialty Start Date End Date Clinic - [facility] [address] [place] [address] PCP - General 10/13/16 01/17/25 Yessica Dunbar PA-C [address] [place] [id number] Physician Residential Support Worker Surgery 06/22/24 Carolin Flor APRN MEDICAL OFFICE RECEPTIONIST ASSISTANT [address] [facility] [place] [place] [address] Assigned PCP 07/17/24 Lourdes Olmedo [facility] Assigned MTM Pharmacist 07/17/24 Diamante Kent PA-C [address] [facility] [place] [address] Assigned Surgical Provider 09/16/24 documented as of this encounter
--- OUTSIDE RECORDS SUMMARY | 2025-02-03 21:07 | XMS_ITS | CCD ---
Author Name Interface, [id number] lity Address [address] [place] [address] [facility] Address [address] [place] [address] Care Team Providers Care Children'S Service Supervisor Name Role Phone Susana Ayala Unavailable Allergies and Adverse Reactions Care Plan Reason for Visit Encounters Immunizations Diagnostic Results Medications Problems Procedures Social History Vital Signs
--- OUTSIDE RECORDS SUMMARY | 2025-02-03 21:07 | XMS_ITS | Encounter Summary ---
Author Organization [place] Address [address] [place] [address] Care Team Providers Care Lock Stitch Channeler Name Role Phone Clinic - [facility] Primary Ca re Provider Lourdes Olmedo [facility] Unavailable Unavail able Yessica Dunbar PA-C Unavailable [phone] Carolin Flor APRN SAND BOBBER Unavailable [phone] Lourdes Olmedo [facility] Unavailable Unavail able Diamante Kent PA-C Unavailable [phone] Mirna Alegre RN Unavailable Unavailable Clinic, [facility] Primary Care Provider Reason for Visit * Reason Onset Date Comments Refill Request 09/09/2024 Encounter Details Date Type Department Care Team (Late st Contact Info) Description 09/09/2024 [facility] [address] [address] Diamante Kent PA-C [address] [place] [address] Refill Request Social History Tobacco Use Types Packs/Day Years Used Date Smoking Tobacco: Never Alcohol Use Standard Drinks/Week Comments Yes 0 (1 standard drink = 0.6 oz pur e alcohol) PHQ-2 Answer Date Recorded PHQ-2 Score 0 08/12/2024 Comments No Sex and Gender Information Value Date Recorded Sex Assigned at Not on file 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 Gender Identity Not on file Sexual Orientation Not on file documented as of this encounter Plan of Treatment Upcoming Encounters Date Type Department Care Team (Late st Contact Info) Description 02/08/2025 8:00 AM CDT Virtual Visit [facility] [address] [phone] Sapna Gaines PA-C [address] [address] documented as of this encounter Visit Diagnoses Diagnosis Class 3 severe obesity due to excess calories in adult, unspecified BMI, unspecified whether serious comorbidity present (H) documented in this encounter Care Teams Lock Stitch Channeler Relationship Specialty Start Date End Date Clinic - [facility] [address] [place] [address] PCP - General 10/13/16 01/17/25 [facility], [facility] [address] [place] [address] PCP - General 01/18/[address] [place] [address] [place] [address] Pharmacist Pharmacist 06/22/24 09/16/24 Yessica Dunbar PA-C [address] [place] [address]93[address] Physician Manager Track Surgery 06/22/24 Carolin Flor APRN SAND BOBBER [address] [place] [address] Assigned PCP 07/17/24 Lourdes Olmedo [facility] Assigned MTM Pharmacist 07/17/24 Diamante Kent PA-C [address] [place] [address] Assigned Surgical Provider 09/16/24 Mirna Alegre RN RN Clinical Product Navigator 01/05/25 01/18/25 documented as of this encounter
--- OUTSIDE RECORDS SUMMARY | 2025-02-03 21:07 | XMS_ITS | Encounter Summary ---
Author Organization [place] Address [address] [place] [address] Care Team Providers Care Beating Machine Operator Name Role Phone Clinic - [facility] Primary Ca re Provider Yessica Dunbar PA-C Unavailable [phone] Carolin Flor APRN SCHEDULE ANALYST Unavailable [phone] [facility] Unavailable Unavail able Diamante Kent PA-C Unavailable [phone] Reason for Visit * Reason Onset Date Comments Refill Request 12/23/2024 Zepbound Vial Encounter Details Date Type Department Care Team (Late st Contact Info) Description 12/23/2024 [facility] [address] [address] Diamante Kent PA-C [address] [place] [address] Refill Request (Zepbound Vial) Social History Tobacco Use Types Packs/Day Years Used Date Smoking Tobacco: Never Alcohol Use Standard Drinks/Week Comments Yes 0 (1 standard drink = 0.6 oz pur e alcohol) PHQ-2 Answer Date Recorded PHQ-2 Score 0 09/14/2024 Comments No Sex and Gender Information Value Date Recorded Sex Assigned at Not on file 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 documented in this encounter Plan of Treatment Upcoming Encounters Date Type Department Care Team (Late st Contact Info) Description 02/08/2025 8:00 AM CDT Virtual Visit [facility] [address] [place] [phone] Sapna Gaines PA-C [address] [address] documented as of this encounter Visit Diagnoses Not on filedocumented in this encounter Care Teams Beating Machine Operator Relationship Specialty Start Date End Date Clinic - [facility] [address] [place] [address] PCP - General 10/13/16 01/17/25 Yessica Dunbar PA-C [address] [facility] 195 [place], [place] [address] Physician Greige Mender Surgery 06/22/24 Carolin Flor APRN CNP [address] [place] [address] Assigned PCP 07/17/[address] [facility] Assigned MTM Pharmacist 07/17/24 Diamante Kent PA-C [address] [place] [address] Assigned Surgical Provider 09/16/24 documented as of this encounter
[2025-02-03 21:18] VITALS: BP 125/89; PULSE 89; RESP 16; TEMP 36.6; O2SAT 98; BMI 48.4
--- NOTE | 2025-02-03 21:40 | CRLHL7_ITS ---
For Patients: As a result of the Century Cures Act, medical imaging exams and procedure reports are released immediately into your electronic medical record. You may view this report before your referring provider. If you have questions, please contact your health care provider. Indication: Cholecystectomy with bile leak, question drain dysfunction Technique: CT through the abdomen and pelvis following 121 mL Isovue 370 IV contrast Comparison: MR pelvis performed 01/26/2025, CT abdomen and pelvis performed 12/30/2024 Findings: Lower chest: No acute abnormality appreciated. Hepatobiliary: Cholecystectomy. Biliary stent noted. Significant decrease in stranding and fluid in the gallbladder fossa. Spleen: Unremarkable. Pancreas: No acute abnormality appreciated. Adrenal glands: No acute abnormality appreciated. Kidneys: No significant parenchymal abnormality appreciated. No visualized calculi. No hydronephrosis. Bowel: No obstruction. No focal perienteric or pericolonic stranding is appreciated. The appendix is visualized and appears unremarkable. Vascular: No acute abnormality appreciated. Lymph nodes: No gross lymphadenopathy. Peritoneum: Pigtail catheter in the right abdomen. There is a fluid collection superomedial to the pigtail catheter abutting the posterior margin of the duodenum measuring approximately 20 x 20 millimeters with adjacent stranding and wall thickening, previously appearing to be non organized fluid on 12/30/2024 study. No free air. : Unchanged right ovarian lesion. Soft tissues: No acute abnormality appreciated. Bones: No acute fracture. No lytic or blastic lesion. Impression: There is an organized fluid collection measuring approximally 2.0 centimeters along the posterior wall of the duodenum and appearing to be superomedial to the pigtail catheter in the right abdomen. Previously, this appeared to be non organized fluid and likely represents interval organization of the prior collection. Superinfection/abscess can not be excluded. Please note that all CT scans at this facility use dose modulation, iterative reconstruction, and/or weight-based dosing when appropriate to reduce radiation dose to as low as reasonably achievable. Dictated by Fito Hernandez MD @ 02/03/2025 10:41:26 PM (Electronically Signed)
--- NOTE | 2025-02-03 21:44 | ED.ABDPAIN ---
HPI - Abdominal Pain General Chief Complaint: Abdominal Pain Stated Complaint: pain in incision site Time Seen by Provider: 02/03/25 21:14 History of Present Illness HPI narrative: This 34-year-old female had a cholecystectomy about 6 weeks ago and had a subsequent bile leak. She was in [facility] for 19 days during which time she had 3 ERCPs. She has been discharged with a drain. She states that she is concerned that the drain is not functioning properly and reports increased abdominal pain at the site of the drain. She does not report any fevers. There is no report of purulent discharge. Related Data Previous Rx's ?Medication ?Instructions ?Recorded hydrocodone 5 mg-acetaminophen 325 1 tab PO Q6H PRN pain #25 tabs 12/26/24 mg tablet Allergies Allergy/AdvReac Type Severity Reaction Status Date / Time No Known Drug Allergies Allergy Verified 02/03/25 22:10 Review of Systems Status of ROS Reports: 10 or more systems reviewed and unremarkable except as noted in History and below Narrative Constitutional: No fevers, no weight gain or loss. Eyes: No discharge. No vision changes. HENT: No congestion, no sore throat, no ear pain. Cardiovascular: No chest pain, no palpitations. Respiratory: No shortness of breath, no wheezes, no cough. Gastrointestinal: No vomiting, no diarrhea. Abdominal pain as described above. Genitourinary: No dysuria, no hematuria. Musculoskeletal: Normal range of motion. Skin: No rashes, no pruritis. Neurological: No dizziness, weakness, sensory change, speech change. Endo/Heme/Allergies: No bruising or bleeding. No polydipsia. Pysch: no suicidality, no anxiety, no insomnia. All other systems reviewed and are negative. 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 What is your current living situation?: I presently have a place to live Problems where you live: no known problems Problems where you live details: n/a In the past 12 months, utilities in danger of being shut off: no In past 12 months, lack of transportation kept you from medical appts, meetings, work, or getting things needed for daily living: no In the past 12 mos, have been you worried that your food would run out before you had money to buy more?: never true In the past 12 mos, the food you bought just didn't last and you didn't have money to buy more?: never true Highest level of school completed/degree received: Associate degree: occupational, technical, vocational program Smoking Status: Never smoker Do you use any of these nicotine containing products: Vaping Products Second hand tobacco smoke exposure: No How often do you have a drink containing alcohol: monthly or less How many standard drinks containing alcohol do you have on a typical day: 1 or 2 How often do you have six or more drinks on one occasion: Never AUDIT-C Alcohol total score: 1 Non-prescribed substance use: denies use Caffeine: Yes How often does anyone, including family, friends and others, physically hurt you: never How often does anyone, including family, friends and others, insult or talk down to you: never How often does anyone, including family, friends and others, threaten you with harm: never How often does anyone, including family, friends and others, scream or curse at you: never service: No Exam Narrative: Exam Narrative: Constitutional: Well-developed, well-nourished, no acute distress. HEENT: Normocephalic, atraumatic. Neck: Normal range of motion. Nontender. Supple. Heart: Regular. No murmurs. Normal rate. Intact distal pulses. Lungs: Clear to auscultation. No chest discomfort. No wheezes, rhonchi, or rales. Abdomen: Normal bowel sounds. Tenderness around the right upper quadrant where the drain is in place. No rebound tenderness. No drainage around the drainage tube. Mild erythema at the site of the drain. Genitalia: Deferred. Back: No midline tenderness. Normal range of motion. Extremities: Normal range of motion. No injury. Skin: Intact. No rash. Warm. No erythema or pallor. Neurologic: No altered sensation. No weakness. Alert and oriented. Psychiatric: No suicidality. No anxiety or depression. No insomnia. Nursing notes and vitals signs are reviewed. Const: Vital Signs, click to edit/add: Vital Signs - 24 hr 02/03/25 21:18 Temperature 97.8 F Pulse Rate [Right Pulse Oximeter] 89 Respiratory Rate 16 Blood Pressure [Ri ght Upper Arm] 125/89 Pulse Oximetry 98 Oxygen Delivery Me thod Room Air Course Vital Signs Vital signs: Initial Vital Signs Temperature 97.8 F 02/03/25 21:18 Temperature Source Temporal Artery Scan 02/03/25 21:18 Pulse Rate 89 02/03/25 21:18 Pulse Rhythm Regular 02/03/25 21:18 Pulse Strength 3+ Normal 02/03/25 21:18 Respiratory Rate 16 02/03/25 21:18 Blood Pressure 125/89 02/03/25 21:18 Blood Pressure Mean 101 02/03/25 21:18 Blood Pressure Position Sitting 02/03/25 21:18 Pulse Oximetry 98 02/03/25 21:18 Oxygen Delivery Method Room Air 02/03/25 21:18 Vital Signs Temperature 97.8 F 02/03/25 21:18 Pulse Rate 89 02/03/25 21:18 Respiratory Rate 16 02/03/25 21:18 Blood Pressure 125/89 02/03/25 21:18 Pulse Oximetry 98 02/03/25 21:18 Oxygen Delivery Method Room Air 02/03/25 21:18 Temperature 97.8 F 02/03/25 21:18 Pulse Rate 89 02/03/25 21:18 Respiratory Rate 16 02/03/25 21:18 Blood Pressure 125/89 02/03/25 21:18 Pulse Oximetry 98 02/03/25 21:18 Oxygen Delivery Method Room Air 02/03/25 21:18 Medications Administered Medications: Discontinued Medications Generic Name Dose Route Start Last Admin Trade Name Freq PRN Reason Stop Dose Admin Hydromorphone HCl 0.5 mg 02/03/25 22:08 02/03/25 22:16 Hydromorphone 0.5 Mg/0.5 Ml Inj IVP 02/03/25 22:09 0.5 mg ONCE ONE Administration Ondansetron HCl 4 mg 02/03/25 22:08 02/03/25 22:16 Ondansetron 2 Mg/Ml Inj IVP 02/03/25 22:09 4 mg ONCE ONE Administration MDM - Abdominal Pain MDM Narrative Medical decision making narrative: This patient comes in reporting worsening pain in her abdomen and she states that she is wondering if the drain is not sufficiently working. She has a drain for a bile leak after cholecystectomy. CT images are obtained and do show a small amount of fluid measuring 2 cm that the drain may not be getting access to. Her lab results and vital signs are all reassuring. I did speak with an interventional radiologist at [facility] who stated that this can be handled in an outpatient situation. This is helpful as there are actually no beds available there for inpatient hospitalization. The patient will be contacted tomorrow to arrange plans to attend to this matter. She did receive a [employer] prescription for tablets of Iota. Lab Data Labs: Lab Results 02/03/25 02/03/25 Range/Units 21:55 21:57 WBC 7.54 (4.50-11.00) K/uL RBC 4.92 (4.00-5.20) m/uL Hgb 12.4 (12.0-16.0) gm/dL Hct 38.2 (33.0-51.0) % MCV 78 L (80-100) fL MCH 25 L (26-34) pg MCHC 33 (32-36) gm/dL RDW Coeff of Gustavo 17.3 H (11.5-15.5) % Plt Count 249 (140-440) K/uL Neut % (Auto) 57.9 (42.0-72.0) % Lymph % (Auto) 32.4 (20-44) % Bacon % (Auto) 6.2 (0.0-11.0) % Eos % (Auto) 3.3 (0.0-7.0) % Baso % (Auto) 0.1 (0.0-3.0) % Neut # (Auto) 4.36 (1.7-7.0) K/uL Lymph # (Auto) 2.44 (0.90-2.90) K/uL Bacon # (Auto) 0.50 (0.00-0.90) K/UL Eos # (Auto) 0.25 (0.00-0.50) K/uL Baso # (Auto) 0.01 (0.00-0.30) K/uL Abs Immat Gran (auto) 0.01 (0.00-0.30) K/uL Imm/Tot Granulo (auto) 0.1 % Sodium 139 (135-149) mmol/L Potassium 4.3 (3.6-5.1) mmol/L Chloride 105 (96-114) mmol/L Carbon Dioxide 26 (20-32) mmol/L Anion Gap 8 (7-15) mEq/L BUN 9 (5-24) mg/dL Creatinine 0.6 (0.5-1.5) mg/dL Estimated Creat Clear 95.79 Estimated GFR 121 ml/min Glucose 104 (60-115) mg/dL Calcium 8.9 (8.4-10.6) mg/dL Total Bilirubin 0.9 (0.1-1.5) mg/dL Direct Bilirubin 0.3 (0.0-0.5) mg/dL AST 46 H (12-35) U/L ALT 26 (4-35) U/L Alkaline Phosphatase 43 (40-150) U/L Total Protein 8.0 (6.0-8.3) g/dL Albumin 4.2 (3.3-5.0) g/dL Imaging Data CT scan - abdomen: Radiologist's impression: There is an organized fluid collection measuring approximally 2.0 centimeters along the posterior wall of the duodenum and appearing to be superomedial to the pigtail catheter in the right abdomen. Previously, this appeared to be non organized fluid and likely represents interval organization of the prior collection. Superinfection/abscess can not be excluded. Please note that all CT scans at this facility use dose modulation, iterative reconstruction, and/or weight-based dosing when appropriate to reduce radiation dose to as low as reasonably achievable. Discharge Plan Discharge Clinical Impression: Abdominal pain Patient Disposition: Home, Self-Care Condition: Stable Additional Instructions: Follow-up with Interventional Radiology for attention to the drain and abdomen. He will receive a call in the morning regarding plans for this. Use medication for pain as needed and directed. Follow up with MD otherwise as needed or return if worsening. Prescriptions: No Action hydrocodone-acetaminophen 5-325 mg tablet 1 tab PO Q6H PRN (Reason: pain) Qty: 25 0RF Follow Up/Referrals: Provider,Not a Local [Primary Care Provider, Family Practice] Stand Alone Forms: [employer] Info Instructions
[2025-02-03 22:02] LABS: Basophils Absolute Auto 0.01 K/uL (0.00-0.30); Basophils Percent Auto 0.1 % (0.0-3.0); Eosinophils Absolute Auto 0.25 K/uL (0.00-0.50); Eosinophils Percent Auto 3.3 % (0.0-7.0); Hematocrit 38.2 % (33.0-51.0); Hemoglobin* 12.4 gm/dL (12.0-16.0); Immature Granulocytes Abs Auto 0.01 K/uL (0.00-0.30); Immature Granulocytes Pct Auto 0.1 %; Lymphocytes Absolute Auto 2.44 K/uL (0.90-2.90); Lymphocytes Percent Auto 32.4 % (20-44); Mean Corpuscular HGB Conc 33 gm/dL (32-36); Mean Corpuscular Hemoglobin 25 pg (26-34); Mean Corpuscular Volume 78 fL (80-100); Monocytes Percent Auto 6.2 % (0.0-11.0); Neutrophils Absolute Auto 4.36 K/uL (1.7-7.0); Neutrophils Percent Auto 57.9 % (42.0-72.0); Platelet Count* 249 K/uL (140-440); RDW Coefficient of Variation % 17.3 % (11.5-15.5); Red Blood Count 4.92 m/uL (4.00-5.20); White Blood Count* 7.54 K/uL (4.50-11.00)
[2025-02-03 22:10] LABS: Slide Review Reflex No
[2025-02-03] MEDS: ONDANSETRON 2 MG/ML inj 4 MG IVP (22:16)
[2025-02-03] MEDS: HYDROmorphone 0.5 mg/0.5 ml inj IVP (22:16)
[2025-02-03 22:17] LABS: Albumin* 4.2 g/dL (3.3-5.0); Chloride* 105 mmol/L (96-114); Potassium* 4.3 mmol/L (3.6-5.1); Sodium* 139 mmol/L (135-149)
[2025-02-03 22:19] LABS: Blood Urea Nitrogen* 9 mg/dL (5-24); Creatinine* 0.6 mg/dL (0.5-1.5); Est. Creatinine Clearance* 95.79; Estimated Glomerular Filt Rate 121 ml/min
[2025-02-03 22:20] LABS: Alanine Aminotransferase* 26 U/L (4-35); Alkaline Phosphatase* 43 U/L (40-150); Anion Gap 8 mEq/L (7-15); Aspartate Amino Transferase* 46 U/L (12-35); Bilirubin Direct* 0.3 mg/dL (0.0-0.5); Bilirubin Total* 0.9 mg/dL (0.1-1.5); Calcium* 8.9 mg/dL (8.4-10.6); Carbon Dioxide* 26 mmol/L (20-32); Glucose* 104 mg/dL (60-115)
--- OUTSIDE RECORDS SUMMARY | 2025-02-03 22:23 | XMS_ITS | CCD ---
Author Name Interface, [id number] lity Address [address] [place] [address] [facility] Address [address] [place] [address] Care Team Providers Care Tactical Debriefer Name Role Phone Susana Ayala Unavailable Allergies and Adverse Reactions Care Plan Reason for Visit Encounters Immunizations Diagnostic Results Medications Problems Procedures Social History Vital Signs
--- OUTSIDE RECORDS SUMMARY | 2025-02-03 22:23 | XMS_ITS | CCD ---
Author Name Interface, [id number] lity Address [address] [place] [address] [facility] Address [address] [place] [address] Care Team Providers Care Veneer Jointer Offbearer Name Role Phone Susana Ayala Unavailable Allergies and Adverse Reactions Care Plan Reason for Visit Encounters Immunizations Diagnostic Results Medications Problems Procedures Social History Vital Signs
[2025-02-03 23:25] VITALS: BP 121/74; PULSE 96; RESP 16; O2SAT 95
== END 2025-02-03 23:50 | disposition home or self-care (01) ==
PROVIDERS: Emergency Provider Emergency Medicine Emergency Medical Services
DX: G89.18 Other acute postprocedural pain (principal); R10.11 Right upper quadrant pain
CPT/HCPCS: 36415; 74177; 80048; 80076; 85025; 96374; 96375; 99284; J1171; J2405; Q9967

== ENCOUNTER 2025-02-20 17:13 | Emergency (ER) | payer OTHER, SELFPAY ==
--- OUTSIDE RECORDS SUMMARY | 2025-02-05 18:25 | XMS_ITS | Encounter Summary ---
Author Organization [facility] Address [address] [place] [address]. [place] [address] Care Team Providers Care Crepe Maker Name Role Phone Yessica Dunbar PA-C Unavailable [phone] Carolin Flor APRN LANDSCAPE ARCHITECTURE TEACHER Unavailable [phone] Lourdes Olmedo [facility] Unavailable Unavail able Diamante Kent PA-C Unavailable [phone] [facility] Primary Care Provider Reason for Visit * Reason Comments Post-op Problem Wound Check * Auth/Cert (Routine) Specialty Diagnoses / Procedures Referred By Contanna t Referred To Contact statistician theoretical Diagnoses Nausea UTI (urinary tract infection) UTI (urinary tract infection) Nausea Riaz Park MD [address] [place] [address] Phone: tel: fax: [facility] [address] [place] [address] Phone: tel: fax: Referral ID Status Reason Start Date Expiration Date Visits Re quested Visits Authorized [id number] 1 1 Encounter Details Date Type Department Care Team (Late st Contact Info) Description 02/05/2025 6:25 PM CDT - 02/06/2025 1:12 PM CDT Hospital Encounter [facility] [address] [place] [address] Shahriar Kidd MD [facility] [address] [place], [place] [address] [place]iaz [place] [address] Pain (Primary Dx); UTI (urinary tract infection); Nausea; Urinary tract infection without hematuria, site unspecified Discharge Disposition: Home or Self Care Social History Tobacco Use Types Packs/Day Years Used Date Smoking Tobacco: Never Alcohol Use Standard Drinks/Week Comments Yes 0 (1 standard drink = 0.6 oz pur e alcohol) PHQ-2 Answer Date Recorded PHQ-2 Score 0 09/14/2024 Food Insecurity Answer Date Recorded Within the past 12 months, d id you worry that your food would run out before you got money to buy more? No 02/06/2025 Within the past 12 months, d id the food you bought just not last and you didn t have money to get more? No 02/06/2025 Housing Stability Answer Date Recorded Do you have housing? (Housin g is defined as stable permanent housing and does not include staying outside in a car, in a tent, in an abandoned building, in an overnight prison, or couch-surfing.) Yes 02/06/2025 Are you worried about losing your housing? No 02/06/2025 Financial Resource Strain Answer Date R ecorded Within the past 12 months, h ave you or your family members you live with been unable to get utilities (heat, electricity) when it was really needed? No 02/06/2025 Transportation Needs Answer Date Record ed Within the past 12 months, h as lack of transportation kept you from medical appointments, getting your medicines, non-medical meetings or appointments, work, or from getting things that you need? No 02/06/2025 Interpersonal Safety Answer Date Record ed Do you feel physically and e motionally safe where you currently live? Yes 02/06/2025 Within the past 12 months, h ave you been hit, slapped, kicked or otherwise physically hurt by someone? No 02/06/2025 Within the past 12 months, h ave you been humiliated or emotionally abused in other ways by your partner or ex-partner? 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 Gender Identity Not on file Sexual Orientation Not on file documented as of this encounter Last Filed Vital Signs Vital Sign Reading Time Taken Comments Blood Pressure 126/86 02/06/2025 12:16 PM CDT Pulse 79 02/06/2025 12:16 PM CDT Temperature 36.8 C (98.2 F) 02/06/2025 12:16 PM CDT Respiratory Rate 14 02/06/2025 12:1 6 PM CDT Oxygen Saturation 99% 02/06/2025 12: 16 PM CDT Inhaled Oxygen Concentration - - Weight 114.6 kg (252 lb 9.6 oz) 025 12:32 AM CDT Height 154.9 cm (5' 1) 02/05/2025 6:21 PM CDT Body Mass Index 47.73 02/05/2025 6:21 PM CDT documented in this encounter Discharge Summaries * Riaz Park MD - 02/06/2025 1:07 PM CDT [facility] Hospitalist Discharge Summary Date of Admission: 02/05/2025 Date of Discharge: 02/06/2025 Discharging Provider: Riaz Park MD Discharge Service: Hospitalist Service Discharge Diagnoses Subjective fever UTI - Urine culture from [facility] Enterococcus -I called [facility] and sensitivities were not done on urine specimen given they felt that it may have been a contaminated specimen -Urine culture done on admission showing mixed urogenital loyda -Patient treated with IV Unasyn while hospitalized. Afebrile during her hospitalization without signs of significant infection - Patient will discharge on oral Augmentin for 5 days to complete therapy Status post recent laparoscopic cholecystectomy 12/26/2024 with complications detailed below - Course complicated choledocholithiasis, which was then complicated by bile leak and subsequent intra-abdominal fluid collection/biloma requiring ERIN drain - Patient underwent ERCP 12/29/2024 -Nuclear medicine hepatobiliary imaging performed 12/31/2024 showed no evidence of extrahepatic biliary leak or bile duct obstruction -Repeat HIDA scan was performed 01/06/2025 which showed a bile leak. -Repeat ERCP was done 01/07/2025 which showed prior biliary sphincterotomy open and normal cholangiogram. Metal stent was placed in common bile duct. Repeat ERCP recommended in 4 to 6 weeks to remove stent -Abdominopelvic CT scan was performed 01/10/2025 showing 12.1 cm right abdominal fluid collection -CT-guided ERIN drain placement 01/14/2025 -Repeat abdominal pelvic CT scan on 01/18/2025 showed decrease right abdominal fluid collection, nowmeasuring 8.8 cm -Repeat abdominal pelvic CT scan performed 01/26/2025 again showed decrease in fluid collection size measuring up to 5.2 cm -Repeat abdominal pelvic CT scan obtained yesterday (02/04/2025) shows again shows decreasing size of fluid collection - Patient scheduled to see her surgeon in clinic on 02/07/2025 and is hoping to have drain removed then Clinically Significant Risk Factors # Morbid Obesity: Estimated body mass index is 47.73 kg/m?? as calculated from the following: Height as of this encounter: 1.549 m (5' 1). Weight as of this encounter: 114.6 kg (252 lb 9.6 oz). Follow-ups Needed After Discharge Follow-up Appointments Hospital Follow-up with Existing Primary Care Provider (PCP) Schedule Primary Care visit within: 14 Days Unresulted Labs Ordered in the Past 30 Days of this Admission No orders found for last 31 day(s). Discharge Disposition Discharged to home Condition at discharge: Stable Hospital Course 34 year old female presenting by private vehicle with concern for fever Recent med hx notable for lap fanny 12/26/24 at [facility], complicated by choledocholithiasis, bile leak, and abdominal fluid collection/biloma. She currently has a ERIN drain in place. She has been seen multiple times at [facility] ER with subsequent CT scans demonstrating resolving abdominal fluid collection related to bile leak Pt was seen at [facility] ED yesterday for concerns about fever and was found to have a UTI, was prescribed cephalexin. Urine cx now growing enterococcus with sensitivities pending. Additionally pt had an abd CT yesterday showing appropriately decreasing abscess size (now measures 1.8 x 1.5 x 4.5 cm, pr eviously 2.3 x 1.8 x 4[address] dated 01/26/25). On presentation to the ER vital signs notable for systolic blood pressure 155, heart rate 105 bpm, temperature 99.5 degrees, no hypoxia Labs notable for unremarkable complete metabolic panel. Lactic acid normal. White blood cell count normal. Lipase 160. Urinalysis mildly abnormal with white blood cell count 33 with large leukocyte esterase. Urine culture collected and pending I spoke to the ER provider. He is concerned about discharging the patient home as she has a low-grade fever, mild tachycardia, and urine culture currently growing Enterococcus without sensitivities yet known. Patient was admitted to the hospitalist service, observation status. Given Enterococcus was isolated on urine culture from [facility], we treated the patient with IV Unasyn while hospitalized. I called [facility] today and, given their suspicion that this may have been a contaminated specimen, sensitivities were not performed on the Enterococcus. Given the patient's positive response to IV Unasyn, have elected to discharge patient on oral Augmentin for another 5 days to complete therapy Consultations This Hospital Stay None Code Status Full Code Time Spent on this Encounter I, Riaz Park MD, personally saw the patient today and spent less than or equal to 30 minutes discharging this patient. Riaz Park MD [facility] [address] [facility] [address] Physical Exam Vital Signs: Temp: 98.2 ??F (36.8 ??C) Temp src: Oral BP: 126/86 Pulse: 79 Resp: 14 SpO2: 99 % O2 Device: None (Room air) Weight: 252 lbs 9.6 oz Awake, alert, oriented x 3 Cardiovascular: Regular rate and rhythm Pulmonary: Lungs clear to auscultation bilaterally Abdomen: Nontender/nondistended. Soft Primary Care Physician [facility] Discharge Orders Reason for your hospital stay UTI Activity Your activity upon discharge: activity as tolerated Tubes and Drains Current Tubes and Drains: Drain Duration Biliary Drain -- days Diet Follow this diet upon discharge: regular diet Hospital Follow-up with Existing Primary Care Provider (PCP) Significant Results and Procedures Results for orders placed or performed during the hospital encounter of 05/18/18 Chest XR, PA & LAT Narrative XR CHEST 2 VW 05/18/2018 1:41 PM HISTORY: Cough, short of breath. COMPARISON: None. FINDINGS: No airspace consolidation, pleural effusion or pneumothorax. Normal heart size. Impression IMPRESSION: No acute cardiopulmonary abnormality. NAVDEEP MCCORMICK MD Discharge Medications Current Discharge Medication List START taking these medications Details amoxicillin-clavulanate (AUGMENTIN) 875-125 MG tablet Take 1 tablet by mouth 2 times daily for 5 days. Qty: 10 tablet, Refills: 0 Associated Diagnoses: Urinary tract infection without hematuria, site unspecified HYDROmorphone (DILAUDID) 2 MG tablet Take 1 tablet (2 mg) by mouth every 6 hours as needed for pain. Qty: 8 tablet, Refills: 0 Associated Diagnoses: Pain CONTINUE these medications which have NOT CHANGED Details COMPOUNDED NON-CONTROLLED SUBSTANCE (CMPD RX) - PHARMACY TO MIX COMPOUNDED MEDICATION Compounded semaglutide 1.0mg subcutaneous injection once weekly. Ok to compound due to shortages Qty: 1 mL, Refills: 1 Associated Diagnoses: Class 3 severe obesity with serious comorbidity and body mass index (BMI) of 45.0 to 49.9 in adult, unspecified obesity type (H) escitalopram (LEXAPRO) 10 MG tablet Take 1 tablet (10 mg) by mouth daily. Qty: 30 tablet, Refills: 1 Associated Diagnoses: Panic attack; Anxiety SPRINTEC 28 0.25-35 MG-MCG tablet Take 1 tablet by mouth daily. STOP taking these medications cephALEXin (KEFLEX) 500 MG capsule Comments: Reason for Stopping: oxyCODONE-acetaminophen (PERCOCET) 5-325 MG tablet Comments: Reason for Stopping: Allergies No Known Allergies * Yary Oconnell - 02/06/2025 12:48 PM CDT Patient's After Visit Summary was reviewed with patient Patient verbalized understanding of After Visit Summary, recommended follow up and was given an opportunity to ask questions. Discharge medications sent home with patient/family: YES Discharged with other:friend via private vehicle to home Cosigned by Lynette Alanis RN at 02/06/2025 1:39 PM CDT Associated attestation - Lynette Alanis RN - 02/06/2025 1:39 PM CDT Co-signed by Lynette Alanis RN on 02/06/2025 at 1:39 PM documented in this encounter Medications at Time of Discharge COMPOUNDED NON-CONTROLLED SUBSTANCE (CMPD RX) - PHARMACY TO MIX COMPOUNDED MEDICATIONIndicat ions:Class 3 severe obesity with serious comorbidity and body mass index (BMI) of 45.0 to 49.9 in adult, unspecified obesity type (H) Compounded semaglutide 1.0mg subcutaneous injection once weekly. Ok to compound due to shortages 1 mL 1 10/12/2024 escitalopram (LEXAPRO) 10 MG tabletIndications :Panic attack,Anxiety Take 1 tablet (10 mg) by mouth daily. 30 tablet 1 12/06/2024 SPRINTEC 28 0.25-35 MG-MCG tablet Take 1 tablet by mouth daily. 02/02/2025 amoxicillin-clavu lanate (AUGMENTIN) 875-125 MG tabletIndications :Urinary tract infection without hematuria, site unspecified Take 1 tablet by mouth 2 times daily for 5 days. 10 tablet 02/06/2025 5 HYDROmorphone (DILAUDID) 2 MG tabletIndications :Pain Take 1 tablet (2 mg) by mouth every 6 hours as needed for pain. 8 tablet 02/06/2025 5 documented as of this encounter Progress Notes * Riaz Park MD - 02/06/2025 11:39 AM CDT I saw and examined this patient today She appears appropriate for discharge home today I called [facility] to f/up on urine cx; they did not do a sensitivity on the sample as they felt it was acontaminated specimen documented in this encounter H&P Notes * Riaz Park MD - 02/05/2025 9:39 PM CDT Hospitalist Admission History and Physical CC: fever HPI: 34 year old female presenting by private vehicle with concern for fever Recent med hx notable for lap fanny 12/26/24 at [facility], complicated by choledocholithiasis, bile leak, and abdominal fluid collection/biloma. She currently has a ERIN drain in place. She has been seen multiple times at [facility] ER with subsequent CT scans demonstrating resolving abdominal fluid collection related to bile leak Pt was seen at [facility] ED yesterday for concerns about fever and was found to have a UTI, was prescribed cephalexin. Urine cx now growing enterococcus with sensitivities pending. Additionally pt had an abd CT yesterday showing appropriately decreasing abscess size (now measures 1.8 x 1.5 x 4.5 cm, pr eviously 2.3 x 1.8 x 4.[address] dated 01/26/25). On presentation to the ER vital signs notable for systolic blood pressure 155, heart rate 105 bpm, temperature 99.5 degrees, no hypoxia Labs notable for unremarkable complete metabolic panel. Lactic acid normal. White blood cell count normal. Lipase 160. Urinalysis mildly abnormal with white blood cell count 33 with large leukocyte esterase. Urine culture collected and pending I spoke to the ER provider. He is concerned about discharging the patient home as she has a low-grade fever, mild tachycardia, and urine culture currently growing Enterococcus without sensitivities yet known. Patient was unhappy with her care at [facility] and is requesting admission here. She is scheduled to see her surgeon on Friday in clinic Patient will be admitted observation status with anticipated discharge tomorrow PMH: Past Medical History: Diagnosis Date Sepsis (H) 11/09/2015 Medications: No current facility-administered medications for this encounter. Current Outpatient Medications Medication Sig Dispense Refill ALPRAZolam (XANAX) 0.25 MG tablet Take 1 tablet as needed for panic attack. (Patient not taking: Nosig reported) 2 tablet 0 COMPOUNDED NON-CONTROLLED SUBSTANCE (CMPD RX) - PHARMACY TO MIX COMPOUNDED MEDICATION Compounded semaglutide 1.0mg subcutaneous injection once weekly. Ok to compound due to shortages 1 mL 1 COMPOUNDED NON-CONTROLLED SUBSTANCE (CMPD RX) - PHARMACY TO MIX COMPOUNDED MEDICATION Compounded semaglutide 0.5 mg subcutaneous injection once weekly. Ok to compound due to shortages. 1 mL 3 escitalopram (LEXAPRO) 10 MG tablet Take 1 tablet (10 mg) by mouth daily. 30 tablet 1 hydrOXYzine HCl (ATARAX) 25 MG tablet Take 1 tablet (25 mg) by mouth 3 times daily as needed for anxiety. (Patient not taking: No sig reported) 30 tablet 0 tirzepatide-weight management (TIRZEPATIDE) 5 MG/0.5ML vial Inject 0.5 mLs (5 mg) subcutaneously once a week. After completing 4 weeks of 2.5mg dose 2 mL 2 Allergies: No Known Allergies Family History: noncontributory Social History: Review of Systems: Comprehensive greater than 10 point review systems otherwise negative besides that detailed above Physical exam: BP 125/87 Pulse 98 Temp 99.5 ??F (37.5 ??C) (Oral) Resp 16 Ht 1.549 m (5' 1) Wt 113.5 kg(250 lb 3.6 oz) LMP 01/13/2025 (Exact Date) SpO2 99% BMI 47.28 kg/m?? PSYCH: pleasant, oriented, No acute distress. HEART: Normal S1, S2 with no edema. LUNGS: Clear to auscultation, normal Respiratory effort. ABDOMEN: Soft, no hepatosplenomegaly, normal bowel sounds. SKIN: Dry to touch, No rash. Pertinent laboratory and imaging data reviewed above in HPI Impression: 1. UTI -Urine culture obtained yesterday during ER visit at [facility] growing Enterococcus with sensitivitiespending - Cover with IV Unasyn. I think we can avoid vanco for now as she is not at all toxic appearing - Would contact [facility] tomorrow to get sensitivities on urine culture and discharge on appropriate oral antibiotic 2. Status post laparoscopic cholecystectomy 12/26/2024 with complications detailed below - Course complicated choledocholithiasis, which was then complicated by bile leak and subsequent intra-abdominal fluid collection/biloma requiring ERIN drain - Patient underwent ERCP 12/29/2024 -Nuclear medicine hepatobiliary imaging performed 12/31/2024 showed no evidence of extrahepatic biliary leak or bile duct obstruction -Repeat HIDA scan was performed 01/06/2025 which showed a bile leak. -Repeat ERCP was done 01/07/2025 which showed prior biliary sphincterotomy open and normal cholangiogram. Metal stent was placed in common bile duct. Repeat ERCP recommended in 4 to 6 weeks to remove stent -Abdominopelvic CT scan was performed 01/10/2025 showing 12.1 cm right abdominal fluid collection -CT-guided ERIN drain placement 01/14/2025 -Repeat abdominal pelvic CT scan on 01/18/2025 showed decrease right abdominal fluid collection, nowmeasuring 8.8 cm -Repeat abdominal pelvic CT scan performed 01/26/2025 again showed decrease in fluid collection size measuring up to 5.2 cm -Repeat abdominal pelvic CT scan obtained yesterday (02/04/2025) shows again shows decreasing size of fluid collection - Patient scheduled to see her surgeon in clinic on 02/07/2025 and is hoping to have drain removed then Obs admit CODE STATUS: Full code documented in this encounter ED Notes * Marilu Watson RN - 02/05/2025 11:19 PM CDT Bed: ED31 Expected date: Expected time: Means of arrival: Comments: ED38 * Jaya Galindo RN - 02/05/2025 9:27 PM CDT [facility] ED Nurse Handoff Report ED Chief complaint: Post-op Problem and Wound Check . ED Diagnosis: Final diagnoses: UTI (urinary tract infection) Nausea Allergies: No Known Allergies Code Status: Full Code Activity level - Baseline/Home: independent. Activity Level - Current: independent. Lift room needed: No. Bariatric: No Rivet Heater Gas Needed: No Isolation: No. Infection: Not Applicable. Respiratory status: Room air Vital Signs (within 30 minutes): Vitals: 02/05/25 1821 02/05/25 1949 02/05/25 2000 02/05/25 2100 BP: (!) 155/99 125/88 126/81 125/87 Pulse: 105 94 98 Resp: 16 Temp: 99.5 ??F (37.5 ??C) TempSrc: Oral SpO2: 98% 98% 98% 99% Weight: 113.5 kg (250 lb 3.6 oz) Height: 1.549 m (5' 1) Cardiac Rhythm: , Pain level: Patient confused: No. Patient Falls Risk: nonskid shoes/slippers when out of bed, patient and family education, assistivedevice/personal items within reach, and mobility aid in reach. Elimination Status: Has voided Patient Report - Initial Complaint: abdominal pain. Focused Assessment: pt had ERCP x2 weeks ago at [facility], has had abdominal pain x1 week since. Pt seen last night and told she has a small abscess and UTI, did not take any PO abx as prescribed. Admission for UTI, abx. A/Ox4, on RA, ambulatory, skin intact, ERIN drain in abdomen not draining - MD aware, continent bowel/bladder, ABCs intact, AVSS, PERRLA. Abnormal Results: Labs Ordered and Resulted from Time of ED Arrival to Time of ED Departure COMPREHENSIVE METABOLIC PANEL - Abnormal Result Value Sodium 139 Potassium 3.8 Carbon Dioxide (CO2) 22 Anion Gap 13 Urea Nitrogen 8.1 Creatinine 0.63 GFR Estimate >90 Calcium 8.9 Chloride 104 Glucose 104 (*) Alkaline Phosphatase 71 AST 22 ALT 29 Protein Total 7.2 Albumin 3.8 Bilirubin Total 0.3 LIPASE - Abnormal Lipase 159 (*) ROUTINE UA WITH MICROSCOPIC REFLEX TO CULTURE - Abnormal Color Urine Yellow Appearance Urine Slightly Cloudy (*) Glucose Urine Negative Bilirubin Urine Negative Ketones Urine Negative Specific [place] Urine 1.026 Blood Urine Moderate (*) pH Urine 5.5 Protein Albumin Urine 20 (*) Urobilinogen Urine Normal Nitrite Urine Negative Leukocyte Esterase Urine Large (*) Bacteria Urine Few (*) Mucus Urine Present (*) RBC Urine 7 (*) WBC Urine 33 (*) Squamous Epithelials Urine 13 (*) CBC WITH PLATELETS AND DIFFERENTIAL - Abnormal WBC Count 5.9 RBC Count 4.84 Hemoglobin 12.3 Hematocrit 37.2 MCV 77 (*) MCH 25.4 (*) MCHC 33.1 RDW 17.2 (*) Platelet Count 269 % Neutrophils 58 % Lymphocytes 31 % Monocytes 7 % Eosinophils 4 % Basophils 0 % Immature Granulocytes 0 NRBCs per 100 WBC 0 Absolute Neutrophils 3.5 Absolute Lymphocytes 1.8 Absolute Monocytes 0.4 Absolute Eosinophils 0.2 Absolute Basophils 0.0 Absolute Immature Granulocytes 0.0 Absolute NRBCs 0.0 LACTIC ACID WHOLE BLOOD WITH 1X REPEAT IN 2 HR WHEN >2 - Normal Lactic Acid, Initial 1.4 URINE CULTURE No orders to display Treatments provided: IV zofran, IV fluids, PO pain meds Family Comments: not at bedside OBS brochure/video discussed/provided to patient: Yes ED Medications: Medications ondansetron (ZOFRAN) injection 4 mg (4 mg Intravenous $Given 02/05/251937) HYDROcodone-acetaminophen (NORCO) 5-325 MG per tablet 1 tablet (1 tablet Oral $Given 02/05/251910) sodium chloride 0.9% BOLUS 1,000 mL (1,000 mLs Intravenous $New Bag 02/05/251940) Drips infusing: No For the majority of the shift this patient was Green. Interventions performed were na. Sepsis treatment initiated: no Cares/treatment/interventions/medications to be completed following ED care: see provider orders ED Nurse Name: Lisa Olivas RN 9:27 PM RECEIVING UNIT ED HANDOFF REVIEW Above ED Nurse Handoff Report was reviewed: Yes Reviewed by: Jaya Galindo RN on February 05, 2025 at 11:54 PM I [facility] called the ED to inform them the note was read: Yes * Zaira Noriega PA-C - 02/05/2025 6:56 PM CDT Emergency Department Note History of Present Illness Chief Complaint Post-op Problem and Wound Check HPI Suzan Heredia is a 34 year old female presenting by private vehicle with post-op concerns. Had joanna escobedo 12/26/24 at [facility], has had multiple complications and had drains placed at [facility]. Was seen at [facility] ED yesterday who found UTI, being treated with cephalexin and culture pending. Had CT done showing decreasing abscess and appropriate surgical drain placement. Today noticed blood and pus draining from around the tube insertion site and within the tube. Had a Tmax 100F around 9am and took tylenol. Has a stabbing pain on right flank near drain. Has appointment scheduled with surgeon at [facility] on Friday. Feels as though she has been blown off by [employer] and is worried she is septic. Independent Historian None Review of External Notes 02/04/25, 01/18/25 Past Medical History Medical History and Problem List Past Medical History: Diagnosis Date Sepsis (H) 11/09/2015 Medications ALPRAZolam (XANAX) 0.25 MG tablet COMPOUNDED NON-CONTROLLED SUBSTANCE (CMPD RX) - PHARMACY TO MIX COMPOUNDED MEDICATION COMPOUNDED NON-CONTROLLED SUBSTANCE (CMPD RX) - PHARMACY TO MIX COMPOUNDED MEDICATION escitalopram (LEXAPRO) 10 MG tablet hydrOXYzine HCl (ATARAX) 25 MG tablet tirzepatide-weight management (TIRZEPATIDE) 5 MG/0.5ML vial Surgical History No past surgical history on file. Physical Exam Patient Vitals for the past 24 hrs: BP Temp Temp src Pulse Resp SpO2 Height Weight 02/05/252 -- -- -- -- -- 96 % -- -- 02/05/25 223 -- -- -- -- -- 96 % -- -- 02/05/25 2230 113/77 -- -- 85 -- -- -- -- 02/05/25 2201 115/83 -- -- 93 -- 95 % -- -- 02/05/25 2131 (!) 114/92 -- -- 94 -- 98 % -- -- 02/05/252099 125/87 -- -- 98 -- 99 % -- -- 02/05/251999 126/81 -- -- 94 -- 98 % -- -- 02/05/25 1949 125/88 -- -- -- -- 98 % -- -- 02/05/25 1821 (!) 155/99 99.5 ??F (37.5 ??C) Oral 105 16 98 % 1.549 m (5' 1) 113.5 kg (250 lb 3.6 oz) Physical Exam General: In no acute distress Head: The scalp, face, and head appear normal Eyes: The pupils are equal, round, and reactive to light Conjunctivae and sclerae are normal ENT: Moist mucous membranes CV: Normal rate Normal rhythm Normal S1/S2 No pathological murmur detected Resp: Lungs are clear There is no tachypnea Non-labored No rales No wheezing GI: Abdomen is soft, there is no rigidity Drain right flank with no bleeding or pus drainage, no crepitus, no induration, non-cellulitic Negative bilateral CVA tenderness Skin: Skin is warm and dry Neuro: Speech is normal and fluent, there is no aphasia Psych: Awake. Alert. Diagnostics Lab Results Labs Ordered and Resulted from Time of ED Arrival to Time of ED Departure COMPREHENSIVE METABOLIC PANEL - Abnormal Result Value Sodium 139 Potassium 3.8 Carbon Dioxide (CO2) 22 Anion Gap 13 Urea Nitrogen 8.1 Creatinine 0.63 GFR Estimate >90 Calcium 8.9 Chloride 104 Glucose 104 (*) Alkaline Phosphatase 71 AST 22 ALT 29 Protein Total 7.2 Albumin 3.8 Bilirubin Total 0.3 LIPASE - Abnormal Lipase 159 (*) ROUTINE UA WITH MICROSCOPIC REFLEX TO CULTURE - Abnormal Color Urine Yellow Appearance Urine Slightly Cloudy (*) Glucose Urine Negative Bilirubin Urine Negative Ketones Urine Negative Specific [place] Urine 1.026 Blood Urine Moderate (*) pH Urine 5.5 Protein Albumin Urine 20 (*) Urobilinogen Urine Normal Nitrite Urine Negative Leukocyte Esterase Urine Large (*) Bacteria Urine Few (*) Mucus Urine Present (*) RBC Urine 7 (*) WBC Urine 33 (*) Squamous Epithelials Urine 13 (*) CBC WITH PLATELETS AND DIFFERENTIAL - Abnormal WBC Count 5.9 RBC Count 4.84 Hemoglobin 12.3 Hematocrit 37.2 MCV 77 (*) MCH 25.4 (*) MCHC 33.1 RDW 17.2 (*) Platelet Count 269 % Neutrophils 58 % Lymphocytes 31 % Monocytes 7 % Eosinophils 4 % Basophils 0 % Immature Granulocytes 0 NRBCs per 100 WBC 0 Absolute Neutrophils 3.5 Absolute Lymphocytes 1.8 Absolute Monocytes 0.4 Absolute Eosinophils 0.2 Absolute Basophils 0.0 Absolute Immature Granulocytes 0.0 Absolute NRBCs 0.0 LACTIC ACID WHOLE BLOOD WITH 1X REPEAT IN 2 HR WHEN >2 - Normal Lactic Acid, Initial 1.4 URINE CULTURE Imaging No orders to display Independent Interpretation None ED Course Medications Administered Medications senna-docusate (SENOKOT-S/PERICOLACE) 8.6-50 MG per tablet 1 tablet (has no administration in time range) Or senna-docusate (SENOKOT-S/PERICOLACE) 8.6-50 MG per tablet 2 tablet (has no administration in time range) ondansetron (ZOFRAN ODT) ODT tab 4 mg (has no administration in time range) Or ondansetron (ZOFRAN) injection 4 mg (has no administration in time range) prochlorperazine (COMPAZINE) injection 10 mg (has no administration in time range) Or prochlorperazine (COMPAZINE) tablet 10 mg (has no administration in time range) acetaminophen (TYLENOL) tablet 650 mg (has no administration in time range) Or acetaminophen (TYLENOL) Suppository 650 mg (has no administration in time range) HYDROcodone-acetaminophen (NORCO) 5-325 MG per tablet 1 tablet (has no administration in time range) ibuprofen (ADVIL/MOTRIN) tablet 600 mg (has no administration in time range) melatonin tablet 5 mg (has no administration in time range) ampicillin-sulbactam (UNASYN) 3 g vial to attach to NS 100 mL bag (has no administration in time range) ondansetron (ZOFRAN) injection 4 mg (4 mg Intravenous $Given 02/05/25 193) HYDROcodone-acetaminophen (NORCO) 5-325 MG per tablet 1 tablet (1 tablet Oral $Given 02/05/251910) sodium chloride 0.9% BOLUS 1,000 mL (0 mLs Intravenous Stopped 02/05/252044) Procedures Procedures Discussion of Management Admitting HospitalistXavier ED Course ED Course as of 02/05/25 2243 Sat Feb 05, 2025 190 I spoke with the ED pharmacist regarding antibiotic selection. 2032 I obtained history and examined the patient as noted above. [address] Park, hospitalist, regarding the patient's presentation, findings, and plan of care. Additional Documentation None Medical Decision Making / Diagnosis [facility] Diagnoses: IV Antibiotics given and/or elevated Lactate of 1.4 and no sepsis note found - Delete this reminder and enter the sepsis note or '.edcms' before signing chart.>>>None MIPS None MDM Suzan Heredia is a 34 year old female presenting with post-op concerns. Had lap fanny in December [facility] with multiple complications, currently has a drain tube on right abdomen that was placedby [facility] surgeon. Was seen at [facility] ED yesterday who found a UTI, started treatment with keflex, and has a pending urine culture. Yesterday they also performed CT Abd showing abscess decreased fr om 8cm to 1cm and that the drain is in the proper position. Today patient had a fever of 100F and tachycardic at home and was concerned for sepsis. Her temperature did improve with tylenol at home. At ED today patient had low grade fever, urinalysis confirmed UTI, culture is pending. No elevatedWBC or lactate. Patient has an appointment scheduled for Friday with surgeon at [facility] for follow up. Explained to patient that there are no signs of infection related to her drain and likely her symptoms of fever and abdominal pain are related to her UTI. Patient very anxious about leaving the .Given pain control and IV fluids in emergency department. Admitted to observation. Disposition The patient was admitted to the hospital. Diagnosis ICD-10-CM 1. UTI (urinary tract infection) N39.0 2. Nausea R11.0 Discharge Medications New Prescriptions No medications on file MELISSA Porter Allison, PA-C 02/05/25 2243 * Shahriar Kidd MD - 02/05/2025 6:38 PM CDT ED APC SUPERVISION NOTE: I evaluated this patient in conjunction with Zaira Noriega PA-C I have participated in the care ofthe patient and personally performed delacruz elements of the history, exam, and medical decision making. HPI: Suzan Heredia is a 34 year old female who presents to the ED with a post-op problem and wound check. Patient reports she is s/p laparoscopic cholecystectomy 12/26/24. She states her bulb has stopped draining and she has not drained it in a week. She has been unable to flush the drain. She was seen at [place] ED yesterday where they found a decreasing abscess near the drain site on CT. She came back today due to gradually worsening pain near the insertion site and in her right flank. She endorses nausea and fever. She is currently being treated for a UTI but denies dysuria or vomiting. She hasa follow-up appointment scheduled for Friday02/07/25. Independent Historian: None Review of External Notes: Numerous notes and have a [facility] recent admission emergency department visits. Most notably yesterday where she underwent a CT scan of the abdomen pelvis that showeda continually decreasing fluid collection. Urine is concerning for infection started on Keflex. Pharmacy not in Care Everywhere notes urine culture growing Enterococcus faecalis with unclear sensitivities at this time. EXAM: Constitutional: Well appearing. HEENT: Atraumatic. Moist mucous membranes. Neck: Soft. Supple. Cardiac: Tachycardic rate within regular rhythm. No murmur or rub. Respiratory: Clear to auscultation bilaterally. No respiratory distress. No wheezing, rhonchi, or rales. Abdomen: Soft and nontender. No guarding. Nondistended. Surgical drain in right abdomen without surrounding erythema or purulence. Musculoskeletal: No edema. Normal range of motion. Neurologic: Alert and oriented x3. Normal tone and bulk. Normal gait. Skin: No rashes. No edema. Psych: Normal affect. Normal behavior. Independent Interpretation (X-rays, CTs, rhythm strip): None Consultations/Discussion of Management or Tests: Admitting Hospitalist, Dr. Park MIPS: None MEDICAL DECISION MAKING/ASSESSMENT AND PLAN: Suzan Heredia is a 31-year-old woman who is afebrile and tachycardic. Her abdomen is soft and benign on exam. No visible abnormality surrounding the surgical drain. Reviewed her recent admission and subsequent emergency department visits. She has a fluid collection that is gone from 8 cm down to almost 1 cm and appears to be improving and unlikely to be the cause of her fever. She had a UTI diagnosed yesterday and urine culture appears to be growing Enterococcus faecalis with unclear sensitivities at this time. Given her fever and tachycardia. Discussed plan for admission for an observation for IV antibiotics until urine culture has returned. No indication for emergent surgical consultation or IR consultation. Her drain appears to be draining normally as she has fluid in the bulb hereand the physician yesterday noted no fluid in the bulb. I discussed that admission for UTI and remainder of drain and surgical care as an outpatient at [facility]. Discussed with hospitalist service who accepts for admission DIAGNOSIS: ICD-10-CM 1. UTI (urinary tract infection) N39.0 2. Nausea R11.0 Scribe Disclosure: Sulaiman Mckeonr, am serving as a scribe at 6:39 PM on 02/05/2025 to document services personally performed by Shahriar Kidd MD based on my observations and the provider's statements to me. 02/05/2025 [facility] EM[facility]PT Shahriar Kidd MD 02/06/25 0329 Shahriar Kidd MD 02/06/25 0330 * Mary Jo Tobin RN - 02/05/2025 6:23 PM CDT Patient reports multiple post-op concerns. Reports gallbladder surgery 12/26. Reports ERCP 12/29 and 01/08. New fevers, chills, infection concerns. ERIN drain noted upon triage. Reports being seen in multiple EDs in the last few days. Most care at [facility]. ABCs intact, A&Ox4 Triage Assessment (Adult) Row Name 02/05/25 1822 Triage Assessment Airway WDL WDL Respiratory WDL Respiratory WDL WDL Skin Circulation/Temperature WDL Skin Circulation/Temperature WDL WDL Cardiac WDL Cardiac WDL WDL Peripheral/Neurovascular WDL Peripheral Neurovascular WDL WDL Cognitive/Neuro/Behavioral WDL Cognitive/Neuro/Behavioral WDL WDL documented in this encounter Miscellaneous Notes * Pharmacy-Admission Medication History - Miko Mccain RPH - 02/06/2025 10:12 AM CDT Pharmacist Admission Medication History Admission medication history is complete. The information provided in this note is only as accurateas the sources available at the time of the update. Information Source(s): Patient and CareEverywhere/SureScripts via in-person Pertinent Information: Patient received prescriptions for cephalexin and sprintec but has not picked them up from the pharmacy yet. Changes made to [facility] medication list: Added: Keflex, sprintec, oxycodone Deleted: compounded tirzepatide Changed: None Allergies reviewed with patient and updates made in EHR: yes Medication History Completed By: Miko Mccain RPH 02/06/2025 10:09 AM [facility] Med List Medication Sig Note Last Dose/Taking cephALEXin (KEFLEX) 500 MG capsule Take 500 mg by mouth 2 times daily. For 10 days 02/06/2025: Has not started Taking COMPOUNDED NON-CONTROLLED SUBSTANCE (CMPD RX) - PHARMACY TO MIX COMPOUNDED MEDICATION Compounded semaglutide 1.0mg subcutaneous injection once weekly. Ok to compound due to shortages More than a month escitalopram (LEXAPRO) 10 MG tablet Take 1 tablet (10 mg) by mouth daily. 02/05/2025 Morning oxyCODONE-acetaminophen (PERCOCET) 5-325 MG tablet Take 1 tablet by mouth 2 times daily as needed for moderate to severe pain. 02/03/2025 Evening SPRINTEC 28 0.25-35 MG-MCG tablet Take 1 tablet by mouth daily. 02/06/2025: Has not started Taking * Plan of Care - Jaya Galindo RN - 02/06/2025 5:10 AM CDT PRIMARY DIAGNOSIS: UTI / NAUSEA OUTPATIENT/OBSERVATION GOALS TO BE MET BEFORE DISCHARGE: ADLs back to baseline: Yes Activity and level of assistance: Ambulating independently. Pain status: Improved but still requiring IV pain meds. 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 Nurse to notify provider when observation goals have been met and patient is ready for discharge. Pt is alert and oriented. Toradol administered to manage pain. Pt denies any shortness of breath and on room air. ERIN drain with no output; site dressing is CDI. Pt denies any nausea or vomiting at this time. IV Abx Unasyn administered. Pt ambulates independently in room. Ongoing monitoring. Plan: Discharge anticipated for today. BP 108/79 (BP Location: Right arm, Patient Position: Semi-March's, Cuff Size: Adult Large) Pulse78 Temp 97.7 ??F (36.5 ??C) (Oral) Resp 16 Ht 1.549 m (5' 1) Wt 114.6 kg (252 lb 9.6 oz) LMP 01/13/2025 (Exact Date) SpO2 97% BMI 47.73 kg/m?? Problem: Adult Inpatient Plan of Care Goal: Plan of Care Review Description: The Plan of Care Review/Shift note should be completed every shift. The Outcome Evaluation is a brief statement about your assessment that the patient is improving, declining, or no change. This information will be displayed automatically on your shift note. Outcome: Progressing Flowsheets (Taken 02/06/2025 0113) Outcome Evaluation: Pain 02/01 Plan of Care Reviewed With: patient Overall Patient Progress: no change Goal: Patient-Specific Goal (Individualized) Description: You can add care plan individualizations to a care plan. Examples of Individualizationmight be: Parent requests to be called daily at 9am for status, I have a hard time hearing out of my right ear, or Do not touch me to wake me up as it startles me. Outcome: Progressing Goal: Absence of Hospital-Acquired Illness or Injury Outcome: Progressing Goal: Optimal Comfort and Wellbeing Outcome: Progressing Goal: Readiness for Transition of Care Outcome: Progressing Flowsheets (Taken 02/06/2025 005) Transportation Anticipated: family or friend will provide Intervention: Mutually Develop Transition Plan Recent Flowsheet Documentation Taken 02/06/202551 by Jaya Galindo RN Transportation Anticipated: family or friend will provide Patient/Family Anticipated Services at Transition: none Patient/Family Anticipates Transition to: home with family Taken 02/06/2025 005 by Jaya Galindo RN Equipment Currently Used at Home: none Goal Outcome Evaluation: Plan of Care Reviewed With: patient Overall Patient Progress: no changeOverall Patient Progress: no change Outcome Evaluation: Pain 02/01 * Plan of Care - Jaya Galindo RN - 02/06/2025 1:09 AM CDT ROOM # 448 Living Situation (if not independent, order SW consult): 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 Patient has been oriented to the observation room, bathroom and call light is in place. Discussed discharge goals and expectations with patient/family. * Plan of Care - Jaya Galindo RN - 02/06/2025 1:00 AM CDT PRIMARY DIAGNOSIS: UTI / NAUSEA OUTPATIENT/OBSERVATION GOALS TO BE MET BEFORE DISCHARGE: ADLs back to baseline: Yes Activity and level of assistance: Ambulating independently. Pain status: No improvement noted. Consider adjustment in pain regimen. 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 Nurse to notify provider when observation goals have been met and patient is ready for discharge. * Plan of Care - Epifanio Kaur RN - 02/05/2025 11:46 PM CDT [facility] ED Boarding Nurse Handoff Addendum Report: Date/time: 02/05/2025, 11:46 PM Activity Level: independent Fall Risk: No Current Meds Due: see MAR Current care needs: abx, pain control Respiratory status: Room air Vital signs (within last 30 minutes): Vitals: 02/05/25 2232 02/05/25 2300 02/05/25 2301 02/05/25 2335 BP: (!) 151/95 117/85 BP Location: Left arm Pulse: 86 85 Resp: 14 Temp: 98 ??F (36.7 ??C) TempSrc: Oral SpO2: 96% 98% 96% Weight: Height: Focused assessment within last 30 minutes: Pt A&Ox4. Endorses 5/10 abdominal pain near drain which is tolerable for pt. ERIN drain in place;dressing applied. VSS. Pt ate in ED but has not yet voided for this RN. ED Boarding Nurse name: Epifanio Kaur, KATHIA documented in this encounter Plan of Treatment Not on file documented as of this encounter Procedures Procedure Name Priority Date/Time Associated Diagnosis Comments LACTIC ACID WHOLE BLOOD WITH 1X REPEAT IN 2 HR WHEN >2 STAT 02/05/2025 7:37 PM CDT CBC WITH PLATELETS AND DIFFERENTIAL STAT 02/05/2025 7:37 PM CDT CBC WITH PLATELETS & DIFFERENTIAL STAT 02/05/2025 7:37 PM CDT LIPASE STAT 02/05/2025 7:37 PM CDT COMPREHENSIVE METABOLIC PANEL STAT 02/05/2025 7:37 PM CDT ROUTINE UA WITH MICROSCOPIC REFLEX TO CULTURE STAT 02/05/2025 7:06 PM CDT URINE CULTURE STAT 02/05/2025 7:06 PM CDT documented in this encounter Results * (ABNORMAL) CBC with platelets and differential (02/05/2025 7:37 PM CDT) WBC Count 5.9 4.0 - 11.0 10e3/uL 02/05/2025 7:45 PM CDT [facility] RBC Count 4.84 3.80 - 5.20 10e6/uL 02/05/2025 7:45 PM CDT [facility] Hemoglobin 12.3 11.7 - 15.7 g/dL 02/05/2025 7:45 PM CDT [facility] Hematocrit 37.2 35.0 - 47.0 % 02/05/2025 7:45 PM CDT [facility] MCV 77(L) 78 - 100 fL 02/05/2025 7:45 PM CDT [facility] MCH 25.4(L) 26.5 - 33.0 pg 02/05/2025 7:45 PM CDT [facility] MCHC 33.1 31.5 - 36.5 g/dL 02/05/2025 7:45 PM CDT [facility] RDW 17.2(H) 10.0 - 15.0 % 02/05/2025 7:45 PM CDT [facility] Platelet Count 269 150 - 450 10e3/uL 02/05/2025 7:45 PM CDT [facility] % Neutrophils 58 % 02/05/2025 7:45 PM CDT [facility] % Lymphocytes 31 % 02/05/2025 7:45 PM CDT [facility] % Monocytes 7 % 02/05/2025 7:45 PM CDT [facility] % Eosinophils 4 % 02/05/2025 7:45 PM CDT [facility] % Basophils 0 % 02/05/2025 7:45 PM CDT [facility] % Immature Granulocytes 0 % 02/05/2025 7:45 PM CDT [facility] NRBCs per 100 WBC 0 <1 /100 025 7:45 PM CDT [facility] Absolute Neutrophils 3.5 1.6 - 8.3 10e3/uL 02/05/2025 7:45 PM CDT [facility] Absolute Lymphocytes 1.8 0.8 - 5.3 10e3/uL 02/05/2025 7:45 PM CDT [facility] Absolute Monocytes 0.4 0.0 - 1.3 10e3/uL 02/05/2025 7:45 PM CDT [facility] Absolute Eosinophils 0.2 0.0 - 0.7 10e3/uL 02/05/2025 7:45 PM CDT [facility] Absolute Basophils 0.0 0.0 - 0.2 10e3/uL 02/05/2025 7:45 PM CDT [facility] Absolute Immature Granulocytes 0.0 <=0.4 10e3/uL 02/05/2025 7:45 PM CDT [facility] Absolute NRBCs 0.0 10e3/uL 02/05/2025 7:45 PM CDT [facility] Blood BLOOD SPECIMEN / Unknown Venipuncture / Unknown 02/05/2025 7:37 PM CDT 02/05/2025 7:42 PM CDT Zaira MARTELL-José Manuel LAB - BLOOD ORDERABLES Final Result [facility] [address] Lab (1st floor, no room number) [place] [address] * Lactic acid whole blood with 1x repeat in 2 hr when >2 (02/05/2025 7:37 PM CDT) Lactic Acid, Initial 1.4 0.7 - 2.0 mmol/L 02/05/2025 7:45 PM CDT [facility] Blood BLOOD SPECIMEN / Unknown Venipuncture / Unknown 02/05/2025 7:37 PM CDT 02/05/2025 7:42 PM CDT Zaira MARTELL-José Manuel LAB - BLOOD ORDERABLES Final Result Performing Organization Address City/[facility]/ZIP Co de Phone Number [facility] [address] Lab (1st floor, no room number) [place] [address] * (ABNORMAL) Lipase (02/05/2025 7:37 PM CDT) Lipase 159(H) 13 - 60 U/L 02/05/2025 8:01 PM CDT [facility] Blood BLOOD SPECIMEN / Unknown Venipuncture / Unknown 02/05/2025 7:37 PM CDT 02/05/2025 7:42 PM CDT Zaira MARTELL-C LAB - BLOOD ORDERABLES Final Result [facility] [address] Lab (1st floor, no room number) [place] [address] * (ABNORMAL) Comprehensive metabolic panel (02/05/2025 7:37 PM CDT) Sodium 139 135 - 145 mmol/L 02/05/2025 8:01 PM CDT [facility] Potassium 3.8 3.4 - 5.3 mmol/L 02/05/2025 8:01 PM CDT [facility]ORATORY Carbon Dioxide (CO2) 22 22 - 29 mmol/L 02/05/2025 8:01 PM CDT [facility] Anion Gap 13 7 - 15 mmol/L 02/05/2025 8:01 PM CDT [facility] Urea Nitrogen 8.1 6.0 - 20.0 mg/dL 02/05/2025 8:01 PM CDT LABORATORY Creatinine 0.63 0.51 - 0.95 mg/dL 02/05/2025 8:01 PM CDT [facility] GFR Estimate >90 >60 mL/min/1.7 3m2 02/05/2025 8:01 PM CDT [facility] Comment:eGFR calculated us2020 CKD-EPI equation. Calcium 8.9 8.8 - 10.4 mg/dL 02/05/2025 8:01 PM CDT [facility] Chloride 104 98 - 107 mmol/L 02/05/2025 8:01 PM CDT LABORATORY Glucose 104(H) 70 - 99 mg/dL 02/05/2025 8:01 PM CDT [facility] Alkaline Phosphatase 71 40 - 150 U/L 02/05/2025 8:01 PM CDT [facility] AST 22 0 - 45 U/L 02/05/2025 8:01 PM CDT [facility] ALT 29 0 - 50 U/L 02/05/2025 8:01 PM CDT [facility] Protein Total 7.2 6.4 - 8.3 g/dL 02/05/2025 8:01 PM CDT [facility] Albumin 3.8 3.5 - 5.2 g/dL 02/05/2025 8:01 PM CDT [facility] Bilirubin Total 0.3 <=1.2 mg/dL 02/05/2025 8:01 PM CDT [facility] Blood BLOOD SPECIMEN / Unknown Venipuncture / Unknown 02/05/2025 7:37 PM CDT 02/05/2025 7:42 PM CDT Zaira Noriega PA-C LAB - BLOOD ORDERABLES Final Result [facility] [address] Lab (1st floor, no room number) [place] [address], [facility] * Urine Culture (02/05/2025 7:06 PM CDT) Culture 10,000-50,000 CFU/mL Mixture of Urogenital Loyda 02/06/2025 11:23 AM CDT [facility] Urine URINE SPECIMEN OBTAINED BY CLEAN CATCH PROCEDURE / Unknown Non-blood Collection / Unknown 02/05/2025 7:06 PM CDT 02/05/2025 7:39 PM CDT Zaira Noriega PA-C LAB - MICRO GENERAL ORDERABL ES Final Result [facility] [address] [place] [address] * (ABNORMAL) UA with Microscopic reflex to Culture (02/05/2025 7:06 PM CDT) Color Urine Yellow Colorless, Straw, Light Yellow, Yellow 02/05/2025 7:40 PM CDT LABORATORY Appearance Urine Slightly Cloudy(A) Clear 02/05/2025 7:40 PM CDT [facility] Glucose Urine Negative Negative mg/dL 02/05/2025 7:40 PM CDT LABORATORY Bilirubin Urine Negative Negative 7:40 PM CDT LABORATORY Ketones Urine Negative Negative mg/dL 02/05/2025 7:40 PM CDT [facility] Specific [place] Urine 1.026 1.003 - 1.035 02/05/2025 7:40 PM CDT LABORATORY Blood Urine Moderate(A) Negative 02/05/2025 7:40 PM CDT LABORATORY pH Urine 5.5 5.0 - 7.0 02/05/2025 7:40 PM CDT [facility] Protein Albumin Urine 20(A) Negative mg/dL 02/05/2025 7:40 PM CDT [facility] Urobilinogen Urine Normal Normal mg/dL 02/05/2025 7:40 PM CDT [facility] Nitrite Urine Negative Negative 02/05/2025 7:40 PM CDT [facility] Leukocyte Esterase Urine Large(A) Negative 02/05/2025 7:40 PM CDT [facility] Bacteria Urine Few(A) None Seen /HPF 02/05/2025 7:40 PM CDT [facility] Mucus Urine Present(A) None Seen /LPF 02/05/2025 7:40 PM CDT [facility] RBC Urine 7(H) <=2 /HPF 02/05/2025 7:40 PM CDT [facility] WBC Urine 33(H) <=5 /HPF 02/05/2025 7:40 PM CDT [facility] Squamous Epithelials Urine 13(H) <=1 /HPF 02/05/2025 7:40 PM CDT [facility] Urine URINE SPECIMEN OBTAINED BY CLEAN CATCH PROCEDURE / Unknown Non-blood Collection / Unknown 02/05/2025 7:06 PM CDT 02/05/2025 7:20 PM CDT Narrative [facility] - 02/05/2025 7:40 PM CDT Urine Culture ordered based on laboratory criteria Zaira Noriega PA-C LAB - URINE ORDERABLES Final Result LABORATORY [facility] [address] [facility] Lab (1st floor, no room number) [place] [address] documented in this encounter Visit Diagnoses Diagnosis Pain- Primary Generalized pain UTI (urinary tract infection) Urinary tract infection, site not specified Nausea Nausea alone Urinary tract infection without hematuria, site unspecified Nausea Nausea alone UTI (urinary tract infection) Urinary tract infection, site not specified documented in this encounter Administered Medications Inactive Administered Medications - up to 3 most recent administrations Medication Order MAR Action Action Date Dose Rate Site acetaminophen (TYLENOL) Suppository 650 mg 650 mg, Rectal, EVERY 4 HOURS PRN, mild pain, other, and adjunct with moderate or severe pain or per patient request, Starting on 02/05/25 at 2241, Alternate with ibuprofen if ordered. Maximum acetaminophen dose from all sources = 75 mg/kg/day not to exceed 4 grams/day. acetaminophen (TYLENOL) tablet 650 mg 650 mg, Oral, EVERY 4 HOURS PRN, mild pain, other, and adjunct with moderate or severe pain or per patient request, Starting on 02/05/25 at 2241, Alternate with ibuprofen if ordered. Maximum acetaminophen dose from all sources = 75 mg/kg/day not to exceed 4 grams/day. ampicillin-sulbactam (UNASYN) 3 g vial to attach to NS 100 mL bag Routine, 3 g, Intravenous, EVERY 6 HOURS, First dose on 02/05/25 at 2300, Indications: Urinary Tract InfectionIndications:Urinary Tract Infection $New Bag 02/06/2025 11:32 AM CDT 3 g $New Bag 02/06/2025 5:04 AM CDT 3 g $New Bag 02/05/2025 10:58 PM CDT 3 g HYDROcodone-acetaminophen (NORCO) 5-325 MG per tablet 1 tablet 1 tablet, Oral, ONCE, On 02/05/25 at 1900, For 1 dose, Maximum acetaminophen dose from all sources= 75 mg/kg/day not to exceed 4 grams $Given 02/05/2025 7:11 PM CDT 1 tablet HYDROmorphone (DILAUDID) tablet 2 mg 2 mg, Oral, EVERY 4 HOURS PRN, moderate pain, Starting on 02/05/25 at 2247 $Given 02/05/2025 10:58 PM CDT 2 mg ketorolac (TORADOL) injection 30 mg 30 mg, Intravenous, EVERY 6 HOURS PRN, inflammatory pain, Starting on 02/06/25 at 0115, For 5 days, Can cause pain on injection. If ordered intravenously (IV) : administer through a running maintenance fluid over 1 minute followed by a flush. If patient complains of pain on injection, may dilute 15-30 mg in 5 mL and push over 1 to 2 minutes. $Given 02/06/2025 8:09 AM CDT 30 mg $Given 02/06/2025 1:45 AM CDT 30 mg ondansetron (ZOFRAN ODT) ODT tab 4 mg 4 mg, Oral, EVERY 6 HOURS PRN, nausea/vomiting - 1st line, Starting on 02/05/25 at 2241, This is Step 1 of nausea and vomiting management. If nausea not resolved in 15 minutes, go to Step 2 prochlorperazine (COMPAZINE). With dry hands, peel back foil backing and gently remove tablet. Do not push oral disintegrating tablet through foil backing. Administer immediately on tongue and oral disintegrating tablet dissolves in seconds, then swallow with saliva. Liquid not required. ondansetron (ZOFRAN) injection 4 mg 4 mg, Intravenous, ONCE, Administer over 2-5 Minutes, On 02/05/25 at 1900, For 1 dose $Given 02/05/2025 7:38 PM CDT 4 mg ondansetron (ZOFRAN) injection 4 mg 4 mg, Intravenous, EVERY 6 HOURS PRN, nausea/vomiting - 1st line, Administer over 2-5 Minutes, Starting on 02/05/25 at 2241, Give IF patient unable to tolerate oral medication. This is Step 1 of nausea and vomiting management. If nausea not resolved in 15 minutes, go to Step 2 prochlorperazine (COMPAZINE). prochlorperazine (COMPAZINE) injection 10 mg 10 mg, Intravenous, EVERY 6 HOURS PRN, nausea/vomiting - 2nd line, Administer over 1-2 Minutes, Starting on 02/05/25 at 2241, Give IF patient unable to tolerate oral medication. This is Step 2 of nausea and vomiting management. Give if nausea not resolved 15 minutes after giving ondansetron (ZOFRAN). If nausea not resolved in 15-30 minutes, Notify provider. prochlorperazine (COMPAZINE) tablet 10 mg 10 mg, Oral, EVERY 6 HOURS PRN, nausea/vomiting - 2nd line, Starting on 02/05/25 at 2241, This is Step 2 of nausea and vomiting management. Give if nausea not resolved 15 minutes after giving ondansetron (ZOFRAN). If nausea not resolved in 15-30 minutes, Notify provider. senna-docusate (SENOKOT-S/PERICOLACE) 8.6-50 MG per tablet 1 tablet 1 tablet, Oral, 2 TIMES DAILY PRN, constipation, Starting on 02/05/25 at 2241, If no bowel movement in 24 hours, increase to 2 tablets by mouth. IF more than 1 constipation PRN medication is ordered, administer step-marie as indicated, moving to the next step ONLY if prior step ineffective. Step 1: senna-docusate (SENOKOT-S; PERICOLACE) OR bisacodyl (DULCOLAX) EC tablet Step 2: polyethylene glycol (MIRALAX/GLYCOLAX) Step 3: bisacodyl (DULCOLAX) suppository Step 4: enema Hold for loose stools. senna-docusate (SENOKOT-S/PERICOLACE) 8.6-50 MG per tablet 2 tablet 2 tablet, Oral, 2 TIMES DAILY PRN, constipation, Starting on 02/05/25 at 2241, IF more than 1 constipation PRN medication is ordered, administer step-marie as indicated, moving to the next step ONLY if prior step ineffective. Step 1: senna-docusate (SENOKOT-S; PERICOLACE) OR bisacodyl (DULCOLAX) EC tablet Step 2: polyethylene glycol (MIRALAX/GLYCOLAX) Step 3: bisacodyl (DULCOLAX) suppository Step 4: enema Hold for loose stools. sodium chloride 0.9% BOLUS 1,000 mL Intravenous, 1,000 mL, ONCE, at 1,000 mL/hr, Administer over 1 Hours, On 02/05/25 at 1940, For 1 dose $New Bag 02/05/2025 7:41 PM CDT 1,000 mLs 1000 mL/hr documented in this encounter Active and Recently Administered Medications Times are shown in CDT. Scheduled Medication Order 02/04/2025 02/05/2025 02/06/2025 ampicillin-sulbactam (UNASYN) 3 g vial to attach to NS 100 mL bag Routine, 3 g, Intravenous, EVERY 6 HOURS, First dose on 02/05/25 at 2300, Indications: Urinary Tract Infection 2258 ($New Bag - Provider: Lisa Olivas RN) 0504 ($New Bag - Provider: Jaya Galindo RN)1132 ($New Bag - Provider: Yary Oconnell) HYDROcodone-acetaminophen (NORCO) 5-325 MG per tablet 1 tablet (COMPLETED) 1 tablet, Oral, ONCE, On 02/05/25 at 1900, For 1 dose, Maximum acetaminophen dose from all sources= 75 mg/kg/day not to exceed 4 grams 1910 ($Given - Provider: Lisa Olivas RN) ondansetron (ZOFRAN) injection 4 mg (COMPLETED) 4 mg, Intravenous, ONCE, Administer over 2-5 Minutes, On 02/05/25 at 1900, For 1 dose 193 ($Given - Provider: Marilu Watson RN) sodium chloride 0.9% BOLUS 1,000 mL (COMPLETED) Intravenous, 1,000 mL, ONCE, at 1,000 mL/hr, Administer over 1 Hours, On 02/05/25 at 1940, For 1 dose 1940 ($New Bag - Provider: Lisa Olivas RN)2044 (Stopped - Provider: Lisa Olivas RN) PRN Medication Order 02/04/2025 02/05/2025 02/06/2025 acetaminophen (TYLENOL) Suppository 650 mg(Linked Group 1) 650 mg, Rectal, EVERY 4 HOURS PRN, mild pain, other, and adjunct with moderate or severe pain or per patient request, Starting on 02/05/25 at 2241, Alternate with ibuprofen if ordered. Maximum acetaminophen dose from all sources = 75 mg/kg/day not to exceed 4 grams/day. acetaminophen (TYLENOL) tablet 650 mg(Linked Group 1) 650 mg, Oral, EVERY 4 HOURS PRN, mild pain, other, and adjunct with moderate or severe pain or per patient request, Starting on 02/05/25 at 2241, Alternate with ibuprofen if ordered. Maximum acetaminophen dose from all sources = 75 mg/kg/day not to exceed 4 grams/day. HYDROmorphone (DILAUDID) tablet 2 mg 2 mg, Oral, EVERY 4 HOURS PRN, moderate pain, Starting on 02/05/25 at 2247 2258 ($Given - Provider: Lisa Olivas RN) ketorolac (TORADOL) injection 30 mg 30 mg, Intravenous, EVERY 6 HOURS PRN, inflammatory pain, Starting on 02/06/25 at 0115, For 5 days, Can cause pain on injection. If ordered intravenously (IV) : administer through a running maintenance fluid over 1 minute followed by a flush. If patient complains of pain on injection, may dilute 15-30 mg in 5 mL and push over 1 to 2 minutes. 0145 ($Given - Provider: Jaya Galindo, KATHIA)1775 ($Given - Provider: Lynette Alanis RN) melatonin tablet 5 mg 5 mg, Oral, AT BEDTIME PRN, sleep, Starting on 02/05/25 at 2241, Do not give unless at least 6 hours of uninterrupted sleep is expected. If patient has multiple medications ordered PRN sleep/insomnia, offer melatonin first. ondansetron (ZOFRAN ODT) ODT tab 4 mg(Linked Group 2) 4 mg, Oral, EVERY 6 HOURS PRN, nausea/vomiting - 1st line, Starting on 02/05/25 at 2241, This is Step 1 of nausea and vomiting management. If nausea not resolved in 15 minutes, go to Step 2 prochlorperazine (COMPAZINE). With dry hands, peel back foil backing and gently remove tablet. Do not push oral disintegrating tablet through foil backing. Administer immediately on tongue and oral disintegrating tablet dissolves in seconds, then swallow with saliva. Liquid not required. ondansetron (ZOFRAN) injection 4 mg(Linked Group 2) 4 mg, Intravenous, EVERY 6 HOURS PRN, nausea/vomiting - 1st line, Administer over 2-5 Minutes, Starting on 02/05/25 at 2241, Give IF patient unable to tolerate oral medication. This is Step 1 of nausea and vomiting management. If nausea not resolved in 15 minutes, go to Step 2 prochlorperazine (COMPAZINE). prochlorperazine (COMPAZINE) injection 10 mg(Linked Group 3) 10 mg, Intravenous, EVERY 6 HOURS PRN, nausea/vomiting - 2nd line, Administer over 1-2 Minutes, Starting on 02/05/25 at 2241, Give IF patient unable to tolerate oral medication. This is Step 2 of nausea and vomiting management. Give if nausea not resolved 15 minutes after giving ondansetron (ZOFRAN). If nausea not resolved in 15-30 minutes, Notify provider. prochlorperazine (COMPAZINE) tablet 10 mg(Linked Group 3) 10 mg, Oral, EVERY 6 HOURS PRN, nausea/vomiting - 2nd line, Starting on 02/05/25 at 2241, This is Step 2 of nausea and vomiting management. Give if nausea not resolved 15 minutes after giving ondansetron (ZOFRAN). If nausea not resolved in 15-30 minutes, Notify provider. senna-docusate (SENOKOT-S/PERICOLACE) 8.6-50 MG per tablet 1 tablet(Linked Group 4) 1 tablet, Oral, 2 TIMES DAILY PRN, constipation, Starting on 02/05/25 at 2241, If no bowel movement in 24 hours, increase to 2 tablets by mouth. IF more than 1 constipation PRN medication is ordered, administer step-marie as indicated, moving to the next step ONLY if prior step ineffective. Step 1: senna-docusate (SENOKOT-S; PERICOLACE) OR bisacodyl (DULCOLAX) EC tablet Step 2: polyethylene glycol (MIRALAX/GLYCOLAX) Step 3: bisacodyl (DULCOLAX) suppository Step 4: enema Hold for loose stools. senna-docusate (SENOKOT-S/PERICOLACE) 8.6-50 MG per tablet 2 tablet(Linked Group 4) 2 tablet, Oral, 2 TIMES DAILY PRN, constipation, Starting on 02/05/25 at 2241, IF more than 1 constipation PRN medication is ordered, administer step-marie as indicated, moving to the next step ONLY if prior step ineffective. Step 1: senna-docusate (SENOKOT-S; PERICOLACE) OR bisacodyl (DULCOLAX) EC tablet Step 2: polyethylene glycol (MIRALAX/GLYCOLAX) Step 3: bisacodyl (DULCOLAX) suppository Step 4: enema Hold for loose stools. Linked Groups Order Group 1: acetaminophen (TYLENOL) tablet 650 mgJump to med 650 mg, Oral, EVERY 4 HOURS PRN, mild pain, other, and adjunct with moderate or severe pain or per patient request, Starting on 02/05/25 at 2241, Alternate with ibuprofen if ordered. Maximum acetaminophen dose from all sources = 75 mg/kg/day not to exceed 4 grams/day. Or acetaminophen (TYLENOL) Suppository 650 mgJump to med 650 mg, Rectal, EVERY 4 HOURS PRN, mild pain, other, and adjunct with moderate or severe pain or per patient request, Starting on 02/05/25 at 2241, Alternate with ibuprofen if ordered. Maximum acetaminophen dose from all sources = 75 mg/kg/day not to exceed 4 grams/day. Group 2: ondansetron (ZOFRAN ODT) ODT tab 4 mgJump to med 4 mg, Oral, EVERY 6 HOURS PRN, nausea/vomiting - 1st line, Starting on 02/05/25 at 2241, This is Step 1 of nausea and vomiting management. If nausea not resolved in 15 minutes, go to Step 2 prochlorperazine (COMPAZINE). With dry hands, peel back foil backing and gently remove tablet. Do not push oral disintegrating tablet through foil backing. Administer immediately on tongue and oral disintegrating tablet dissolves in seconds, then swallow with saliva. Liquid not required. Or ondansetron (ZOFRAN) injection 4 mgJump to med 4 mg, Intravenous, EVERY 6 HOURS PRN, nausea/vomiting - 1st line, Administer over 2-5 Minutes, Starting on 02/05/25 at 2241, Give IF patient unable to tolerate oral medication. This is Step 1 of nausea and vomiting management. If nausea not resolved in 15 minutes, go to Step 2 prochlorperazine (COMPAZINE). Group 3: prochlorperazine (COMPAZINE) injection 10 mgJump to med 10 mg, Intravenous, EVERY 6 HOURS PRN, nausea/vomiting - 2nd line, Administer over 1-2 Minutes, Starting on 02/05/25 at 2241, Give IF patient unable to tolerate oral medication. This is Step 2 of nausea and vomiting management. Give if nausea not resolved 15 minutes after giving ondansetron (ZOFRAN). If nausea not resolved in 15-30 minutes, Notify provider. Or prochlorperazine (COMPAZINE) tablet 10 mgJump to med 10 mg, Oral, EVERY 6 HOURS PRN, nausea/vomiting - 2nd line, Starting on 02/05/25 at 2241, This is Step 2 of nausea and vomiting management. Give if nausea not resolved 15 minutes after giving ondansetron (ZOFRAN). If nausea not resolved in 15-30 minutes, Notify provider. Group 4: senna-docusate (SENOKOT-S/PERICOLACE) 8.6-50 MG per tablet 1 tabletJump to med 1 tablet, Oral, 2 TIMES DAILY PRN, constipation, Starting on 02/05/25 at 2241, If no bowel movement in 24 hours, increase to 2 tablets by mouth. IF more than 1 constipation PRN medication is ordered, administer step-marie as indicated, moving to the next step ONLY if prior step ineffective. Step 1: senna-docusate (SENOKOT-S; PERICOLACE) OR bisacodyl (DULCOLAX) EC tablet Step 2: polyethylene glycol (MIRALAX/GLYCOLAX) Step 3: bisacodyl (DULCOLAX) suppository Step 4: enema Hold for loose stools. Or senna-docusate (SENOKOT-S/PERICOLACE) 8.6-50 MG per tablet 2 tabletJump to med 2 tablet, Oral, 2 TIMES DAILY PRN, constipation, Starting on 02/05/25 at 2241, IF more than 1 constipation PRN medication is ordered, administer step-marie as indicated, moving to the next step ONLY if prior step ineffective. Step 1: senna-docusate (SENOKOT-S; PERICOLACE) OR bisacodyl (DULCOLAX) EC tablet Step 2: polyethylene glycol (MIRALAX/GLYCOLAX) Step 3: bisacodyl (DULCOLAX) suppository Step 4: enema Hold for loose stools. documented in this encounter Care Teams Crepe Maker Relationship Specialty Start Date End Date [facility], [facility] [address] [place] [address] PCP - General 01/18/25 Yessica Dunbar PA-C [address] [place] [address] [address] [place] [address] Physician Saw Setter Surgery 06/22/24 Carolin Flor APRN [employer] [address] [place] [address] Assigned PCP 07/17/24 Lourdes Olmedo [facility] Assigned MTM Pharmacist 07/17/24 Diamante Kent PA-C [address] [place] [id number] Assigned Surgical Provider 09/16/24 documented as of this encounter
--- OUTSIDE RECORDS SUMMARY | 2025-02-20 17:15 | XMS_ITS | CCD ---
Author Name Interface, [id number] lity Address [facility] [address] [place] [address] [facility] Address [address] [place] [address] Care Team Providers Care Delinquent Notice Machine Operator Name Role Phone Jamie MARSHALL, Susana Castano Unavailable Allergies and Adverse Reactions Care Plan Reason for Visit Encounters Immunizations Diagnostic Results Medications Problems Procedures Social History Visits Vital Signs Notes Section
--- OUTSIDE RECORDS SUMMARY | 2025-02-20 17:15 | XMS_ITS | Encounter Summary ---
Author Organization [facility] Address [address] [place] [address] Care Team Providers Care Progressive Care Unit Registered Nurse Name Role Phone Unavailable Primary Care Provider Unavailabl e Prior Encounters Date Type Department Care Team Description 01/28/2020 Travel Plan of Treatment Not on file Visit Diagnoses Not on file
--- OUTSIDE RECORDS SUMMARY | 2025-02-20 17:16 | XMS_ITS | CCD ---
Author Name Interface, [id number] lity Address [address] [facility] [address] [address] Organization [facility] Address [address] [facility] [address] [address] Care Team Providers Care Rn Field Name Role Phone Jamie MARSHALL, Susana Castano Unavailable Allergies and Adverse Reactions Medication/Group Name Reaction Severity Date No known allergies Care Plan Date Type Value 03/18/2025 APPOINTMENT OV 15 MIN 03/16/2025 APPOINTMENT OUTSIDE TEST 5 M IN 02/02/2025 APPOINTMENT NEW PT CONSULT 4 5 MIN 02/02/2025 APPOINTMENT LAB 10 MIN 01/12/2025 APPOINTMENT LAB 10 MIN 01/12/2025 APPOINTMENT NEW PT CONSULT 4 5 MIN 01/05/2025 APPOINTMENT NEW PT CONSULT 4 5 MIN 02/02/2025 LABORDER Myriad My Risk ( Blood) 03/16/2025 LABORDER Pelvic U/S w/tra nsvaginal & abdominal probe Reason for Visit LAB 10 MIN Encounters Date Name 03/18/2025 Pelvic mass 03/16/2025 Pelvic mass 02/02/2025 Family history of ca ncer 02/02/2025 Family history of ca ncer 02/02/2025 Pelvic mass 02/02/2025 Pelvic mass 03/18/2025 OV 15 MIN 03/16/2025 OUTSIDE TEST 5 MIN 02/02/2025 Pelvic mass 02/02/2025 LAB 10 MIN Immunizations Date Name Route Dose Instructions Refusal Reason Stat us Flu vaccine - Adult Comp leted Diagnostic Results Date Type Test Units Lower Limit Upper Limit Result Flag Comments Status Ordered By Specimen Source Lab Address 02/02 RUDDY thompson is and MyRis k panel Marie maynard repor t See attache maynard FINAL Susana Ayala 01/18 [facility] [place] See chainstitch elastic attacher d Medications Date Name Route Dose Frequency Instructions Start Date End Date Status Escitalopram Oral daily in the morning active Semaglutide Subcutaneous Pen Injector once weekly active Ketorolac IM inac tive Hydromorphone Oral inactive Polyethylene Glycol Oral Powder as needed inactive Naloxone Nasal [place] 4 mg/actuation as needed inactiv e Calcium Carbonate Oral every 4hours as needed active Melatonin Oral 3 tabs nightly inactive Heparin Subcutaneous subcutaneous inac tive Sennosides-Docus ate Sodium Oral 8.6 mg-50 mg as needed inactiv e Piperacillin-Yair obactam (8:1) IV steven ctive Ondansetron Oral as needed inactive 025 Sprintec 28 Day Pack orally 1.0 tab daily 025 active Problems Diagnosis Status Date of Diagnosis Resolution Date Pelvic mass Active Family history of cancer Active Procedures Date Category Name Instructions Status 02/02/2025 Physician Order Pelvic examinati on (List separately in addition to code for primary procedure) Administered 03/16/2025 Physician Order Pelvic U/S w/transvaginal & abdominal probe Ordered 03/18/2025 Physician Order RTC MD 2 days after ultraso und Ordered Social History Date Name Value 01/12/2025 Smoking Status Former smoker 02/02/2025 Sex Female Visits Date Type Value 03/18/2025 OV 15 MIN 03/16/2025 OUTSIDE TEST 5 MIN Vital Signs Date Type Value 01/12/2025 Weight 263.00 02/02/2025 Heart Beat 120.00 02/02/2025 Respiratory Rate 18.00 02/02/2025 Oxygen Saturation 98.00 02/02/2025 Intravascular Systolic 130 02/02/2025 Intravascular Diastolic 78 02/02/2025 Weight 250.00 02/02/2025 Height 60.00 02/02/2025 BMI 48.82 02/02/2025 BSA 2.05 02/02/2025 Body Temperature 97.10 02/02/2025 Pain Scale 0.00 Notes Section * MEAT BLENDER Onc Consult Note GYNECOLOGIC ONCOLOGY CONSULT Patient Name: HUDSON RUBIO Patient : 1990 Patient Referring Physician: Steph Gordillo MD Primary GYNOncologist: Susana Ayala Date of Service: 01/01/[address] Steph Gordillo MD : I had the pleasure of seeing your patient, Miss RUBIO in regards to her recent referral for an adnexal mass. though you will, no doubt, recall her history, the following is a copy of my consultation. Please do not hesitate to contact me directly with any concerns at my [place] office at . ?Again, I appreciate your referral of this delightful patient and your support of our practice.? Sincerely Yours, Susana Ayala M.D. Gynecologic Oncology [facility] Operating at [facility] Reason for Consult:* Primary diagnosis: Pelvic Mass * Prior treatments: none? * Genetic testing: none History of Present Illness ([employer]): This is a delightful patient?referred for an adnexal mass that was incidentally identified at the time of evaluation for?gallbladder dysfunction. ?She ultimately underwent surgical management,?with postoperative complication?and?right upper quadrant drain in place. ?She has hadmultiple images over the course of her postoperative recovery, and her most recent CT dated 01/26 reveals a complex right adnexal cystic mass measuring 6 x 4.8 cm in greatest dimension. CT 01/26:?Complex right adnexal cystic mass measuring 6.[address] 01/18:?Grossly unchanged right adnexal cysts/multi-septated cystic mass measuring up to 6.[address] 01/10:?right adnexal lobulated mass which measures approximately 6.0 x 4.9 cm US 12/30:?Right ovary is 8.1 x 5.3 x 7.3 cm. Complex septated cystic appearance diffusely involving the right ovary, with septal vascularity, as before (0-RADS 4) is unchanged. Left ovary is 4.4 x 3.7 x 4.5 cm. Simple cyst is 2.8 cm and was 3.1 cm. Normal-appearing color Doppler flow in the left ovary. CA125 is 12, CA 19-9 is 35 Genetic Testing ([employer] [employer] [facility]): Not yet indicated Review of Systems: A complete 14-point review of systems is negative except as noted in the above history of present illness. Past Medical History: Irregular menses, history of?sepsis following cholecystectomy?with bile leak. 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 Take once daily for ovarian cyst suppression * Calcium Carbonate Oral 500 mg calcium (1,250 mg) tablet every 4hours as needed * Semaglutide Subcutaneous Pen Injector once weekly Family History: Maternal aunts x4 with breast cancer, Paternal grandmother with stomach cancer, Mother with liver and lung cancer. Social History: Smoking Status Smoking Tobacco : Former smoker; Smokeless Tobacco : Never used smokeless tobacco; Vaping : Former vape user Vital Signs: Blood pressure: 130/78, Sitting, R arm, Large, Pulse: 120, Temperature: 97.1 F, Respirations: 18, O2 sat: 98%, At Rest, Room Air, Pain Scale: 0, Height: 60 in, Weight: 250 lb, BSA: 2.05, BMI: 48.82 kg/m2 Physical Exam ([facility] [employer] [facility]): PLASTICS HEAT WELDER/General: ?Alert and oriented x 3. The patient appears comfortable, in no acute distress. HEENT: ?Head normocephalic, atraumatic. ?Extraocular movements intact on confrontation No conjunctivitis. ?No evidence of erythema. ? Lymphatics: ?Cervical, supraclavicular, infraclavicular, axillary and inguinal nodes not palpable. Abdomen: ?Bowel sounds present and active. Soft, nontender, nondistended with no hepatosplenomegaly or masses noted. Pelvic: Examination of the external genitalia reveals normal vulvar, perianal, perineal or urethralmeatal lesions. Bartholin's glands are normal. Speculum exam reveals no bladder, urethral or vaginal lesions, and a grossly normal cervix. No evidence of significant cystocele, rectocele, or enterocele. The uterus is?small?and mobile, with normal parametrium. The adnexae is midline and mobile, slightly enlarged. ?Medical Technical Writer is present during exam. Muscles and Joints: ?Extremities are warm and well perfused without edema or calf tenderness. Laboratory Data: [] ? Imaging: EXAM: CT ABDOMEN PELVIS W LOCATION: [facility] DATE: 01/26/2025?COMPARISON: CT abdomen pelvis 01/17/2025. IMPRESSION: 1. Right flank percutaneous drainage catheter unchanged in position. The fluid and air collection along the anterior pararenal fascia medial and superior to the catheter tip has decreasedin size mildly. No new abscess. 2. Metallic common bile duct stent again seen. No biliary dilatation. 3. Complex right adnexal cystic mass unchanged and indeterminant, neoplasm is not excluded. Recommend correlation with pelvic ultrasound if not performed previously. EXAM: CT ABDOMEN PELVIS W IV DATE: 01/18/2025?COMPARISON: CT abdomen pelvis 01/10/2025, CT drainplacement 01/14/2025. IMPRESSION: 1. Interval decrease in size of right-sided perirenal fluid collection measuring up to 8.8 cm. No new intra-abdominal/pelvic fluid collection. 2. Stable mild pneumobilia. 3. Prominent mesenteric lymph nodes, likely reactive. 4. Grossly unchanged right adnexal cysts/multi-septated cystic mass measuring up to 6.0 cm. Further characterization with non emergent pelvic ultrasound recommended. Pelvic ultrasound 12/26/2024.?COMPARISON: CT abdomen and pelvis 12/30/2024. IMPRESSION?. Complex septated cystic appearance diffusely involving the right ovary and concerning for possible cystic ovarian neoplasm is unchanged. Again, OBGYN consultation and/or pelvic MRI isrecommended when clinically appropriate. 2. Small uterine fibroid. 3. New small pelvic free fluid. Findings concerning for underlying bile leak are better demonstrated on CT same day Pelvic U/S Date: 12/26/2024?COMPARISON: CT abdomen and pelvis 12/26/2024. IMPRESSION: 1. Complex septated cystic appearance diffusely involving the right ovary raises concern for a cystic ovarian neoplasm but could also represent multiple complex/hemorrhagic cysts. OBGYN consultation regarding further Imaging2. Simple left ovarian cyst measures 3.1 cm. 3. No pelvic free fluid. Problems: * Pelvic mass * Family history of cancer Assessment & Plan ([employer] [employer] [facility]): This is a delightful patient?referred for an adnexal mass that was incidentally identified at the time of evaluation for?gallbladder dysfunction. ?She ultimately underwent surgical management,?with postoperative complication?and?right upper quadrant drain in place. ?She has hadmultiple images over the course of her postoperative recovery, and her most recent CT dated 01/26 reveals a complex right adnexal cystic mass measuring 6 x 4.8 cm in greatest dimension. As the patient is still recovering from surgery,?and given her age along with normal tumor markers, it is highly likely that this?represents benign disease and that, if managed medically it mayresolve.? Given her proximity to surgery with bile leak and drain still in place I do not recommend proceeding with surgical management until she has?had ample time to cool off.? Therefore Hailee written a prescription for oral contraceptives to?help?her?prevent?new ovarian cyst formation while we are waiting for this to resolve.? I have ordered a?pelvic and transvaginal ultrasound for 6 weeks with?return to clinic several days later and have provided her with a prescription for Sprintec in the interim. Today I spent a total of 45 minutes [id number] patient consultation, conversation, coordinationof care, and documentation, I ordered the tests as notated below and we will see her back in 6 weeks for follow-up. Pain Care Management: Pain Scale: 0 Patient Care needs: Depressions Status: Was screened; Outcome positive: No; Screening Date: 02/02/2025; Screening Tool:PRIME MARSHALL-PHQ2; Total depression score: 0 Smoking Status: Smoking Tobacco : Former smoker; Smokeless Tobacco : Never used smokeless tobacco; Vaping : Former vape user Orders: Labs:?* 02/02/2025, Myriad My Risk (Blood), Perform Date: 02/02/2025, Perform Location: [place] Medications:?* 02/02/2025; Sprintec (Norgestimate-Ethinyl Estradiol Oral 0.25 mg-35 mcg) 0.25-0.035 mg tablet 1 tab orally daily. Take once daily for ovarian cyst suppression Dispense: 28 Tablet Refills: 4 Duration: 28 days Allow Substitution To: [facility]/pharmacy #[id number], [address], [place] [address] Ph: [phone] From: Susana Ayala MD, MARCIO: [id number] [address] [place] [address], [address] [address] Status: Delivered Associated problem(s): Pelvic mass * (R19.09) Imaging:?* 02/02/2025, Pelvic U/S w/transvaginal & abdominal probe, Perform Date: 03/16/2025 Services:?* 02/02/2025, RTC , Instructions: 2 days after ultrasound, Perform Date: 03/18/2025, Perform Location: [place] Regimens: ?= Susana Ayala MD Copy to: FAMeli Gordillo MD (Referring) ? Electronically signed by Susana Ayala MD 02/11/2025 15:27 CDT
--- OUTSIDE RECORDS SUMMARY | 2025-02-20 17:16 | XMS_ITS | Encounter Summary ---
Author Organization [facility] Address [address] [facility] [place] [address] Care Team Providers Care Ballet Soloist Name Role Phone Clinic - [facility] Primary Ca re Provider Yessica Dunbar PA-C Unavailable [phone] Carolin Flor APRN ASSOCIATE DIRECTOR FINANCE Unavailable [phone] Lourdes Olmedo [facility] Unavailable Unavail able Diamante Kent PA-C Unavailable [phone] Mirna Alegre RN Unavailable Unavailable Clinic, [facility] Primary Care Provider Encounter Details Date Type Department Care Team (Late st Contact Info) Description 12/06/[address] 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 Gender Identity Not on file Sexual Orientation Not on file documented as of this encounter Plan of Treatment Not on file documented as of this encounter Visit Diagnoses Not on filedocumented in this encounter Care Teams Ballet Soloist Relationship Specialty Start Date End Date [facility] [address] [place] [address] PCP - General 10/13/16 01/17/25 [facility], [place] [address] [place], [place] [id number] PCP - General 01/18/25 Yessica Dunbar PA-C [address] [facility] [address] [place], [place] [address] Physician Termite Treater Surgery 06/22/24 Carolin Flor APRN ASSOCIATE DIRECTOR FINANCE [address] [place] [address] Assigned PCP 07/17/24 Lourdes Olmedo [facility] Assigned MTM Pharmacist 07/17/24 Diamante Kent PA-C [address] [place] [address] [id number] Assigned Surgical Provider 09/16/24 Mirna Alegre RN RN Clinical Product Navigator 01/05/25 01/18/25 documented as of this encounter
--- OUTSIDE RECORDS SUMMARY | 2025-02-20 17:16 | XMS_ITS | Encounter Summary ---
Author Organization [facility] Address [address] [place] [address]. [place] [address] Care Team Providers Care Human Services Manager Name Role Phone Clinic - [facility] Primary Ca re Provider Lourdes Olmedo [facility] Unavailable Unavail able Yessica Dunbar PA-C Unavailable [phone] Carolin Flor APRN STORE SALES CONSULTANT Unavailable [phone] Lourdes Olmedo [facility] Unavailable Unavail able Diamante Kent PA-C Unavailable [phone] Mirna Alegre RN Unavailable Unavailable Clinic, [facility] [place] Primary Care Provider Encounter Details Date Type Department Care Team (Late st Contact Info) Description 09/09/2024 MyC Medical Advice [facility] [address] [place] [address] Diamante Kent PA-C [address] [place] [address] Social History Tobacco Use Types Packs/Day Years Used Date Smoking Tobacco: Never Alcohol Use Standard Drinks/Week Comments Yes 0 (1 standard drink = 0.6 oz pur e alcohol) PHQ-2 Answer Date Recorded PHQ-2 Score 0 08/12/2024 Comments No Sex and Gender Information Value Date Recorded Sex Assigned at Not on file 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 Gender Identity Not on file Sexual Orientation Not on file documented as of this encounter Plan of Treatment Not on file documented as of this encounter Visit Diagnoses Not on filedocumented in this encounter Care Teams Human Services Manager Relationship Specialty Start Date End Date [facility] - [facility] [address] [place] [address] PCP - General 10/13/16 01/17/25 [facility], [place] [address] [place] [address] PCP - General 01/18/25 Lourdes Olmedo [facility] [address] [place] [address] Pharmacist Pharmacist 06/22/24 09/16/24 Yessica Dunbar PA-C [address] [place] [address] Physician Anode Adjuster Surgery 06/22/24 Carolin Flor APRN STORE SALES CONSULTANT [address] [place] [address] Assigned PCP 07/17/24 Lourdes Olmedo [facility] Assigned MTM Pharmacist 07/17/24 Diamante Kent PA-C [address] [place] [id number] Assigned Surgical Provider 09/16/24 Mirna Alegre RN RN Clinical Product Navigator 01/05/25 01/18/25 documented as of this encounter
--- OUTSIDE RECORDS SUMMARY | 2025-02-20 17:16 | XMS_ITS | Encounter Summary ---
Author Organization [place] Address [address] [facility] [place] [address] Care Team Providers Care Machine Tool Builder Name Role Phone Clinic - [facility] Primary Ca re Provider L[facility]des Olmedo [facility] Unavailable Unavail able Yessica Dunbar-C Unavailable [phone] Carolin lFor APRN CHEMICAL LAB TECHNICIAN Unavailable [phone] Lourdes Olmedo [facility] Unavailable Unavail able Diamante Kent PA-C Unavailable [phone] Mirna Alegre RN Unavailable Unavailable [facility] [place] Primary Care Provider Encounter Details Date Type Department Care Team (Late st Contact Info) Description 06/22/2024 [facility] Medical Advice [facility] [address] [place] [address] Tamika Brandon Social History Tobacco Use Types Packs/Day Years Used Date Smoking Tobacco: Never Alcohol Use Standard Drinks/Week Comments Yes 0 (1 standard drink = 0.6 oz pur e alcohol) PHQ-2 Answer Date Recorded PHQ-2 Score 0 06/22/2024 Comments No Sex and Gender Information Value Date Recorded Sex Assigned at Not on file 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 Sex 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 Gender Identity Not on file Sexual Orientation Not on file documented as of this encounter Plan of Treatment Not on file documented as of this encounter Visit Diagnoses Not on filedocumented in this encounter Care Teams Machine Tool Builder Relationship Specialty Start Date End Date Clinic - [facility] [address] [place] [address] PCP - General 10/13/16 01/17/25 [facility], [place] [address] [facility] [place] [address] PCP - General 01/18/25 Lourdes Olmedo [facility] [address] [place] [address] Pharmacist Pharmacist 06/22/24 09/16/24 Yessica Dunbar PA-C [address] [place] [address] Physician Clinical Veterinarian Surgery 06/22/24 Carolin Flor APRN CHEMICAL LAB TECHNICIAN [address] [place] [address] Assigned PCP 07/17/24 Lourdes Olmedo [facility] Assigned [facility] Pharmacist 07/17/24 Diamante Kent PA-C [address] [place] [address] [id number] Assigned Surgical Provider 09/16/24 Mirna Alegre RN RN Clinical Product Navigator 01/05/25 01/18/25 documented as of this encounter
--- OUTSIDE RECORDS SUMMARY | 2025-02-20 17:16 | XMS_ITS | Encounter Summary ---
Author Organization [place] Address [address] [place] [address] Care Team Providers Care Sailor Name Role Phone Clinic - [facility] Primary Ca re Provider Lourdes Olmedo [facility] Unavailable Unavail able Yessica Dunbar PA-C Unavailable [phone] Carolin Flor APRN ROUSTABOUT HEAD Unavailable [phone] Lourdes Olmedo [facility] Unavailable Unavail able Diamante Kent PA-C Unavailable [phone] Mirna Alegre RN Unavailable Unavailable Clinic, [facility] Primary Care Provider Reason for Visit * Reason Onset Date Comments Refill Request 09/09/2024 Encounter Details Date Type Department Care Team (Late st Contact Info) Description 09/09/2024 Harish [facility] [address] [address] Diamante Kent PA-C [address] [place] [address] Refill Request Social History Tobacco Use Types Packs/Day Years Used Date Smoking Tobacco: Never Alcohol Use Standard Drinks/Week Comments Yes 0 (1 standard drink = 0.6 oz pur e alcohol) PHQ-2 Answer Date Recorded PHQ-2 Score 0 08/12/2024 Comments No Sex and Gender Information Value Date Recorded Sex Assigned at Not on file Legal Sex Female 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 Gender Identity Not on file Sexual Orientation Not on file documented as of this encounter Plan of Treatment Not on file documented as of this encounter Visit Diagnoses Diagnosis Class 3 severe obesity due to excess calories in adult, unspecified BMI, unspecified whether serious comorbidity present (H) documented in this encounter Care Teams Sailor Relationship Specialty Start Date End Date [facility] - [facility] [address] [place] [address] PCP - General 10/13/16 01/17/25 [facility] [address] [place] [address] PCP - General 01/18/25 Lourdes Olmedo [facility] [address] [place] [address] Pharmacist Pharmacist 06/22/24 09/16/24 Yessica Dunbar PA-C [address] [place] [address] Physician Crown And Bridge Technician Surgery 06/22/24 Carolin Flor APRN ROUSTABOUT HEAD [address] [place] [address] Assigned PCP 07/17/24 Lourdes Olmedo [facility] Assigned MTM Pharmacist 07/17/24 Diamante Kent PA-C [address] [place], [place] [address] Assigned Surgical Provider 09/16/24 Mirna Alegre RN RN Clinical Product Navigator 01/05/25 01/18/25 documented as of this encounter
--- OUTSIDE RECORDS SUMMARY | 2025-02-20 17:16 | XMS_ITS ---
Author Name Interface, [id number] lity Address [address] [facility] [address] [place] [address] [facility] Address [address] [facility] [address] [place] [address] Allergies and Adverse Reactions Medication/Group Name Reaction Severity Date No known allergies Plan Date Type Value 02/02/2025 APPOINTMENT NEW PT CONSULT 4 5 MIN 02/02/2025 APPOINTMENT LAB 10 MIN 02/02/2025 LABORDER Myriad My Risk ( Blood) Reason for Visit LAB 10 MIN Encounters Date Name 02/02/2025 Family history of ca ncer 02/02/2025 Pelvic mass Immunizations Date Name Route Dose Instructions Refusal Reason Stat us Flu vaccine - Adult Comp leted Diagnostic Results Date Type Test Units Lower Limit Upper Limit Result Flag Comments Status Ordered By Specimen Source Lab Address 02/02 RUDDY thompson is and Juanito rocha panel Marie frias See attache maynard FINAL Susana Ayala Medications Date Name Route Dose Frequency Instructions Start Date End Date Status Semaglutide Subcutaneous Pen Injector once weekly active Escitalopram Oral daily in the morning active Calcium Carbonate Oral every 4hours as needed active 02/03/20 25 Sprintec 28 Day Pack orally 1.0 tab daily 02/03/20 25 active Problems Diagnosis Status Date of Diagnosis Resolution Date Pelvic mass Active Family history of cancer Active Notes Section * 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 ??Again, I appreciate your referral of this delightful patient and your support of our practice.?? Sincerely Yours, Susana Ayala M.D. Gynecologic Oncology [facility] Operating at [facility] Reason for Consult:* Primary diagnosis: Pelvic Mass * Prior treatments: none?? * Genetic testing: none History of Present Illness (Audit Control Clerk Oncology): This is a delightful patient??referred for an adnexal mass that was incidentally identified at the time of evaluation for??gallbladder dysfunction. ??She ultimately underwent surgical management,??with postoperative complication??and??right upper quadrant drain in place. ??She has had multiple images over the course of her postoperative recovery, and her most recent CT dated 01/26 reveals a complexright adnexal cystic mass measuring 6 x 4.8 cm in greatest dimension. CT 01/26:??Complex right adnexal cystic mass measuring 6.[address] 01/18:??Grossly unchanged right adnexal cysts/multi-septated cystic mass measuring up to 6.[address] 01/10:??right adnexal lobulated mass which measures approximately 6.0 x 4.9 cm US 12/30:??Right ovary is 8.1 x 5.3 x 7.3 cm. Complex septated cystic appearance diffusely involving the right ovary, with septal vascularity, as before (0-RADS 4) is unchanged. Left ovary is 4.4 x 3.7x 4.5 cm. Simple cyst is 2.8 cm and was 3.1 cm. Normal-appearing color Doppler flow in the left ovary. CA125 is 12, CA 19-9 is 35 Genetic Testing (Audit Control Clerk Oncology): Not yet indicated Review of Systems: A complete 14-point review of systems is negative except as noted in the above history of present illness. Past Medical History: Irregular menses, history of??sepsis following cholecystectomy??with bile leak. 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 The patient appears comfortable, in no acute distress. HEENT: ??Head normocephalic, atraumatic. ??Extraocular movements intact on confrontation No conjunctivitis. ??No evidence of erythema. ?? Lymphatics: ??Cervical, supraclavicular, infraclavicular, axillary and inguinal nodes not palpable. Abdomen: ??Bowel sounds present and active. Soft, nontender, nondistended with no hepatosplenomegaly or masses noted. Pelvic: Examination of the external genitalia reveals normal vulvar, perianal, perineal or urethralmeatal lesions. Bartholin's glands are normal. Speculum exam reveals no bladder, urethral or vaginal lesions, and a grossly normal cervix. No evidence of significant cystocele, rectocele, or enterocele. The uterus is??small??and mobile, with normal parametrium. The adnexae is midline and mobile, slightly enlarged. ??Director Cost is present during exam. Muscles and Joints: ??Extremities are warm and well perfused without edema or calf tenderness. Laboratory Data: [] ? Imaging: EXAM: CT ABDOMEN PELVIS W LOCATION: [facility] DATE: 01/26/2025??COMPARISON: CT abdomen pelvis 01/17/2025. IMPRESSION: 1. Right [...] EXAM: CT ABDOMEN PELVIS W IV DATE: 01/18/2025??COMPARISON: CT abdomen pelvis 01/10/2025, CT drain placement 01/14/2025. IMPRESSION: 1. Interval decrease in size of right-sided perirenal fluid collection measuring up to 8.8 cm. No new intra-abdominal/pelvic fluid collection. 2. Stable mild pneumobilia. 3. Prominent mesenteric lymph nodes, likely reactive. 4. Grossly unchanged right adnexal cysts/multi-septated cystic mass measuring up to 6.0 cm. Further characterization with non emergent pelvic ultrasound recommended. Pelvic ultrasound 12/26/2024.??COMPARISON: CT abdomen and pelvis 12/30/2024. IMPRESSION??. Complex septated cystic appearance diffusely involving the right ovary and concerningfor possible cystic ovarian neoplasm is unchanged. Again, OBGYN consultation and/or pelvic MRI is recommended when clinically appropriate. 2. Small uterine fibroid. 3. New small pelvic free fluid. Findings concerning for underlying bile leak are better demonstrated on CT same day Pelvic U/S Date: 12/26/2024??COMPARISON: CT abdomen and pelvis 12/26/2024. IMPRESSION: 1. Complex septated cystic appearance diffusely involving the right ovary raises concern for a cystic ovarian neoplasm but could also represent multiple complex/hemorrhagic cysts. OBGYN consultation regarding further Imaging2. Simple left ovarian cyst measures 3.1 cm. 3. No pelvic free fluid. Problems: * Pelvic mass * Family history of cancer Assessment & Plan (Audit Control Clerk Oncology): This is a delightful patient??referred for an adnexal mass that was incidentally identified at the time of evaluation for??gallbladder dysfunction. ??She ultimately underwent surgical management,??with postoperative complication??and??right upper quadrant drain in place. ??She has had multiple images over the course of her postoperative recovery, and her most recent CT dated 01/26 reveals a complexright adnexal cystic mass measuring 6 x 4.8 cm in greatest dimension. As the patient is still recovering from surgery,??and given her age along with normal tumor markers, it is highly likely that this??represents benign disease and that, if managed medically it may resolve.?? Given her proximity to surgery with bile leak and drain still in place I do not recommend proceeding with surgical management until she has??had ample time to cool off.?? Therefore I have written a prescription for oral contraceptives to??help??her??prevent??new ovarian cyst formation while we are waiting for this to resolve.?? I have ordered a??pelvic and transvaginal ultrasound for 6 weeks with??return to clinic several days later and have provided her with a prescription for Sprintec in the interim. Today I spent a total of 45 minutes [id number] patient consultation, conversation, coordinationof care, and documentation, [...] tobacco; Vaping : Former vape user Orders: Labs:??* 02/02/2025, Myriad My Risk (Blood), Perform Date: 02/02/2025, Perform Location: [place] Medications:??* 02/02/2025; Sprintec (Norgestimate-Ethinyl Estradiol Oral 0.25 mg-35 mcg) 0.25-0.035 mg tablet 1 tab orally daily. Take once daily for ovarian cyst suppression Dispense: 28 Tablet Refills: 4 Duration: 28 days Allow Substitution To: [facility]/pharmacy #[id number], [id number] [address] ENG[address] [address] Ph: [phone] From: Susana Ayala MD, MARCIO: [id number] [address] [place] [address], [place] [address] [address] Status: Delivered Associated problem(s): Pelvic mass * (R19.09) Imaging:??* 02/02/2025, Pelvic U/S w/transvaginal & abdominal probe, Perform Date: 03/16/2025 Services:??* 02/02/2025, RTC , Instructions: 2 days after ultrasound, Perform Date: 03/18/2025, Perform Location: [place] Regimens: ?= Susana Ayala MD Copy to: FAX Stephjose luis Gordillo MD (Referring) ?? Electronically signed by Susana Ayala MD 02/11/2025 15:27 CDT
--- OUTSIDE RECORDS SUMMARY | 2025-02-20 17:16 | XMS_ITS | Encounter Summary ---
Author Organization [place] Address [facility] [place] [address] Care Team Providers Care Aeronautical Project Engineer Name Role Phone [facility] - [facility] Primary Ca re Provider Lourdes Olmedo [facility] Unavailable Unavail able Yessica DunbarC Unavailable [phone] Carolin Flor APRN CUSTOM LEATHER PRODUCTS MAKER Unavailable [phone] Lourdes Olmedo [facility] Unavailable Unavail able Diamante Kent PA-C Unavailable Mirna Alegre RN Unavailable Unavailable [facility], [facility] Primary Care Provider Encounter Details Date Type Department Care Team (Late st Contact Info) Description 06/22/2024 [facility] [place] Medical Edgardo 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 Gender Identity Not on file Sexual Orientation Not on file documented as of this encounter Plan of Treatment Not on file documented as of this encounter Visit Diagnoses Not on filedocumented in this encounter Care Teams Aeronautical Project Engineer Relationship Specialty Start Date End Date Clinic - [facility] [address] [place] [address] PCP - General 10/13/16 01/17/25 [facility], [place] [address] [facility] [address] PCP - General 01/18/25 Lourdes Olmedo [facility] [id number] [place] [id number] Pharmacist Pharmacist 06/22/24 09/16/24 Yessica Dunbar PA-C [address] [place] [address] Physician [facility] 06/22/24 Carolin Flor APRN [employer] MAKER [address] [place] [address] Assigned PCP 07/17/24 Lourdes Olmedo [facility] Assigned MTM Pharmacist 07/17/24 Diamante Kent PA-C [address] [place] [id number] Assigned Surgical Provider 09/16/24 Mirna Alegre RN RN Clinical Product Navigator 01/05/25 01/18/25 documented as of this encounter
--- OUTSIDE RECORDS SUMMARY | 2025-02-20 17:16 | XMS_ITS | Clinical Summary ---
Author Organization [facility] Address [address] [place] [address] Care Team Providers Care Principal Examiner Name Role Phone Found, No Pcp MD [...] 37.1 C (98.8 F) 07/28/2008 4:44 PM MANAGER SUPPORT ORAL C: 37.1 C Respiratory Rate 16 07/28/2008 4:44 PM MANAGER SUPPORT Oxygen Saturation - - Inhaled Oxygen Concentration [...] patient's age to complete this topic Insurance [place] [id number] [place] [id number] Care Teams Principal Examiner Relationship Specialty Start Date End Date Found, No Pcp, [address] [place] [address] PCP - General 09/22/18"
--- OUTSIDE RECORDS SUMMARY | 2025-02-20 17:16 | XMS_ITS ---
Author Organization [place] Address [address] [place] [address]. [place] [address] Care Team Providers Care Mask Inspector Name Role Phone Yessica Dunbar PA-C Unavailable [phone] Carolin Flor APRN VEHICLE MECHANIC Unavailable [phone] Lourdes Olmedo [facility] Unavailable Unavail able Diamante Kent PA-C Unavailable [phone] [facility] Provider Transitional Care Management Status:Enrolled (Active) Start date:02/07/2025 Enrollment date:02/07/2025 Continued Care and Services Coordination
--- OUTSIDE RECORDS SUMMARY | 2025-02-20 17:16 | XMS_ITS ---
Author Organization [place] Address [facility] [place] [address] Care Team Providers Care Garbage Truck Helper Name Role Phone Yessica Dunbar PA-C Unavailable [phone] Carolin Flor APRN LINE LEADER Unavailable [phone] Lourdes Olmedo [facility] Unavailable Unavail able Diamante Kent PA-C Unavailable [phone] [facility], [place] Primary Care Provider Clinical Product Navigator (CPN) Status:Declined (Declined) Start date:01/05/2025 End date:01/18/2025 Decline reason:Not interested Overview UMR Referral Continued Care and Services Coordination
--- OUTSIDE RECORDS SUMMARY | 2025-02-20 17:16 | XMS_ITS | Clinical Summary ---
Author Organization [place] Address [address] [facility] [place] [address] Care Team Providers Care Shipping Assistant Name Role Phone Yessica Dunbar PA-C Unavailable [phone] Carolin Flor APRN [facility] Unavailable [phone] Lourdes Olmedo [facility] Unavailable Unavail able Diamante Kent PA-C Unavailable [phone] [facility], [facility] [place] Primary Care Provider Allergies No known active allergies Medications COMPOUNDED NON-CONTROLLED SUBSTANCE (CMPD RX) - PHARMACY [...] daily. 30 tablet 1 12/07/19 25 Active SPRINTEC 28 0.25-35 MG-MCG tablet Take 1 tablet by mouth daily. 02/03/20 25 Active hydrOXYzine HCl (ATARAX) 25 MG tablet Take 1 tablet (25 mg) by mouth 3 times daily as needed for anxiety. 30 tablet 05/15/20 24 025 Discontinu ed(Med Rec(No AVS / No eCancel)) ALPRAZolam (XANAX) 0.25 MG tabletIndicatio ns:Panic attack Take 1 tablet as needed for panic attack. 2 tablet 06/24/20 24 025 Discontinu ed(Med Rec(No AVS / No eCancel)) COMPOUNDED NON-CONTROLLED SUBSTANCE (CMPD RX) - PHARMACY TO MIX COMPOUNDED MEDICATIONIndic ations:Class 3 severe obesity due to excess calories in adult, unspecified BMI, unspecified whether serious comorbidity present (H) Compounded semaglutide 0.5 mg subcutaneous injection once weekly. Ok to compound due to shortages. 1 mL 3 09/14/19 25 025 Discontinu ed(Med Rec(No AVS / No eCancel)) tirzepatide-stanley ght management (TIRZEPATIDE) 5 MG/0.5ML vialIndications :Class 3 severe obesity with serious comorbidity and body mass index (BMI) of 45.0 to 49.9 in adult, unspecified obesity type (H) Inject 0.5 mLs (5 mg) subcutaneously once a week. After completing 4 weeks of 2.5mg dose 2 mL 2 12/25/19 25 025 Discontinu ed(Med Rec(No AVS / No eCancel)) oxyCODONE-aceta minophen (PERCOCET) 5-325 MG tablet Take 1 tablet by mouth 2 times daily as needed for moderate to severe pain. 02/04/20 25 025 Discontinu ed(Stop at Discharge) cephALEXin (KEFLEX) 500 MG capsule Take 500 mg by mouth 2 times daily. For 10 days 02/05/20 25 025 Discontinu ed(Stop at Discharge) amoxicillin-cla vulanate (AUGMENTIN) 875-125 MG tabletIndicatio ns:Urinary tract infection without hematuria, site unspecified Take 1 tablet by mouth 2 times daily for 5 days. 10 tablet 02/07/20 25 025 HYDROmorphone (DILAUDID) 2 MG tabletIndicatio ns:Pain Take 1 tablet (2 mg) by mouth every 6 hours as needed for pain. 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 Previously stable around 180lbs. More rapid gain the past year through increase stress. Max weight close to 300lbs. Weight have been significantly influenced by stress and mental health. Wants to lose weight to improve overall health and feel better. [employer] employee, but [employer] still $800 due to high deductable. Was started on compounded semaglutide with Lourdes Olmedo [facility]. Currently on 0.5mg dose, has taken [...] Encounters Date Type Department Care Team Description 02/05/2025 6:25 PM CDT - 02/06/2025 1:12 PM CDT Hospital Encounter [facility] [address] [place] [phone] Shahriar Kidd MD Loecken, Scott Peter, MD Pain (Primary Dx); UTI (urinary tract infection); Nausea; Urinary tract infection without hematuria, site unspecified Discharge Disposition: Home or Self Care 02/05/2025 Travel 12/24/2024 Orders Only [facility] [address] [place] [address] Diamante Kent PA-C Class 3 severe obesity due to excess calories in adult, unspecified BMI, unspecified whether serious comorbidity present (H) (Primary Dx); Class 3 severe obesity with serious comorbidity and body mass index (BMI) of 45.0 to 49.9 in adult, unspecified obesity type (H) 12/23/2024 Telephone [facility] [address] [phone] Diamante Kent PA-C Refill Request (Zepbound Vial) 12/20/2024 Telephone [facility] [address] [phone] Diamante Kent PA-C 12/20/2024 MyC Medical Advice [facility] [address] [phone] Tamika Brandon Class 3 severe obesity due to excess calories in adult, unspecified BMI, unspecified whether serious comorbidity present (H) (Primary Dx); Class 3 severe obesity with serious comorbidity and body mass index (BMI) of 45.0 to 49.9 in adult, unspecified obesity type (H) 12/20/2024 Telephone [facility] [address] [phone] Diamante Kent PA-C Clinic Care Coordination - Follow-up 12/06/2024 Harish Medical Advice [facility] [address] [phone] Diamante Kent PA-C 12/04/2024 MyC Refill [address] [phone] Carolin Flor APRN [employer] Refill Request from Last 3 Months Immunizations [...] in an abandoned building, in an overnight halfway, or couch-surfing.) Yes 02/06/2025 Are you worried [...] on file 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 Gender Identity Not on file Sexual Orientation [...] Mass Index 47.73 02/05/2025 6:21 PM CDT Plan of Treatment Health Maintenance [...] Procedure Name Priority Date/Time Associated Diagnosis Comments CBC WITH PLATELETS & DIFFERENTIAL STAT 02/05/2025 7:37 PM CDT CBC WITH PLATELETS AND DIFFERENTIAL STAT 02/05/2025 7:37 PM CDT LACTIC ACID WHOLE BLOOD WITH 1X REPEAT IN 2 HR WHEN >2 STAT 02/05/2025 7:37 PM CDT LIPASE STAT 02/05/2025 7:37 PM CDT COMPREHENSIVE METABOLIC PANEL STAT 02/05/2025 7:37 PM CDT URINE CULTURE STAT 02/05/2025 7:06 PM CDT ROUTINE UA WITH MICROSCOPIC REFLEX TO CULTURE STAT 02/05/2025 7:06 PM CDT from Last 3 Months Results * Lactic acid whole blood with 1x repeat in 2 hr when >2 (02/05/2025 7:37 PM CDT) Pathologist [facility] Lactic Acid, Initial 1.4 0.7 - 2.0 mmol/L 02/05/2025 7:45 PM CDT [facility] Blood BLOOD SPECIMEN / Unknown Venipuncture / Unknown 02/05/2025 7:37 PM CDT 02/05/2025 7:42 PM CDT Zaira Noriega PA-C LAB - BLOOD ORDERABLES Final Result LABORATORY [facility] [address] [facility] Lab (1st floor, no room number) [place] [address], [facility] * (ABNORMAL) CBC with platelets and differential (02/05/2025 7:37 PM CDT) Pathologist [facility] WBC Count 5.9 4.0 - 11.0 10e3/uL 02/05/2025 7:45 PM CDT LABORATORY RBC Count 4.84 3.80 - 5.20 10e6/uL 02/05/2025 7:45 PM CDT LABORATORY Hemoglobin 12.3 11.7 - 15.7 g/dL [...] MARTELL-C LAB - BLOOD ORDERABLES Final Result LABORATORY [facility] [address] Lab (1st floor, no room number) [address] * (ABNORMAL) Lipase (02/05/2025 7:37 PM CDT) Lipase 159(H) 13 - 60 U/L 02/05/2025 8:01 PM CDT LABORATORY Blood BLOOD SPECIMEN / Unknown Venipuncture / Unknown 02/05/2025 7:37 PM CDT 02/05/2025 7:42 PM CDT Zaira MARTELL-José Manuel LAB - BLOOD ORDERABLES Final Result LABORATORY [facility] [address] Lab (1st floor, no room number) [address] * (ABNORMAL) Comprehensive metabolic panel (02/05/2025 7:37 PM CDT) Sodium 139 135 - 145 mmol/L 02/05/2025 8:01 PM CDT LABORATORY Potassium 3.8 3.4 - 5.3 mmol/L 02/05/2025 8:01 PM CDT [facility] Carbon Dioxide (CO2) 22 22 - 29 mmol/L 02/05/2025 8:01 PM CDT [facility] Anion Gap 13 7 - 15 mmol/L 02/05/2025 8:01 PM CDT [facility] Urea Nitrogen 8.1 6.0 - 20.0 mg/dL 02/05/2025 8:01 PM CDT LABORATORY Creatinine 0.63 0.51 - 0.95 mg/dL 02/05/2025 8:01 PM CDT LABORATORY GFR Estimate >90 >60 mL/min/1.7 3m2 02/05/2025 8:01 PM CDT LABORATORY Comment:eGFR calculated us2020 CKD-EPI equation. Calcium 8.9 8.8 - 10.4 mg/dL 02/05/2025 8:01 PM CDT LABORATORY Chloride 104 98 - 107 mmol/L 02/05/2025 8:01 PM CDT LABORATORY Glucose 104(H) 70 - 99 mg/dL 02/05/2025 8:01 PM CDT LABORATORY Alkaline Phosphatase 71 40 - 150 U/L 02/05/2025 8:01 PM CDT LABORATORY AST 22 0 - 45 U/L 02/05/2025 8:01 PM CDT LABORATORY ALT 29 0 - 50 U/L 02/05/2025 8:01 PM CDT LABORATORY Protein Total 7.2 6.4 - 8.3 g/dL 02/05/2025 8:01 PM CDT LABORATORY Albumin 3.8 3.5 - 5.2 g/dL 02/05/2025 8:01 PM CDT LABORATORY Bilirubin Total 0.3 <=1.2 mg/dL 02/05/2025 8:01 PM CDT LABORATORY Blood BLOOD SPECIMEN / Unknown Venipuncture / Unknown 02/05/2025 7:37 PM CDT 02/05/2025 7:42 PM CDT Zaira Noriega PA-C LAB - BLOOD ORDERABLES Final Result LABORATORY [facility] [address] Lab (1st floor, no room number) [place] [address], [facility] * (ABNORMAL) UA with Microscopic reflex to Culture (02/05/2025 7:06 PM CDT) Color Urine Yellow Colorless, Straw, Light Yellow, Yellow 02/05/2025 7:40 PM CDT LABORATORY Appearance Urine Slightly Cloudy(A) Clear 02/05/2025 7:40 PM CDT LABORATORY Glucose Urine Negative Negative mg/dL 02/05/2025 7:40 PM CDT [facility] Bilirubin Urine Negative Negative 7:40 PM CDT [facility] Ketones Urine Negative Negative mg/dL 02/05/2025 7:40 PM CDT [facility] Specific [place] Urine 1.026 1.003 - 1.035 02/05/2025 7:40 PM CDT [facility] Blood Urine Moderate(A) Negative 02/05/2025 7:40 PM CDT [facility] pH Urine 5.5 5.0 - 7.0 [...] None Seen /HPF 02/05/2025 7:40 PM CDT LABORATORY Mucus Urine Present(A) None Seen /LPF [...] Urine Culture ordered based on laboratory criteria us Zaira Noriega PA-C LAB - URINE ORDERABLES Final Result LABORATORY [facility] [address] Lab (1st floor, no room number) [place] [address], [facility] * Urine Culture (02/05/2025 7:06 PM CDT) Culture 10,000-50,000 CFU/mL Mixture of Urogenital Loyda 02/06/2025 11:23 AM CDT [facility] Urine URINE SPECIMEN OBTAINED BY CLEAN CATCH PROCEDURE / Unknown Non-blood Collection / Unknown 02/05/2025 7:06 PM CDT 02/05/2025 7:39 PM CDT us Zaira Noriega PA-C LAB - MICRO GENERAL ORDERABL ES Final Result [facility] LABORATORY [facility] [address] [facility] [place] [address], [facility] from Last [address] [facility] [place] [address] * Guarantor: Suzan Heredia Account Type Relation to Patient Date of Phone Billing Address Medication Therapy Self 1990 [id number] [place] [address] Advance Directives For more information, please contact: [phone] * Full Code (Latest Code Status on File) Date Activated Date Inactivated Comments 02/05/2025 10:41 PM 02/06/2025 3:32 PM All basic a nd advanced life-sustaining interventions are performed as appropriate Question Answer Comments Code status determined by: Discussion with patie nt/ legal decision maker Care Teams Shipping Assistant Relationship Specialty Start Date End Date Clinic, [place] [address] [facility] [address] PCP - General 01/18/25 Yessica Dunbar PA-C [address] [place] [address] [address] [place] [address] Physician Hazard Mitigation Officer Surgery 06/22/24 Carolin Flor APRN [employer] [id number] [facility] [address] Assigned PCP 07/17/24 Lourdes Olmedo [facility] Assigned MTM Pharmacist 07/17/24 Diamante Kent PA-C [address] [place], [place] [id number] Assigned Surgical Provider 09/16/24
--- OUTSIDE RECORDS SUMMARY | 2025-02-20 17:16 | XMS_ITS | Clinical Summary ---
Author Organization [facility] Address [address] [place] [id number] Care Team Providers Care Flotation Tender Name Role Phone Pcp, No Primary Care Provider Unavailabl e Allergies No known active allergies Medications albuterol HFA (PRO-AIR; VENTOLIN; PROVENTIL) 90 mcg/actuation inhalerIndications :Viral URI with cough Inhale 1-2 Puffs by mouth every 4 hours if needed (coughing). 1 Each 06/16/20 23 Active tirzepatide (weight loss) (Zepbound) 5 mg/0.5 mL pen Inject 5 mg subcutaneous once weekly. Active semaglutide (weight loss) 1 mg/0.5 mL subcutaneous pen Inject 1 mg subcutaneous once weekly. Active cholecalciferol 2,000 unit capsuleIndications :Vitamin D deficiency Take 1 Capsule (2,000 units) by mouth once daily. 30 Capsule 1 01/17/20 Active escitalopram oxalate (Lexapro) 10 mg tabletIndications: Panic disorder without agoraphobia Take 1 Tablet (10 mg) by mouth once daily. 90 Tablet 3 5 11:25 AM CDT 01/16/20 25 Active multivitamin folic acid 0.4 mgIndications:Darling min D deficiency Take 1 Tablet by mouth once daily. 90 Tablet 3 01/17/20 25 Active HYDROcodone-acetam inophen (5-325 mg/tablet)Indicati ons:Bile leak Take 1 Tablet by mouth every 6 hours if needed for Pain. Max acetaminophen dose: 4000 mg in 24 hrs. 42 Tablet 5 11:25 AM CDT 01/16/20 25 Active Additional Information Patient not taking.Reported on 02/07/2025 ondansetron 4 mg disintegrating tabletIndications: Nausea Place 1 Tablet (4 mg) on the tongue every 8 hours if needed for Nausea/Vomiting. 12 Tablet 01/19/20 25 Active cefuroxime axetil 500 mg tabletIndications: ABDOMEN/PELVIS INFECTION Take 1 Tablet (500 mg) by mouth two times daily for 10 days. 20 Tablet 5 2:29 PM CDT 01/14/20 25 025 metroNIDAZOLE 500 mg tabletIndications: ABDOMEN/PELVIS INFECTION Take 1 Tablet (500 mg) by mouth two times daily for 10 days. 20 Tablet 5 2:29 PM CDT 01/14/20 25 025 cephalexin 500 mg capsuleIndications :urinary tract infection Take 1 Capsule (500 mg) by mouth two times daily for 10 days. 20 Capsule 02/05/20 25 025 HYDROmorphone 2 mg tablet Take 2 mg by mouth. 02/07/20 25 025 Active Problems Problem Noted Date Diagnosed Date Iron deficiency anemia 01/10/2025 Thrombocytosis 01/10/2025 Bile leak 01/08/2025 Hyperglycemia 12/31/2024 Sepsis without acute organ dysfunction Transaminitis 12/30/2024 Hyperbilirubinemia 12/30/2024 Leukocytosis 12/30/2024 Ovarian cyst, bilateral 12/30/2024 History of laparoscopic cholecystectomy 12/31/19 25 Peritonsillar abscess 11/09/2015 Sepsis 11/09/2015 PANIC DISORDER 08/09/2005 URINARY TRACT DISORDER 07/31/2005 ABDOMINAL PAIN UNSPECIFIED SITE 07/31/2005 Encounters Date Type Department Care Team Description 5 11:00 AM CDT Office Visit [facility] [address] [place] [address] Tona Gonzalez PA Follow Up (Drain check and CT scan review) 5 8:56 AM CDT - 5 11:59 PM CDT Hospital Encounter [facility] [address] [place] [address] Tona Gonzalez PA Intraabdominal fluid collection 5 Travel 5 Orders Only [facility] Scanner 1 scan: ([facility]-Ord[facility] , 02/05/2025 5 1:26 PM CDT - 5 6:24 PM CDT Emergency [facility] Emergency Department [address] [place] [address] Paulette Ryan MD Right sided abdominal pain (Primary Dx); Intra-abdominal fluid collection; Urinary tract infection with hematuria, site unspecified Discharge Disposition: Home Self Care 5 Telephone [facility] [address], [place] [address] Yoli Camp Appointment 5 Travel 5 Orders Only [facility] [address], [place] [address] Maggie Recinos NP <No scans attached> 5 Transcribe Orders Customer Experience [facility] [phone] Susana Ayala MD 5 Telephone [facility] [address] [place] [address] Dolly Pryor MD care coordination 5 9:30 AM CDT Ancillary Procedure [facility] [address] [place] [phone] 5 Travel 5 7:03 PM CDT - 5 11:27 PM CDT Emergency [facility] Emergency Department [address] [place] [address] Ananda Nelson MD Abdominal pain, unspecified abdominal location (Primary Dx); Nausea; Acute pancreatitis, unspecified complication status, unspecified pancreatitis type (HC) Discharge Disposition: Home Self Care 5 Travel 5 Telephone [facility] [address] [place] [address] Dolly Pryor MD Appointment 5 Orders Only [facility] [address], [place] [address] Tona Gonzalez PA <No scans attached> 5 12:36 PM CDT Anesthesia Event [facility] [address] [place] [address] Cari Boyd MD Amelse, Laura Elaine, CRNA 5 12:25 PM CDT - 5 1:30 PM CDT Surgery [facility] [address] [place] [address] Osvaldo Birch MD ENDOSCOPIC RETROGRADE CHOLANGIOPANCREATOGRAPHY WITH STENT PLACEMENT 5 Travel 5 11:13 PM CDT - 5 12:20 PM CDT Hospital Encounter [facility] [address] [place] [address] [facility], MD Khalida Bronson Duc Minh, MD Draisey, Ashley Diane, DO Kohlmeyer, MD Catracho Taylor, Felix Nova MD Abdominal pain, unspecified abdominal location (Primary Dx); Sepsis, due to unspecified organism, unspecified whether acute organ dysfunction present (HC); Vitamin D deficiency; PANIC DISORDER; Bile leak Discharge Disposition: Home Self Care 5 12:35 PM CDT - 5 2:05 PM CDT Surgery [facility] [address] [place] [address] Caio Leonard MD ENDOSCOPIC ULTRASOUND UPPER 5 12:20 PM CDT Anesthesia Event [facility] [address] [place] [address] Wayne Pickett MD 5 11:03 AM CDT - 5 3:30 PM CDT Hospital Encounter [facility] [address] [place] [address] Caio Leonard MD Abdominal pain Discharge Disposition: Home Self Care 5 Travel 5 Lab Requisition [facility] [phone] Steph Gordillo MD Lab Requisition [facility] [phone] Rafa Carolina MD from Last 3 Months [...] or yelled at (see row info)? No 02/04/2025 Interpersonal Safety Abuse 12 - 18 Not on file 02/04/2025 Interpersonal Safety Ambulatory Vulnerability No t on file 02/04/2025 Utilities Answer Date Recorded Do you have trouble paying f or utilities (for example, heat, electricity, water, phone)? 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 Gender Identity Not on file Sexual Orientation Not on file Obstetrics History Last Filed Vital Signs Vital Sign Reading Time Taken Comments Blood Pressure 108/72 02/07/2025 10:50 AM CDT Pulse 98 02/07/2025 10:50 AM CDT Temperature 36.6 C (97.8 F) 02/04/2025 1:08 PM CDT Respiratory Rate 16 02/04/2025 1:08 PM CDT Oxygen Saturation 96% 02/07/2025 10: 50 AM CDT Inhaled Oxygen Concentration - - Weight 113.7 kg (250 lb 9.6 oz) 025 10:50 AM CDT Height 154.9 cm (5' 1) 02/07/2025 10:5 0 AM CDT Body Mass Index 47.35 02/07/2025 10:50 AM CDT Plan of Treatment Upcoming Encounters Date Type Department Care Team (Latest Contact Info) Description 03/02/2025 11:35 AM CDT Hospital Encounter [facility] [address] [place] [address] [place] [address] [place], [place] [address] Intraabdominal fluid collection 03/02/2025 12:35 PM CDT - 03/02/2025 1:35 PM CDT Surgery [facility] [address] [place] [address] [place] [address] [place] [address] ENDOSCOPIC RETROGRADE CHOLANGIOPANCREATOGRAPHY 03/16/2025 2:00 PM CDT Ancillary Procedure [facility] [address] [place] [phone] Scheduled Procedures Name Priority Associated Diagnoses Date/Ti me ENDOSCOPIC RETROGRADE CHOLANGIOPANCREATOGRAPHY Tier 2 bile leak 03/02/2025 12:35 PM CDT Health Maintenance Due Date Last Done Comments Tdap 2002 Depression screening for age 12+ 2003 HIV for age 15-65 2006 Hepatitis C screening for ag e 18-79 2009 Hepatitis B series for 19+ ( 1 of 3 - 19+ 3-dose series) 2010 Tetanus booster 2011 Pap test for age 21-65 2012 COVID-19 vaccine series ( season) 2024 Influenza Vaccine (Season Ended) 2025 BMI (ht and wt on same day) for age 18+ 02/07/2026 02/07/2025, 11/09/2015 Pneumococcal series for age 6-49 Aged Out No longer eligible b ased on patient's age to complete this topic Goals Goal Patient Goal Type Associated Problems Recent Progress Patient-Stated? Author Autogenera kathleen Goal Care Plan Autogenerated Problem No Mychart, Provider Medical Devices Implanted Type Area Director Reactor Projects Device Identifier Shelf Expiration Date Model / Serial / Lot Stent Biliary [id number] Wallflex Covered Metal - [id number] Implanted:Qty: 1 on 01/07/2025 by Osvaldo Birch MD at [facility] 09/16/2025 [id number] / / [id number] Procedures Procedure Name Priority Date/Time Associated Diagnosis Comments CT ABDOMEN PELVIS WWO Routine 02/07/2025 9:49 AM CDT Intraabdominal fluid collection SCAN-PATHOLOGY REPORT 02/05/2025 12:[address] ABDOMEN PELVIS W STAT 02/04/2025 4:47 PM CDT URINE CULTURE MAU 02/04/2025 3:16 PM CDT URINALYSIS MICROSCOPIC STAT 3:16 PM CDT UA W/ SEDIMENT EXAM REFLEXED PER CRITERIA STAT 02/04/2025 3:16 PM CDT CBC WITH AUTO DIFFERENTIAL STAT 02/04 2:23 PM CDT BASIC METABOLIC PANEL STAT 02/04/2025 2:23 PM CDT HEPATIC FUNCTION PANEL STAT 2:23 PM CDT LIPASE STAT 02/04/2025 2:23 PM CDT CBC WITH AUTO DIFFERENTIAL STAT 02/04 2:[address] ABDOMEN PELVIS W MAU 01/26/2025 9:51 [...] 12:18 PM CDT NM HEPATOBILIARY IMAGING Routine 025 8:01 AM CDT LIPASE MAU 12/31/2024 6:13 [...] Tier 1 12/29/2024 12:11 PM CDT see MD note Case Notes On Semaglutide -last dose 12/22/24. Special Needs On Semaglutide -last dose 12/22/24. ENDOSCOPIC ULTRASOUND assistant administrator 1 02/2025 12:11 PM CDT see MD note Case Notes On Semaglutide -last dose 12/22/24. Special Needs On Semaglutide -last dose 12/22/24. URINE Preop 12/29/2024 11:39 AM CDT PATH NON SALES ACCOUNT REPRESENTATIVE CYTOLOGY Routine 12/26/2024 11:40 AM CDT LAB TRACKING EVENT Routine 12/26/2024 11:24 AM CDT LAB TRACKING EVENT Routine 12/26/2024 11:24 AM CDT PATH TISSUE EXAM Routine 12/26/2024 11:24 AM CDT from Last 3 Months Results * CT ABDOMEN PELVIS WWO (02/07/2025 9:49 AM CDT) Only the most recent of2 resultswithin the time period is included. Anatomical Region Laterality Modality Abdomen, Pelvis, AORTA, LIVER, SPLEEN Computed Tomography 02/07/2025 10:4 2 AM CDT Impressions 02/07/2025 10:42 AM CDT Most of the contrast injected for the sinogram leaked out back along the catheter site. Small residual cavity. No contrast seen extending into the colon. Please note that all CT scans at this facility use dose modulation, iterative reconstruction, and/or weight-based dosing when appropriate to reduce radiation dose to as low as reasonably achievable. Dictated by Lucy Krishnan MD @ 02/07/2025 10:42:36 AM (Electronically Signed) Narrative 02/07/2025 10:42 AM CDT For Patients: As a result of the Century Cures Act, medical imaging exams and procedure reports are released immediately into your electronic medical record. You may view this report before your referring provider. If you have questions, please contact your health care provider. INDICATION: Abdominal fluid collection, question drain erosion into colon. COMPARISON: 02/04/2025, 01/26/2025 TECHNIQUE: CT of the abdomen and pelvis with intravenous contrast, with intracavitary contrast. Multiplanar axial, coronal, and sagittal reformats were reconstructed. Contrast: 100 mL Omnipaque 350 intravenous. Technologist injected 30 mL dilute contrast through the pigtail catheter in the right lower quadrant. FINDINGS: Lung bases: Respiratory motion. Liver: Normal enhancement. Gallbladder and bile ducts: Cholecystectomy. Extrahepatic bile duct stent from the del hepatis to the ampulla. Pancreas: No pancreatitis or pancreatic duct dilatation. Spleen: Normal spleen size and enhancement. Adrenal glands: Normal. Kidneys: Normal parenchyma. No cyst or solid mass. No calculi. No urinary tract dilation. Urinary bladder: Normal. Pelvis: Multilocular right ovarian cystic lesion measures 6.3 x 4.2 cm. This has decreased in size. Vessels: Mesenteric arteries and veins are patent. Bowel: Mild inflammatory stranding and thickening around the proximal to mid duodenum. There is a decompressed collection along the undersurface of the duodenal with a pigtail catheter in good position. The residual cavity along the pigtail catheter extending to the duodenal margin is best visualized on the coronal images where it measures 4.8 x 2 centimeters on series 604, image 66. Contrast is injected for the sonogram and the vast majority of the contrast leaked out back around the catheter tubing. A very small amount of contrast is seen along the superior margin of the pigtail catheter on series 4, image 94. No contrast is seen extending into the adjacent right colon or any of the other small bowel loops. No other abnormal bowel loops. Normal appendix. Moderate stool burden. Lymph nodes: Mildly prominent mesenteric lymph nodes are similar to prior exams. Peritoneum: No ascites or new collection. Abdominal wall: No abdominal wall collection. Postoperative changes around the umbilicus. No bowel containing hernia. Bones: No fractures. No focal worrisome bone lesions. Procedure Note Lucy Krishnan MD - 02/07/2025 For Patients: As a result of the 21st Century Cures Act, medical imagingexams and procedure reports are released immediately into your electronicmedical record. You may view this report before your referring provider.If you have questions, please contact your health care provider. INDICATION: Abdominal fluid collection, question drain erosion into colon. COMPARISON: 02/04/2025, 01/26/2025 TECHNIQUE: CT of the abdomen and pelvis with intravenous contrast, with intracavitarycontrast. Multiplanar axial, coronal, and sagittal reformats werereconstructed. Contrast: 100 mL Omnipaque 350 intravenous. Technologist injected 30 mL dilute contrast through the pigtail catheterin the right lower quadrant. FINDINGS: Lung bases: Respiratory motion. Liver: Normal enhancement. Gallbladder and bile ducts: Cholecystectomy. Extrahepatic bile duct stentfrom the del hepatis to the ampulla. Pancreas: No pancreatitis or pancreatic duct dilatation. Spleen: Normal spleen size and enhancement. Adrenal glands: Normal. Kidneys: Normal parenchyma. No cyst or solid mass. No calculi. No urinarytract dilation. Urinary bladder: Normal. Pelvis: Multilocular right ovarian cystic lesion measures 6.3 x 4.2 cm.This has decreased in size. Vessels: Mesenteric arteries and veins are patent. Bowel: Mild inflammatory stranding and thickening around the proximal tomid duodenum. There is a decompressed collection along the undersurface ofthe duodenal with a pigtail catheter in good position. The residual cavityalong the pigtail catheter extending to the duodenal margin is bestvisualized on the coronal images where it measures 4.8 x 2 centimeters onseries 604, image 66. Contrast is injected for the sonogram and the vastmajority of the contrast leaked out back around the catheter tubing. Vivek small amount of contrast is seen along the superior margin of thepigtail catheter on series 4, image 94. No contrast is seen extending intothe adjacent right colon or any of the other small bowel loops. No otherabnormal bowel loops. Normal appendix. Moderate stool burden. Lymph nodes: Mildly prominent mesenteric lymph nodes are similar to priorexams. Peritoneum: No ascites or new collection. Abdominal wall: No abdominal wall collection. Postoperative changes aroundthe umbilicus. No bowel containing hernia. Bones: No fractures. No focal worrisome bone lesions. IMPRESSION: Most of the contrast injected for the sinogram leaked out back along thecatheter site. Small residual cavity. No contrast seen extending into thecolon. Please note that all CT scans at this facility use dose modulation,iterative reconstruction, and/or weight-based dosing when appropriate toreduce radiation dose to as low as reasonably achievable. Dictated by Lucy Krishnan MD @ 02/07/2025 10:42:36 AM (Electronically Signed) us Tona MARTELL CT Final Resul t * SCAN-PATHOLOGY REPORT (02/05/2025 12:00 AM CDT) us Scanner OTHER Final Result * CT Abdomen Pelvis w IV (Oral Contrast NO) (02/04/2025 4:47 PM CDT) Only the most recent of6 resultswithin the time period is included. Anatomical Region Laterality Modality Abdomen, Pelvis, AORTA, LIVER, SPLEEN Computed Tomography 02/04/2025 5:32 PM CDT Impressions 02/04/2025 5:32 PM CDT 1. Decreased size of the residual rim enhancing fluid collection along the right anterior pararenal fascia, which now measures 1.8 x 1.5 x 4.5 cm, previously 2.3 x 1.8 x 4.7 cm. 2. Stable position of the right lateral approach mid abdominal surgical drain with no residual fluid about its tip. As before, the drain`s pigtail at least abuts the adjacent ascending colonic wall. Erosion into the colon is difficult to exclude based on this appearance. 3. Similar size of the right adnexal complex mass which measures approximately 6.3 cm. Please note that all CT scans at this facility use dose modulation, iterative reconstruction, and/or weight-based dosing when appropriate to reduce radiation dose to as low as reasonably achievable. Dictated by Manas Love MD @ 02/04/2025 5:32:13 PM (Electronically Signed) Narrative 02/04/2025 5:32 PM CDT For Patients: As a result of the 21st Century Cures Act, medical imaging exams and procedure reports are released immediately into your electronic medical record. You may view this report before your referring provider. If you have questions, please contact your health care provider. INDICATION: Abdominal pain, post-op. TECHNIQUE: CT abdomen and pelvis acquired with 100 cc Omnipaque 350 IV contrast. COMPARISON: CT abdomen pelvis dated 01/26/2025. FINDINGS: Lower chest: Respiratory motion artifact limits evaluation of the lung base parenchyma. Liver: Unremarkable. Gallbladder and bile ducts: Redemonstrated postsurgical changes of cholecystectomy. Stable position of the common bile duct stent. Stable position of the right lateral approach mid abdominal surgical drain with no residual fluid about its tip. As before, the pigtail at least abuts the adjacent ascending colonic wall (/ and saved multiplanar reformation). Erosion into the ascending colonic wall is difficult to exclude based on this appearance. The residual rim enhancing fluid collection along the right anterior pararenal fascia, which abuts the posterior aspect of the 2nd duodenal segment measures 1.8 x 1.5 x 4.5 cm ( and 601/64), previously 2.3 x 1.8 x 4.7 cm (remeasured and 60/). Redemonstrated surrounding fat stranding. Pancreas: Unremarkable. No mass or inflammation. Spleen: Unremarkable. Normal in size. No masses. Adrenal glands: Unremarkable. No nodules. Kidneys: Unremarkable. No suspicious masses, stones, or hydronephrosis. GI tract: Unremarkable. Normal in caliber. No sign of mass or inflammation. Normal appendix. Vasculature: Abdominal aorta is normal in caliber. Mesenteric arteries are patent. Lymph nodes: No lymphadenopathy. Peritoneum/Abdominal Wall: Postsurgical changes in the ventral abdominal wall. No sign of mass or infiltration. No free air or significant free fluid. Pelvis: Normal size and appearance of the complex right adnexal mass which measures 6.3 x 4.5 cm, previously 6.0 x 4.8 cm. Bones: Unremarkable for age. Procedure Note Manas Love MD - 02/04/2025 For Patients: As a result of the 21st Century Cures Act, medical imagingexams and procedure reports are released immediately into your electronicmedical record. You may view this report before your referring provider.If you have questions, please contact your health care provider. INDICATION: Abdominal pain, post-op. TECHNIQUE: CT abdomen and pelvis acquired with 100 cc Omnipaque 350 IV contrast. COMPARISON: CT abdomen pelvis dated 01/26/2025. FINDINGS: Lower chest: Respiratory motion artifact limits evaluation of the lungbase parenchyma. Liver: Unremarkable. Gallbladder and bile ducts: Redemonstrated postsurgical changes ofcholecystectomy. Stable position of the common bile duct stent. Stableposition of the right lateral approach mid abdominal surgical drain withno residual fluid about its tip. As before, the pigtail at least abuts theadjacent ascending colonic wall (2/116 and saved multiplanar reformation).Erosion into the ascending colonic wall is difficult to exclude based onthis appearance. The residual rim enhancing fluid collection along theright anterior pararenal fascia, which abuts the posterior aspect of the2nd duodenal segment measures 1.8 x 1.5 x 4.5 cm ( and 601/64),previously 2.3 x 1.8 x 4.7 cm (remeasured and 60/). Redemonstratedsurrounding fat stranding. Pancreas: Unremarkable. No mass or inflammation. Spleen: Unremarkable. Normal in size. No masses. Adrenal glands: Unremarkable. No nodules. Kidneys: Unremarkable. No suspicious masses, stones, or hydronephrosis. GI tract: Unremarkable. Normal in caliber. No sign of mass orinflammation. Normal appendix. Vasculature: Abdominal aorta is normal in caliber. Mesenteric arteries arepatent. Lymph nodes: No lymphadenopathy. Peritoneum/Abdominal Wall: Postsurgical changes in the ventral abdominalwall. No sign of mass or infiltration. No free air or significant freefluid. Pelvis: Normal size and appearance of the complex right adnexal mass whichmeasures 6.3 x 4.5 cm, previously 6.0 x 4.8 cm. Bones: Unremarkable for age. IMPRESSION: 1. Decreased size of the residual rim enhancing fluid collection along theright anterior pararenal fascia, which now measures 1.8 x 1.5 x 4.5 cm,previously 2.3 x 1.8 x 4.7 cm. 2. Stable position of the right lateral approach mid abdominal surgicaldrain with no residual fluid about its tip. As before, the drain`s pigtailat least abuts the adjacent ascending colonic wall. Erosion into the colonis difficult to exclude based on this appearance. 3. Similar size of the right adnexal complex mass which measuresapproximately 6.3 cm. Please note that all CT scans at this facility use dose modulation,iterative reconstruction, and/or weight-based dosing when appropriate toreduce radiation dose to as low as reasonably achievable. Dictated by Manas Love MD @ 02/04/2025 5:32:13 PM (Electronically Signed) us Paulette Ryan MD CT Final Result * (ABNORMAL) URINALYSIS MICROSCOPIC (02/04/2025 3:16 PM CDT) RBC 11-25(A) 0-2, None Seen /HPF 02/04/2025 4:03 PM CDT [facility] WBC 11-25(A) 0-2, 3-5, None Seen /HPF 02/04/2025 4:03 PM CDT [facility] BACTERIA Many(A) None Seen, Rare, Few Bacteria/H PF 02/04/2025 4:03 PM CDT [facility] EPITHELIAL CELLS Few None Seen, Few Epi/HPF 02/04/2025 4:03 PM CDT [facility] HYALINE CASTS 11-25(A) 0-2, 3-5 /LPF 02/04/2025 4:03 PM CDT [facility] GRANULAR CASTS 0-2(A) (none) /LPF 02/04/2025 4:03 PM CDT [facility] Urine URINE SPECIMEN / Unknown Non-Blood / Unknown 02/04/2025 3:16 PM CDT 02/04/2025 3:23 PM CDT us Paulette Ryan MD URINE Final Result [facility] [address] [place] [id number], * (ABNORMAL) URINE CULTURE (02/04/2025 3:16 PM CDT) CULTURE RESULT(A) 02/06/2025 12:27 PM CDT [facility] CULTURE 10,000-50,000 CFU/mL Enterococcus faecalis 02/06/2025 12:27 PM CDT [facility] CULTURE >100,000 CFU/mL Multiple organisms probable contaminants 02/06/2025 12:27 PM CDT [facility] Urine URINE SPECIMEN / Unknown Non-Blood / Unknown 02/04/2025 3:16 PM CDT 02/04/2025 3:23 PM CDT Narrative [facility] - 02/06/2025 12:27 PM CDT Specimen appears contaminated. No further workup pending. Paulette Ryan MD MICROBIOLOGY Final Result [facility] [address] [place] [address], [place] * (ABNORMAL) Urinalysis W Reflex Microscopic if Positive (02/04/2025 3:16 PM CDT) COLOR Yellow Yellow Color 02/04/2025 3:51 PM CDT [facility] CLARITY Turbid(A) Clear Clarity 02/04/2025 3:51 PM CDT [facility] SPECIFIC GRAVITY,URINE >=1.030(A) 1.010, 1.015, 1.020, 1.025 02/04/2025 3:51 PM CDT [facility] PH,URINE 5.0(A) 6.0, 7.0, 8.0, 5.5, 6.5, 7.5, 8.5 02/04/2025 3:51 PM CDT [facility] UROBILINOGEN,QU ALITATIVE Normal Normal EU/dl 02/04/2025 3:51 PM CDT [facility] PROTEIN, URINE 30(A) Negative mg/dL 02/04/2025 3:51 PM CDT [facility] GLUCOSE, URINE Negative Negative mg/dL 02/04/2025 3:51 PM CDT [facility] KETONES,URINE Trace(A) Negative mg/dL 02/04/2025 3:51 PM CDT [facility] BILIRUBIN,URINE Abnormal(A) Negative 02/05/20 25 3:51 PM CDT [facility] Comment:A variety of metabol ites and/or medications may result in a positive bilirubin result. Clinical correlation is recommended. OCCULT BLOOD,URINE Moderate(A) Negative 02/04/2025 3:51 PM CDT [facility] NITRITE Negative Negative 02/04/2025 3:51 PM CDT [facility] LEUKOCYTE ESTERASE Moderate(A) Negative 02/04/2025 3:51 PM CDT [facility] Urine URINE SPECIMEN / Unknown Non-Blood / Unknown 02/04/2025 3:16 PM CDT 02/04/2025 3:23 PM CDT us Paulette Ryan MD URINE Final Result [facility] [address] [place] [address], * (ABNORMAL) CBC WITH AUTO DIFFERENTIAL (02/04/2025 2:23 PM CDT) Only the most recent of4 resultswithin the time period is included. WHITE BLOOD COUNT 5.4 4.5 - 11.0 thou/cu mm 02/04/2025 2:32 PM CDT [facility] RED BLOOD COUNT 4.70 4.00 - 5.20 mil/cu mm 02/04/2025 2:32 PM CDT [facility] HEMOGLOBIN 11.8(L) 12.0 - 16.0 g/dL 02/04/2025 2:32 PM CDT [facility] HEMATOCRIT 36.5 33.0 - 51.0 % 02/04/2025 2:32 PM CDT [facility] MCV 78(L) 80 - 100 fL 02/04/2025 2:32 PM CDT [facility] MCH 25.1(L) 26.0 - 34.0 pg 02/04/2025 2:32 PM CDT [facility] MCHC 32.3 32.0 - 36.0 g/dL 02/04/2025 2:32 PM CDT [facility] RDW 17.4(H) 11.5 - 15.5 % 02/04/2025 2:32 PM CDT [facility] PLATELET COUNT 235 140 - 440 thou/cu mm 02/04/2025 2:32 PM CDT [facility] MPV 10.3 6.5 - 11.0 fL 02/04/2025 2:32 PM CDT [facility] NRBC 0.0 % 02/04/2025 2:32 PM CDT [facility] ABS NRBC 0.0 thou /cu mm 02/04/2025 2:32 PM CDT [facility] % NEUT 63.5 % 02/04/2025 2:32 PM CDT [facility] % LYMPH 26.1 % 02/04/2025 2:32 PM CDT [facility] % MONO 5.7 % 02/04/2025 2:32 PM CDT [facility] % EOS 4.1 % 02/04/2025 2:32 PM CDT [facility] % BASO 0.4 % 02/04/2025 2:32 PM CDT [facility] % IMMATURE GRAN (METAS,MYELOS,WA OS) 0.2 % 02/04/2025 2:32 PM CDT [facility] ABSOLUTE NEUTROPHILS 3.4 1.7 - 7.0 thou/cu mm 02/04/2025 2:32 PM CDT [facility] ABSOLUTE LYMPHOCYTES 1.4 0.9 - 2.9 thou/cu mm 02/04/2025 2:32 PM CDT [facility] ABSOLUTE MONOCYTES 0.3 <0.9 thou/cu mm 02/04/2025 2:32 PM CDT [facility] ABSOLUTE EOSINOPHILS 0.2 <0.5 thou/cu mm 02/04/2025 2:32 PM CDT [facility] ABSOLUTE BASOPHILS 0.0 <0.3 thou/cu mm 02/04/2025 2:32 PM CDT [facility] ABSOLUTE IMMATURE GRANULOCYTES(MET ,MYELOS,PROS) 0.0 <0.3 thou/cu mm 02/04/2025 2:32 PM CDT [facility] Blood BLOOD SPECIMEN / Unknown Non-Lab Venipuncture / Unknown 02/04/2025 2:23 PM CDT 02/04/2025 2:28 PM CDT Paulette Ryan MD HEMATOLOGY Final Result Performing Organization Address [facility] Co de Phone Number [facility] [address] [place] [address], * (ABNORMAL) Lipase (02/04/2025 2:23 PM CDT) Only the most recent of4 resultswithin the time period is included. LIPASE 124.0(H) 13.0 - 60.0 IU/L 02/04/2025 2:58 PM CDT [facility] Blood BLOOD SPECIMEN / Unknown Non-Lab Venipuncture / Unknown 02/04/2025 2:23 PM CDT 02/04/2025 2:28 PM CDT Paulette Ryan MD CHEMISTRY Final Result Performing Organization Address [facility] Co de Phone Number [facility] [address] [place] [address], * (ABNORMAL) Hepatic Function Panel (02/04/2025 2:23 PM CDT) Only the most recent of9 resultswithin the time period is included. ALBUMIN 3.9(L) 4.0 - 4.9 g/dL 02/04/2025 2:58 PM CDT [facility] PROTEIN,TOTAL 7.3 6.0 - 8.0 g/dL 02/04/2025 2:58 PM CDT [facility] BILIRUBIN,TOTAL 0.6 0.0 - 1.2 mg/dL 02/04/2025 2:58 PM CDT [facility] BILIRUBIN,DIRECT 0.3(H) 0.0 - 0.2 mg/dL 02/04/2025 2:58 PM CDT [facility] BILIRUBIN,INDIRE CT 0.3 0.2 - 0.8 mg/dL 02/04/2025 2:58 PM CDT [facility] ALK PHOSPHATASE 64 35 - 104 IU/L 02/04/2025 2:58 PM CDT [facility] ALT (SGPT) 27 10 - 35 IU/L 02/04/2025 2:58 PM CDT [facility] AST (SGOT) 29 10 - 35 IU/L 02/04/2025 2:58 PM CDT [facility] Blood BLOOD SPECIMEN / Unknown Non-Lab Venipuncture / Unknown 02/04/2025 2:23 PM CDT 02/04/2025 2:28 PM CDT Paulette Ryan MD CHEMISTRY Final Result [facility] [address] [place] [address], * Basic Metabolic Panel (02/04/2025 2:23 PM CDT) Only the most recent of2 resultswithin the time period is included. SODIUM 138 136 - 145 mmol/L 02/04/2025 2:58 PM CDT [facility] POTASSIUM 3.8 3.5 - 5.1 mmol/L 02/04/2025 2:58 PM CDT [facility] CHLORIDE 103 98 - 107 mmol/L 02/04/2025 2:58 PM CDT [facility] CO2,TOTAL 23 22 - 29 mmol/L 02/04/2025 2:58 PM CDT [facility] ANION GAP 12 5 - 18 02/04/2025 2:58 PM CDT [facility] GLUCOSE 94 70 - 99 mg/dL 02/04/2025 2:58 PM CDT [facility] CALCIUM 8.9 8.8 - 10.4 mg/dL 02/04/2025 2:58 PM CDT [facility] Comment: Reference ranges for this test were updated on 06/29/2024 to reflect our healthy population more accurately. Reference range changes are not retroactively applied to results, but previous results using the same methodology can be interpreted in the context of the new reference range. BUN 9 6 - 20 mg/dL 02/04/2025 2:58 PM CDT [facility] CREATININE 0.70 0.50 - 0.90 mg/dL 02/04/2025 2:58 PM CDT [facility] BUN/CREAT RATIO 13 10 - 20 2:58 PM CDT [facility] eGFR >90 >90 mL/min/1.7 3m2 02/04/2025 2:58 PM CDT [facility] Comment:As of 2021, eG FR is calculated by the CKD-EPI creatinine equation without race adjustment. eGFR can be influenced by muscle mass, exercise, and diet. The reported eGFR is an estimation only and is only applicable if the renal function is stable. Blood BLOOD SPECIMEN / Unknown Non-Lab Venipuncture / Unknown 02/04/2025 2:23 PM CDT 02/04/2025 2:28 PM CDT Paulette Ryan MD CHEMISTRY Final Result [facility] [address] [place] [id number], * LACTATE VENOUS (01/18/2025 7:32 PM CDT) Only the most recent of3 resultswithin the time period is included. LACTATE,VENOUS 0.8 0.5 - 2.0 mmol/L 01/18/2025 8:08 PM CDT [facility] Blood BLOOD SPECIMEN / Unknown Non-Lab Venipuncture / Unknown 01/18/2025 7:32 PM CDT 01/18/2025 7:39 PM CDT Ananda Nelson MD CHEMISTRY Final R esult [facility] [address] [place] [address], [place] * ,SERUM QUALITATIVE (01/18/2025 7:32 PM CDT) Pathologist [facility] ,SERU M Negative Negative 01/18/2025 8:33 PM CDT [facility] Blood BLOOD SPECIMEN / Unknown Non-Lab Venipuncture / Unknown 01/18/2025 7:32 PM CDT 01/18/2025 7:39 PM CDT Ananda Nelson MD CHEMISTRY Final R esult [facility] [address] [place] [address], [place] * (ABNORMAL) CBC W PLT NO DIFF (01/18/2025 7:32 PM CDT) Only the most recent of3 resultswithin the time period is included. Pathologist [facility] WHITE BLOOD COUNT 6.9 4.5 - 11.0 thou/cu mm 01/18/2025 7:48 PM CDT [facility] RED BLOOD COUNT 4.35 4.00 - 5.20 mil/cu mm 01/18/2025 7:48 PM CDT [facility] HEMOGLOBIN 10.7(L) 12.0 - 16.0 g/dL 01/18/2025 7:48 PM CDT [facility] HEMATOCRIT 33.6 33.0 - 51.0 % 01/18/2025 7:48 PM CDT [facility] MCV 77(L) 80 - 100 fL 01/18/2025 7:48 PM CDT [facility] MCH 24.6(L) 26.0 - 34.0 pg 01/18/2025 7:48 PM CDT [facility] MCHC 31.8(L) 32.0 - 36.0 g/dL 01/18/2025 7:48 PM CDT [facility] RDW 18.5(H) 11.5 - 15.5 % 01/18/2025 7:48 PM CDT [facility] PLATELET COUNT 464(H) 140 - 440 thou/cu mm 01/18/2025 7:48 PM CDT [facility] MPV 9.7 6.5 - 11.0 fL 01/18/2025 7:48 PM CDT [facility] NRBC 0.0 % 01/18/2025 7:48 PM CDT [facility] ABS NRBC 0.0 thou /cu mm 01/18/2025 7:48 PM CDT [facility] Blood BLOOD SPECIMEN / Unknown Non-Lab Venipuncture / Unknown 01/18/2025 7:32 PM CDT 01/18/2025 7:39 PM CDT Ananda Nelson MD HEMATOLOGY Final R esult [facility] [address] [place] [address], * CT DRAIN PERITONEAL RETROPERITONEAL INC GUIDE (01/14/2025 3:59 PM CDT) Only the most recent of2 resultswithin the time period is included. Anatomical Region Laterality Modality Abdomen Computed Tomogra phy, Other Narrative 01/14/2025 4:26 PM CDT RADIOLOGY POST PROCEDURE NOTE 01/14/2025 Suzan Heredia [id number] 1990 INFORMEDCONSENT: In my discussion, prior to [...] TECHNIQUE: Right lateral approach EQUIPMENT UTILIZED: 14 [place] multipurpose drainage catheter CLOSURE: none RADIATION DOSE: total exam DLP: 2243 mGy-cm MEDICATIONS GIVEN: fentanyl 200 mcg IV. 1% Lidocaine was used for local anesthesia. SPECIMEN(S): None COMPLICATIONS: no complications noted DRAINS: Baldev Wallace ESTIMATED BLOOD LOSS: None. PHYSICIAN(S) AND ASSISTANTS (if any): Martell Potts MD Additional Comments: Please call with questions. Martell Potts MD [place] Protocol A. Pre-procedure verification complete yes 1-relevant [...] dose to as low as reasonably achievable. us Felix Ordonez MD CT Final Res ult * (ABNORMAL) Platelets AM (01/14/2025 5:37 AM CDT) Only the most recent of2 resultswithin the time period is included. PLATELET COUNT 596(H) 140 - 440 thou/cu mm 01/14/2025 6:14 AM CDT [facility] MPV 9.8 6.5 - 11.0 fL 01/14/2025 6:14 AM CDT [facility] Blood BLOOD SPECIMEN / Unknown Venipuncture / Unknown 01/14/2025 5:37 AM CDT 01/14/2025 6:02 AM CDT Felix Ordonez MD HEMATOLOGY Final Res ult Performing Organization Address City/[facility]/ZIP Co de Phone Number [facility] [address] [place] [address], [place] * (ABNORMAL) Hemoglobin AM (01/14/2025 5:37 AM CDT) Only the most recent of5 resultswithin the time period is included. HEMOGLOBIN 9.9(L) 12.0 - 16.0 g/dL 01/14/2025 6:14 AM CDT [facility] MCV 77(L) 80 - 100 fL 01/14/2025 6:14 AM CDT [facility] Blood BLOOD SPECIMEN / Unknown Venipuncture / Unknown 01/14/2025 5:37 AM CDT 01/14/2025 6:02 AM CDT Felix Ordonez MD HEMATOLOGY Final Res ult [facility] [address] [address], [place] * WBC AM (01/13/2025 5:14 AM CDT) Only the most recent of6 resultswithin the time period is included. WHITE BLOOD COUNT 9.2 4.5 - 11.0 thou/cu mm 01/13/2025 5:32 AM CDT [facility] NRBC 0.0 % 01/13/2025 5:32 AM CDT [facility] ABS NRBC 0.0 thou /cu mm 01/13/2025 5:32 AM CDT [facility] Blood BLOOD SPECIMEN / Unknown Venipuncture / Unknown 01/13/2025 5:14 AM CDT 01/13/2025 5:23 AM CDT Felix Ordonez MD HEMATOLOGY Final Res ult [facility] [address] [place] [address], [place] * (ABNORMAL) BILIRUBIN,TOTAL/DIRECT (01/13/2025 5:13 AM CDT) BILIRUBIN,TOTA L 0.3 0.0 - 1.2 mg/dL 01/13/2025 5:52 AM CDT [facility] BILIRUBIN,DIRE CT 0.2 0.0 - 0.2 mg/dL 01/13/2025 5:52 AM CDT [facility] BILIRUBIN,BELLA RECT 0.1(L) 0.2 - 0.8 mg/dL 01/13/2025 5:52 AM CDT [facility] Blood BLOOD SPECIMEN / Unknown Venipuncture / Unknown 01/13/2025 5:13 AM CDT 01/13/2025 5:23 AM CDT us Felix Ordonez MD CHEMISTRY Final Res ult [facility] [address] [place] [address], [place] * ALT (SGPT) (01/13/2025 5:13 AM CDT) Only the most recent of2 resultswithin the time period is included. ALT (SGPT) 22 10 - 35 IU/L 01/13/2025 5:52 AM CDT [facility] Blood BLOOD SPECIMEN / Unknown Venipuncture / Unknown 01/13/2025 5:13 AM CDT 01/13/2025 5:23 AM CDT Felix Ordonez MD CHEMISTRY Final Res ult Performing Organization Address City/[facility]/ZIP Co de Phone Number [facility] [address] [place] [address], [place] * AST (SGOT) (01/13/2025 5:13 AM CDT) Only the most recent of2 resultswithin the time period is included. AST (SGOT) 24 10 - 35 IU/L 01/13/2025 5:52 AM CDT [facility] Blood BLOOD SPECIMEN / Unknown Venipuncture / Unknown 01/13/2025 5:13 AM CDT 01/13/2025 5:23 AM CDT Felix Ordonez MD CHEMISTRY Final Res ult Performing Organization Address City/[facility]/ZIP Co de Phone Number [facility] [address] [place] [address], [place] * ALK PHOSPHATASE (01/13/2025 5:13 AM CDT) ALK PHOSPHATASE 75 35 - 104 IU/L 01/13/2025 5:52 AM CDT [facility] Blood BLOOD SPECIMEN / Unknown Venipuncture / Unknown 01/13/2025 5:13 AM CDT 01/13/2025 5:23 AM CDT Felix Orodnez MD CHEMISTRY Final Res ult Performing Organization Address City/[facility]/ZIP Co de Phone Number [facility] [address] [place] [address], [place] * SODIUM (01/12/2025 5:41 AM CDT) Only the most recent of5 resultswithin the time period is included. SODIUM 138 136 - 145 mmol/L 01/12/2025 6:32 AM CDT [facility] Blood BLOOD SPECIMEN / Unknown Butterfly / Unknown 01/12/2025 5:41 AM CDT 01/12/2025 6:02 AM CDT Felix Ordonez MD CHEMISTRY Final Res ult Performing Organization Address City/[facility]/ZIP Co de Phone Number [facility] [address] [phone], [place] * POTASSIUM (01/12/2025 5:41 AM CDT) Only the most recent of13 resultswithin the time period is included. POTASSIUM 3.8 3.5 - 5.1 mmol/L 01/12/2025 6:32 AM CDT [facility] Blood BLOOD SPECIMEN / Unknown Butterfly / Unknown 01/12/2025 5:41 AM CDT 01/12/2025 6:02 AM CDT Felix Ordonez MD CHEMISTRY Final Res ult Performing Organization Address [facility] de Phone Number [facility] [address] [place] [address], [place] * CREATININE (01/12/2025 5:41 AM CDT) Only the most recent of6 resultswithin the time period is included. eGFR >90 >90 mL/min/1.7 3m2 01/12/2025 6:32 AM CDT [facility] Comment:As of 2021, eG FR is calculated by the CKD-EPI creatinine equation without race adjustment. eGFR can be influenced by muscle mass, exercise, and diet. The reported eGFR is an estimation only and is only applicable if the renal function is stable. CREATININE 0.54 0.50 - 0.90 mg/dL 01/12/2025 6:32 AM CDT [facility] Blood BLOOD SPECIMEN / Unknown Butterfly / Unknown 01/12/2025 5:41 AM CDT 01/12/2025 6:02 AM CDT Felix Ordonez MD CHEMISTRY Final Res ult [facility] [address] [place] [address], [place] * BUN (01/11/2025 5:42 AM CDT) BUN 8 6 - 20 mg/dL 01/11/2025 6:45 AM CDT [facility] Blood BLOOD SPECIMEN / Unknown Venipuncture / Unknown 01/11/2025 5:42 AM CDT 01/11/2025 6:05 AM CDT Komal Islas MD CHEMISTRY Final R esult Performing Organization Address City/[facility] Co de Phone Number [facility] [address] [place] [address], [place] * (ABNORMAL) C-reactive protein (01/10/2025 5:41 AM CDT) Only the most recent of2 resultswithin the time period is included. C-REACTIVE PROTEIN 1.6(H) <0.5 mg/dL 01/10/2025 11:12 AM CDT [facility] Blood BLOOD SPECIMEN / Unknown Venipuncture / Unknown 01/10/2025 5:41 AM CDT 01/10/2025 5:57 AM CDT Komal Islas MD CHEMISTRY Final R esult [facility] [address] [place] [address], [place] * (ABNORMAL) RETICULOCYTES (01/10/2025 5:41 AM CDT) RETIC% 2.5(H) 0.5 - 1.5 % 01/10/2025 6:05 AM CDT [facility] RETIC (ABSOLUTE) 0.11(H) 0.03 - 0.08 mil/cu mm 01/10/2025 6:05 AM CDT [facility] Blood BLOOD SPECIMEN / Unknown Venipuncture / Unknown 01/10/2025 5:41 AM CDT 01/10/2025 5:57 AM CDT us Komal Islas MD HEMATOLOGY Final R esult Performing Organization Address City/[facility]/ZIP Co de Phone Number [facility] [address] [phone], [place] * Magnesium AM (01/10/2025 5:41 AM CDT) Only the most recent of3 resultswithin the time period is included. MAGNESIUM 2.1 1.6 - 2.6 mg/dL 01/10/2025 6:22 AM CDT [facility] Blood BLOOD SPECIMEN / Unknown Venipuncture / Unknown 01/10/2025 5:41 AM CDT 01/10/2025 5:57 AM CDT us Komla Islas MD CHEMISTRY Final R esult Performing Organization Address City/[facility]/ZIP Co de Phone Number [facility] [address] [address], [place] * EXTRA TUBE GOLD/SST (01/09/2025 4:34 AM CDT) Only the most recent of2 resultswithin the time period is included. Blood BLOOD SPECIMEN / Unknown Extra Tube / Unknown 01/09/2025 4:34 AM CDT 01/09/2025 4:46 AM CDT us Komal Islas MD LABORATORY Final R esult Performing Organization Address City/[facility]/ZIP Co de Phone Number [facility] [address] [address], [place] * (ABNORMAL) IRON PLUS IRON BINDING CAP (01/09/2025 4:34 AM CDT) IRON 20(L) 37 - 145 ug/dL 01/09/2025 5:06 AM CDT [facility] UIBC (UNSATURATED) 342 112 - 347 ug/dL 01/09/2025 5:06 AM CDT [facility] IRON BINDING CAPACITY 362 250 - 400 ug/dL 01/09/2025 5:06 AM CDT [facility] IRON,% SATURATION 6(L) 14 - 50 % 01/09/2025 5:06 AM CDT [facility] Blood BLOOD SPECIMEN / Unknown Venipuncture / Unknown 01/09/2025 4:34 AM CDT 01/09/2025 4:40 AM CDT us Komal Islas MD CHEMISTRY Final R esult Performing Organization Address City/[facility]/ZIP Co de Phone Number [facility] [address] [address], [place] * BILIRUBIN,TOTAL (01/09/2025 4:34 AM CDT) Pathologist [facility] BILIRUBIN,TOTA L 0.3 0.0 - 1.2 mg/dL 01/09/2025 5:06 AM CDT [facility] Blood BLOOD SPECIMEN / Unknown Venipuncture / Unknown 01/09/2025 4:34 AM CDT 01/09/2025 4:40 AM CDT us Komal Islas MD CHEMISTRY Final R esult [facility] [address] [place] [id number], [place] * (ABNORMAL) COMP METABOLIC PANEL (01/08/2025 12:24 PM CDT) Pathologist [facility] SODIUM 139 136 - 145 mmol/L 01/08/2025 1:04 PM CDT [facility] POTASSIUM 3.7 3.5 - 5.1 mmol/L 01/08/2025 1:04 PM CDT [facility] CHLORIDE 102 98 - 107 mmol/L 01/08/2025 1:04 PM T [facility] CO2,TOTAL 24 22 - 29 mmol/L 01/08/2025 1:04 PM T [facility] ANION GAP 13 5 - 18 01/08/2025 1:04 PM T [facility] GLUCOSE 106(H) 70 - 99 mg/dL 01/08/2025 1:04 PM T [facility] CALCIUM 8.9 8.8 - 10.4 mg/dL 01/08/2025 1:04 PM [facility] Comment: Reference ranges for this test were updated on 06/29/2024 to reflect our healthy population more accurately. Reference range changes are not retroactively applied to results, but previous results using the same methodology can be interpreted in the context of the new reference range. BUN 7 6 - 20 mg/dL 01/08/2025 1:04 PM [facility] CREATININE 0.59 0.50 - 0.90 mg/dL 01/08/2025 1:04 PM [facility] BUN/CREAT RATIO 12 10 - 20 1:04 PM [facility] eGFR >90 >90 mL/min/1. 73m2 01/08/2025 1:04 PM [facility] Comment:As of 2021, eG FR is calculated by the CKD-EPI creatinine equation without race adjustment. eGFR can be influenced by muscle mass, exercise, and diet. The reported eGFR is an estimation only and is only applicable if the renal function is stable. ALBUMIN 3.3(L) 4.0 - 4.9 g/dL 01/08/2025 1:04 PM [facility] PROTEIN,TOTAL 6.8 6.0 - 8.0 g/dL 01/08/2025 1:04 PM [facility] BILIRUBIN,TOTAL 0.4 0.0 - 1.2 mg/dL 01/08/2025 1:04 PM [facility] ALK PHOSPHATASE 104 35 - 104 IU/L 01/08/2025 1:04 PM [facility] ALT (SGPT) 61(H) 10 - 35 IU/L 01/08/2025 1:04 PM CDT [facility] AST (SGOT) 37(H) 10 - 35 IU/L 01/08/2025 1:04 PM CDT [facility] Blood BLOOD SPECIMEN / Unknown Venipuncture / Unknown 01/08/2025 12:24 PM CDT 01/08/2025 12:34 PM CDT Tena MARTELL CHEMISTRY Final R esult [facility] [address] [place] [id number], [place] * XR ERCP BILIARY ONLY (01/07/2025 1:22 PM CDT) Only the most recent of2 resultswithin the time period is included. Anatomical Region Laterality Modality GALLBLADDER, PANCREAS, LIVER Oth er Narrative 01/07/2025 12:39 PM CDT 1 minute 41 seconds fluoroscopy time was provided. See operative/procedure report for further information. Osvaldo Birch MD FLUOROSCOPY Final Result * [...] Birch MD - 01/07/2025 1:50 PM CDT [facility] Patient Name: Suzan Heredia Procedure Date: 01/07/2025 Gender: Female Date of : 1990 Admit Type: Inpatient Procedure: ERCP Proceduralist: Osvaldo Birch MD - [facility] Digestive Health Indications/Pre-Op Diagnosis: Treatment of bile leak Medications: General Anesthesia Procedure Description: Risk of bleeding, infection, perforation, pancreatitis, need for surgery, remote chance of and alternatives were discussed, andthe patient gave informed consent. The endoscope [id number] was passed through the mouth, and advanced to the duodenum and used to inject contrast into the bileduct. The ERCP was accomplished with ease. The patient tolerated theprocedure well. Complications: No immediate complications. Estimated Blood Loss & Specimen: Estimated blood loss: none. Specimen collected: None Findings: A automatic driller and reamer film of the abdomen was obtained. Surgical [...] SERUM BILIRUBIN: None available RADIOPHARMACEUTICAL: 5.5 mCi [id number] was administered intravenously. TECHNIQUE: The patient was [...] provider. INDICATION: Laparoscopic cholecystectomy 11/27/2024. CT-guided drain lvbceocyw44/10/2025. Substantial drain output. COMPARISON: CT 01/06/2025 and 01/04/2025. Prior HIDA scan 12/31/2024 MOST RECENT SERUM BILIRUBIN: None available RADIOPHARMACEUTICAL: 5.5 mCi [id number] was administered intravenously. TECHNIQUE: The patient was [...] MD @ 01/06/2025 12:46:38 PM (Electronically Signed) Lourdes MARTELL NM Final R esult * AMYLASE (01/06/2025 5:04 AM CDT) Pathologist [facility] AMYLASE 39 28 - 100 IU/L 01/06/2025 10:54 AM CDT [facility] Blood BLOOD SPECIMEN / Unknown Venipuncture / Unknown 01/06/2025 5:04 AM CDT 01/06/2025 5:39 AM CDT Tona Jalloh DO CHEMISTRY Final Re sult [facility] [address] [place] [address], * AMYLASE,BODY FLUID (01/05/2025 1:47 PM CDT) SPECIMEN SOURCE Drain 01/05/2025 3:09 PM CDT [facility] AMYLASE,BODY FLUID 62 IU/L 01/05/2025 3:09 PM CDT [facility] Comment:No Reference Range D efined. Body Fluid (Drain) Non-Blood / Unknown 01/05/2025 1:47 PM CDT 01/05/2025 1:59 PM CDT Narrative [facility] - 01/05/2025 3:09 PM CDT Peritoneal: Amylase [...] Test developed & performance characteristics determined by [facility], [place], [place] consistent with CLIA requirements. Not cleared or approved by [place] FDA. Mari Dickinson DO BODY FLUID Fi nal Result [facility] [address] [place] [address], [place] * SCAN-CARDIAC STRIP (01/03/2025 2:30 AM CDT) us Scanner OTHER Final Result * (ABNORMAL) Aerobic Culture Body Fluid (01/02/2025 12:32 PM CDT) CULTURE RESULT(A) 01/05/2025 10:50 AM CDT [facility] CULTURE 1+ Streptococcus salivarius group 01/05/2025 10:50 AM CDT [facility] GRAM STAIN No Epithelial cells 01/05/2025 10:50 AM CDT [facility] GRAM STAIN No RBCs 01/05/2025 10:50 AM CDT [facility] GRAM STAIN No PMNs 01/05/2025 10:50 AM CDT [facility] GRAM STAIN No organisms seen 025 10:50 AM CDT [facility] Body Fluid BODY FLUID SPECIMEN / [...] MD MICROBIOLOGY Final Result Performing Organization Address [facility] Co de Phone Number [facility] [address] [phone], * Anaerobic Culture (01/02/2025 12:32 PM CDT) CULTURE No anaerobes isolated 01/07/2025 11:01 AM CDT [facility] Other BODY FLUID SPECIMEN / Unknown Non-Blood / Unknown 01/02/2025 12:32 PM CDT 01/02/2025 12:46 PM CDT Jb Estrada MD MICROBIOLOGY Final Result Performing Organization Address [facility] de Phone Number [facility] [address] [place] [address], [place] * SCAN-CARDIAC STRIP (01/02/2025 2:08 AM [...] CULTURE No Growth. 01/05/2025 11:43 PM CDT [facility] Blood BLOOD SPECIMEN / Unknown Butterfly / Unknown 12/31/2024 11:29 PM CDT 12/31/2024 11:35 PM CDT Mandi Echeverria MD MICROBIOLOGY Final Resu lt [facility] [address] [place] [address], [place] * SCAN-CARDIAC STRIP (12/31/2024 8:00 PM [...] 5.3 <=6.4 % 12/31/2024 6:05 PM CDT [facility] Blood BLOOD SPECIMEN / Unknown Butterfly / Unknown 12/31/2024 6:13 AM CDT 12/31/2024 6:25 AM CDT Narrative [facility] - 12/31/2024 6:05 PM CDT (<5.7%) Normal (5.7% to 6.4%) Indicates prediabetes (>=6.5%) Confirms diabetes Falsely low levels may be seen with: Recent Transfusion, Recent Significant Blood Loss, Hemolytic Diseases, or Falsely elevated levels may be seen with: Untreated Anemias, Splenectomy us Elder Marino MD CHEMISTRY Final Re sult Performing Organization Address [facility]/ZIP Co de Phone Number [facility] [address] [place] [phone], [place] * SCAN-CARDIAC STRIP (12/31/2024 4:18 AM CDT) us Scanner OTHER Final Result * SCAN-CARDIAC STRIP (12/31/2024 3:21 AM CDT) us Scanner OTHER Final Result * (ABNORMAL) INR STAT (12/31/2024 12:36 AM CDT) INR 1.1 <1.3 12/31/2024 1:06 AM CDT [facility] PROTIME 12.7(H) 10.6 - 12.4 sec 12/31/2024 1:06 AM CDT [facility] Blood BLOOD SPECIMEN / Unknown Venipuncture / Unknown 12/31/2024 12:36 AM CDT 12/31/2024 12:50 AM CDT Narrative [facility] - 12/31/2024 1:06 AM CDT Therapeutic Range [...] seconds if the patient is on UFH. us Elder Marino MD HEMATOLOGY Final Re sult Performing Organization Address [facility]/ZIP Co de Phone Number [facility] [address] [place] [phone], [place] * 12 Lead EKG (12/31/2024 12:14 AM CDT) Interpretation Sinus tachycardia Anterolateral infarct , age undetermined Abnormal ECG No previous ECGs available BEYOND NOW Ventricular Rate 143 BPM BEYOND NOW Atrial Rate 143 BPM BEYOND NOW P-R Interval 130 ms BEYOND NOW QRS Duration 78 ms BEYOND NOW QT 274 ms BEYOND NOW QTc 422 ms BEYOND NOW P [place] 34 degrees BEYOND NOW R [place] -10 degrees BEYOND NOW T [place] -4 degrees BEYOND NOW 12/31/2024 12:1 4 AM CDT 12/31/2024 2:14 PM CDT us Elder Marino MD EKG ORD Final Re sult BEYOND NOW [place], [place] * HCHG TUBE PR1, HCHG STYLET [...] From: teeth Difficulty: 0 (not difficult) us Wanye Pickett MD ANESTHESIA PX NOTE O RDERABLES Final Result * ENDOSCOPY (12/29/2024 12:39 PM CDT) 12/29/2024 12:3 9 PM CDT Narrative Transcriptions Caio Leonard MD - 12/29/2024 1:31 PM CDT [facility] Patient Name: Suzan Heredia Procedure Date: 12/29/2024 Gender: Female Date of : 1990 Admit Type: Ambulatory Procedure: ERCP Proceduralist: Caio Leonard MD - [facility] Digestive Health Referring MD: Caio Leonard MD Indications/Pre-Op Diagnosis: Bile duct stone(s) Medications: General Anesthesia Procedure Description: Risk of bleeding, infection, perforation, pancreatitis, need for surgery, remote chance of and alternatives were discussed, andthe patient gave informed consent. The endoscope [id number] was passed through the mouth, and advanced [...] electronically. Note Initiated On: 12/29/2024 12:39 PM us Caio Leonard MD PROCEDURE ORD Final Result * ENDOSCOPY (12/29/2024 12:11 PM CDT) 12/29/2024 12:1 1 PM CDT Narrative Transcriptions Caio Leonard MD - 12/29/2024 12:38 PM CDT [facility] Patient Name: Suzan Heredia Procedure Date: 12/29/2024 Gender: Female Date of : 1990 Admit Type: Ambulatory Procedure: Upper EUS Proceduralist: Caio Leonard MD - [facility] Digestive Health Referring MD: Caio Leonard MD Indications/Pre-Op Diagnosis: Elevated liver enzymes, Suspected choledocholithiasis Medications: General Anesthesia Procedure Description: Risk of bleeding, infection, perforation, pancreatitis, need for surgery, remote chance of and alternatives were discussed, andthe patient gave informed consent. The [id number] was introduced through the mouth, and advancedto [...] E Negative Negative 12/29/2024 12:18 PM CDT [facility] Urine URINE SPECIMEN / Unknown Non-Blood / Unknown 12/29/2024 11:39 AM CDT 12/29/2024 12:04 PM CDT Caio Leonard MD URINE Final Result [email or web address] [address] [place] [address], [place] * PATH NON SALES ACCOUNT REPRESENTATIVE CYTOLOGY (12/26/2024 11:40 AM CDT) Case Report Medical Cytology Report Case: [id number] Authorizing Provider: Steph Gordillo MD Collected: 12/26/2024 1140 Ordering Location: [facility] Received: 12/27/2024 1535 Pathologist: Steve Vaughn Jr., MD Specimen: Peritoneal Washing, Pelvic washing 12/28/2024 11:34 AM CDT [facility] Powered Outcomes [facility]- ENTR[facility] Final Diagnosis PERITONEAL WASHING FOR CYTOLOGY: Negative for malignancy, see comment 12/28/2024 11:34 AM CDT [facility] ENTR[facility] LAB[facility]ORY at 1134 CDT Comment See the concurrent surgical specimen for additional details. 12/28/2024 11:34 AM CDT [facility] Clinical Information 34 year old female 12/28/2024 11:34 AM CDT [facility] Gross Description A) SOURCE: Peritoneal washing The specimen consists of 60 cc of light red clear fluid from which the following is prepared: -1 Papanicolaou stained ThinPrep slide 12/28/2024 11:34 AM CDT [facility] Microscopic Description Specimen adequacy: Adequate for interpretation. All slides were reviewed. The microscopic appearance substantiates the diagnosis. 12/28/2024 11:34 AM CDT [facility] Additional Information Cytology is screened at [facility] - [address], [place] [address] and [facility] - [address], [place] [address] and [facility] - [address] [facility] [place] [address] Interpreted at [facility] - [address], [place] [address] 12/28/2024 11:34 AM CDT [facility] Other (Peritoneal Washing) 12/26/2024 11:40 AM CDT 12/27/2024 3:35 PM CDT Steph Gordillo MD PATHOLOGY/CYTOLOGY Final Result Performing Organization Address City/[facility]/ZIP Co de Phone Number [facility] [address] [place] [address], [place] * LAB TRACKING EVENT (12/26/2024 11:24 AM CDT) Only the most recent of2 resultswithin the time period is included. Other (Other) Client Collect / Unknown 12/26/2024 11:24 AM CDT 12/27/2024 2:28 PM CDT Steph Griselda Gordillo MD LAB BILL ONLY Final Result Performing Organization Address [facility] Co de Phone Number [facility] [address] [place] [address], [place] * PATH TISSUE EXAM (12/26/2024 11:24 AM CDT) Case Report Pathology Report Case: [id number] Authorizing Provider: Rafa Carolina MD Collected: 12/26/2024 1124 Ordering Location: [facility] Received: 12/28/2024 1014 Pathologist: Jaya Zhong MD Specimen: Gallbladder 12/29/2024 3:07 PM CDT [email or web address] Final Diagnosis A) GALLBLADDER, CHOLECYSTECTOMY: 1. Chronic cholecystitis 2. Cholelithiasis 3. Negative for dysplasia and malignancy 12/29/2024 3:07 PM CDT [email or web address] at 1507 CDT Clinical Information Ms. Heredia is a 34 y.o. who presents with abdominal pain. 12/29/2024 3:07 PM CDT [email or web address] ENTRAL LABORATORY Gross Description A) Received in formalin, labeled with the patient's name and gallbladder, is a 7.8 x 3.3 x 3.0 cm intact gallbladder. There are multiple yellow gallstones identified. There are no mucosal lesions identified. The average wall thickness is 0.1 cm. There is no abnormal wall thickening identified. No cystic duct lymph node is identified. Freelance Graphic Designer sections are submitted in one cassette. SACHA 12/28/2024 12/29/2024 3:07 PM CDT [facility]- ENTRAL LABORATORY Microscopic Description The final diagnosis is based on microscopic examination of appropriate sections of all specimens. 12/29/2024 3:07 PM CDT [facility]-C ENTRAL LABORATORY Additional Information Interpreted at [facility] - [address] [place] [address] [address] [address] 12/29/2024 3:07 PM CDT [facility] Other SPECIMEN FROM GALLBLADDER / Unknown 12/26/2024 11:24 AM CDT 12/28/2024 10:14 AM CDT us Rafa Carolina MD PATHOLOGY/CYTOLOGY Final R esult [facility] [address] [place] [address], from Last 3 Months Additional Health Concerns Active Problems Noted Date Diagnosed Date Autogenerated Problem 02/17/2025 Insurance [facility] [employer] Advance Directives * Full [...] 10:14 PM 11/10/2015 8:18 PM Care Teams Flotation Tender Relationship Specialty Start Date End Date Pcp, No . PCP - General 12/28/24
--- OUTSIDE RECORDS SUMMARY | 2025-02-20 17:16 | XMS_ITS | Clinical Summary ---
Author Organization [facility] Health Address [address] [place] [address] Care Team Providers Care Director Of Search Engine Marketing Name Role Phone Unavailable Primary Care Provider [...]
--- OUTSIDE RECORDS SUMMARY | 2025-02-20 17:16 | XMS_ITS | Encounter Summary ---
Author Organization [place] Address [facility] [place] [address] Care Team Providers Care Machine Heel Seat Laster Name Role Phone Yesisca Dunbar PA-C Unavailable [phone] Carolin Flor APRN [facility] Unavailable Lourdes Olmedo [facility] Unavailable Unavail able Diamante Kent PA-C Unavailable [phone] Clinic, [facility] [place] Primary Care Provider Encounter Details Date Type Department Care Team (Latest Contact Info) Description 02/05/2025 Travel Social History Tobacco Use Types Packs/Day Years [...] in an abandoned building, in an overnight retirement, or couch-surfing.) Yes 02/06/2025 Are you worried [...] on file 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 Gender Identity Not on file Sexual Orientation Not on file documented as of this encounter Plan of Treatment Not on file documented as of this encounter Visit Diagnoses Not on filedocumented in this encounter Care Teams Machine Heel Seat Laster Relationship Specialty Start Date End Date [facility], [facility] [address] [facility] [place] [address] PCP - General 01/18/25 Yessica Dunbar PA-C [address] [place] [address] [address] [place], [place] [address] Physician Fx Artist Surgery 06/22/24 Carolin Flor APRN DRILLING MACHINE RUNNER [address] [place] [address] Assigned PCP 07/17/24 Lourdes Olmedo RP Assigned MTM Pharmacist 07/17/24 Diamante Kent PA-C [address] [place], [place] [address] Assigned Surgical Provider 09/16/24 documented as of this encounter
--- OUTSIDE RECORDS SUMMARY | 2025-02-20 17:16 | XMS_ITS ---
Author Name Interface, [id number] lity Address [address] [place] [address] [facility] On[facility] Address [facility] [address] [address] Allergies and Adverse Reactions Plan Reason for Visit Encounters Immunizations Diagnostic Results Medications Problems Notes Section
--- OUTSIDE RECORDS SUMMARY | 2025-02-20 17:16 | XMS_ITS | Encounter Summary ---
Author Organization [place] Address [facility] [place] [address] Care Team Providers Care Dialer Name Role Phone [facility] Primary Ca re Provider Lourdes Olmedo [facility] Unavailable Unavail able Yessica DunbarC Unavailable [phone] Carolin Flor APRN [employer] [facility] Unavailable [phone] Lourdes Olmedo [facility] Unavailable Unavail able Diamante Kent PA-C Unavailable [phone] Mirna Alegre RN Unavailable Unavailable [facility] Primary Care Provider Encounter Details Date Type Department Care Team (Late st Contact Info) Description 06/23/2024 [facility] [address] [place] [address] Maryanne Millard, RN Social History Tobacco Use Types Packs/Day Years Used Date Smoking Tobacco: Never Alcohol Use Standard Drinks/Week Comments Yes 0 (1 standard drink = 0.6 oz pur e alcohol) PHQ-2 Answer Date Recorded PHQ-2 Score 0 06/22/2024 Comments No Sex and Gender Information Value Date Recorded Sex Assigned at Not on file 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 [address] Pharmacist Pharmacist 06/22/24 09/16/24 Yessica Dunbar PA-C [address] [place] [address] Physician Police Dispatcher Surgery 06/22/24 Carolin Flor APRN [facility] [address] [place] [address] Assigned PCP 07/17/24 Lourdes Olmedo [facility] Assigned MTM Pharmacist 07/17/24 Diamante Kent PA-C [address] [place] [address] Assigned Surgical Provider 09/16/24 Mirna Alegre RN RN Clinical Product Navigator 01/05/25 01/18/25 documented as of this encounter
[2025-02-20 17:43] VITALS: BP 136/85; PULSE 94; RESP 18; TEMP 36.8; O2SAT 97; BMI 46.3
--- OUTSIDE RECORDS SUMMARY | 2025-02-20 19:02 | XMS_ITS ---
Author Name Interface, S9Srsulsc lity Address [address] [facility] [address] [place] [address] [facility] Oncology Address [address] [facility] [address] [place] [address] Allergies and Adverse Reactions Medication/Group Name Reaction [...] history of cancer Active Notes Section * REVIT DRAFTER Onc Consult Note GYNECOLOGIC ONCOLOGY CONSULT Patient [...] me directly with any concerns at my [place] office at . ??Again, I appreciate your referral of this delightful patient and your support of our practice.?? Sincerely Yours, Susana Ayala M.D. Gynecologic Oncology [facility] Operating at [facility] Reason for Consult:* Primary diagnosis: Pelvic Mass * Prior treatments: none?? * Genetic testing: none History of Present Illness (Rigging Helper Oncology): This is a delightful patient??referred for [...] 12, CA 19-9 is 35 Genetic Testing (Rigging Helper Oncology): Not yet indicated Review of Systems: A complete 14-point review of systems is negative except as noted in the above history of present illness. Past Medical History: Irregular menses, history of??sepsis following cholecystectomy??with bile leak. Surgical History: Laparoscopic cholecystectomy therapist physical History: This is a G0 with a [...] BSA: 2.05, BMI: 48.82 kg/m2 Physical Exam (Rigging Helper Oncology): MUSHROOM PACKER/General: ??Alert and oriented x 3. The patient [...] adnexae is midline and mobile, slightly enlarged. ??Guitar Repairer is present during exam. Muscles and Joints: ??Extremities are warm and well perfused without edema or calf tenderness. Laboratory Data: [] ? Imaging: EXAM: CT ABDOMEN PELVIS W LOCATION: [facility] DATE: 01/26/2025??COMPARISON: CT abdomen pelvis 01/17/2025. IMPRESSION: [...] Family history of cancer Assessment & Plan (Rigging Helper Oncology): This is a delightful patient??referred for [...] I spent a total of 45 minutes [id number] patient consultation, conversation, coordinationof care, and documentation, [...] Risk (Blood), Perform Date: 02/02/2025, Perform Location: [place] Medications:??* 02/02/2025; Sprintec (Norgestimate-Ethinyl Estradiol Oral 0.25 mg-35 mcg) 0.25-0.035 mg tablet 1 tab orally daily. Take once daily for ovarian cyst suppression Dispense: 28 Tablet Refills: 4 Duration: 28 days Allow Substitution To: [facility]/pharmacy #[id number], [address] [address] Ph: [phone] From: Susana Ayala MD, MARCIO: [id number] [address] [place] [address], [facility] [address] [address] Status: Delivered Associated problem(s): Pelvic mass * (R19.09) Imaging:??* 02/02/2025, Pelvic U/S w/transvaginal & abdominal probe, Perform Date: 03/16/2025 Services:??* 02/02/2025, RTC , Instructions: 2 days after ultrasound, Perform Date: 03/18/2025, Perform Location: [place] Regimens: ?= Susana Ayala MD Copy to: FAX Stephjose luis Gordillo MD (Referring) ?? Electronically signed by Susana Ayala MD 02/11/2025 15:27 CDT
--- OUTSIDE RECORDS SUMMARY | 2025-02-20 19:02 | XMS_ITS ---
Author Name Interface, [id number] lity Address [address] [facility] [address] [place] [address] [facility] Address [address] [facility] [address] [place] [address] Allergies and Adverse Reactions Medication/Group Name Reaction [...] history of cancer Active Notes Section * DIRECTOR OF ONCOLOGY Onc Consult Note GYNECOLOGIC ONCOLOGY CONSULT Patient [...] me directly with any concerns at my [place] office at . ??Again, I appreciate your referral of this delightful patient and your support of our practice.?? Sincerely Yours, Susana Ayala M.D. Gynecologic Oncology [facility] Operating at [facility] Reason for Consult:* Primary diagnosis: Pelvic Mass * Prior treatments: none?? * Genetic testing: none History of Present Illness (Research Animal Facility Supervisor Oncology): This is a delightful patient??referred for [...] 12, CA 19-9 is 35 Genetic Testing (Research Animal Facility Supervisor Oncology): Not yet indicated Review of Systems: A complete 14-point review of systems is negative except as noted in the above history of present illness. Past Medical History: Irregular menses, history of??sepsis following cholecystectomy??with bile leak. Surgical History: Laparoscopic cholecystectomy oracle application architect History: This is a G0 with a [...] BSA: 2.05, BMI: 48.82 kg/m2 Physical Exam (Research Animal Facility Supervisor Oncology): SALES MARKETING DIRECTOR/General: ??Alert and oriented x 3. The patient [...] adnexae is midline and mobile, slightly enlarged. ??Spiritual Minister is present during exam. Muscles and Joints: ??Extremities are warm and well perfused without edema or calf tenderness. Laboratory Data: [] ? Imaging: EXAM: CT ABDOMEN PELVIS W LOCATION: [facility] DATE: 01/26/2025??COMPARISON: CT abdomen pelvis 01/17/2025. IMPRESSION: [...] Family history of cancer Assessment & Plan (Research Animal Facility Supervisor Oncology): This is a delightful patient??referred for [...] I spent a total of 45 minutes [id number] patient consultation, conversation, coordinationof care, and documentation, [...] Risk (Blood), Perform Date: 02/02/2025, Perform Location: [place] Medications:??* 02/02/2025; Sprintec (Norgestimate-Ethinyl Estradiol Oral 0.25 mg-35 mcg) 0.25-0.035 mg tablet 1 tab orally daily. Take once daily for ovarian cyst suppression Dispense: 28 Tablet Refills: 4 Duration: 28 days Allow Substitution To: [facility]/pharmacy #[id number], [id number] [address] [place] [address] Ph: [phone] From: Susana Ayala MD, MARCIO: [id number] [address] [place] [address], [facility] [address] [address] Status: Delivered Associated problem(s): Pelvic mass * (R19.09) Imaging:??* 02/02/2025, Pelvic U/S w/transvaginal & abdominal probe, Perform Date: 03/16/2025 Services:??* 02/02/2025, RTC , Instructions: 2 days after ultrasound, Perform Date: 03/18/2025, Perform Location: [place] Regimens: ?= Susana Ayala MD Copy to: FAX Stephjose luis Gordillo MD (Referring) ?? Electronically signed by Susana Ayala MD 02/11/2025 15:27 CDT
--- OUTSIDE RECORDS SUMMARY | 2025-02-20 19:02 | XMS_ITS | CCD ---
Author Name Interface, [id number] lity Address [facility] [address] [place] [address] [facility] Address [address] [place] [address] Care Team Providers Care Enrobing Machine Operator Name Role Phone Jamie MARSHALL, Susana Castano Unavailable Allergies and Adverse Reactions Care Plan Reason for Visit Encounters Immunizations Diagnostic Results Medications Problems Procedures Social History Visits Vital Signs Notes Section
--- OUTSIDE RECORDS SUMMARY | 2025-02-20 19:02 | XMS_ITS | CCD ---
Author Name Interface, [id number] lity Address [address] [facility] [address] [address] Organization [facility] Address [address] [facility] [address] [address] Care Team Providers Care Ginger Farmer Name Role Phone Jamie MARSHALL, Susana Castano [...] See attache maynard FINAL Susana Ayala 01/18 [facility] other lab See resaw tailer d Medications Date Name Route Dose Frequency Instructions Start Date End Date Status Escitalopram Oral daily in the morning active Ketorolac IM inac tive Semaglutide Subcutaneous Pen Injector once weekly active Hydromorphone Oral inactive Polyethylene Glycol Oral Powder as needed inactive Naloxone Nasal [place] 4 mg/actuation as needed inactiv e Calcium Carbonate Oral every 4hours as needed active Heparin Subcutaneous subcutaneous inac tive Melatonin Oral 3 tabs nightly inactive Sennosides-Docus ate Sodium Oral 8.6 mg-50 mg as needed inactiv e Ondansetron Oral as needed inactive Piperacillin-Yair obactam (8:1) IV steven ctive 025 Sprintec 28 Day Pack orally 1.0 [...] 02/02/2025 Pain Scale 0.00 Notes Section * MID LEVEL CLINICIAN Onc Consult Note GYNECOLOGIC ONCOLOGY CONSULT Patient [...] me directly with any concerns at my [place] office at . ?Again, I appreciate your referral of this delightful patient and your support of our practice.? Sincerely Yours, Susana Ayala M.D. Gynecologic Oncology [facility] Operating at [facility] Reason for Consult:* Primary diagnosis: Pelvic Mass * Prior treatments: none? * Genetic testing: none History of Present Illness (Manager Hematology Oncology): This is a delightful patient?referred for [...] 12, CA 19-9 is 35 Genetic Testing (Manager Hematology Oncology): Not yet indicated Review of Systems: A complete 14-point review of systems is negative except as noted in the above history of present illness. Past Medical History: Irregular menses, history of?sepsis following cholecystectomy?with bile leak. Surgical History: Laparoscopic cholecystectomy apricot packer History: This is a G0 with a [...] BSA: 2.05, BMI: 48.82 kg/m2 Physical Exam (Manager Hematology Oncology): REPRODUCTIVE ENDOCRINOLOGIST/General: ?Alert and oriented x 3. The patient [...] adnexae is midline and mobile, slightly enlarged. ?Supervisor Beater Room is present during exam. Muscles and Joints: ?Extremities are warm and well perfused without edema or calf tenderness. Laboratory Data: [] ? Imaging: EXAM: CT ABDOMEN PELVIS W LOCATION: [facility] DATE: 01/26/2025?COMPARISON: CT abdomen pelvis 01/17/2025. IMPRESSION: [...] Family history of cancer Assessment & Plan (Manager Hematology Oncology): This is a delightful patient?referred for [...] I spent a total of 45 minutes [id number] patient consultation, conversation, coordinationof care, and documentation, [...] Risk (Blood), Perform Date: 02/02/2025, Perform Location: [place] Medications:?* 02/02/2025; Sprintec (Norgestimate-Ethinyl Estradiol Oral 0.25 mg-35 mcg) 0.25-0.035 mg tablet 1 tab orally daily. Take once daily for ovarian cyst suppression Dispense: 28 Tablet Refills: 4 Duration: 28 days Allow Substitution To: [facility]/pharmacy #[id number], [id number], [place] [address] Ph: [phone] From: Susana Ayala MD, MARCIO: [id number] [address] [place] [address], [address] [address] Status: Delivered Associated problem(s): Pelvic mass * (R19.09) Imaging:?* 02/02/2025, Pelvic U/S w/transvaginal & abdominal probe, Perform Date: 03/16/2025 Services:?* 02/02/2025, RTC , Instructions: 2 days after ultrasound, Perform Date: 03/18/2025, Perform Location: [place] Regimens: ?= Susana Ayala MD Copy to: FAMeli Gordillo MD (Referring) ? Electronically signed by Susana Ayala MD 02/11/2025 15:27 CDT
--- NOTE | 2025-02-20 19:11 | ED.GENADULT ---
HPI - General Adult General Chief complaint: Abdominal Pain Stated complaint: Returning pancreatitis concerns Time Seen by Provider: 02/20/25 18:52 Source: patient Mode of arrival: ambulatory Limitations: no limitations History of Present Illness HPI narrative: 34-year-old female presents today with abdominal pain, nausea vomiting for 5 days. Patient recently had a cholecystectomy and required multiple ERCPs subsequently. She also has a drain in place that has been removed and she has stents in place that are scheduled to come out approximately 2 weeks. She was discharged from the hospital approximately 2 weeks ago and has been doing well until 5 days ago when her abdominal pain that is epigastric and radiates to the right upper quadrant, returned. She denies any fevers or chills. No diarrhea or constipation, bowel movements have been normal. She denies any urinary symptoms such as dysuria, increased frequency or urgency. She denies feeling short of breath, no chest pain. 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 What is your current living situation?: I presently have a place to live Problems where you live: no known problems Problems where you live details: n/a In the past 12 months, utilities in danger of being shut off: no In past 12 months, lack of transportation kept you from medical appts, meetings, work, or getting things needed for daily living: no In the past 12 mos, have been you worried that your food would run out before you had money to buy more?: never true In the past 12 mos, the food you bought just didn't last and you didn't have money to buy more?: never true Highest level of school completed/degree received: Associate degree: occupational, technical, vocational program Smoking Status: Never smoker Do you use any of these nicotine containing products: Vaping Products Second hand tobacco smoke exposure: No How often do you have a drink containing alcohol: monthly or less How many standard drinks containing alcohol do you have on a typical day: 1 or 2 How often do you have six or more drinks on one occasion: Never AUDIT-C Alcohol total score: 1 Non-prescribed substance use: denies use Caffeine: Yes How often does anyone, including family, friends and others, physically hurt you: never How often does anyone, including family, friends and others, insult or talk down to you: never How often does anyone, including family, friends and others, threaten you with harm: never How often does anyone, including family, friends and others, scream or curse at you: never service: No Exam Narrative: Exam Narrative: Well-nourished well-developed patient in no acute distress. Alert and oriented. Answers questions appropriately. Mood and affect are appropriate. Thoughts are goal oriented and rational. No tangential or magical thinking noted. Patient speaks in full sentences without needing to catch her breath. HEENT: Normocephalic atraumatic. Pupils are equally round reactive to light. Extraocular muscles are intact. Conjunctivae are moist without any icterus noted. Moist mucous membranes. Posterior pharynx is normal. Cardiovascular: Heart is regular rate and rhythm S1 and S2 are present without any murmurs. Lungs: Clear to auscultation bilaterally no wheezes rhonchi or rales are appreciated. Abdomen: Soft and nondistended with normal bowel sounds. Epigastric tenderness, RUQ tenderness. Extremities: Bilateral lower extremities are without edema. Skin: Well perfused without any obvious rashes. Const: Vital Signs, click to edit/add: Vital Signs - 24 hr 02/20/25 17:43 02/20/25 19:46 02/20/25 22:29 Temperature 98.2 F 97.5 F L 97.5 F L Pulse Rate [Right Pulse Oximeter] 94 76 86 Respiratory Rate 18 18 18 Blood Pressure [Ri ght Upper Arm] 136/85 126/87 130/86 Pulse Oximetry 97 98 97 Oxygen Delivery Me thod Room Air Room Air Room Air Course Course ED Course: IV established, patient given a L of normal saline IV Zofran. EKG was done to make sure there is no QT prolongation given her current medications. EKG, read by me, shows normal sinus rhythm with a pulse of 87, normal QTC. Blood work showing no elevated white cell count, normal CRP, normal lactate. LFTs are slightly more elevated than they were 2 weeks ago with an AST of 77 and ALT of 132. Alkaline phosphatase is normal. Urine is concentrated, no evidence of infection. Lipase increased from 58-223, but still within normal limits. Abdominal CT scan shows that thing rim enhancing lesion that was present on previous scan is now smaller but still present. Unclear of the cause of the patient's pain is, we discussed that it could be the stents are causing irritation in pain. We discussed that it could be an early pancreatitis that has not fully presented itself yet however given that the patient is on day 5 of pain I would have expected the lipase to be how much higher if that were the case. Vital Signs Vital signs: Initial Vital Signs Temperature 98.2 F 02/20/25 17:43 Temperature Source Temporal Artery Scan 02/20/25 17:43 Pulse Rate 94 02/20/25 17:43 Respiratory Rate 18 02/20/25 17:43 Blood Pressure 136/85 02/20/25 17:43 Blood Pressure Mean 102 02/20/25 17:43 Blood Pressure Position Sitting 02/20/25 17:43 Pulse Oximetry 97 02/20/25 17:43 Oxygen Delivery Method Room Air 02/20/25 17:43 Vital Signs Temperature 98.2 F 02/20/25 17:43 Pulse Rate 94 02/20/25 17:43 Respiratory Rate 18 02/20/25 17:43 Blood Pressure 136/85 02/20/25 17:43 Pulse Oximetry 97 02/20/25 17:43 Oxygen Delivery Method Room Air 02/20/25 17:43 Temperature 97.5 F L 02/20/25 22:29 Pulse Rate 86 02/20/25 22:29 Respiratory Rate 18 02/20/25 22:29 Blood Pressure 130/86 02/20/25 22:29 Pulse Oximetry 97 02/20/25 22:29 Oxygen Delivery Method Room Air 02/20/25 22:29 Medications Administered Medications: Discontinued Medications Generic Name Dose Route Start Last Admin Trade Name Freq PRN Reason Stop Dose Admin Hydrocodone Bitart/Acetaminophen 2 tab 02/20/25 20:28 02/20/25 20:34 Hydrocodone-Acetamin 5-325 Mg 1 Tab PO 02/20/25 20:29 2 tab ONCE ONE Administration Sodium Chloride 1,000 mls @ 1,000 mls/hr 02/20/25 19:15 02/20/25 21:31 0.9 % Sodium Chloride 1000 Ml IV 02/20/25 20:14 Infused .Q1H MYKE Infusion Ondansetron HCl 4 mg 02/20/25 19:09 02/20/25 19:33 Ondansetron 2 Mg/Ml Inj IVP 02/20/25 19:10 4 mg ONCE ONE Administration Medical Decision Making MDM Narrative Medical decision making narrative: 34-year-old female with abdominal pain, unclear etiology. Patient will follow-up with primary care this week. Recommend GI consultation or follow-up with her surgical team as well. Lab Data Lab results reviewed: Yes I reviewed the patient's lab results Labs: Lab Results 02/20/25 02/20/25 Range/Units 19:10 19:35 WBC 8.65 (4.50-11.00) K/uL RBC 4.86 (4.00-5.20) m/uL Hgb 12.3 (12.0-16.0) gm/dL Hct 37.6 (33.0-51.0) % MCV 77 L (80-100) fL MCH 25 L (26-34) pg MCHC 33 (32-36) gm/dL RDW Coeff of Gustavo 16.3 H (11.5-15.5) % Plt Count 337 (140-440) K/uL Neut % (Auto) 70.7 (42.0-72.0) % Lymph % (Auto) 23.1 (20-44) % [place] % (Auto) 3.9 (0.0-11.0) % Eos % (Auto) 2.1 (0.0-7.0) % Baso % (Auto) 0.1 (0.0-3.0) % Neut # (Auto) 6.11 (1.7-7.0) K/uL Lymph # (Auto) 2.00 (0.90-2.90) K/uL [place] # (Auto) 0.30 (0.00-0.90) K/UL Eos # (Auto) 0.18 (0.00-0.50) K/uL Baso # (Auto) 0.01 (0.00-0.30) K/uL Abs Immat Gran (auto) 0.01 (0.00-0.30) K/uL Imm/Tot Granulo (auto) 0.1 % Sodium 137 (135-149) mmol/L Potassium 3.6 (3.6-5.1) mmol/L Chloride 102 (96-114) mmol/L Carbon Dioxide 27 (20-32) mmol/L Anion Gap 8 (7-15) mEq/L BUN 9 (5-24) mg/dL Creatinine 0.7 (0.5-1.5) mg/dL Estimated Creat Clear 86.26 Estimated GFR 117 ml/min Glucose 106 (60-115) mg/dL Lactate 0.6 (0.5-1.9) mmol/L Calcium 9.0 (8.4-10.6) mg/dL Total Bilirubin 0.8 (0.1-1.5) mg/dL Direct Bilirubin 0.3 (0.0-0.5) mg/dL AST 77 H (12-35) U/L ALT 132 H (4-35) U/L Alkaline Phosphatase 74 (40-150) U/L C-Reactive Protein < 0.5 L (0.5-1.0) mg/dL Total Protein 7.5 (6.0-8.3) g/dL Albumin 4.2 (3.3-5.0) g/dL Lipase 223 (23-300) U/L Urine Color Yellow (Yellow) Urine Appearance Clear (Clear) Urine pH 5.5 (5.0-8.5) Ur Specific [place] > 1.030 H (1.000-1.030) Urine Protein 2+ A (Negative) Urine Glucose (UA) Negative (Negative) Urine Ketones 1+ A (Negative) Urine Blood Negative (Negative) Urine Nitrite Negative (Negative) Urine Bilirubin 1+ A (Negative) Urine Urobilinogen 1.0 (0.2-1.0) Ur Leukocyte Esterase Negative (Negative) Urine RBC 0-2 (0-2) Urine WBC 0-2 (0-5) Ur Squamous Epith Cells Few (None-Few) Urine Bacteria Many A (None) Urine HCG, Qual Negative (Negative) Imaging Data CT scan - abdomen: Attestation: I have reviewed the pertinent imaging results. Radiologist's impression: TECHNIQUE: CT of the abdomen and pelvis acquired with 95 cc Isovue 370 IV contrast. Coronal and sagittal reconstructions. COMPARISON: CT of the abdomen and pelvis 02/03/2025. FINDINGS: Lower chest: Unremarkable. Liver: Normal in size and attenuation. No suspicious masses. Gallbladder and bile ducts: Cholecystectomy. Common bile duct stent in stable position. No biliary dilation. Spleen: Unremarkable. Pancreas: Unremarkable. Adrenal glands: Unremarkable. Kidneys, Ureters, and Bladder: Symmetric enhancement. No hydronephrosis. No obstructing urinary calculi. Underdistended urinary bladder. Reproductive organs: Small uterine fibroid. Small follicle left ovary. Stable 6.0 x 4.5 cm septated cystic lesion in the right adnexa which has been previously characterized by MRI (series 2, image 134). GI tract/Peritoneum: No small bowel dilation. Moderate stool burden. Negative appendix. No intraperitoneal free air or fluid. The previously seen percutaneous drainage catheter has been removed. There is a persistent rim enhancing fluid collection along the posterior aspect of the duodenum which is slightly decreased in size measuring 1.5 x 2.3 x 4.5 cm today compared to 2.0 x 2.0 x 5.4 cm previously (series 2, image 80 and series 4, image 70). There is mesenteric stranding around the collection as well as tethering of the proximal ascending colon. No new fluid collections. Vasculature: Abdominal aorta is normal in caliber. Mesenteric arteries appear patent. Lymph nodes: No lymphadenopathy. Abdominal Wall: Small fat containing umbilical and supraumbilical ventral hernias. Bones: Transitional lumbosacral anatomy. IMPRESSION: 1. Removal of the previously seen percutaneous drainage catheter, with a persistent 1.5 x 2.3 x 4.5 cm rim enhancing fluid collection along the posterior aspect of the duodenum. Infection cannot be excluded. 2. Common bile duct stent in stable position. No biliary dilation. 3. Stable complex right adnexal cystic lesion. ECG Data Attestation: I personally reviewed and interpreted this ECG as follows: Discharge Plan Discharge Clinical Impression: Abdominal pain Patient Disposition: Home, Self-Care Condition: Stable Additional Instructions: Return to the emergency department if you develop fever, vomiting, worsening pain. I do recommend that you follow-up with your primary care team or your surgical team this week. You may also need a GI consult-speak about this with your primary care provider. Eight tablets of [place] sent to [facility]. Prescriptions: No Action hydrocodone-acetaminophen 5-325 mg tablet 1 tab PO Q6H PRN (Reason: pain) Qty: 25 0RF escitalopram oxalate 10 mg tablet 10 mg PO DAILY Follow Up/Referrals: Provider,Not a Local [Primary Care Provider, Family Practice] Stand Alone Forms: [employer] Info Instructions
[2025-02-20] MEDS: 0.9 % SODIUM CHLORIDE 1000 ml 1,000 ML IV (19:33)
[2025-02-20] MEDS: ONDANSETRON 2 MG/ML inj 4 MG IVP (19:33)
[2025-02-20 19:40] LABS: Lactate* 0.6 mmol/L (0.5-1.9)
[2025-02-20 19:41] LABS: Basophils Absolute Auto 0.01 K/uL (0.00-0.30); Basophils Percent Auto 0.1 % (0.0-3.0); Eosinophils Absolute Auto 0.18 K/uL (0.00-0.50); Eosinophils Percent Auto 2.1 % (0.0-7.0); Hematocrit 37.6 % (33.0-51.0); Hemoglobin* 12.3 gm/dL (12.0-16.0); Immature Granulocytes Abs Auto 0.01 K/uL (0.00-0.30); Immature Granulocytes Pct Auto 0.1 %; Lymphocytes Percent Auto 23.1 % (20-44); Mean Corpuscular HGB Conc 33 gm/dL (32-36); Mean Corpuscular Hemoglobin 25 pg (26-34); Mean Corpuscular Volume 77 fL (80-100); Monocytes Percent Auto 3.9 % (0.0-11.0); Neutrophils Absolute Auto 6.11 K/uL (1.7-7.0); Neutrophils Percent Auto 70.7 % (42.0-72.0); Platelet Count* 337 K/uL (140-440); RDW Coefficient of Variation % 16.3 % (11.5-15.5); Red Blood Count 4.86 m/uL (4.00-5.20); White Blood Count* 8.65 K/uL (4.50-11.00)
[2025-02-20 19:44] LABS: Slide Review Reflex No
[2025-02-20 19:46] VITALS: BP 126/87; PULSE 76; RESP 18; TEMP 36.4; O2SAT 98
[2025-02-20 20:02] LABS: Albumin* 4.2 g/dL (3.3-5.0); Chloride* 102 mmol/L (96-114); Sodium* 137 mmol/L (135-149)
[2025-02-20 20:03] LABS: Potassium* 3.6 mmol/L (3.6-5.1)
[2025-02-20 20:05] LABS: Alanine Aminotransferase* 132 U/L (4-35); Alkaline Phosphatase* 74 U/L (40-150); Anion Gap 8 mEq/L (7-15); Aspartate Amino Transferase* 77 U/L (12-35); Bilirubin Direct* 0.3 mg/dL (0.0-0.5); Bilirubin Total* 0.8 mg/dL (0.1-1.5); Blood Urea Nitrogen* 9 mg/dL (5-24); Carbon Dioxide* 27 mmol/L (20-32); Creatinine* 0.7 mg/dL (0.5-1.5); Est. Creatinine Clearance* 86.26; Estimated Glomerular Filt Rate 117 ml/min; Lipase* 223 U/L (23-300); Total Protein* 7.5 g/dL (6.0-8.3)
[2025-02-20 20:06] LABS: Glucose* 106 mg/dL (60-115)
[2025-02-20 20:11] LABS: C Reactive Protein* < 0.5 mg/dL (0.5-1.0)
--- NOTE | 2025-02-20 20:27 | CRLHL7_ITS ---
For Patients: As a result of the 21st Century Cures Act, medical imaging exams and procedure reports are released immediately into your electronic medical record. You may view this report before your referring provider. If you have questions, please contact your health care provider. INDICATION: Right upper quadrant pain. TECHNIQUE: CT of the abdomen and pelvis acquired with 95 cc Isovue 370 IV contrast. Coronal and sagittal reconstructions. COMPARISON: CT of the abdomen and pelvis 02/03/2025. FINDINGS: Lower chest: Unremarkable. Liver: Normal in size and attenuation. No suspicious masses. Gallbladder and bile ducts: Cholecystectomy. Common bile duct stent in stable position. No biliary dilation. Spleen: Unremarkable. Pancreas: Unremarkable. Adrenal glands: Unremarkable. Kidneys, Ureters, and Bladder: Symmetric enhancement. No hydronephrosis. No obstructing urinary calculi. Underdistended urinary bladder. Reproductive organs: Small uterine fibroid. Small follicle left ovary. Stable 6.0 x 4.5 cm septated cystic lesion in the right adnexa which has been previously characterized by MRI (series 2, image 134). GI tract/Peritoneum: No small bowel dilation. Moderate stool burden. Negative appendix. No intraperitoneal free air or fluid. The previously seen percutaneous drainage catheter has been removed. There is a persistent rim enhancing fluid collection along the posterior aspect of the duodenum which is slightly decreased in size measuring 1.5 x 2.3 x 4.5 cm today compared to 2.0 x 2.0 x 5.4 cm previously (series 2, image 80 and series 4, image 70). There is mesenteric stranding around the collection as well as tethering of the proximal ascending colon. No new fluid collections. Vasculature: Abdominal aorta is normal in caliber. Mesenteric arteries appear patent. Lymph nodes: No lymphadenopathy. Abdominal Wall: Small fat containing umbilical and supraumbilical ventral hernias. Bones: Transitional lumbosacral anatomy. IMPRESSION: 1. Removal of the previously seen percutaneous drainage catheter, with a persistent 1.5 x 2.3 x 4.5 cm rim enhancing fluid collection along the posterior aspect of the duodenum. Infection cannot be excluded. 2. Common bile duct stent in stable position. No biliary dilation. 3. Stable complex right adnexal cystic lesion. Please note that all CT scans at this facility use dose modulation, iterative reconstruction, and/or weight-based dosing when appropriate to reduce radiation dose to as low as reasonably achievable. Dictated by Amparo Kendrick MD @ 02/20/2025 10:22:18 PM (Electronically Signed)
[2025-02-20] MEDS: HYDROCODONE-ACETAMIN 5-325 MG 1 TAB 2 TAB PO (20:34)
[2025-02-20 20:47] LABS: Ur HCG Qualitative* Negative (Negative)
[2025-02-20 21:09] LABS: Appearance Urine Clear (Clear); Bilirubin Urine 1+ (Negative); Color Urine Yellow (Yellow); Glucose Urine Negative (Negative); Ketones Urine 1+ (Negative)
[2025-02-20 21:10] LABS: Bacteria Urine Many; Blood Urine Negative (Negative); Leukocyte Esterase Urine Negative (Negative); Nitrite Urine Negative (Negative); Protein Urine 2+ (Negative); RBC Urine 0-2 (0-2); Specific Gravity Urine > 1.030 (1.000-1.030); Squamous Epithelial Cell Urine Few (None-Few); WBC Urine 0-2 (0-5); pH Urine 5.5 (5.0-8.5)
[2025-02-20 22:29] VITALS: BP 130/86; PULSE 86; RESP 18; TEMP 36.4; O2SAT 97
== END 2025-02-20 23:14 | disposition home or self-care (01) ==
PROVIDERS: Emergency Provider Family Medicine
DX: R10.13 Epigastric pain (principal)
CPT/HCPCS: 36415; 74177; 80048; 80076; 81001; 81025; 83605; 83690; 85025; 86140; 87086; 93005; 96374; 99285; A9270; J2405; J7030; Q9967